=== PATIENT | female | born 1990 | race Caucasian/White ===

== ENCOUNTER 2021-11-09 05:43 | Emergency (ER) | payer OTHER, SELFPAY ==
[2021-11-09 05:43] VITALS: BP 152/92; PULSE 129; RESP 18; TEMP 37.2; O2SAT 96; BMI 34.1
--- NOTE | 2021-11-09 06:02 | EDS_ITS ---
HPI HPI - GI History of Present Illness Chief Complaint: Abd Pain Informant: patient Abdominal Pain/Flank Pain Onset: Days (3) Context: Sudden Onset Timing: Continuous Quality: Sharp, Stabbing and - (Pressure) Location: Epigastric and LUQ Worsened by: Nothing Relieved by: Nothing Nausea/Vomiting/Emesis GI Symptom: Positive for Nausea; Negative for Vomiting Diarrhea/Melena/Hematochezia GI Symptom: Negative for Diarrhea, Melena and Hematochezia Associated Symptoms Associated Symptoms: Positive for Hematuria; Negative for Dysuria and Frequency Narrative Narrative: Patient presents with upper abdominal pain that has been getting worse over the past 3 days. Patient describes her pain as pressure. Patient states it has been constant for the past 3 days. Patient states it is worse over the epigastric and left upper quadrant. Patient also admits to some mild pain in the right upper quadrant. Patient admits to nausea but denies any vomiting. Patient denies any diarrhea, melena, or hematochezia. Patient denies any dysuria or frequency. Patient admits to some hematuria but states she is also on her menstrual cycle. Patient admits to a fever of 102.4 at home. PFSH PFSH Medical History no medical history no medical history Home Medications cephalexin 500 mg PO Q6 #20 capsule 11/09/21 [Rx Last Taken Unknown] drospirenone-ethinyl estradiol [LOUISA (28)] 1 tab PO DAILY 11/09/21 [History Last Taken Unknown] Allergy/AdvReac Type Severity Reaction Status Date / Time No Known Allergies Allergy Verified 11/09/21 05:47 Surgical History (Updated 11/09/21 @ 06:[address] Misael Mcmullen DO) Hx of cholecystectomy Social History Smoking Status: Never smoker ROS ROS ED Constitutional Constitutional ED: Reports fever(s); Denies chills Eyes Eyes: Denies blurry vision or change in vision ENT ENT ED: Denies rhinorrhea or sore throat Cardiovascular Cardiovascular: Denies chest pain or palpitations Respiratory/Chest Respiratory/Chest: Denies cough or dyspnea Gastrointestinal Gastrointestinal: Reports abdominal pain and nausea; Denies diarrhea, melena or vomiting Genitourinary Genitourinary ED: Reports hematuria; Denies dysuria Musculoskeletal Musculoskeletal: Denies back pain or neck pain Integumentary Reports rash; Denies abscess Neurologic Neurologic: Reports headache(s); Denies weakness Allergic/Immunologic Allergic/Immunologic ED: Denies mouth swelling or urticaria EXAM Physical Exam Const Vital Signs: 11/09/21 05:43 Temperature 98.9 F Temperature Source Temporal Pulse Rate 129 H Respiratory Rate 18 Blood Pressure 152/92 H Blood Pressure Mean 112 Pulse Ox 96 Oxygen Delivery Method Room Air Positive well nourished and well developed General Appearance ED: well developed HEENT Reports moist mucous membranes Neck supple and no JVD Resp normal respiratory effort and clear to auscultation bilaterally Cardio regular rate, regular rhythm and no murmurs GI normal to inspection, nondistended, normoactive bowel sounds Auscultation: normoactive bowel sounds Palpation: soft and tender epigastric and LUQ; Negative for guarding or rebound tenderness present Extremity normal to inspection General Extremety ED: Negative for edema or tenderness General Extremity: Negative for edema Neuro oriented x3, CN's II-XII intact bilaterally and no sensory deficits noted Sensorium / Orientation: alert Motor Exam: strength 5/5 throughout Psych mental status grossly normal Skin no rashes or lesions noted MDM MDM MDM Narrative Medical decision making narrative: Patient was given IV fluids, morphine, and Zofran. CBC was within normal limits. Comprehensive metabolic profile was essentially within normal limits. Serum hCG was negative. Lipase was normal. Urinalysis shows a leukocyte esterase of 100 with positive nitrites. Occult blood was 250. There were 10-25 red blood cells, 10-25 white blood cells, and 10-25 epithelial cells. There is 3+ bacteria. Urine culture was ordered. Patient was given a dose of Rocephin here. Patient was given a prescription for Keflex. Patient was instructed to drink plenty of fluids. Patient was instructed to follow-up with her primary care physician in 5 to 7 days. Patient understood and was agreeable with the plan. All questions were answered. Lab Data Attestation: I reviewed the patient's lab results. Labs: Laboratory Results - last 24 hr 11/09/21 11/09/21 11/09/21 06:10 06:10 06:10 WBC 3.4 L RBC 5.05 Hgb 14.3 Hct 40.8 MCV 80.8 L MCH 28.3 MCHC 35.0 RDW Std Deviation 36.2 RDW Coeff of [place] 12.4 Plt Count 172 MPV 11.5 Immature Gran % (Auto) 0.300 Neut % (Auto) 44.9 L Lymph % (Auto) 49.1 H [place] % (Auto) 4.5 Eos % (Auto) 0.0 Baso % (Auto) 1.2 H Absolute Neuts (auto) 1.5 L Absolute Lymphs (auto) 1.65 Nucleated RBC % 0 Atypical Lymphocytes 1+ Sodium 135 L Potassium 3.3 L Chloride 103 Carbon Dioxide 23.0 Anion Gap 9 BUN 4 L Creatinine 0.74 Estim Creat Clear Calc 100.94 Est GFR (MDRD) Af Amer 120 Est GFR (MDRD) Non-Af 99 BUN/Creatinine Ratio 5.4 L Glucose 106 Calcium 8.4 L Total Bilirubin 0.60 AST 188 H ALT 124 H Alkaline Phosphatase 118 H Total Protein 8.1 Albumin 3.3 Globulin 4.8 H Albumin/Globulin Ratio 0.7 L Lipase 61 L Serum , Qual NEGATIVE Urine Color Urine Clarity Urine pH Ur Specific [place] Urine Protein Urine Glucose (UA) Urine Ketones Urine Occult Blood Urine Nitrite Urine Bilirubin Urine Urobilinogen Ur Leukocyte Esterase Urine RBC Urine WBC Ur Squamous Epith Cells Urine Bacteria Urine Mucus 11/09/21 06:10 WBC RBC Hgb Hct MCV MCH MCHC RDW Std Deviation RDW Coeff of [place] Plt Count MPV Immature Gran % (Auto) Neut % (Auto) Lymph % (Auto) [place] % (Auto) Eos % (Auto) Baso % (Auto) Absolute Neuts (auto) Absolute Lymphs (auto) Nucleated RBC % Atypical Lymphocytes Sodium Potassium Chloride Carbon Dioxide Anion Gap BUN Creatinine Estim Creat Clear Calc Est GFR (MDRD) Af Amer Est GFR (MDRD) Non-Af BUN/Creatinine Ratio Glucose Calcium Total Bilirubin AST ALT Alkaline Phosphatase Total Protein Albumin Globulin Albumin/Globulin Ratio Lipase Serum , Qual Urine Color [place] Urine Clarity Sl. Cloudy Urine pH 5.0 Ur Specific [place] 1.020 Urine Protein 100 H Urine Glucose (UA) Normal Urine Ketones 15 H Urine Occult Blood 250 H Urine Nitrite Positive H Urine Bilirubin 3 H Urine Urobilinogen 4 H Ur Leukocyte Esterase 100 H Urine RBC 10-25 SEEN Urine WBC 10-25 SEEN Ur Squamous Epith Cells 10-25 SEEN Urine Bacteria 3+ Urine Mucus 0 SEEN Discharge Plan Triage Chief Complaint: Abd Pain ED Provider: Misael Mcmullen Dx/Rx/DC Orders Clinical Impression: Urinary tract infection Instructions: ED CYSTITIS Female Adult Prescriptions: New cephalexin [cephalexin] 500 MG capsule 500 mg PO Q6 Qty: 20 RF: 0 No Action drospirenone-ethinyl estradiol [LOUISA (28)] 3-0.02 mg Tablet 1 tab PO DAILY RF: 0 Primary Care Provider: Care Physician,No Primary Referrals: Erica Silva MD [STAFF PHYSICIAN] - 5-7 Days Care Physician,No Primary [Primary Care Provider] - Disposition Disposition: Home, Self Care
[2021-11-09 06:19] LABS: Mucous, Urine 0 SEEN /hpf (<or=2+)
[2021-11-09] MEDS: Morphine 4 MG/ML Syringe IV (06:20)
[2021-11-09] MEDS: Ondansetron 4 MG/2 ML Vial IV (06:20)
[2021-11-09 06:21] LABS: Absolute Lymphocyte Count 1.65 X10^3/uL (0.83-4.51); Absolute Neutrophil Count 1.5 X10^3/uL (2.0-7.7); Basophil# 0.04 X10^3/uL; Basophil% 1.2 % (0-1); Hematocrit 40.8 % (37-47); Hemoglobin 14.3 g/dL (12.0-15.0); Lymphocyte # 1.65 X10^3/ul (0.83-4.51); Lymphocyte % 49.1 % (19-41); Mean Corpuscular Hgb 28.3 pg (27.0-32.0); Mean Corpuscular Volume 80.8 fL (81-99); Mean Platelet Vol. 11.5 fl (6.2-12.0); Monocyte# 0.15 X10^3/uL; Monocyte% 4.5 % (0-10); NRBC Flagged by Analyzer 0 % (0-5); Neutrophil # 1.51 X10^3/uL (2.7-7.7); Neutrophil % 44.9 % (47-70); POSITIVE MORPHOLOGY YES; Platelet Count 172 K/mm3 (150-450); RBC Distribution Width CV 12.4 % (11.6-14.6); RBC Distribution Width SD 36.2 fl (35.1-43.9); Red Blood Count 5.05 M/mm3 (4.2-5.4); White Blood Count 3.4 K/mm3 (4.4-11.0)
[2021-11-09] MEDS: 0.9% Normal Saline 1,000 ML 1000 ML IV (06:21)
[2021-11-09 06:24] LABS: Color, Urine Amber (Yellow); Differential Indicated SCAN CRITERIA MET; Glucose, Dipstick Normal (Normal); Ketone-Dipstick 15 mg/dl (Negative); Leukocyte Esterase-Dipstick 100 /ul (Negative); Nitrite-Dipstick Positive (Negative); Occult Blood-Urine 250 /ul (Negative); Protein-Dipstick 100 mg/dl (Negative); Urine Clarity Sl. Cloudy (Clear); Urine Urobilinogen 4 mg/dl (Normal)
[2021-11-09 06:32] LABS: Internal QC Validated? YES +Cl - CLEAR BKGD; Pregnancy, Serum, hCG Quali. NEGATIVE Negative
[2021-11-09 06:34] LABS: Atypical Lymphocyte 1+ %
[2021-11-09 06:39] LABS: ALB/GLOB Ratio 0.7 RATIO (0.9-2.4); AST(SGOT) 188 U/L (15-37); Alanine Aminotransfer ALT/SGPT 124 U/L (13-56); Albumin, Serum 3.3 g/dL (3.2-5.0); Alkaline Phosphatase 118 U/L (45-117); Anion Gap 9 (5-15); BUN 4 mg/dL (7-18); BUN/Creat Ratio 5.4 RATIO (10-20); Calcium,Total 8.4 mg/dL (8.5-10.1); Chloride 103 mmol/L (98-107); Creatinine, Serum 0.74 mg/dL (0.55-1.02); EST Glomerular Filtration Rate 99 mL/min (>60); Est Glom Filt Rate - Afr Amer 120 mL/min (>60); Estimated Creatinine Clearance 100.94 ml/min; Globulin 4.8 g/dL (2.2-4.2); Glucose 106 mg/dL (74-106); Lipase 61 U/L (73-393); Potassium 3.3 mmol/L (3.5-5.1); Protein, Total 8.1 g/dL (6.4-8.2); Sodium Level 135 mmol/L (136-145); Urine Bilirubin Dipstick 3 mg/dL (Negative)
[2021-11-09 06:40] LABS: Bacteria 3+ /hpf (None Seen); Squamous Epithelial Cells - UA 10-25 SEEN /hpf (5-10); White Blood Cells 10-25 SEEN /hpf (0-5)
[2021-11-09 06:41] LABS: Red Blood Cells-Urine 10-25 SEEN /hpf (0-5)
[2021-11-09] MEDS: Ceftriaxone 1 GM/50 ML BAG IV (07:21)
[2021-11-09] MEDS: Mag Hydrox/Al Hydrox/Simeth 30 ML UDC PO (07:22)
[2021-11-09 08:11] VITALS: BP 111/84; PULSE 100; RESP 16; O2SAT 95
== END 2021-11-09 08:14 | disposition home or self-care (01) ==
PROVIDERS: Emergency Provider Emergency Medicine; Visit Provider Emergency Medicine
DX: N39.0 Urinary tract infection, site not specified (principal)
CPT/HCPCS: 80053; 81001; 83690; 84703; 85025; 96365; 96375; 99284; A4216; J2405

== ENCOUNTER 2021-11-11 21:43 | Emergency (ER) | payer OTHER, SELFPAY ==
[2021-11-11 21:44] VITALS: BP 117/94; PULSE 108; RESP 18; TEMP 37; O2SAT 98; BMI 34.1
--- NOTE | 2021-11-11 22:15 | EDS_ITS ---
HPI HPI - GI History of Present Illness Chief Complaint: Abd Pain Informant: patient Abdominal Pain/Flank Pain Onset: Days (4) Context: Gradual Onset Timing: Continuous Quality: Sharp Location: Epigastric and LUQ Worsened by: Food and Movement Relieved by: Nothing Nausea/Vomiting/Emesis GI Symptom: Positive for Nausea; Negative for Vomiting Diarrhea/Melena/Hematochezia GI Symptom: Negative for Diarrhea, Melena and Hematochezia Associated Symptoms Associated Symptoms: Positive for Hematuria; Negative for Dysuria and Frequency Narrative Narrative: Patient presents with abdominal pain that has been constant for the last 4 days. Patient was seen here earlier this week and was diagnosed with a urinary tract infection. Patient was given a prescription for Keflex. Patient states that her pain has not improved. Patient states her pain is over her left upper quadrant and epigastric area. Patient states it is sharp. Patient states it is worse with eating or drinking. It is also worse with movement. Patient states nothing seems to help. Patient admits to nausea but denies any vomiting. Patient denies any diarrhea, melena, or hematochezia. Patient denies any dysu mikayla. PFSH PFSH Home Medications cephalexin 500 mg PO Q6 #20 capsule 11/09/21 [Rx Last Taken Unknown] drospirenone-ethinyl estradiol [LOUISA (28)] 1 tab PO DAILY 11/09/21 [History Last Taken Unknown] Allergy/AdvReac Type Severity Reaction Status Date / Time Sulfa (Sulfonamide Allergy Mild Rash Verified 11/11/21 22:07 Antibiotics) red (food color) Allergy Hives Verified 11/11/21 21:48 Surgical History Hx of cholecystectomy Social History Smoking Status: Never smoker ROS ROS ED Constitutional Constitutional ED: Reports fever(s); Denies chills Eyes Eyes: Denies blurry vision or change in vision ENT ENT ED: Denies rhinorrhea or sore throat Cardiovascular Cardiovascular: Denies chest pain or palpitations Respiratory/Chest Respiratory/Chest: Denies cough or dyspnea Gastrointestinal Gastrointestinal: Reports abdominal pain and nausea; Denies vomiting Genitourinary Genitourinary ED: Denies dysuria or hematuria Musculoskeletal Musculoskeletal: Reports back pain; Denies neck pain Integumentary Denies abscess or rash Neurologic Neurologic: Reports headache(s); Denies weakness Allergic/Immunologic Allergic/Immunologic ED: Denies mouth swelling or urticaria EXAM Physical Exam Const Vital Signs: 11/11/21 21:44 Temperature 98.6 F Temperature Source Temporal Pulse Rate 108 H Respiratory Rate 18 Blood Pressure 117/94 H Blood Pressure Mean 101 Pulse Ox 98 Oxygen Delivery Method Room Air Positive well nourished, well developed and obese General Appearance ED: well developed and NAD Nutritional Appearance: obese HEENT Reports moist mucous membranes Neck supple and no JVD Resp normal respiratory effort and clear to auscultation bilaterally Cardio regular rate and regular rhythm GI non-distended Auscultation: normoactive bowel sounds Palpation: soft and tender epigastric, LLQ and LUQ; Negative for guarding or rebound tenderness present Neuro CN's II-XII intact bilaterally, moves all extremities and no sensory deficits noted Sensorium / Orientation: alert, oriented to person, oriented to place and oriented to time Motor Exam: strength 5/5 throughout Psych mental status grossly normal MDM MDM MDM Narrative Medical decision making narrative: Patient was given IV fluids, morphine, and Zofran. CBC was within normal limits. Comprehensive metabolic profile shows an elevated bilirubin of 2.6, AST was 420, ALT was 322, and alk phos was 195. Urinalysis does not show any evidence of urinary tract infection. Lipase was ordered and is pending. CT scan of the abdomen pelvis was ordered and is pending. Care of the patient was turned over to the oncoming physician. Lab Data Attestation: I reviewed the patient's lab results. Labs: Laboratory Results - last 24 hr 11/11/21 11/11/21 11/11/21 21:50 22:10 22:10 WBC 6.4 RBC 5.07 Hgb 14.3 Hct 41.7 MCV 82.2 MCH 28.2 MCHC 34.3 RDW Std Deviation 38.7 RDW Coeff of Courtney 12.9 Plt Count 151 MPV 13.0 H Immature Gran % (Auto) 0.300 Neut % (Auto) 20.1 L Lymph % (Auto) 73.9 H [place] % (Auto) 3.8 Eos % (Auto) 0.2 Baso % (Auto) 1.7 H Absolute Neuts (auto) 1.3 L Absolute Lymphs (auto) 4.73 H Nucleated RBC % 0 Differential Comment SCANNED Sodium 136 Potassium 3.9 Chloride 103 Carbon Dioxide 28.0 Anion Gap 5 BUN 5 L Creatinine 0.69 Estim Creat Clear Calc 108.25 Est GFR (MDRD) Af Amer 129 Est GFR (MDRD) Non-Af 107 BUN/Creatinine Ratio 7.3 L Glucose 107 H Calcium 9.2 Total Bilirubin 2.60 H AST 420 H ALT 322 H Alkaline Phosphatase 195 H Total Protein 8.0 Albumin 3.3 Globulin 4.7 H Albumin/Globulin Ratio 0.7 L Serum , Qual Urine Color Yellow Urine Clarity Clear Urine pH 7.0 Ur Specific [place] 1.010 Urine Protein 15 H Urine Glucose (UA) Normal Urine Ketones 5 H Urine Occult Blood 250 H Urine Nitrite Negative Urine Bilirubin 3 H Urine Urobilinogen 4 H Ur Leukocyte Esterase 25 H Urine RBC 5-10 SEEN Urine WBC 0 SEEN Ur Squamous Epith Cells 0-5 SEEN Urine Bacteria 0 SEEN Urine Mucus 0 SEEN 11/11/21 22:10 WBC RBC Hgb Hct MCV MCH MCHC RDW Std Deviation RDW Coeff of [place] Plt Count MPV Immature Gran % (Auto) Neut % (Auto) Lymph % (Auto) [place] % (Auto) Eos % (Auto) Baso % (Auto) Absolute Neuts (auto) Absolute Lymphs (auto) Nucleated RBC % Differential Comment Sodium Potassium Chloride Carbon Dioxide Anion Gap BUN Creatinine Estim Creat Clear Calc Est GFR (MDRD) Af Amer Est GFR (MDRD) Non-Af BUN/Creatinine Ratio Glucose Calcium Total Bilirubin AST ALT Alkaline Phosphatase Total Protein Albumin Globulin Albumin/Globulin Ratio Serum , Qual NEGATIVE Urine Color Urine Clarity Urine pH Ur Specific [place] Urine Protein Urine Glucose (UA) Urine Ketones Urine Occult Blood Urine Nitrite Urine Bilirubin Urine Urobilinogen Ur Leukocyte Esterase Urine RBC Urine WBC Ur Squamous Epith Cells Urine Bacteria Urine Mucus Discharge Plan Triage Chief Complaint: Abd Pain ED Provider: Misael Mcmullen Dx/Rx/DC Orders Clinical Impression: Abdominal pain Instructions: ED Abdominal Pain Unkn Cause Fem Prescriptions: No Action drospirenone-ethinyl estradiol [LOUISA (28)] 3-0.02 mg Tablet 1 tab PO DAILY RF: 0 cephalexin [cephalexin] 500 MG capsule 500 mg PO Q6 Qty: 20 RF: 0 Primary Care Provider: Care Physician,No Primary Referrals: Care Physician,No Primary [Primary Care Provider] - Clare Kaba DO [STAFF PHYSICIAN] - 3-5 Days Disposition Disposition: Home, Self Care
--- NOTE | 2021-11-11 22:19 | CT_ITS ---
STUDY: CT ABDOMEN AND PELVIS WITH CONTRAST REASON FOR EXAM: Female, 31 years old. Abdominal pain -- IV PO Contrast RADIATION DOSAGE (If Supplied By Facility): CTDIvol = ( 16.73 ) mGy, DLP = ( 1331.08 ) mGycm TECHNIQUE: Transaxial images were obtained from the dome of the diaphragm to the symphysis pubis with oral contrast. 100mL Isovue-370 was administered. Sagittal and coronal images were reconstructed. Individualized dose optimization techniques were used for this CT. COMPARISON: None. FINDINGS: The visualized lung bases are unremarkable. The visualized portions of the heart are within normal limits. Normal liver. There are surgical clips in the gallbladder fossa consistent with a prior cholecystectomy. Normal spleen. Normal pancreas. Normal bilateral adrenal glands. Normal right kidney. Normal left kidney. No ureteral calculus or hydronephrosis. Normal visualized stomach. Normal small intestine. Normal colon. The appendix is visualized and appears normal. Oral contrast has reached the distal small bowel. No evidence for bowel obstruction. Normal abdominal aorta. Normal inferior vena cava. Normal retroperitoneum. Normal urinary bladder. Normal abdominal wall. Normal osseous structures. There is a small hemangioma within the posterior aspect of T12 vertebral body measuring 1.[address]/Abdomen/Pelvis WITH Contrast IMPRESSION: Negative enhanced CT of the abdomen and pelvis for acute intra-abdominal abnormality. Normal appendix. Electronically Signed: Ferdinand Ballard MD at 0:27 EST ,
[2021-11-11] MEDS: Morphine 4 MG/ML Syringe IV (22:32)
[2021-11-11] MEDS: Ondansetron 4 MG/2 ML Vial IV (22:32)
[2021-11-11] MEDS: 0.9% Normal Saline 1,000 ML 1000 ML IV (22:34)
[2021-11-11 22:52] LABS: Bacteria 0 SEEN /hpf (None Seen); Mucous, Urine 0 SEEN /hpf (<or=2+); White Blood Cells 0 SEEN /hpf (0-5)
[2021-11-11 22:53] LABS: Absolute Lymphocyte Count 4.73 X10^3/uL (0.83-4.51); Absolute Neutrophil Count 1.3 X10^3/uL (2.0-7.7); Basophil# 0.11 X10^3/uL; Basophil% 1.7 % (0-1); Eosinophil# 0.01 X10^3/uL; Eosinophils% 0.2 % (0-5); Hematocrit 41.7 % (37-47); Hemoglobin 14.3 g/dL (12.0-15.0); Lymphocyte # 4.73 X10^3/ul (0.83-4.51); Lymphocyte % 73.9 % (19-41); Mean Corp Hgb Conc 34.3 g/dL (32-36); Mean Corpuscular Hgb 28.2 pg (27.0-32.0); Mean Corpuscular Volume 82.2 fL (81-99); Monocyte# 0.24 X10^3/uL; Monocyte% 3.8 % (0-10); NRBC Flagged by Analyzer 0 % (0-5); Neutrophil # 1.29 X10^3/uL (2.7-7.7); Neutrophil % 20.1 % (47-70); POSITIVE MORPHOLOGY YES; Platelet Count 151 K/mm3 (150-450); RBC Distribution Width CV 12.9 % (11.6-14.6); RBC Distribution Width SD 38.7 fl (35.1-43.9); Red Blood Count 5.07 M/mm3 (4.2-5.4); White Blood Count 6.4 K/mm3 (4.4-11.0)
[2021-11-11 22:54] LABS: Differential Indicated SCAN CRITERIA MET
[2021-11-11 23:05] LABS: Internal QC Validated? YES +Cl - CLEAR BKGD; Pregnancy, Serum, hCG Quali. NEGATIVE Negative
[2021-11-11 23:15] LABS: ALB/GLOB Ratio 0.7 RATIO (0.9-2.4); AST(SGOT) 420 U/L (15-37); Alanine Aminotransfer ALT/SGPT 322 U/L (13-56); Albumin, Serum 3.3 g/dL (3.2-5.0); Alkaline Phosphatase 195 U/L (45-117); Anion Gap 5 (5-15); BUN 5 mg/dL (7-18); BUN/Creat Ratio 7.3 RATIO (10-20); Calcium,Total 9.2 mg/dL (8.5-10.1); Chloride 103 mmol/L (98-107); Creatinine, Serum 0.69 mg/dL (0.55-1.02); EST Glomerular Filtration Rate 107 mL/min (>60); Est Glom Filt Rate - Afr Amer 129 mL/min (>60); Estimated Creatinine Clearance 108.25 ml/min; Globulin 4.7 g/dL (2.2-4.2); Glucose 107 mg/dL (74-106); Potassium 3.9 mmol/L (3.5-5.1); Sodium Level 136 mmol/L (136-145)
[2021-11-11 23:19] LABS: Color, Urine Yellow (Yellow); Glucose, Dipstick Normal (Normal); Ketone-Dipstick 5 mg/dl (Negative); Leukocyte Esterase-Dipstick 25 /ul (Negative); Nitrite-Dipstick Negative (Negative); Occult Blood-Urine 250 /ul (Negative); Protein-Dipstick 15 mg/dl (Negative); Urine Clarity Clear (Clear); Urine Urobilinogen 4 mg/dl (Normal)
[2021-11-11 23:25] LABS: Red Blood Cells-Urine 5-10 SEEN /hpf (0-5); Squamous Epithelial Cells - UA 0-5 SEEN /hpf (5-10); Urine Bilirubin Dipstick 3 mg/dL (Negative)
[2021-11-11 23:26] LABS: Differential Comment SCANNED
[2021-11-12 00:21] LABS: Lipase 88 U/L (73-393)
--- NOTE | 2021-11-12 02:15 | ED.RN ---
PATIENT GIVEN 4 MG ZOFRAN IV AT 0200. FLUIDS HAVE BEEN INFUSED- 1L NS. PAIN REASSESSED. 01/26. ID [employer]S NOT WORKING FOR THIS RN DURING THE TIME OF MEDICATION GIVEN.
[2021-11-13 09:09] LABS: HEPATITIS B SURFACE AG Negative (Negative); Hepatitis A IgM Antibody Negative (Negative); Hepatitis B Core AB IgM Negative (Negative)
[2021-11-13 10:12] LABS: Hep C Antibodies <0.1 s/co ratio (0.0-0.9)
== END 2021-11-12 02:18 | disposition home or self-care (01) ==
PROVIDERS: Emergency Medicine; Emergency Provider Emergency Medicine; Visit Provider Emergency Medicine
DX: R10.9 Unspecified abdominal pain (principal); E66.9 Obesity, unspecified
CPT/HCPCS: 74177; 80053; 80074; 81001; 83690; 84703; 85025; 87426; 96374; 96375; 99283; J7030; Q9967; A4216; J2405

== ENCOUNTER 2021-12-10 11:59 | Outpatient (CLI) | payer OTHER, SELFPAY ==
[2021-12-10 15:06] LABS: Absolute Lymphocyte Count 2.44 X10^3/uL (0.83-4.51); Absolute Neutrophil Count 3.2 X10^3/uL (2.0-7.7); Basophil# 0.03 X10^3/uL; Basophil% 0.5 % (0-1); Eosinophil# 0.05 X10^3/uL; Eosinophils% 0.8 % (0-5); Hematocrit 41.9 % (37-47); Hemoglobin 14.1 g/dL (12.0-15.0); Lymphocyte # 2.44 X10^3/ul (0.83-4.51); Lymphocyte % 39.7 % (19-41); Mean Corp Hgb Conc 33.7 g/dL (32-36); Mean Corpuscular Hgb 28.6 pg (27.0-32.0); Monocyte# 0.38 X10^3/uL; Monocyte% 6.2 % (0-10); NRBC Flagged by Analyzer 0 % (0-5); Neutrophil # 3.24 X10^3/uL (2.7-7.7); Neutrophil % 52.6 % (47-70); Platelet Count 278 K/mm3 (150-450); RBC Distribution Width SD 39.8 fl (35.1-43.9); Red Blood Count 4.93 M/mm3 (4.2-5.4); White Blood Count 6.2 K/mm3 (4.4-11.0)
[2021-12-10 15:23] LABS: Vitamin D,25 Hydroxy 15.7 ng/mL
[2021-12-10 15:31] LABS: ALB/GLOB Ratio 0.9 RATIO (0.9-2.4); AST(SGOT) 18 U/L (15-37); Alanine Aminotransfer ALT/SGPT 30 U/L (13-56); Albumin, Serum 3.9 g/dL (3.2-5.0); Alkaline Phosphatase 74 U/L (45-117); Anion Gap 5 (5-15); BUN 6 mg/dL (7-18); BUN/Creat Ratio 10.2 RATIO (10-20); Calcium,Total 9.2 mg/dL (8.5-10.1); Chloride 104 mmol/L (98-107); Creatinine, Serum 0.59 mg/dL (0.55-1.02); EST Glomerular Filtration Rate 128 mL/min (>60); Est Glom Filt Rate - Afr Amer 155 mL/min (>60); Globulin 4.3 g/dL (2.2-4.2); Glucose 81 mg/dL (74-106); Potassium 3.9 mmol/L (3.5-5.1); Protein, Total 8.2 g/dL (6.4-8.2); Sodium Level 138 mmol/L (136-145); Thyroid Stim Hormone (TSH) 0.79 uIU/mL (0.358-3.74)
[2021-12-14 09:57] LABS: Hepatitis A IgM Antibody Negative (Negative)
== END 2021-12-10 23:59 | disposition home or self-care (01) ==
LOC: BIMLAB 12:01
PROVIDERS: PCP Internal Medicine; Referring Provider Internal Medicine; Visit Provider Internal Medicine
DX: R79.89 Other specified abnormal findings of blood chemistry (principal)
CPT/HCPCS: 36415; 80053; 82306; 84443; 85025; 86709

== ENCOUNTER 2021-12-16 08:43 | Outpatient (CLI) | payer OTHER, SELFPAY ==
--- NOTE | 2021-12-16 08:44 | US_ITS ---
STUDY: ABDOMINAL ULTRASOUND - RIGHT UPPER QUADRANT REASON FOR VISIT: Female, 31 years old ELEVATE LFT TECHNIQUE: Ultrasound evaluation of the right upper quadrant was performed with real-time and static leung-scale imaging. TECHNICAL QUALITY: Adequate. COMPARISON: None. FINDINGS: Liver: The liver measures 14.2 cm. There is normal echogenicity of the liver. The bile ducts are within normal limits. There is hepatic color flow. The direction of portal flow is hepatopetal. There is no demonstrated mass lesion. Gallbladder: The patient is status post cholecystectomy. Common Bile Duct (C.B.D.): The common bile duct measures 4 mm. Pancreas: Normal size of the head, body and tail of the pancreas. There is normal echogenicity of the pancreas. There is no demonstrated pancreatic mass or cyst. Right Kidney: Normal size of the right kidney. The right kidney measures 11.9 cm x 5.1 cm x 4.6 cm. Normal renal cortex. The right cortex measures 1.3 cm. There is no demonstrated renal mass or cyst. There is no right hydronephrosis. US/Liver IMPRESSION: Normal right upper quadrant ultrasound examination. The patient is status post cholecystectomy. Electronically Signed: Nish Diamond MD at 9:42 EDT ,
== END 2021-12-16 23:59 | disposition home or self-care (01) ==
LOC: US 08:43
PROVIDERS: PCP Internal Medicine; Referring Provider Internal Medicine; Visit Provider Internal Medicine
DX: R79.89 Other specified abnormal findings of blood chemistry (principal)
CPT/HCPCS: 76705

== ENCOUNTER 2022-02-13 09:11 | Emergency (ER) | payer OTHER, SELFPAY ==
[2022-02-13 09:11] VITALS: BP 105/80; PULSE 104; RESP 16; TEMP 36; O2SAT 98; BMI 34.9
[2022-02-13] MEDS: Ondansetron 4 MG/2 ML Vial IV (09:37)
[2022-02-13] MEDS: Ketorolac 15 MG/ML Vial IV (09:38)
[2022-02-13] MEDS: 0.9% Normal Saline 1,000 ML 1000 ML IV (09:38)
[2022-02-13 09:47] LABS: Absolute Lymphocyte Count 1.19 X10^3/uL (0.83-4.51); Absolute Neutrophil Count 4.2 X10^3/uL (2.0-7.7); Basophil# 0.01 X10^3/uL; Basophil% 0.2 % (0-1); Hematocrit 45.2 % (37-47); Hemoglobin 15.6 g/dL (12.0-15.0); Lymphocyte # 1.19 X10^3/ul (0.83-4.51); Lymphocyte % 20.3 % (19-41); Mean Corp Hgb Conc 34.5 g/dL (32-36); Mean Corpuscular Hgb 28.4 pg (27.0-32.0); Mean Corpuscular Volume 82.2 fL (81-99); Mean Platelet Vol. 11.9 fl (6.2-12.0); Monocyte# 0.45 X10^3/uL; Monocyte% 7.7 % (0-10); NRBC Flagged by Analyzer 0 % (0-5); Neutrophil # 4.18 X10^3/uL (2.7-7.7); Neutrophil % 71.5 % (47-70); Platelet Count 275 K/mm3 (150-450); RBC Distribution Width CV 12.7 % (11.6-14.6); RBC Distribution Width SD 38.1 fl (35.1-43.9); White Blood Count 5.9 K/mm3 (4.4-11.0)
[2022-02-13 10:10] LABS: ALB/GLOB Ratio 0.8 RATIO (0.9-2.4); AST(SGOT) 13 U/L (15-37); Alanine Aminotransfer ALT/SGPT 23 U/L (13-56); Albumin, Serum 3.9 g/dL (3.2-5.0); Alkaline Phosphatase 60 U/L (45-117); Anion Gap 10 (5-15); BUN 14 mg/dL (7-18); BUN/Creat Ratio 11.4 RATIO (10-20); Calcium,Total 9.2 mg/dL (8.5-10.1); Chloride 103 mmol/L (98-107); Creatinine, Serum 1.23 mg/dL (0.55-1.02); EST Glomerular Filtration Rate 55 mL/min (>60); Est Glom Filt Rate - Afr Amer 66 mL/min (>60); Estimated Creatinine Clearance 60.73 ml/min; Globulin 4.9 g/dL (2.2-4.2); Glucose 159 mg/dL (74-106); Lipase 64 U/L (73-393); Potassium 3.4 mmol/L (3.5-5.1); Protein, Total 8.8 g/dL (6.4-8.2); Sodium Level 132 mmol/L (136-145)
[2022-02-13 10:15] LABS: Mucous, Urine 0 SEEN /hpf (<or=2+); Red Blood Cells-Urine 0 SEEN /hpf (0-5)
--- NOTE | 2022-02-13 10:15 | EDS_ITS ---
HPI <VICKI Galvez - Last Filed: 02/13/22 12:04> History of Present Illness Chief Complaint: Nausea/Vomiting/Diarrhea Narrative Narrative: 31-year-old female with history of seasonal allergies presents to the emergency department with 2 days of diarrhea, dizziness, fatigue. Patient is in a on the floor, patient states today she was at work, had 8 episodes of diarrhea from 7 AM to 9:30 AM, on the last course of diarrhea, she states that she felt hot sweaty and kind of lightheaded. Patient denies any sick contacts, patient denies any recent antibiotic use. Denies any fevers or chills. Denies any blood in the stool. Denies any specific abdominal. Patient is going multiple times through the day for the last 48 hours and feels fatigued. Denies any blood in stool or vomit PFSH <VCIKI Galvez - Last Filed: 02/13/22 12:04> PFSH Medical History (Updated 02/13/22 @ 12:02 by VICKI Galvez) Asthma Bone fracture Gallstones Headache, migraine Rosacea Seasonal allergic conjunctivitis Trigger thumb Wears hearing aid Home Medications drospirenone-ethinyl estradiol [LOUISA (28)] 1 tab PO DAILY 11/09/21 [History Last Taken Unknown] cephalexin 500 mg PO BID #10 cap 02/13/22 [Rx Last Taken Unknown] ondansetron 4 mg PO Q8H PRN #10 tab 02/13/22 [Rx Last Taken Unknown] Allergy/AdvReac Type Severity Reaction Status Date / Time Sulfa (Sulfonamide Allergy Mild Rash Verified 02/13/22 09:11 Antibiotics) red (food color) Allergy Hives Verified 02/13/22 09:11 Family History Sister Asthma Father Bowel disease Liver disease Thyroid disorder Grandmother Cervical cancer Diabetes Grandfather Cancer Mother Hypertension Surgical History Hx of cholecystectomy Social History (Updated 12/10/21 @ 10:30 by Elena Hoskins) Smoking Status: Never smoker alcohol intake: never substance use type: does not use what type of physical activity do you participate in: none ROS <VICKI Galvez - Last Filed: 02/13/22 12:04> ROS ED ROS Narrative Constitutional: Negative for fever, weight loss, weakness. Positive for chills and sweats Eyes: Negative for vision loss, vision change, double vision ENT: Negative for any sore throat, ear pain, congestion Cardiovascular: Negative for any chest pain, tightness, palpitations Respiratory: Negative for any cough, sputum production, hemoptysis, dyspnea, dyspnea on exertion, orthopnea Gastrointestinal: Negative for any abdominal pain, nausea, vomiting, constipation, blood in stool, blood in vomit. Positive for diarrhea : Negative for any urinary frequency, dysuria, retention, blood in urine Muscle skeletal: Negative for any muscle joint pain, stiffness, myalgias, arthralgias, neck pain, back pain Neurological: Negative for any headache, syncope, numbness or tingling. Positive for dizziness Skin: Negative for any rashes, lumps, itching, abrasions, lacerations Psychiatric: Negative for any depression, anxiety, stress, suicidal ideation, homicidal ideation Hematologic: Negative for any easy bruising, excessive bruising, easy bleeding Allergies: Negative for any eczema, hives, rash EXAM <VICKI Galvez - Last Filed: 02/13/22 12:04> Physical Exam Narrative Exam Narrative: Vital signs reviewed. HEET: Head normocephalic atraumatic, TMs clear bilaterally. Posterior pharynx is clear, moist mucous membranes. Nares clear bilaterally. Neck: Supple with no lymphadenopathy or tenderness. No signs of meningismus, negative jolt sign. Cardiac: Regular rate and rhythm no murmurs gallops or rubs, equal peripheral pulses bilaterally. Respiratory: Lungs clear to auscultation bilaterally. No chest tenderness. Abdomen: Soft, nontender, nondistended. No abdominal bruit or pulsatile masses. No hepatosplenomegaly Extremities: No peripheral edema, no signs of gross trauma or deformity. Active full range of motion of all extremities. Neuro: Cranial nerves II through XII intact, no focal neurological deficits. Skin: Clean dry and intact with no rash, purpura, petechiae, vesicles or pustules. Backs/flank: No CVA tenderness, no midline spinal tenderness, no deformity. Psych: Normal mood and affect. No SI, HI or acute psychosis. Const Vital Signs: 02/13/22 09:11 02/13/22 11:34 Temperature 96.8 F L 97.2 F L Temperature Source Temporal Temporal Pulse Rate 104 H 78 Respiratory Rate 16 18 Blood Pressure 105/80 114/70 Blood Pressure Mean 88 84 Pulse Ox 98 97 Oxygen Delivery Method Room Air Room Air <Dr. Americo Duncan DO - Last Filed: 02/13/22 11:45> Physical Exam Const Vital Signs: 02/13/22 09:11 02/13/22 11:34 Temperature 96.8 F L 97.2 F L Temperature Source Temporal Temporal Pulse Rate 104 H 78 Respiratory Rate 16 18 Blood Pressure 105/80 114/70 Blood Pressure Mean 88 84 Pulse Ox 98 97 Oxygen Delivery Method Room Air Room Air MDM <VICKI Galvez - Last Filed: 02/13/22 12:04> [facility] MDM Narrative Medical decision making narrative: Patient arrives in no distress, patient's vital signs are stable. Patient presents to the emergency department with complaints of diarrhea for last 2 days, intermittent dizziness feeling of dehydration. Patient received IV fluids, 2 L of normal saline, IV Zofran. Patient's laboratory studies show a normal CBC, patient's chemistries are consistent with dehydration, patient had slight hyponatremia 132, a slight bump in her creatinine of 1.23, patient's urinalysis showed dark urine, patient did have 2+ bacteria with positive leukocytes as well as positive nitrites. Patient was ordered a stool sample here however she was unable to go. After the 2 L of fluid, IV Zofran, patient's vital signs normalized, the patient felt much better. I do believe the patient was suffering from dehydration secondary to the diarrhea. She will be placed on Keflex twice a day for 5 days for her urinary tract infection. She is instructed to return for any worsening symptoms. At this time there is no infectious process, patient is no longer having bowel movements, she will continue to take oral fluids. She will take antibiotics until completion. She is stable for discharge Lab Data Attestation: I reviewed the patient's lab results. Labs: Laboratory Results - last 24 hr 02/13/22 02/13/22 02/13/22 09:25 09:25 10:04 WBC 5.9 RBC 5.50 H Hgb 15.6 H Hct 45.2 MCV 82.2 MCH 28.4 MCHC 34.5 RDW Std Deviation 38.1 RDW Coeff of Courtney 12.7 Plt Count 275 MPV 11.9 Immature Gran % (Auto) 0.300 Neut % (Auto) 71.5 H Lymph % (Auto) 20.3 Izard % (Auto) 7.7 Eos % (Auto) 0.0 Baso % (Auto) 0.2 Absolute Neuts (auto) 4.2 Absolute Lymphs (auto) 1.19 Nucleated RBC % 0 Sodium 132 L Potassium 3.4 L Chloride 103 Carbon Dioxide 19.0 L Anion Gap 10 BUN 14 Creatinine 1.23 H Estim Creat Clear Calc 60.73 Est GFR (MDRD) Af Amer 66 Est GFR (MDRD) Non-Af 55 L BUN/Creatinine Ratio 11.4 Glucose 159 H Calcium 9.2 Total Bilirubin 0.80 AST 13 L ALT 23 Alkaline Phosphatase 60 Total Protein 8.8 H Albumin 3.9 Globulin 4.9 H Albumin/Globulin Ratio 0.8 L Lipase 64 L Urine Color DARK YELLOW Urine Clarity Cloudy Urine pH 5.0 Ur Specific [place] 1.030 Urine Protein 100 H Urine Glucose (UA) Normal Urine Ketones 15 H Urine Occult Blood 250 H Urine Nitrite Positive H Urine Bilirubin 6 H Urine Urobilinogen 4 H Ur Leukocyte Esterase 25 H Urine RBC 0 SEEN Urine WBC 5-10 SEEN Ur Squamous Epith Cells 0-5 SEEN Urine Bacteria 2+ Hyaline Casts 10-25 SEEN Fine Granular Casts 0-5 SEEN Urine Mucus 0 SEEN <Dr. Americo Duncan DO - Last Filed: 02/13/22 11:45> MDM MDM Narrative Medical decision making narrative: I performed a history and physical examination of the patient and discussed management plan with the physician commercial lines account assistant. I reviewed the physician commercial lines account assistant's note and agree with the documented findings and plan of care. creatinine slightly elevated 1.23. Urinalysis is positive for bacteria white cells and nitrates. It is concentrated. Her CO2 is low. She received 2 L of IV fluids. Heart rate is better. Americo Duncan DO, MS Lab Data Attestation: I reviewed the patient's lab results. Labs: Laboratory Results - last 24 hr 02/13/22 02/13/22 02/13/22 09:25 09:25 10:04 WBC 5.9 RBC 5.50 H Hgb 15.6 H Hct 45.2 MCV 82.2 MCH 28.4 MCHC 34.5 RDW Std Deviation 38.1 RDW Coeff of Courtney 12.7 Plt Count 275 MPV 11.9 Immature Gran % (Auto) 0.300 Neut % (Auto) 71.5 H Lymph % (Auto) 20.3 Izard % (Auto) 7.7 Eos % (Auto) 0.0 Baso % (Auto) 0.2 Absolute Neuts (auto) 4.2 Absolute Lymphs (auto) 1.19 Nucleated RBC % 0 Sodium 132 L Potassium 3.4 L Chloride 103 Carbon Dioxide 19.0 L Anion Gap 10 BUN 14 Creatinine 1.23 H Estim Creat Clear Calc 60.73 Est GFR (MDRD) Af Amer 66 Est GFR (MDRD) Non-Af 55 L BUN/Creatinine Ratio 11.4 Glucose 159 H Calcium 9.2 Total Bilirubin 0.80 AST 13 L ALT 23 Alkaline Phosphatase 60 Total Protein 8.8 H Albumin 3.9 Globulin 4.9 H Albumin/Globulin Ratio 0.8 L Lipase 64 L Urine Color DARK YELLOW Urine Clarity Cloudy Urine pH 5.0 Ur Specific [place] 1.030 Urine Protein 100 H Urine Glucose (UA) Normal Urine Ketones 15 H Urine Occult Blood 250 H Urine Nitrite Positive H Urine Bilirubin 6 H Urine Urobilinogen 4 H Ur Leukocyte Esterase 25 H Urine RBC 0 SEEN Urine WBC 5-10 SEEN Ur Squamous Epith Cells 0-5 SEEN Urine Bacteria 2+ Hyaline Casts 10-25 SEEN Fine Granular Casts 0-5 SEEN Urine Mucus 0 SEEN Discharge Plan Triage Chief Complaint: Nausea/Vomiting/Diarrhea ED Midlevel Provider: Malcom Estevez ED Provider: Americo Duncan Dx/Rx/DC Orders Clinical Impression: Acute dehydration, Diarrhea, Cystitis Instructions: ED Dehydration (Adult), ED Diarrhea, Unknown Cause, ED CYSTITIS Female Adult Prescriptions: New cephalexin 500 mg capsule 500 mg PO BID Qty: 10 RF: 0 ondansetron 4 mg tablet,disintegrating 4 mg PO Q8H PRN (Reason: nausea and vomiting) Qty: 10 RF: 0 No Action drospirenone-ethinyl estradiol [LOUISA (28)] 3-0.02 mg Tablet 1 tab PO DAILY RF: 0 Stand Alone Forms: ED Work / School Excuse Primary Care Provider: Erica Silva Referrals: Erica Silva MD [Primary Care Provider] - Activity Restrictions/Additional Instructions: Please stay hydrated. Please take antibiotics until completed. Return for any weather issues. Print Language: Omani Disposition Disposition: Home, Self Care
[2022-02-13 10:20] LABS: Glucose, Dipstick Normal (Normal); Ketone-Dipstick 15 mg/dl (Negative); Leukocyte Esterase-Dipstick 25 /ul (Negative); Nitrite-Dipstick Positive (Negative); Occult Blood-Urine 250 /ul (Negative); Protein-Dipstick 100 mg/dl (Negative); Urine Clarity Cloudy (Clear); Urine Urobilinogen 4 mg/dl (Normal)
[2022-02-13 10:23] LABS: Color, Urine DARK YELLOW (Yellow); Urine Bilirubin Dipstick 6 mg/dL (Negative)
[2022-02-13 10:37] LABS: Bacteria 2+ /hpf (None Seen); Hyaline Cast 10-25 SEEN /lpf (0-5); Squamous Epithelial Cells - UA 0-5 SEEN /hpf (5-10); White Blood Cells 5-10 SEEN /hpf (0-5)
[2022-02-13 10:38] LABS: Fine Granular Cast- Urine 0-5 SEEN /lpf (0-5)
[2022-02-13] MEDS: 0.9% Normal Saline 1,000 ML 999 ML IV (10:50)
[2022-02-13] MEDS: Cephalexin 250 MG Capsule 500 MG PO (11:19)
[2022-02-13 11:34] VITALS: BP 114/70; PULSE 78; RESP 18; TEMP 36.2; O2SAT 97
[2022-02-13 12:15] VITALS: BP 119/78; PULSE 78; RESP 16; O2SAT 99
== END 2022-02-13 12:15 | disposition home or self-care (01) ==
PROVIDERS: Nurse Practitioner; Emergency Provider Emergency Medicine; PCP Internal Medicine; Visit Provider Emergency Medicine
DX: E86.0 Dehydration (principal); R19.7 Diarrhea, unspecified; N30.90 Cystitis, unspecified without hematuria; R11.2 Nausea with vomiting, unspecified
CPT/HCPCS: 80053; 81001; 83690; 85025; 87506; 87811; 96361; 96374; 96375; 99284; J7030; A4216; J2405

== ENCOUNTER → 2022-09-16 | Outpatient (CLI) | payer OTHER, SELFPAY ==
--- NOTE | 2022-09-16 10:13 | MRI_ITS ---
STUDY: MRI RIGHT KNEE REASON FOR EXAM: Female, 32 years old. Pain. TECHNIQUE: Standardized fat and water weighted pulse sequences were obtained in all 3 orthogonal planes. COMPARISON: X-ray June 24, 2022 FINDINGS: Normal medial meniscus. Normal hyaline cartilage of the medial femorotibial compartment. Normal medial femoral condyle and tibial plateau. Normal medial collateral ligamentous complex (MCL). Normal distal semimembranosus, gracilis and semitendinosus tendons. Normal lateral meniscus. Normal hyaline cartilage of the lateral femorotibial compartment. Normal lateral femoral condyle and tibial plateau. Normal proximal tibiofibular articulation. Normal lateral collateral (fibular) ligament. Normal popliteus tendon. Normal biceps femoris tendon. There is edema with swelling and loss of definition of the of the ACL fascicles, producing a celery stick appearance, with preservation of the continuity of fibers, consistent with mucoid cystic degeneration. Normal posterior cruciate ligament (PCL). Normal congruent patellofemoral articulation. Normal hyaline cartilage of the patellofemoral compartment. Normal medial and lateral patellar retinaculum. Normal quadriceps tendon. Normal patellar tendon. Normal Hoffa''s fat pad. There is a small volume joint effusion. The soft tissues are unremarkable. The otherwise visualized osseous structures are unremarkable. 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 Small joint effusion. No meniscal tear seen. Electronically Signed: Ronaldo Baumann MD at 20:14 EST ,
== END | disposition home or self-care (01) ==
LOC: MRI 10:13
PROVIDERS: PCP Internal Medicine; Referring Provider Physician Assistant; Visit Provider Physician Assistant
DX: M25.561 Pain in right knee (principal); M22.2X1 Patellofemoral disorders, right knee; M22.40 Chondromalacia patellae, unspecified knee
CPT/HCPCS: 73721

== ENCOUNTER 2022-10-29 11:30 | Outpatient (RCR) | payer OTHER, SELFPAY ==
--- NOTE | 2022-07-08 08:35 | HP.PTEVAL_ITS ---
Patient's Visit Information LALA LANGSTON is a 32 year old F referred to Physical Therapy by AAYUSH Milan with a diagnosis of R chondromalacia patellae, R knee pain. Date of Evaluation: 07/07/22 Physical Therapist: Dominguez Mcnamara DPT - Visit Plan Frequency: 2x /Week Duration: 4 Weeks Plan: Start with R quad, glute med, glute max strengthening. with focus on patellarfemoral stabilization. Progress core stability as well. I gave her high repetitions of SLR, SL hip series (glute med strengthening), clamshells and bridging for HEP today. PTB given as well. - Subjective Pt. is here today for her initial evaluation with diagnosis of R chondromalacia patellae, R knee pain. Pt. reports having on and off knee pain for a number of years, but has been progressively worsening over the past 3-4 months. NO major PMH, but does have a bit of history with this knee. She hurt it in high school including a patellar subluxation/dislocation, but also it was presumed that she had an ACL tear in high school, but once the surgeon finally attempted to do the surgery the ACL was found to be completely intact. She reported that surgeon told her in a small amount of cases the ACL does not show up on an MRI and she fell with in these cases. Patient reports current symptoms are fine in AMs, ad progressively worsens as the day progresses. Increases pain: stairs, prolonged standing and she has increased clunk sound with bending her knee. She says pain is not always associated with clunk. Pt. saw physician who reports it looks like chondromalacia patellae, but not completely textbook. She has decreased pain with rest. No formal exercises or PT yet. Xrays negative for acute injury. 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 Pt. is hopeful to reduce symptoms and get back to all recreational and work activities without limitations. - Pain R knee Pain Intensity (Out of 10): 2 Pain Intensity Range: 0, 8 - Objective POSTURE: Pt. has fairly good posture in stance. No large wt. shift off her R leg. She does have slight increased genu valgum bilaterally and stands in slight hyper extension. Slight femoral IR noted as well. [place]: Pt. does not have any pain to palpation today throughout BLEs. Pt. might have slight tenderness at popliteal fossa on lateral aspect, but minimal. NEURO: normal throughout. ROM: Pt. has good PROM of B knees and hips. She has no audible with passive ROM. In sitting position she did have a clunk like sound at ~100deg of knee flexion and was pretty consistent. She denies pain. Hard to tell if patella is grinding or no. MMT: LLE 5/5 throughout. RLE: ankle 5/5 throughout; knee: ext 5-/5, flexion 5-/5 no pain noted with testing. Hip: flexion 5/5, ext 5-/5, abd 4+/5, ER 4+/5, IR 4+/5. Pt. had no pain with testing. Core strength- poor+. GAIT: Pt. has good gait pattern. No antalgic pattern. Pt reports no pain during gait today. STAIRS: Pt. has mild increase NW during R loading phases, descending worse than ascending. - Special Tests R Knee Roger - Meniscus: Negative R Knee Disco Test - Meniscus: Negative R Knee Anterior Drawer - ACL: Negative R Knee Posterior Drawer - PCL: Negative R Knee Valgus - MCL: Negative R Knee Varus - LCL: Negative R Knee Patellar Apprehension - PFS: Negative R Knee Patellar Grind - PFS: Negative - Balance/Special Test Scores Lower Extremity Functional Score: 74 - Goals Goal 1:: LTG: Pt. to be I with HEP. Goal Time Frame: 4-6 Weeks Goal 2:: STG: Pt. to be able to be able to have full AROM of R knee without audible clunking sound. Goal Time Frame: 2-4 Weeks Goal 3:: LTG: Pt. to have 5/5 strength throughout RLE and core strength. Goal Time Frame: 4-6 Weeks Goal 4:: LTG: Pt. to negotiate 1 flight of stairs with1 HR without increase in R knee pain. Goal Time Frame: 4-6 Weeks Goal 5:: LTG: pt. to complete all work related activities without increase in R knee pain. Goal Time Frame: 4-6 Weeks - Rehabilitation Potential Physical Therapy Diagnosis: Pt. has signs and symptoms consistent with R chondromalacia patellae, R knee pain. Pt. has good ROM, but does have marked audible at ~110deg of knee flexion actively. Not as much audible noted with PROM. Pt. does have some quad and glute weakness. I would like to work on improving those weakness in attempt to stabilize her patella in the groove. Rehabilitation Potential: Good - Anticipated Interventions Patient/Client Instruction: Educate patient on: Condition, Plan of Care, Risk Factors, Benefits of Fitness Program For the Purpose of:: To facilitate caregiver knowledge, To improve self management, To prevent re-injury, To improve ability to perform tasks related to life management, To improve tolerance to ADL's Therapeutic Exercise to Include: Strength training, Power training, Endurance training, Coordination, Postural training, Flexibilty training, Gait and locomotor training, Dynamic Lumbar Stabilization For the Purpose of:: To decrease pain, To improve muscle performance and motor function, To improve ability to perform ADL's, To increase tolerance to activity/condition/position, To improve health of tissue, To decrease soft tissue restriction Thank you for the opportunity to evaluate your patient. For Medicare and Medicare HMO plans, please review the plan of care and approve it. It will need to be FAXED BACK to us at [phone] for Medicare purposes. For Medicare only, by signing this I certify the plan of care. Please let me know if there are questions or concerns regarding this plan of care. Physician Signature: Date:
--- NOTE | 2022-08-04 11:42 | HP.PTDCSUM_ITS ---
It has been my pleasure to treat LALA LANGSTON referred by AAYUSH Milan, with the diagnosis of R chondromalacia patellae, R knee pain for a total of 8 visit(s). Discharge Date: 08/04/22 Please see the following information for a summary of their discharge status. Subjective: Pt. reports being about 50% better overall. She still has to wear her brace as work or any prolonged activities. She can go out and walk on levels surfaces like stores without issues. R knee Pain Intensity (Out of 10): 0 % Improvement: 50 Objective/Function: ROM: Pt. has full ROM of his R knee, but does have a grinding like feeling with increased flexion, seems to consistently happen at a pproximately 120deg of flexion and extension. MMT: 5/5 throughout BLEs. GAIT: normal gait pattern without issues. STAIRS: Normal without issues, she does report experiencing increased pain while at work or after a longer day, but not today. She has had some improvement with her strength, but still has this marked grinding like feeling/audible with flexion and extension. She also has increasing pain throughout the day that has not had much improvement. She experiences this with her work day and with walking/hiking on uneven ground. At this point in time I am going to have her continue with her strengthening but follow back up with physician to determine best course of action. Goal 1:: LTG: Pt. to be I with HEP. Goal Progress: Goal Met Goal 2:: STG: Pt. to be able to be able to have full AROM of R knee without audible clunking sound. Goal Progress: Progressing Goal 3:: LTG: Pt. to have 5/5 strength throughout RLE and core strength. Goal Progress: Goal Met Goal 4:: LTG: Pt. to negotiate 1 flight of stairs with1 HR without increase in R knee pain. Goal Progress: Progressing Goal 5:: LTG: pt. to complete all work related activities without increase in R knee pain. Goal Progress: Progressing Plan: Pt. to be DC to physician at this point in time. Discharge Comments: Pt. have overall improved with her strength, but still has increased pain progressively throughout her day. She is doing better on even ground and for short periods. Combine that with the constant grinding feeling, think following up with physician at this point in time. If there are questions or concerns regarding this patient's physical therapy, please feel free to call me at [phone]. Thank you for the referral of this patient. Sincerely, Dominguez Mcnamara, DANNIT Balance/Gait/Functional tests - Balance/Special Test Scores Lower Extremity Functional Score: 58
--- NOTE | 2022-09-29 13:39 | HP.PTREVAL ---
AAYUSH Milan, It has been my pleasure to treat LALA LANGSTON over the last 9 visits for R chondromalacia patellae, R knee pain. Please see the progress note below for an update on the physical therapy plan of care! Subjective: pt. is here today after following up with physician. She had an MRI. Physician is giving her a an oral steroid and wants her to starting PT with focus on strengthening and edema control. She reports continued pain with in a few hours working. 02/26 currently, after a few hours working 8-05/29. She does report being off it, it does calm down to a 3-4/10 pain. Pain is diffuse throughout the knee. Plan is if swell does not improve to follow up with surgeon. Objective/Function: Pt. had her MRI which did not show any tears, but did have some inconclusive reports on her ACL. Physician would like her to start a steroidal anti inflammatory and work on some more strengthening. ROM: Pt. has really good ROM of R knee 0-0-136deg. without much pain at either end range. MMT: RLE: ankle 5/5 throughout; knee: ext 41#, flexion 34.3#; hip: flexion 41#, abd 44#. LLE: ankle 5/5 throughout; knee: ext 52#, flexion 34.1#; hip: flexion 44#, abd 46#. GAIT: pt. has decent gait pattern today. pt. reports no major increase in symptoms with walking. No much of a antalgic pattern as well. STAIRS: Pt. has mild increase with descending, but not much issue with her ROM during. Plan Plan: Pt. am going to see Lala x2 per week for 4 weeks. I want to focus on R quad strengthening and improving her tolerance to functional mobility/strengthening. Walking program, progressive strengthening. Balance/Gait/Functional tests - Balance/Special Test Scores Lower Extremity Functional Score: 58 Goals Goal 1:: LTG: Pt. to be I with HEP. Goal Time Frame: 4-6 Weeks Goal Progress: Goal Met Goal 2:: STG: Pt. to be able to be able to have full AROM of R knee without audible clunking sound. Goal Time Frame: 2-4 Weeks Goal Progress: Goal Met Goal 3:: LTG: pt. to have symmetrical quad strength, (currently 11# difference) Goal Time Frame: 4-6 Weeks Goal Progress: Progressing Goal 4:: LTG: Pt. to negotiate 1 flight of stairs with1 HR without increase in R knee pain. Goal Time Frame: 4-6 Weeks Goal Progress: Progressing Goal 5:: LTG: pt. to complete all work related activities without increase in R knee pain. Goal Time Frame: 4-6 Weeks Goal Progress: Progressing Anticipated Interventions Patient/Client Instruction: Educate patient on: Condition, Plan of Care, Risk Factors, Benefits of Fitness Program For the Purpose of:: To facilitate caregiver knowledge, To improve self management, To prevent re-injury, To improve ability to perform tasks related to life management, To improve tolerance to ADL's Therapeutic Exercise to Include: Strength training, Power training, Endurance training, Coordination, Postural training, Flexibilty training, Gait and locomotor training, Dynamic Lumbar Stabilization For the Purpose of:: To decrease pain, To improve muscle performance and motor function, To improve ability to perform ADL's, To increase tolerance to activity/condition/position, To improve health of tissue, To decrease soft tissue restriction Please do not hesitate to contact me at [phone] by phone or if you have questions or concerns regarding this new plan of care! Sincerely, Dominguez Mcnamara DPT
== END 2022-10-29 19:00 | disposition home or self-care (01) ==
LOC: PT 11:30
PROVIDERS: PCP Internal Medicine; Referring Provider Physician Assistant; Visit Provider Physician Assistant
DX: M25.551 Pain in right hip (principal); M22.40 Chondromalacia patellae, unspecified knee
CPT/HCPCS: 97110; 97161; 97164

== ENCOUNTER 2023-02-01 05:42 | Day surgery (SDC) | payer OTHER, SELFPAY ==
[2023-02-01 06:27] VITALS: BP 113/88; PULSE 73; RESP 16; TEMP 36.3; O2SAT 97; BMI 38.8
[2023-02-01] MEDS: Lactated Ringers 1,000 ML 15 ML IV (06:36)
[2023-02-01 06:40] LABS: Internal QC Validated? YES +Cl - CLEAR BKGD; Pregnancy, Urine Negative Negative
--- NOTE | 2023-02-01 07:08 | PCM.HP.BLA ---
History and Physical Date of Admission: 02/01/23 [facility] [address] [place] [address] OFFICE VISIT Date of Service:? 12/01/22 MR#: [id number] Acct: [id number] Name:LALA PATEL Rep #: [id number] : 1990 ? ? Provider: Dr. Kofi Goff, DO Age/Sex:? 32/F ? ? Location: [facility] [place].[facility] Status: Signed Intake Intake Visit Reasons:?RIGHT KNEE Chief Complaint: right knee Is patient in pain?: Yes Allergies Sulfa (Sulfonamide Antibiotics) Allergy (Mild, Verified 12/01/22 08:57) Rashred (food color) Allergy (Verified 12/01/22 08:57) HivesSeasonal Allergies: Uncoded Allergy (Verified 12/01/22 08:57) Other Medications drospirenone 3 mg-ethinyl estradiol 0.02 mg tablet (LOUISA (28)) 1 tab PO DAILY 11/09/21 [History Confirmed 12/01/22] fexofenadine-pseudoephedrine ER 180 mg-240 mg tablet,ext.release 24 hr (Griselda-D 24 Hour) 1 tab PO QAM 06/24/22 [History Confirmed 12/01/22] PFSH Medical History? Asthma Bone fracture Gallstones Headache, migraine Rosacea Seasonal allergic conjunctivitis Trigger thumb Wears hearing aid Surgical History? Hx of cholecystectomy Family History? Sister AsthmaFather Bowel disease Liver disease Thyroid disorderGrandmother Cervical cancer DiabetesGrandfather CancerMother Hypertension Social History? Smoking Status:? Never smoker alcohol intake:? never substance use type:? does not use what type of physical activity do you participate in:? none HPI RIGHT KNEE Details: Parts of this documentation were recorded by a scribe, this documentation accurately reflects the service provided and the decisions made by me, Dr. Kofi Goff, DO 12/01/22 0750. LALA LANGSTON is a 32 year old F here today for follow-up right knee pain.? Last office visit 10/14/2022 at which point an intra-articular steroid injection was given.? To recall patient has had pain for years she had a previous knee arthroscopy when she was around 18 years old.? Recent MRI 09/16/2022 was relatively benign, with small joint effusion and mucoid cystic degeneration of the ACL. Patient states that she had an injection on 10/14/22 which took about 2 weeks before it was helpful, and then it was only helpful for about a week. Her pain has since returned. She complains of pain over her entire knee. Patient has popping and clicking and grinding which is uncomfortable. Patient has a knee brace when working which is helpful to her instability but not her pain. Patient takes ibuprofen for pain. Ortho Exam General General: Yes no acute distress Neurologic: Yes alert and Yes oriented x3 Psychologic: Yes reasonable and appropriate Right Knee Skin/Wound: Yes CDI, No erythema, No ecchymosis and No swelling Homans Sign: No Knee ROM: Yes ROM-Extension -20 to 0 and Yes ROM-Flexion 0-140 Examination: No Med jt line tenderness, No Lat jt line tenderness, No De La Cruz's, No TTP Pes Anserine and No Illiotibial band tenderness Stability: NML: Anterior Drawer, NML: Sukhdev, NML: Posterior Drawer, NML: Valgus 0, NML: Valgus 30 and NML: Varus 0 Patella Translation: 1 Patella Grind: No KNEE: mild crepitus, no patellar instability.click with medial jerome which is not painful Left Knee Patella Translation: 1 Head: Normocephalic Atraumatic Chest: symmetrical rise, non-labored breathing, no audible wheeze Abdomen: no guarding, non-rigid Supplemental Info 09/16/2022 MRI right knee: Mucoid cystic degeneration of ACL.? Small joint effusion.? No meniscus tear. 06/24/2022 x-ray right knee: Normal Coding Level of Care Code Off vis,est,level 3 Diagnoses Mechanical pain of right knee? M25.561 Assessment and Plan Assessment and Plan (1) Mechanical pain of right knee: ?Status:?Acute Plan Marisa continues to have mechanical knee pain that is now ongoing and chronic.? We have performed an intra-articular steroid injection which did give her temporary relief but only for a week.? In addition she did have MRI which was relatively benign.? She has done physical therapy and anti-inflammatories. Explained she might have scar tissue or a meniscus tear or a cartilage defect that isnt seen on the MRI. Spoke with the patient about her options- knee arthroscopy.? Surgery would be exploratory with surgery as indicated including possibility of meniscal repair or microfracture surgery both of which would add 6 weeks of toe-touch weightbearing if performed, in addition to extended recovery after words. she would like to proceed with surgery as she has failed conservative treatment. Reviewed the pre-operative plans with the patient. Risks and benefits of the procedure were fully explained and risk that we do not find anything structurally wrong and she continues to have her symptoms but also, including but not limited to infection, neurovascular injury, continued pain, arthritis, stiffness, need for further surgery, re-injury, DVT, PE, general risks of anesthesia, and loss of limb or life. The patient understands all the risks and does wish to proceed with written consent.? She is not able to have surgery until after January 30 due to help at home. Follow up for 2 week post op or sooner if pain, swelling, numbness or associated symptoms, or concerns develop.? All questions answered. Patient in agreement of plan. 12/01/22 0957 <Electronically signed by Kofi Goff DO> Date Kofi Goff DO Cosigner Signature: Date (if applicable) I have examined the patient and the H&P has been reviewed. There are no clinical changes since date of exam.
[2023-02-01] MEDS: Cefazolin 2 GM in 0.9% Normal Saline 100 ML IV (07:34)
[2023-02-01] MEDS: Epinephrine (1 mg/ml) 1 MG/ML VIAL (07:45)
[2023-02-01] MEDS: Lidocaine 1% /Epi 1:100 (20ml) 20 ML Vial (07:45)
[2023-02-01] MEDS: Bupivacaine Mpf 0.5% 30 ML VIAL (08:01)
--- NOTE | 2023-02-01 08:05 | OP.PCM_ITS ---
Operative Report Date of Procedure: 02/01/23 Preop diagnosis: Right knee mechanical knee pain Postoperative diagnosis: Plica band medial lateral Procedure: Excision of plica band medial lateral and scar tissue partial synovectomy anterior knee Anesthesia: General Estimated blood loss: 5 mL Tourniquet time: 20 minutes 300 mmHg Complications: none Indication for procedure: 32-year-old female patient who has had prior knee arthroscopy when she was 18 years old is an ongoing mechanical anterior knee pain was failed conservative treatment the patient did wish to proceed with an elective exploratory arthroscopic surgery to attempt to alleviate the symptoms. Risk benefits and alternatives of the procedure were reviewed including risk of bleeding infection nerve artery tissue damage need for further surgery continued pain and expected postoperative course. Procedure: The patient was met in the preoperative holding area. The operative extremity was identified by both patient and physician and family and marked. Patient was brought back to the operating room on a wheeled cart and transferred to the operating table in the supine position. Anesthesia was started. A well- padded tourniquet was placed on the operative extremity. A lower extremity leg linda was secured to the operative extremity. The contralateral extremity was well-padded and the end of the bed was flexed to 90 degrees. The patient was prepped and draped in the usual sterile fashion. A timeout was called to ensure the proper patient, procedure, and extremity were being contemplated. 0.5% Marcaine with epinephrine was injected into the planned incisional areas under the skin only. An Esmarch was used to exsanguinate the extremity and the t ourniquet was inflated. An 11 blade scalpel was used to make a stab incision in the anterior lateral portal. The arthroscope was inserted into the intercondylar notch and inflow and outflow tubes were attached. Arthroscopic visualization began. There was noted to be some thickened anterior tissue with medial and lateral plica bands, the medial compartment was entered. An 18-gauge spinal needle was used to establish the placement for anterior medial portal. An 11 blade scalpel was used to make a stab incision. Blunt probe was inserted followed by a meniscal probe. It was free of meniscal or cartilage pathology. The ACL was found to be intact and was tested with drawer testing and was functional under direct visualization. The lateral compartment was entered there was no meniscal or cartilage pathology , shaver was used to excise the anterior plica bands and excised the thickened synovial tissue in the anterior knee the arthroscope was switched to the medial portal to complete the procedure. The medial and lateral gutters were inspected and were free of loose bodies. The patellofemoral joint was inspected and was free of cartilage pathology. There was good patellar tracking. The knee was thoroughly irrigated and drained. An intra-articular injection with 5 cc 0.5% Marcaine plain and 40 mg of Depo-Medrol was injected intra-articularly. The arthroscope was removed t he portals were closed with 3-0 nylon arthroscopic stitches. Followed by Xeroform 4 x 4's ABDs web roll and an Ashutosh wrap. The tourniquet was let down and the drapes were removed. All counts were correct. The patient was brought back to the PACU in stable condition.
--- NOTE | 2023-02-01 08:08 | DCINST_ITS ---
Discharge Instructions Diet Discharge Diet: No restrictions Dressing / Incision Call your doctor if you observe: Shortness of breath and Chest pain Additional Dressing/Incision Instructions:: Ice and elevate next 72 hours .keep dressing on clean and dry for 48 hours then may remove begin showering daily but do not submerge in tub or pool. After shower may apply Band-Aids . Encourage knee range of motion weightbearing as tolerated, use crutches until confident in knee then may discontinue. No strenuous activity. When not ambulating keep iced and elevated next 72 hours. Do not mix pain medication with recreational drugs or alcohol only take as prescribed can be addictive and abusive, call with any questions or concerns. Follow Up Care Please Follow Up With: Kofi Goff DO When: 2 weeks Test Results: Test results from this visit will be discussed in further detail at your follow- up appointment, if applicable. Discharge Plan Admission Attending Provider: Kofi Goff Primary Care Provider: Erica Silva Discharge Orders/Prescriptions Prescriptions: No Action fexofenadine-pseudoephedrine [Griselda-D 24 Hour] 180-240 mg tablet extended release 24 hr 1 tab PO QAM drospirenone-ethinyl estradiol [LOUISA (28)] 3-0.02 mg Tablet 1 tab PO DAILY Referrals / Follow Up: Erica Silva MD [Primary Care Provider] - Disposition Disposition (needs filled in before D/C Order can be placed): Home, Self Care
[2023-02-01 08:15] VITALS: BP 112/67; BP 113/88; PULSE 78; RESP 18; TEMP 36.8; O2SAT 97
[2023-02-01 08:30] VITALS: BP 113/88; BP 125/80; PULSE 86; RESP 16; O2SAT 98
[2023-02-01 09:00] VITALS: BP 113/88; BP 117/86; PULSE 66; RESP 16; O2SAT 98
[2023-02-01 09:09] VITALS: BP 113/88; BP 123/81; PULSE 73; RESP 16; TEMP 36.7; O2SAT 96
[2023-02-01 09:19] VITALS: BP 113/88
== END 2023-02-01 09:57 | disposition home or self-care (01) ==
LOC: SDC 05:42 → AC 05:43
PROVIDERS: Anesthesiology; PCP Internal Medicine; Referring Provider Orthopaedic Surgery; Visit Provider Orthopaedic Surgery
PROC: (CPT 29870; principal; 2023-02-01 07:10)
DX: M67.51 Plica syndrome, right knee (principal); E66.9 Obesity, unspecified; J45.909 Unspecified asthma, uncomplicated; Z68.38 Body mass index [BMI] 38.0-38.9, adult
CPT/HCPCS: 29875; 01400; 81025; J7120; J2405

== ENCOUNTER 2023-06-17 13:00 | Outpatient (RCR) | payer OTHER, SELFPAY ==
--- NOTE | 2023-02-18 10:52 | HP.PTEVAL ---
Patient's Visit Information LALA LANGSTON is a 32 year old F referred to Physical Therapy by Dr. Kofi Goff DO with a diagnosis of STIFFNESS OF R KNEE. Date of Evaluation: 02/18/23 Physical Therapist: Thais Patel PT, Cert MDT - Visit Plan Frequency: 2-3x /Week Duration: 4-6 Weeks Plan: CHECK INCISIONS. AQUATIC THERAPY FOR EL LE ROM, STRETCHING AND STRENGTHENING TO HELP MEET SET GOALS. PATIENT IS AGREEABLE. - Subjective MURALI. Diagnosis: 02/01/2023 right knee arthroscopy: Postoperative diagnosis: Plica band medial lateral Procedure: Excision of plica band medial lateral and scar tissue partial synovectomy anterior knee. 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 FMLA UNTIL ABOUT 04/26/23 OR SO. Present symptoms: PAIN, STIFFNESS AND WEAKNESS KNEE. R CALF CONSTANT RUBI HORSE. Present since: CHRONIC. Pain Scale: WORST 7-8/10, LEAST 2-3/10. Currently: 4-5/10. Is it getting better, worse or staying the same: THE PAIN IS STAYING THE SAME BUT THE SWELLING IS GETTING BETTER. SLIGHT IMPROVEMENT IN RANGE AND STRENGTH. Commenced as a result of: NO APPARENT REASON. Worse: STEPS, BEING ON IT, DOG SITTING ON LAP. Better: NOTHING EXCEPT MAYBE ICE AND MOTRIN HELP SOME. Disturbed sleep: YES. Previous history/Previous treatment: PT X 2 ROUNDS BEFORE THIS SURGERY. ABOUT 15 YEARS HAD SCOPE R KNEE AND THEN ABLE TO PLAY SOFTBALL AND DO OK UNTIL A FEW YEARS AGO. Treatment this episode: PMH/recent major surgery: UNREMARKABLE. OTHER: PATIENT REPORTS FULL RANGE AND FUNCTION BEFORE SURGERY WITH CHRONIC PAIN. TRIED 2 ROUNDS OF PT TO TRY TO AVOID SURGERY HERE AT [facility]. GRINDING AND CLICKING IN KNEE CAP BEFORE SURGERY. MRI WAS INCONCLUSIVE. HAD STITCHES TAKEN OUT TUESDAY AND THEN STARTED WALKING WITHOUT CRUTCHES. STATES SHE HAS HAD A CONSTANT R CALF RUBI HORSE FOR ABOUT [address] GOFF DOES NOT SUSPECT BLOOD CLOT. 09/16/2022 MRI right knee: Mucoid cystic degeneration of ACL.? Small joint effusion.? No meniscus tear. - Objective THIS PATIENT AMBULATES INDEP'LY INTO PT WITHOUT ANY ASSISTIVE DEVICES LIMPING ON RIGHT LE. HER INCISIONS ARE ALL WELL HEALED EXCEPT ONE VERY TINY OPENING IN THE INFERIOR MEDIAL INCISION - PATIENT REPORTS SHE REMOVED A SMALL SCAB THERE. SHE DENIES ANY DRAINAGE OR OTHER SIGNS OF INFECTION. SHE IS AWARE THAT THIS NEEDS TO BE CLOSED AND CLEARED BY AQUATIC PT BEFORE GETTING IN THE POOL. CIRCUMFERENCE MEASUREMENTS R KNEE: MID-PATELLA 40 CM, 6 PROX 54 CM, 6 DISTAL 41.5 CM. SHE HAS MILD SWELLING EXTENDING DOWN TO ANKLE. STRENGTH: L LE WFL. R LE HIP 4/5, KNEE 2-/5, ANKLE 5/5. ROM: L LE WFL. R HIP AND ANKLE WFL BUT R KNEE -24 DEG EXTENSION TO 80 DEG FLEXION IN SUPINE WITH A HEEL SLIDE. PATIENT C/O PAIN WITH L KNEE AROM TESTING. EL LE LIGHT TOUCH SENSATION GROSSLY INTACT AND SYMMETRICAL. NEGATIVE KENISHA'S SIGN - PATIENT COMMUNICATES A GOOD UNDERSTANDING OF SIGNS OF BLOOD CLOT AND WHAT TO DO IF SX'S DEVELOP. PATIENT APPEARS TO BE A GOOD CANDIDATE FOR AQUATIC THERAPY AND SHE IS AGREEABLE. - Goals Goal 1:: DECREASE R KNEE PAIN AND SWELLING. Goal Time Frame: 6-8 Weeks Goal 2:: INCREASE FUNCTIONAL ROM OF R KNEE TO EASE ADL'S. Goal Time Frame: 6-8 Weeks Goal 3:: IMPROVE R KNEE FUNCTIONAL STRENGTH TO EASE ADL'S Goal Time Frame: 6-8 Weeks Goal 4:: PATIENT WILL BE INDEP WITH A HEP FOR CONTINUED IMPROVEMENT ONCE FORMAL PHYSICAL THERAPY CONCLUDES. Goal Time Frame: 6-8 Weeks - Anticipated Interventions Patient/Client Instruction: Educate patient on: Condition, Plan of Care, Risk Factors For the Purpose of:: To improve self management Therapeutic Exercise to Include: Strength training, Flexibilty training, Gait and locomotor training, Neuromotor development, In an aquatic setting, Passive ROM, Active ROM For the Purpose of:: To decrease pain, To decrease swelling/inflammation, To increase ROM, To improve muscle performance and motor function, To increase tolerance to activity/condition/position, To improve ability of physical actions for home/community/work/leisure, To improve gait and locomotor functions Thank you for the opportunity to evaluate your patient. For Medicare and Medicare HMO plans, please review the plan of care and approve it. It will need to be FAXED BACK to us at [phone] for Medicare purposes. For Medicare only, by signing this I certify the plan of care. Please let me know if there are questions or concerns regarding this plan of care. Physician Signature: Date:
--- NOTE | 2023-03-18 09:24 | HP.PTREVAL ---
Re-Evaluation Intro: Dr. Kofi Goff, DO, It has been my pleasure to treat LALA LANGSTON over the last 13 visits for STIFFNESS OF R KNEE. Please see the progress note below for an update on the physical therapy plan of care! Subjective Subjective: Pt. reports overall improvement 50-60% better. She still has increased tightness. Increased pain with prolonged standing/walking. Pt. is to return to work on 04 April. Objective Objective/Function: PROM: 0-0-129deg pain at end ranges. AROM: 0-30-119deg. Tightness at end ranges. MMT: LLE: knee: ext 38.7#, flexion: 32.7#, hip: flexion 43.4#, abd: 35.8# RLE: knee: ext 29.7#, flexion: 23.8#; hip: flexion: 38.1#, abd: 45.7# Pt. is about 70% strength from R to L. She is also missing a little bit of end range flexion and extension. She is also having some tightness in her H hip, HS, and quads. gait: fairly normal no increase in symptoms, good swing phase, solid stance phase. STAIRS: ascending no HR no issues. Descending, early heel off on R stance phase mild increase in pain, weakness noted. Pt. has been consistent with HEP for stretching and some strengthening activities. Mostly stretching. I would like her to continue with some end range stretching and quad, glute strengthening. Plan Plan Plan: Progress to land at this time. Cont. to work on end ranges of both passive and active motion. Progress quad and glute medius strength. Progress to functional strengthening allowing for increased ease with return to work. x3 per week for 3-4 weeks Balance/Gait/Functional tests Balance/Special Test Scores Lower Extremity Functional Score: 40 Goals Goals Goal 1:: DECREASE R KNEE PAIN AND SWELLING. Goal Time Frame: 6-8 Weeks Goal Progress: Goal Met Goal 2:: INCREASE FUNCTIONAL ROM OF R KNEE TO EASE ADL'S. Goal Time Frame: 6-8 Weeks Goal Progress: Goal Met Goal 3:: IMPROVE R KNEE FUNCTIONAL STRENGTH TO EASE ADL'S Goal Time Frame: 6-8 Weeks Goal Progress: Progressing Goal 4:: LTG: Pt. to negotiate steps with out HR without reports of increased R knee pain. Goal Time Frame: 6-8 Weeks Goal Progress: Goal Met Goal 5:: LTG: Pt. to have at least 90% RLE strength compared to L side. Goal Time Frame: 4-6 Weeks Goal Progress: Progressing Goal 6:: LTG: Pt. to have full R knee motion without increase in symptoms. Goal Time Frame: 4-6 Weeks Anticipated Interventions Anticipated Interventions Patient/Client Instruction: Educate patient on: Condition, Plan of Care and Risk Factors For the Purpose of:: To improve self management Therapeutic Exercise to Include: Strength training, Flexibilty training, Gait and locomotor training, Neuromotor development, In an aquatic setting, Passive ROM and Active ROM For the Purpose of:: To decrease pain, To decrease swelling/inflammation, To increase ROM, To improve muscle performance and motor function, To increase tolerance to activity/condition/position, To improve ability of physical actions for home/community/work/leisure and To improve gait and locomotor functions Re-Evaluation Ending Re-evaluation ending: Please do not hesitate to contact me at [phone] by phone or if you have questions or concerns regarding this new plan of care! Sincerely, Dominguez Mcnamara DPT
--- NOTE | 2023-06-10 10:27 | HP.PTREVAL ---
Re-Evaluation Intro: Dr. Kofi Goff, DO, It has been my pleasure to treat LALA LANGSTON over the last 35 visits for STIFFNESS OF R KNEE. Please see the progress note below for an update on the physical therapy plan of care! Subjective Subjective: Pt. reports she had been doing well until yesterday. For the last 1.5 hour of work her knee became very sore and felt a stabbing pain in her knee. Pt. reports no mech of injury, but just started. She is doing a little bit better today, but is still having some soreness. Objective Objective/Function: R knee ROOM: 0-0-132deg. MMT: R knee Flexion 4+/5 mild increase nW, ext 4+/5 mild increase NW, hip 5/5 throughout. Pt. had a small amount of edema in her R knee this date .5 inch difference from L to R. No visible bruising noted. No large pain to palpation. - juan antonio, - posterior drawer, - valgus and varus testing, - Elsie. I would like her to keep walking, but be nice to her knee over the next few days. Her knee did not seem to have any mechanical issues with testing today. I would her to let it calm and re assess next week. If still having issues with may follow up with physician. Prior to yesterday she was doing great, no issues no pain. Plan Plan Plan: Pt. was overall doing very well, but has an episode last night at work resulting in higher amounts of pain. I did not see any ligament or meniscal damage this date. I want her to ice and be cautious with knee over the next few days and we will re assess next visit. If not getting better I might have her follow back up with physician at that point in time. Balance/Gait/Functional tests Balance/Special Test Scores Lower Extremity Functional Score: 40 Goals Goals Goal 1:: DECREASE R KNEE PAIN AND SWELLING. Goal Time Frame: 6-8 Weeks Goal Progress: Goal Met Goal 2:: INCREASE FUNCTIONAL ROM OF R KNEE TO EASE ADL'S. Goal Time Frame: 6-8 Weeks Goal Progress: Goal Met Goal 3:: IMPROVE R KNEE FUNCTIONAL STRENGTH TO EASE ADL'S Goal Time Frame: 6-8 Weeks Goal Progress: Progressing Goal 4:: LTG: Pt. to negotiate steps with out HR without reports of increased R knee pain. Goal Time Frame: 6-8 Weeks Goal Progress: Goal Met Goal 5:: LTG: Pt. to have at least 90% RLE strength compared to L side. Goal Time Frame: 4-6 Weeks Goal Progress: Progressing Goal 6:: LTG: Pt. to have full R knee motion without increase in symptoms. Goal Time Frame: 4-6 Weeks Goal Progress: Goal Met Anticipated Interventions Anticipated Interventions Patient/Client Instruction: Educate patient on: Condition, Plan of Care and Risk Factors For the Purpose of:: To improve self management Therapeutic Exercise to Include: Strength training, Flexibilty training, Gait and locomotor training, Neuromotor development, In an aquatic setting, Passive ROM and Active ROM For the Purpose of:: To decrease pain, To decrease swelling/inflammation, To increase ROM, To improve muscle performance and motor function, To increase tolerance to activity/condition/position, To improve ability of physical actions for home/community/work/leisure and To improve gait and locomotor functions Re-Evaluation Ending Re-evaluation ending: Please do not hesitate to contact me at [phone] by phone or if you have questions or concerns regarding this new plan of care! Sincerely, Dominguez Mcnamara DPT
--- NOTE | 2023-06-22 15:44 | HP.PTDCSUM ---
Discharge Summary D/C summary: It has been my pleasure to treat LALA LANGSTON referred by Dr. Kofi Goff DO, with the diagnosis of STIFFNESS OF R KNEE for a total of 36 visit(s). Discharge Date: 06/22/23 Please see the following information for a summary of their discharge status. Subjective Subjective: Pt. reports overall doing better than she was the other day. Pt. reports no pain today, but has some slight stiffness. Much better than she was the other day. 90% better noted. Pain R knee: Pain Intensity (Out of 10): 0 Overall Improvement % Improvement: 90 Objective Objective/Function: Pt. continues to have good ROM 0-0-132deg without increase in symptoms. MMT: 5/5 throughout, but did have a 10# difference in quad strength from R to L. Other than that she was symmetrical. Pt. reports no pain with testing. GAIT: Normal gait pattern noted. STAIRS: Normal without increase in symptoms. SQUAT: normal. Goals Goal 1:: DECREASE R KNEE PAIN AND SWELLING. Goal Progress: Goal Met Goal 2:: INCREASE FUNCTIONAL ROM OF R KNEE TO EASE ADL'S. Goal Progress: Goal Met Goal 3:: IMPROVE R KNEE FUNCTIONAL STRENGTH TO EASE ADL'S Goal Progress: Goal Met Goal 4:: LTG: Pt. to negotiate steps with out HR without reports of increased R knee pain. Goal Progress: Goal Met Goal 5:: LTG: Pt. to have at least 90% RLE strength compared to L side. Goal Progress: Goal Met Goal 6:: LTG: Pt. to have full R knee motion without increase in symptoms. Goal Progress: Goal Met Plan Plan: Pt. is doing much better after her increased pain earlier this week. She had felt like her knee was all of a sudden more painful out [facility]. She is much better today. Pt. may have had some scar tissue issue that date, but has not had any issues since. Overall after testing and talking with patient. She is comfortable with doing her strengthening on her own at this point in time. D/C Information Discharge Comments: Pt. treated with ROM and strengthening of her R knee after surgery. Pt. did very well. At this point in time she is I with her HEP and is able to continue to progress with her strengthening on her own. Pt. will be DC from PT at this point in time. d/c sentence: If there are questions or concerns regarding this patient's physical therapy, please feel free to call me at [phone]. Thank you for the referral of this patient. Sincerely, Dominguez Mcnamara, DPT Balance/Gait/Functional tests Balance/Special Test Scores Lower Extremity Functional Score: 71 Improvement % Improvement: 90
== END 2023-06-17 19:00 | disposition home or self-care (01) ==
LOC: PT 13:00
PROVIDERS: PCP Internal Medicine; Referring Provider Orthopaedic Surgery; Visit Provider Orthopaedic Surgery
DX: M25.661 Stiffness of right knee, not elsewhere classified (principal); Z47.89 Encounter for other orthopedic aftercare
CPT/HCPCS: 97110; 97113; 97162; 97164; 97530

== ENCOUNTER → 2023-10-10 | Outpatient (CLI) | payer OTHER, SELFPAY ==
--- NOTE | 2023-10-10 15:38 | RAD_ITS ---
EXAM: XR LEFT FOOT COMPLETE, 3 OR MORE VIEWS CLINICAL INDICATION: FOOT PAIN TECHNIQUE: Frontal, lateral and oblique views of the left foot. COMPARISON: No relevant prior studies available. FINDINGS: BONES/JOINTS: Unremarkable. No acute fracture. No subluxation. Normal alignment. Preservation of the joint space. No sclerotic or destructive changes observed. SOFT TISSUES: Unremarkable. No soft tissue swelling or gas. No radiopaque foreign body. RAD/Foot min 3 Views IMPRESSION: Negative left foot x-rays. Electronically Signed: Yohannes Collins MD at 6:47 EST ,
--- OUTSIDE RECORDS SUMMARY | 2023-10-10 16:08 | XMS RPT_ITS | CCD ---
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 Name Role Phone Sorin Izaguirre Primary Care Provider WONG GAUTAM Admitting Unavail able [facility], [facility] Primary Care Unavailable ANTWON CRUZ Admitting Unavailabl FELIPE Edward Attending Unavailable ANTWON CRUZ Referring Unavailabl e [facility], [facility] Primary Care Unavailable ANTWON CRUZ Admitting Unavailabl FELIPE Edward Attending Unavailable ANTWON CRUZ Referring Unavailabl e [facility], [facility] Primary Care Unavailable ANTWON CRUZ Admitting Unavailabl e KAVITHA SOL Attending Unavailable ANTWON CRUZ Referring Unavailabl e [facility], [facility] Primary Care Unavailable ANTWON CRUZ Admitting Unavailabl e SALONI VALDEZ Attending Unavailable ANTWON CRUZ Referring Unavailabl e [facility], [facility] Primary Care Unavailable [facility], [facility] Primary Care Unavailable ANTWON CRUZ Admitting Unavailabl e OLIVIA BALBUENA Attending Unavailable ANTWON CRUZ Referring Unavailabl e [facility], [facility] Primary Care Unavailable ANTWON CRUZ Admitting Unavailabl e FELIPE WADSWORTH Attending Unavailable ANTWON CRUZ Referring Unavailabl e [facility], [facility] Primary Care Unavailable ANTWON CRUZ Admitting Unavailabl e KAVITHA SOL Attending Unavailable ANTWON CRUZ Referring Unavailabl e [facility], [facility] Primary Care Unavailable ANTWON CRUZitting Unavailabl e KAVITHA SOL Attending Unavailable ANTWON CRUZ Referring Unavailabl e [facility], [facility] Primary Care Unavailable ANTWON CRUZ Admitting Unavailabl e FELIPE WADSWORTH Attending Unavailable ANTWON CRUZ Referring Unavailabl e [facility], [facility]WN Primary Care Unavailable SORIN IZAGUIRRE Primary Care Unavailable KARY CAIN Attending Unavailjuliane e SORIN IZAGUIRRE Primary Care Unavailable MELANIE BAUMANN Referring Unavailable MELANIE BAUMANN Admitting Unavailable Sorin Izaguirre MD Primary Care Provider Wong Gautam MD Unavailable Wong Gautam MD Primary Care Provide r SCOOBY BANKS Attending Unavailable SORIN IZAGUIRRE Primary Care Unavailable SCOOBY BANKS Attending Unavailable WONG GAUTAM Primary Care Unavail able WONG GAUTAM Attending Unavail able SORIN IZAGUIRRE Primary Care Unavailable VALENTINA SUMMERS Attending Unavailable MKSORIN GLOVER Primary Care Unavailable NELSY RICHARD Attending Unavailable [facility] Primary Care Unavail able MOO COHEN Attending Unavailable [facility] Primary Care Unavail able Allergies Allergy Classification Reported Allergen(s) Allergy Type Date of Onset Reaction(s) Facility Contrast Media (4 sources) Contrast media; Translations: [RED DYE] Substance Allergy 6 [facility] Work Phone: Sulfonamides (antibiotic) (5 sources) Sulfonamides (Antibiotic); Translations: [SULFA (SULFONAMIDE ANTIBIOTICS)] Drug Allergy 6 [facility] (16 sources) Sulfonamides (Antibiotic); Translations: [SULFA (SULFONAMIDE ANTIBIOTICS)] Propensity to adverse reactions to drug 6 [facility] (4 sources) Contrast media; Translations: [RED DYE] Propensity to adverse reactions to drug 6 [facility] Work Phone: Medications Current Medications Medication Drug Class(es) Dates Sig (Normalized) Sig (Original) doxycycline anhydrous 40 mg delayed release oral capsule (1 source) Tetracycline-class Drug Start: 05-19-2021 End: 08-17-2021 take 1 capsule by mouth once daily in the morning doxycycline (Oracea) 40 mg capsule Take 1 (one) capsule (40 mg total) by mouth every morning . 30 capsule 2 05/19/2021 08/17/2021 Active drospirenone / Ethinyl Estradiol (4 sources) Progestin, Estrogen Start: 12-19-2017 take 1 tablet by mouth once daily, then take 3 tablets by mouth once drospirenone-eth inyl estradioL (LOUISA) 3-0.02 mg per tablet Take 1 tablet by mouth daily . 0 12/19/2017 Active 24 hr fexofenadine hydrochloride 180 mg / pseudoephedrine hydrochloride 240 mg extended release oral tablet (16 sources) alpha-Adrenergic Agonist, Histamine-1 Receptor Antagonist fexofenadine-pse udoePHEDrine (TRUONG-D 24) 180-240 mg per 24 hr tablet Take by mouth . 0 Active ivermectin 10 mg/ml topical cream (2 sources) Antiparasitic, Pediculicide Start: 03-13-2021 ivermectin (Soolantra) 1 % Crea Apply 1 application topically daily . 30 g 1 03/13/2021 Active phentermine hydrochloride 37.5 mg oral tablet (4 sources) Sympathomimetic Amine Anorectic Start: 01-21-2021 take 1 tablet by mouth once daily before breakfast phentermine (ADIPEX-P) 37.5 mg tablet Take 37.5 mg by mouth daily TAKE 1 TABLET BY MOUTH EVERY MORNING BEFORE BREAKFAST . 0 01/21/2021 Active Completed/Discontinued Medications Medication Drug Class(es) Dates Sig (Normalized) Sig (Original) Desogestrel / Ethinyl Estradiol (13 sources) Progestin, Estrogen Start: 12-06-2012 End: 02-11-2021 desog-e.estradioL/e .estradioL (Mauricio, 28,) 0.15-0.02 mgx21 /0.01 mg x 5 per tablet Take by mouth . 0 12/06/2012 02/11/2021 Discontinued (Therapy completed) Problems Active Problems Problem Classification Problem Date Documented Date Episodic/Chronic Fever of unknown origin (1 source) Fever; Translations: [Fever, unspecified fever cause] Episodic Headache; including migraine (1 source) Acute headache; Translations: [Acute nonintractable headache, unspecified headache type] Immunizations and screening for infectious disease (2 sources) Encounter for observation for suspected exposure to other biological agents ruled out; Translations: [Requires vaccination] Episodic Other circulatory disease (1 source) Respiratory tract congestion; Translations: [Congestion of respiratory tract] Episodic Other ear and sense organ disorders (18 sources) Sensorineural hearing loss, bilateral; Translations: [Sensorineural hearing loss, bilateral] Onset: 02-14-2020 02-14-2020 Chronic Other ear and sense organ disorders (14 sources) Tinnitus of right ear; Translations: [Tinnitus of right ear] Onset: 02-14-2020 02-14-2020 Other ear and sense organ disorders (2 sources) Does use hearing aid; Translations: [Does use hearing aid] Other inflammatory condition of skin (1 source) Rosacea; Translations: [Rosacea, unspecified] Chronic Other skin disorders (1 source) Actinic keratosis; Translations: [Actinic keratosis] Episodic Other upper respiratory infections (1 source) Sore throat symptom; Translations: [Sore throat] Episodic Sprains and strains (1 source) Thoracic back sprain; Translations: [Sprain of ligaments of thoracic spine, initial encounter] Episodic Past or Other Problems Problem Classification Problem Date Documented Da te Episodic/Chronic Other ear and sense organ disorders (4 sources) Tinnitus of right ear; Translations: [Tinnitus, right ear] Onset: 02-14-2020 02-14-2020 Episodic Other skin disorders (1 source) Acne; Translations: [Acne vulgaris] Onset: 03-02-2016 02-11-2021 Episodic Other skin disorders (3 sources) Acne vulgaris; Translations: [Acne vulgaris] Onset: 03-02-2016 02-11-2021 Episodic Spondylosis; intervertebral disc disorders; other back problems (20 sources) Acute thoracic back pain; Translations: [Thoracic back pain] Onset: 05-21-2020 Resolved: 02-11-2021 05-21-2020 Episodic Results Test Name Value Interpretation Reference Range Facil ity Vital Signs Date Time Vital Sign Value Performing Clinician Faci lity 02-23-2021 09:36-0400 Body height 167.6 cm Sunshine Niño MA [facility] 02-23-2021 09:36-0400 Body mass index (BMI) [Ratio] 34.38 kg/m2 Sunshine Niño MA [facility] 02-23-2021 09:36-0400 Body weight 96.62 kg Sunshine Niño MA [facility] 02-23-2021 09:36-0400 Diastolic blood pressure 96 mm[Hg] Sunshine Niño MA [facility] 02-23-2021 09:36-0400 Systolic blood pressure 138 mm[Hg] Sunshine Niño MA [facility] 02-11-2021 13:25-0400 Body height 165.1 cm Wong Gautam MD Work Phone: [facility] 02-11-2021 13:25-0400 Body mass index (BMI) [Ratio] 36.24 kg/m2 Wong Gautam MD Work Phone: [facility] 02-11-2021 13:25-0400 Body temperature 98.1 [degF] Wong Gautam MD Work Phone: [facility] 02-11-2021 13:25-0400 Body weight 98.79 kg Wong Gautam MD Work Phone: [facility] 02-11-2021 13:25-0400 Diastolic blood pressure 88 mm[Hg] Wong Gautam MD Work Phone: [facility] 02-11-2021 13:25-0400 Heart rate 71 /min Wong Gautam MD Work Phone: [facility] 02-11-2021 13:25-0400 Respiratory rate 18 /min Wong Gautam MD Work Phone: [facility] 02-11-2021 13:25-0400 SaO2% (BldA) [Mass fraction] 98 % Wong Gautam MD Work Phone: [facility] 02-11-2021 13:25-0400 Systolic blood pressure 134 mm[Hg] Wong Gautam MD Work Phone: [facility] 02-14-2020 12:50-0400 BMI (Body Mass Index) 35.35 kg/m2 Americo Freedom [facility] 02-14-2020 12:50-0400 Body Temperature 98.6 [degF] Americo Loja [facility] 02-14-2020 12:50-0400 Body weight 96.34 kg Americo Loja [facility] 02-14-2020 12:50-0400 BP Diastolic 73 mm[Hg] Americo Loja [facility] 02-14-2020 12:50-0400 BP Systolic 119 mm[Hg] Americo Loja [facility] 02-14-2020 12:50-0400 Height 165.1 cm Americo Loja [facility] 02-14-2020 12:50-0400 Pulse (Heart Rate) 79 /min Americo Loja [facility] 02-14-2020 12:50-0400 Pulse Oximetry 97 % Americo Loja [facility] Encounters Encounter Date Encounter Type Care Provider Facility Start: 01-19-2022 ambulatory MOO COHEN [facility] Ambulatory Start: 01-19-2022 Chart abstracting Sunshine Niño MA [facility] Obstetrics and Gynecology Start: 05-19-2021 End: 05-23-2021 ambulatory [facility] Start: 05-19-2021 End: 05-19-2021 Office outpatient visit 25 minutes [facility] Work Phone: [facility] Procedures Date Procedure Procedure Detail Performing Clinician Start: 03-05-2021 Microscopic observat ion [Identifier] in Cervix by Cyto stain Wong Gautam MD Work Phone: Start: 02-11-2021 Adult depression scr eening assessment Wong Gautam MD Work Phone: Start: 12-19-2017 Microscopic observat ion [Identifier] in Cervix by Cyto stain Mable Wadsworth Plan of Treatment Date Care Activity Detail Author Start: 02-11-2031 Tetanus vaccination Tetanus: Every 10yrs [facility] Start: 03-05-2024 Screening for malignant neoplasm of cervix Pap Smear [facility] Start: 02-02-2024 Tetanus vaccination Tetanus: Every 10yrs [facility] Start: 05-20-2022 Influenza vaccination Sequential Influenza Vaccine (Season Ended) [facility] Start: 03-05-2022 History and physical examination, annual for health maintenance Wellness Visit [facility] Start: 02-11-2022 Depression screening using PHQ-9 (Patient Health Questionnaire 9) score [facility] Start: 02-11-2022 History and physical examination, annual for health maintenance Wellness Visit [facility] Start: 09-21-2021 End: 09-21-2021 Patient encounter procedure 09/21/2021 Office Visit Dermatology Scooby Banks Jr., DO [address] [place] [address] [facility] Start: 05-20-2021 Influenza vaccination [facility] Start: 05-18-2021 End: 05-18-2021 Patient encounter procedure 05/18/2021 Office Visit Dermatology Scooby Banks Jr., DO [address] [place] [address] [phone] [facility] Start: 03-12-2021 End: 03-12-2021 Patient encounter procedure 03/12/2021 Office Visit Dermatology Scooby Banks Jr., DO [address] [place] [address] [phone] [facility] Start: 12-19-2020 Screening for malignant neoplasm of cervix Pap Smear [facility] Start: 06-18-2020 End: 06-18-2020 Treatment 06/18/2020 Treatment Rehabilitation Antwon Cruz PA-C [address] [place] [phone] [facility] Start: 06-11-2020 End: 06-11-2020 Treatment 06/11/2020 Treatment Rehabilitation Antwon Cruz PA-C [address] [place] [phone] [facility] Start: 06-09-2020 End: 06-09-2020 Treatment 06/09/2020 Treatment Antwon Hernandez PA-C [address] [place] [phone] [facility] Start: 06-06-2020 End: 06-06-2020 Treatment 06/06/2020 Treatment Rehabilitation Antwon Cruz PA-C [address] [place] [phone] Mable Wadsworth, [facility] Start: 06-03-2020 End: 06-03-2020 Treatment 06/03/2020 Treatment Rehabilitation Antwon Cruz PA-C [address] [place] [address], [place] [address] Olivia Balbuena, [facility] Start: 05-28-2020 End: 05-28-2020 Treatment 05/28/2020 Treatment Rehabilitation Antwon Cruz PA-C [address] [place] [address], [place] [address] Saloni Valdez, [facility] Start: 05-27-2020 End: 05-27-2020 Treatment 05/27/2020 Treatment Rehabilitation Antwon Cruz PA-C [address] [place] [address], [place] [address] [phone] Kavitha Sol, [facility] Start: 05-23-2020 End: 05-23-2020 Treatment 05/23/2020 Treatment Rehabilitation Antwon Cruz PA-C [address] [place] [address], [place] [address] [phone] Mable Wadsworth, [facility] Start: 05-20-2020 Influenza vaccination given [facility] Start: 02-28-2010 Hepatitis C antibody, confirmatory test Hepatitis C Screening [facility] Start: 02-28-2010 Hepatitis C screening Hepatitis C Screening [facility] Start: 2008 COVID-19 Vaccine (1 of 2) COVID-19 Vaccine (1 of 2) [facility] Start: 02-28-2007 HIV screening HIV Screening [facility] Start: 2004 Adolescent depression screening assessment Depression Screening (PHQ9) [facility] Start: 2004 COVID-19 Vaccine (1) COVID-19 Vaccine (1) [facility] Start: 02-28-1997 COVID-19 Vaccine (1) COVID-19 Vaccine (1) [facility] Start: 02-28-1995 History and physical examination, annual for health maintenance Wellness Visit [facility] Start: 1992 Screening for malignant neoplasm of cervix Pap Smear [facility] Start: 1992 Tetanus vaccination Tetanus: Every 10yrs [facility] End: 11-13-2021 Covid-19/Influenza Order Algorithm : Dual Swab COVID/Flu Lab Tests (OP in UTM/Dry) Covid-19/Influenza Order Algorithm : Dual Swab COVID/Flu Lab Tests (OP in UTM/Dry) Microbiology Routine Encntr for obs for susp expsr to oth biolg agents ruled out Fever, unspecified fever cause Sore throat Congestion of respiratory tract Acute nonintractable headache, unspecified headache type 1 Occurrences starting 11/13/2020 until 11/13/2021 [facility] Immunizations Immunization Date Immunization Notes Care Provider Fa [facility] 02-11-2021 diphtheria, tetanus toxoids and acellular pertussis vaccine, unspecified formulation Wong Gautam MD Work Phone: [facility] 02-11-2021 tetanus toxoid, redu winifred diphtheria toxoid, and acellular pertussis vaccine, adsorbed Wong Gautam MD Work Phone: [facility] 02-01-2014 meningococcal polysaccharide (groups A, C, Y and W-135) diphtheria toxoid conjugate vaccine (MCV4P) Wong Gautam MD Work Phone: [facility] 02-01-2014 tetanus toxoid, redu winifred diphtheria toxoid, and acellular pertussis vaccine, adsorbed Wong Gautam MD Work Phone: [facility] 07-20-2006 tetanus toxoid, redu winifred diphtheria toxoid, and acellular pertussis vaccine, adsorbed Wong Gautam MD Work Phone: [facility] 03-13-1999 measles, mumps and r ubella virus vaccine Wong Gautam MD Work Phone: [facility] 01-16-1998 hepatitis B vaccine, pediatric or pediatric/adolescent dosage Wong Gautam MD Work Phone: [facility] 08-05-1997 hepatitis B vaccine, pediatric or pediatric/adolescent dosage Wong Gautam MD Work Phone: [facility] 07-09-1997 hepatitis B vaccine, pediatric or pediatric/adolescent dosage Wong Gautam MD Work Phone: [facility] 02-22-1997 diphtheria, tetanus toxoids and acellular pertussis vaccine Wong Gautam MD Work Phone: [facility] 02-22-1997 diphtheria, tetanus toxoids and acellular pertussis vaccine, unspecified formulation Wong Gautam MD Work Phone: [facility] 02-22-1997 trivalent poliovirus vaccine, live, oral Wong Gautam MD Work Phone: [facility] 08-20-1993 diphtheria, tetanus toxoids and acellular pertussis vaccine Wong Gautam MD Work Phone: [facility] 08-20-1993 diphtheria, tetanus toxoids and acellular pertussis vaccine, unspecified formulation Wong Gautam MD Work Phone: [facility] 08-20-1993 diphtheria, tetanus toxoids and pertussis vaccine Wong Gautam MD Work Phone: [facility] 08-20-1993 trivalent poliovirus vaccine, live, oral Wong Gautam MD Work Phone: [facility] 06-01-1993 haemophilus influenz ae type b vaccine, PRP-T conjugate Wong Gautam MD Work Phone: [facility] 06-01-1993 measles, mumps and r ubella virus vaccine Wong Gautam MD Work Phone: [facility] 1992 haemophilus influenz ae type b vaccine, PRP-T conjugate Wong Gautam MD Work Phone: [facility] 1992 diphtheria, tetanus toxoids and pertussis vaccine Wong Gautam MD Work Phone: [facility] 1992 haemophilus influenz ae type b vaccine, PRP-T conjugate Wong Gautam MD Work Phone: [facility] 1992 trivalent poliovirus vaccine, live, oral Wong Gautam MD Work Phone: [facility] 1992 diphtheria, tetanus toxoids and pertussis vaccine Wong Gautam MD Work Phone: [facility] 1992 haemophilus influenz ae type b vaccine, PRP-T conjugate Wong Gautam MD Work Phone: [facility] 1992 trivalent poliovirus vaccine, live, oral Wong Gautam MD Work Phone: [facility] Payers Date Payer Category Payer Worker's Compensation 200 [id number] 2019 Unknown [employer] [employer] - PREFERRED xxxxxxxxx 2019-Present xxxxxxxxx [id number] 2019 Unknown [id number] 2019 Unknown [id number] 1992 Unknown [id number] 2.16.840.1.828525.3.579.2 .3 1992 Unknown [id number] 2.16.840.1.086221.3.579.2 .1992 Unknown [id number] 2.16.840.1.156228.3.579.2 .3 1992 Unknown [id number] 2.16.840.1.101454.3.579.2 .1992 Unknown [id number] 2.16.840.1.806128.3.579.2 .3 1992 Unknown [id number] 2.16.840.1.869617.3.579.2 .1992 Unknown [id number] 2.16.840.1.159575.3.579.2 .903 1992 Unknown [id number] 2.16.840.1.171068.3.579.2 .903 1992 Unknown [id number] 2.16.840.1.233838.3.579.2 .903 1992 Unknown [id number] 2.16.840.1.440769.3.579.2 .903 1992 Unknown [id number] 2.16.840.1.513581.3.579.2 .903 1992 Unknown [id number] 2.16.840.1.705166.3.579.2 .900 1992 Unknown [id number] 2.16.840.1.320696.3.579.2 .900 1992 Unknown [id number] 2.16.840.1.466850.3.579.2 .903 1992 Unknown [id number] 2.16.840.1.328017.3.579.2 .903 1992 Unknown [id number] 2.16.840.1.092386.3.579.2 .903 1992 Unknown [id number] 2.16.840.1.289691.3.579.2 .903 1992 Unknown [id number] 2.16.840.1.455866.3.579.2 .903 1992 Unknown [id number] 2.16.840.1.717800.3.579.2 .903 Worker's Compensation [id number] Social History Date Type Detail Facility Start: 02-14-2020 End: 02-11-2021 Tobacco smoking status NHIS Never smoker [facility] Start: 02-14-2020 Tobacco Comment 02/14/2020 [facility] Start: 02-14-2020 Alcohol Comment rarely [facility] Start: 1992 Sex Assigned At Not [facility] file [facility] Exposure to SARS-CoV-2 (event) Not sure [facility] Start: 02-14-2020 End: 02-11-2021 Tobacco use and exposure Never used [facility] Start: 02-11-2021 End: 05-19-2021 Alcohol intake Ex-drinker (finding) [facility] History of Present illness Narrative 05-19-2021 Scooby Banks Jr., DO - 05/19/2021 9:59 AM EDT Note Date & Type Note Facility 05-19-2021 History of Presen t illness Narrative Rena Langston is a 31 y.o. female who presents for Chief Complaint Rosacea The patient is here today for the evaluation of her rosacea. Her rosacea has improved but is not completely controlled and she has continued to have some flares. She is currently on Soolantra cream at nighttime and Dr. Adrian's Sulfur Wash. She is still getting breakouts of her central face. She also has a red scaling bump of her right cheek that is dry and flaky. PHYSICAL EXAM She has inflammatory papules central face and cheeks with an erythematous scaling macule of her right upper cheek. ASSESSMENT AND PLAN 1.Actinic keratosis of the right cheek. We treated this 1 actinic keratosis with cryosurgery x2 freeze-thaw cycles. We discussed home care instructions and side effects including blistering. This was done after verbal consent was obtained. 2.Rosacea, chronic problem, improving but not controlled. I have recommended adding Oracea 40 mg 1 pill a day. I have recommended continuing with Soolantra cream at nighttime and Dr. Adrian's Sulfur wash twice a day. We will see the patient back in 4 months' time. She will be on the Oracea for 3 months and then she will stop the Oracea for a month and we will see the patient back in 4. History reviewed. No pertinent past medical history. Past Medical History Pertinent Negatives: Diagnosis Date Noted Basal cell carcinoma 03/13/2021 Melanoma (HCC) 03/13/2021 Squamous cell skin cancer 03/13/2021 Family History Cancer-related family history includes Cancer in her paternal grandmother. Review of Systems Constitutional: Malaise: No Skin: Other new or changing growths on skin: No Physical Examination Physical Exam The following areas were within normal limits except as noted otherwise in this note: Exposed: Oriented x 3/ alert; development/nourishment; mood/affect; scalp/hair; face; eyes/eyelids; lips; neck; digits/nails. Pertinent positive PE findings can be found below Assessment and Plan Scooby Banks DO 05/19/2021 documented in this encounter [facility] History of Present illness Narrative 02-11-2021 Wong Gautam MD - 02/11/2021 1:37 PM EDT Note Date & Type Note Facility 02-11-2021 History of Presen t illness Narrative Subjective Patient ID: Rena Langston is a 30 y.o. female. No real previous PCP Has follow up wi [employer] dr tam in 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 Review of Systems Constitutional: Negative for chills and fever. HENT: Positive for hearing loss. Negative for congestion, ear pain, sinus pain and sore throat. Eyes: Negative for pain and redness. Respiratory: Negative for chest tightness and shortness of breath. Cardiovascular: Negative for leg swelling. Gastrointestinal: Negative for abdominal pain, constipation, diarrhea, nausea and vomiting. Endocrine: Negative for polydipsia and polyuria. Genitourinary: Negative for dysuria and hematuria. Musculoskeletal: Negative for joint swelling. Skin: Negative for rash. Neurological: Negative for dizziness, syncope, numbness and headaches. Psychiatric/Behavioral: Negative for confusion and hallucinations. Objective Physical Exam Vitals reviewed. Constitutional: General: She is not in acute distress. Appearance: Normal appearance. HENT: Head: Normocephalic and atraumatic. Right Ear: Tympanic membrane and ear canal normal. Left Ear: Tympanic membrane and ear canal normal. Nose: No congestion or rhinorrhea. Eyes: Extraocular Movements: Extraocular movements intact. Conjunctiva/sclera: Conjunctivae normal. Pupils: Pupils are equal, round, and reactive to light. Cardiovascular: Rate and Rhythm: Normal rate and regular rhythm. Heart sounds: Normal heart sounds. No murmur heard. No friction rub. No gallop. Pulmonary: Effort: No respiratory distress. Breath sounds: Normal breath sounds. No wheezing, rhonchi or rales. Musculoskeletal: Cervical back: Neck supple. No rigidity. Skin: Findings: No rash. Neurological: Mental Status: She is alert. Motor: No weakness. Gait: Gait normal. Psychiatric: Mood and Affect: Mood normal. Assessment/Plan: Diagnoses and all orders for this visit: At this point she is doing quite well we will do routine labs update tetanus booster today she is going to continue to follow with her weight loss clinic and call us with problems we did discuss that if she gets the form from [facility] to fill out for her wellness bonus she will just drop that off and we can fill out for her Routine medical exam - Basic Metabolic Panel; Future - CBC and Differential; Future - Hemoglobin A1c; Future - Hepatic Function Panel; Future - Lipid Panel; Future - TSH; Future Need for vaccination - Tdap vaccine greater than or equal to 7yo IM Depression Screening 02/11/2021 Little interest or pleasure in doing things 0 Feeling down, depressed, or hopeless 0 PHQ-2 Total Score 0 Trouble falling or staying asleep, or sleeping too much 0 Feeling tired or having little energy 0 Poor appetite or overeating 0 Feeling bad about yourself - or that you are a failure or have let yourself or your family down 0 Trouble concentrating on things, such as reading the newspaper or watching television 0 Moving or speaking so slowly that other people could have noticed. Or the opposite - being so fidgety or restless that you have been moving around a lot more than usual 0 Thoughts that you would be better off , or of hurting yourself in some way 0 PHQ-9 Total Score 0 If you checked off any problems, how difficult have these problems made it for you to do your work, take care of things at home, or get along with other people? Not difficult at all documented in this encounter [facility] Evaluation note Note Date & Type Note Facility documented in this encounter [facility] Evaluation note Note Date & Type Note Facility documented in this encounter [facility] Reason for Referral Status Reason Specialty Diagnoses / Procedures Referred By Contact Referred To Contact Closed Specialty Services Required/Patient' s Best Interest Audiology Diagnoses Tinnitus of right ear Sensorineural hearing loss (SNHL) of both ears Americo Loja DO [address] [place] [address] Marzena Murrell AuD Instructions * Patient Instructions* Americo Loja DO - 02/14/2020 1:15 PM EDT Assessment/Plan: Diagnoses and all orders for this visit: Tinnitus of right ear I have discussed the etiology of the patient's tinnitus as it relates to loss of outer hair cells within the cochlea. This loss of cells is testable through the audiogram which was also reviewed withthe patient. Unfortunately, there is no cure for tinnitus though 1 in 10 patients have stated they have improvement with lipoflavenoid vitamin supplements. Currently, the best treatment for tinnitus i s called masking techniques. This involves background noise to mask or decrease attention on the noise in the ears. This involves having a tv, or radio, or fan on in the background to produce ambient noise. However, any time you start focusing on the sound it will seem louder, if you are startledand your fight or flight system kicks in it will be louder as all your senses are heightened, the more I discuss the sound the more you will focus on it and it will seem louder. Sensorineural hearing loss (SNHL) of both ears I have reviewed the patient's hearing testing with her today. She has an underlying downsloping snhl that is symmetric. I have reviewed this with her. I have encouraged her to have her 3 year old hearing aids checked as she may need hearing aid adjustment. Follow up as needed. She is encouraged to call with any issues. Does use hearing aid documented in this encounter History of Present Illness * Americo Loja DO - 02/14/2020 12:45 PM EDT Subjective Patient ID: Rena Langston is a 29 y.o. female. [employer] HEL[employer], self-referred for right ear infectionsx 3 over 3 months. 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 Placed on steroid x 4 days, no relief. Two courses of antibiotics. She still has pressure and thesensation of fluid. Pt has hx of ear infections as child. Wears hearing aids, they ear 3 years old.Last hearing test 2 years ago in [facility]. Denies drainage. The following portions of the patient's history were reviewed and updated as appropriate: allergies, current medications, past family history, past medical history, past social history, past surgicalhistory and problem list. Review of Systems Constitutional: Negative for chills and diaphoresis. HENT: Positive for tinnitus. Negative for ear discharge, ear pain, sinus pressure and sinus pain. Right ear fullness Right increased tinnitus Eyes: Negative for discharge and redness. Respiratory: Negative for apnea and cough. Cardiovascular: Negative for chest pain and palpitations. Musculoskeletal: Negative for neck pain and neck stiffness. Skin: Negative for color change and pallor. Allergic/Immunologic: Negative for immunocompromised state. Neurological: Negative for facial asymmetry and numbness. Hematological: Does not bruise/bleed easily. Psychiatric/Behavioral: Negative for agitation and confusion. Objective Physical Exam Vitals signs and nursing note reviewed. Constitutional: Appearance: Normal appearance. She is well-developed. Comments: The patient is well-developed and well-nourished without obvious deformity. HENT: Head: Normocephalic and atraumatic. Right Ear: Tympanic membrane, ear canal and external ear normal. Left Ear: Tympanic membrane, ear canal and external ear normal. Nose: Nose normal. Mouth/Throat: Mouth: Mucous membranes are moist. Eyes: General: Lids are normal. Conjunctiva/sclera: Conjunctivae normal. Left eye: No chemosis. Pupils: Pupils are equal, round, and reactive to light. Neck: Musculoskeletal: Normal range of motion and neck supple. Thyroid: No thyromegaly. Trachea: No tracheal deviation. Cardiovascular: Rate and Rhythm: Normal rate and regular rhythm. Heart sounds: Normal heart sounds. Pulmonary: Effort: Pulmonary effort is normal. Breath sounds: Normal breath sounds. No stridor. Lymphadenopathy: Head: Right side of head: No submental, submandibular, preauricular, posterior auricular or occipital adenopathy. Left side of head: No submental, submandibular, preauricular, posterior auricular or occipital adenopathy. Cervical: No cervical adenopathy. Right cervical: No superficial cervical adenopathy. Left cervical: No superficial or deep cervical adenopathy. Skin: General: Skin is warm and dry. Neurological: Mental Status: She is alert and oriented to person, place, and time. Coordination: Coordination normal. Gait: Gait normal. Comments: Cranial nerves 2-12 are grossly intact Fine motor touch and tracking appear normal. Psychiatric: Mood and Affect: Mood is not anxious. Affect is not angry. Speech: Speech is not delayed or slurred. Behavior: Behavior normal. Behavior is not agitated or aggressive. Behavior is cooperative. Assessment/Plan: Diagnoses and all orders for this visit: Tinnitus of right ear I have discussed the etiology of the patient's tinnitus as it relates to loss of outer hair cells within the cochlea. This loss of cells is testable through the audiogram which was also reviewed withthe patient. Unfortunately, there is no cure for tinnitus though 1 in 10 patients have stated they have improvement with lipoflavenoid vitamin supplements. Currently, the best treatment for tinnitus i s called masking techniques. This involves background noise to mask or decrease attention on the noise in the ears. This involves having a tv, or radio, or fan on in the background to produce ambient noise. However, any time you start focusing on the sound it will seem louder, if you are startledand your fight or flight system kicks in it will be louder as all your senses are heightened, the more I discuss the sound the more you will focus on it and it will seem louder. Sensorineural hearing loss (SNHL) of both ears I have reviewed the patient's hearing testing with her today. She has an underlying downsloping snhl that is symmetric. I have reviewed this with her. I have encouraged her to have her 3 year old hearing aids checked as she may need hearing aid adjustment. Follow up as needed. She is encouraged to call with any issues. Does use hearing aid documented in this encounter* Mable Wadsworth, PT - 05/21/2020 7:45 AM EDT [facility] Evaluation Visit Consent Statement: I discussed risks, benefits and alternatives to formal out patient physical therapy and gave the patient the option of video and/or telehealth visit in place of out patient visits. Patient is agreeable to coming in to out patient therapy at this time during the Covid- 19 pandemic. The patient is aware of risks of in person therapy. Patient was advised that we have a 2 No show policy. If patient no shows for 2 appointments, they will be taken off the schedule. Patient voiced understanding of policy. Today's Date 05/21/2020 Patient Name: Rena Langston Date of : 1990 Case Name: thoracic pain Functional Diagnosis: 1. Sprain of ligaments of thoracic spine, initial encounter 2. 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 No testing has been done so far. She waited 3 days and then went to [employer] to see worker's comp doctor. She was put on light duty and told to take ibuprophen and rest. Pain has not changed with rest. The following week shewent to see Curtis Cruz for follow up. Still on light duty. Has increase pain with sitting long periods, moving heavier objects. She moved a big box the other day and that was not comfortable. Was told she needs to do 12 therapy sessions before she can return to work. Prior treatment effectiveness: no relief Status: unchanged Hand dominance: right Pain Scale: Average Pain: 4/10 Pain at highest: 9/10 Aggravating factors: sitting, lifting. Easing factors: laying down Red Flags: None Barriers to Care: None Fall risk screening Fallen 2 or more times in the last 12 months: No Injured as a result of a fall in the last 12 months: No Personal Goals: Get back strength back and loosen muscles. Social History Scientology, social, or cultural considerations to be made aware of before starting treatment: No Lumbar Spine General Observations: Sits with rounded back, alert, oriented x3. Gait: Comments: Normal gait pattern. Posture: rounded shoulders posture and thoracic kyphosis Asymmetrics: Leg length: equal Trunk AROM: WFL Dermatomes Sensation: grossly intact Muscle Strength:WFL Joint Mobility Thoracic Spine: limited rotation to right due to left muscle tightness Treatments: Physical Therapy Exercise Log - 05/21/20 0741 OTHER Notes thoracic pain Vitals 7:45-8:30 Therapeutic Exercise ([id number]) Intervention Scap retraction, shoulder ext with RTB 10 times each Parameters posterior shoulder stretch at doorway 10 sec hold 5 times each side Intervention K tape thoracic spine Manual Therapy ([id number]) Intervention IASTM thoracic spine Parameters 10 mins down regulating throacic spine PT Treatment Times Total Treatment Time 45 Treatment Plan: Frequency of Visits: twice per week Duration: 4 weeks Interventions: Therapeutic Exercise and Manual Therapy Rehab Potential: good Goals: Physical Therapy Ortho Goals: The patient will be able to demonstrate good body mechanics without mid back pain. The patient will reduce pain with standing by 80% in 6 weeks. The patient will return to normal ADL without pain in 6 weeks. Patient Education provided: Patient given written home program. Clinical Impression: Pt is a 30 y.o.female who presents to PT services with c/o thoracic pain. Uponassessment, pt has been found with the following impairments: decreased ROM, decreased strength, and limited lifting. The documented impairments result in the following functional limitations: ADLs/IADLs, functional mobility, walking and quality of life. The pt would benefit from skilled PT services focused on the above listed impairments and limitations in order to safely progress pt to their desired level of function. Pt to be discharged from OP PT services if/when goals are met, if they fail to make progress with conservative management in PT, if their level of progress plateaus, or if they do not maintain compliance with attendance or HEP. At this time, it is my clinical judgment that services are medically necessary. Mable Wadsworth, PT State License, [id number] documented in this encounter* Mable Wadsworth, PT - 05/23/2020 10:00 AM EDT [facility] DAILY TREATMENT NOTE Today's Date 05/23/2020 Patient Name: Rena Langston Date of : 1990 Current Visit #: 2 Authorized Visits: 12 Case Name: thoracic pain History: Pre-Treatment Pain Scale: 5 Symptoms: stabilized Functional Diagnosis: 1. Acute midline thoracic back pain Clinical Information: Subjective: Patient states she felt a little better after evaluation. Then she dropped her phone onthe floor board in her car and had increase pain when reaching down to get it. Thinks taping helped. Objective Patient has less tightness in thoracic spine with scraping. Progressed with counter stretch and cross body stretch. Given written program for home. Slight increase in pain with exercises. Treatments: Physical Therapy Exercise Log - 05/23/20 0955 OTHER Notes thoracic pain Vitals 9:55-10:10:30 Therapeutic Exercise ([id number]) Intervention Scap retraction, shoulder ext with RTB 10 times each Parameters posterior shoulder stretch at doorway 10 sec hold 5 times each side Intervention K tape thoracic spine Parameters Counter stretch, wall cross body stretch 10 times each Intervention Chest press and OH flexion with 4# bar 10 times each Manual Therapy ([id number]) Intervention IASTM thoracic spine Parameters 10 mins down regulating throacic spine PT Treatment Times Therex Total Time 15 Manual Therapy Total Time 10 Direct Treatment Time 25 Total Treatment Time 30 Goals: Physical Therapy Ortho Goals: The patient will be able to demonstrate good body mechanics without mid back pain. The patient will reduce pain with standing by 80% in 6 weeks. The patient will return to normal ADL without pain in 6 weeks. Patient Education: Quality of movement and Written HEP with patient demonstrated understanding. Post-Treatment Pain Scale: 6 Assessment: Patient had an expected response to treatment. Skilled Intervention demonstrated by modifications of treatment per exercise log including increased load and safety interventions per exercise log. Progress towards goals as expected. Plan for Next Visit: Treatment Visit with focus on postural exericses including body mechanics for work activities. Mable Wadsworth PT State License, [id number] documented in this encounter* Kavitha Sol, ASSIGNMENT CLERK - 05/27/2020 11:30 AM EDT [facility] DAILY TREATMENT NOTE Today's Date 05/27/2020 Patient Name: Rena Langston Date of : 1990 Current Visit #: 3 Authorized Visits: 12 Case Name: thoracic pain History: Pre-Treatment Pain Scale: 0 Symptoms: gradually improved Functional Diagnosis: 1. Acute midline thoracic back pain Clinical Information: Subjective: Patient reporting more stiffness than pain today. Objective Exercises as charted. Added cat/camel and child's pose for thoracic stretching. Continued with IASTM and K-tape to end session. Treatments: Physical Therapy Exercise Log - 05/27/20 1120 OTHER Notes thoracic pain Vitals 11:20-11:52 Therapeutic Exercise ([id number]) Intervention Scap retraction, shoulder ext with RTB 10 times each Parameters posterior shoulder stretch at doorway 10 sec hold 5 times each side Intervention K tape thoracic spine Parameters Counter stretch, wall cross body stretch 10 times each Intervention Chest press and OH flexion with 4# bar 10 times each Parameters cat/camel, child's pose x 10 each Manual Therapy ([id number]) Intervention IASTM thoracic spine Parameters 10 mins down regulating throacic spine PT Treatment Times Therex Total Time 22 Manual Therapy Total Time 10 Direct Treatment Time 32 Total Treatment Time 35 Goals: Physical Therapy Ortho Goals: The patient will be able to demonstrate good body mechanics without mid back pain. The patient will reduce pain with standing by 80% in 6 weeks. The patient will return to normal ADL without pain in 6 weeks. Patient Education: Written HEP with patient demonstrated understanding. Post-Treatment Pain Scale: 3 Assessment: Patient had an expected response to treatment. Skilled Intervention demonstrated by modifications of treatment per exercise log including assessment of patient's response and safety interventions per exercise log. Progress towards goals as expected. Plan for Next Visit: Treatment Visit with focus on strengthening and symptom relief. Kavitha Sol PTA STATE LICENSE, [id number] documented in this encounter* Saloni Valdez, PT - 05/28/2020 9:15 AM EDT [facility] DAILY TREATMENT NOTE Today's Date 05/28/2020 Patient Name: Rena Langston Date of : 1990 Current Visit #: 4 Authorized Visits: 12 Case Name: No linked episodes History: Pre-Treatment Pain Scale: 2 Symptoms: gradually improved Functional Diagnosis: No diagnosis found. Clinical Information: Subjective: Patient reports is feeling better than when she started PT. Patient reports pain with mowing, but otherwise is able to do home duties without symptoms. Objective PALPATION: Moderate tightness tenderness bilateral thorocolumbar parasinals left greater than right Treatments: Physical Therapy Exercise Log - 05/28/20 0852 OTHER Notes thoracic pain Vitals 8:55- Therapeutic Exercise ([id number]) Intervention Scap retraction, shoulder ext with RTB 2x10 times each Parameters posterior shoulder stretch at doorway 10 sec hold 5 times each side Intervention K tape thoracic spine Parameters Counter stretch, wall cross body stretch 10 times each Intervention Chest press and OH flexion with 4# bar 10 times each Parameters cat/camel, child's pose x 10 each Intervention scifit UBE 30' fwd/bck x 2 min Manual Therapy ([id number]) Intervention IASTM thoracic spine Parameters 10 mins down regulating throacic spine Goals: Physical Therapy Ortho Goals: The patient will be able to demonstrate good body mechanics without mid back pain. The patient will reduce pain with standing by 80% in 6 weeks. The patient will return to normal ADL without pain in 6 weeks. Patient Education: Quality of movement with patient verbalized understanding. Post-Treatment Pain Scale: 5 Assessment: Patient had an expected response to treatment. Patient does have increase in pain aftermanual therapy, but reports it does decrease overall as day progresses Skilled Intervention demonstrated by modifications of treatment per exercise log including increased volume and safety interventions per exercise log. Progress towards goals as expected. Plan for Next Visit: Treatment Visit with focus on stretching/mobility, postural strengthening. Saloni Valdez PT State License, [id number] documented in this encounter* Mable Wadsworth, PT - 06/06/2020 1:00 PM EDT [facility] DAILY TREATMENT NOTE Today's Date 06/06/2020 Patient Name: Rena Langston Date of : 1990 Current Visit #: 6 Authorized Visits: 12 Case Name: thoracic pain History: Pre-Treatment Pain Scale: 2 Symptoms: gradually improved Functional Diagnosis: 1. Acute midline thoracic back pain Clinical Information: Subjective: Patient reports she feels like her back is starting to loosen up. Objective Progressed with further stretching standing to reduce tightness. Added reverse codmans with bar. Treatments: Physical Therapy Exercise Log - 06/06/20 1259 OTHER Precautions/Contraindications Claim #[id number] Notes thoracic pain Vitals 1:00-1:45 Therapeutic Exercise ([id number]) Intervention Scap retraction, shoulder ext with GTB 2x10 times each Parameters posterior shoulder stretch at doorway 10 sec hold 5 times each side Intervention K tape thoracic spine Parameters Counter stretch, wall cross body stretch 10 times each Intervention Chest press and OH flexion with 4# bar 10 times each Parameters cat/camel, child's pose x 10 each Intervention scifit UBE L2 fwd/bck x 4 min Parameters anti-rotation press x10 GTB Manual Therapy ([id number]) Intervention IASTM thoracic spine Parameters 15 mins down regulating throacic spine PT Treatment Times Therex Total Time 20 Manual Therapy Total Time 10 Direct Treatment Time 30 Total Treatment Time 35 Goals: Physical Therapy Ortho Goals: The patient will be able to demonstrate good body mechanics without mid back pain. The patient will reduce pain with standing by 80% in 6 weeks. The patient will return to normal ADL without pain in 6 weeks. Patient Education: Quality of movement and Written HEP with patient demonstrated understanding. Post-Treatment Pain Scale: 2 Assessment: Patient had an expected response to treatment. Skilled Intervention demonstrated by modifications of treatment per exercise log including increased load and safety interventions per exercise log. Progress towards goals as expected. Plan for Next Visit: Treatment Visit with focus on work on pushing and pulling for work. Mable Wadsworth PT State License, [id number] documented in this encounter* Kavitha Sol, ASSIGNMENT CLERK - 06/09/2020 1:00 PM EDT [facility] DAILY TREATMENT NOTE Today's Date 06/09/2020 Patient Name: Rena Langston Date of : 1990 Current Visit #: 7 Authorized Visits: 12 Case Name: thoracic pain History: Pre-Treatment Pain Scale: 4 Symptoms: gradually improved Functional Diagnosis: 1. Acute midline thoracic back pain Clinical Information: Subjective: Overall noting improvement. Slightly more pain today due to activity over weekend. Objective Exercises as charted. Added pulling activity with T band for work simulation. Treatments: Physical Therapy Exercise Log - 06/09/20 1257 OTHER Precautions/Contraindications Claim #[id number] Notes thoracic pain Vitals 1:00-1:44 Therapeutic Exercise ([id number]) Intervention Scap retraction, shoulder ext with GTB 2x10 times each Parameters posterior shoulder stretch at doorway 10 sec hold 5 times each side Intervention K tape thoracic spine Parameters Counter stretch, wall cross body stretch 10 times each Intervention Chest press, OH flexion, reverse codman's with 4# bar 10 times each Parameters cat/camel, child's pose x 10 each Intervention scifit UBE L2 fwd/bck x 4 min Parameters anti-rotation press x10 GTB Manual Therapy ([id number]) Intervention IASTM thoracic spine Parameters 14 mins down regulating throacic spine PT Treatment Times Therex Total Time 30 Manual Therapy Total Time 14 Direct Treatment Time 44 Total Treatment Time 44 Goals: Physical Therapy Ortho Goals: The patient will be able to demonstrate good body mechanics without mid back pain. The patient will reduce pain with standing by 80% in 6 weeks. The patient will return to normal ADL without pain in 6 weeks. Patient Education: Verbal HEP with patient demonstrated understanding. Post-Treatment Pain Scale: 2 Assessment: Patient had an expected response to treatment. Skilled Intervention demonstrated by modifications of treatment per exercise log including assessment of patient's response and safety interventions per exercise log. Progress towards goals as expected. Plan for Next Visit: Treatment Visit with focus on strength and symptom relief per patient tolerance. Kavitha Sol PTA STATE LICENSE, [id number] documented in this encounter* Kavitha Sol PTA - 06/11/2020 1:00 PM EDT [facility] DAILY TREATMENT NOTE Today's Date 06/11/2020 Patient Name: Rena aLngston Date of : 1990 Current Visit #: 8 Authorized Visits: 12 Case Name: thoracic pain History: Pre-Treatment Pain Scale: 2 Symptoms: gradually improved Functional Diagnosis: 1. Acute midline thoracic back pain Clinical Information: Subjective: Patient reports she has been feeling good. Noting decreased tightness and soreness. Objective Exercises as charted. Continue to progress with work simulation activities involving pushing and pulling. Reaching up with weighted balls. Symptoms reported only on right side with activity today. Ended with IASTM and K-tape. Tightness in right thoracic region today. Treatments: Physical Therapy Exercise Log - 06/11/20 1257 OTHER Precautions/Contraindications Claim #[id number] Notes thoracic pain Vitals 1:00-1:45 Therapeutic Exercise (93020) Intervention Scap retraction, shoulder ext with BTB 2x10 times each Parameters posterior shoulder stretch at doorway 10 sec hold 5 times each side Intervention K tape thoracic spine Parameters Counter stretch, wall cross body stretch 10 times each Intervention Chest press, OH flexion, reverse codman's with 6# bar 10 times each Parameters cat/camel, child's pose x 10 each Intervention scifit UBE L2 fwd/bck x 4 min Parameters anti-rotation press x10 GTB Intervention Cybex tower row, horizontal add 5# x 10 each Parameters resistance band push/pull x 10 Manual Therapy (66924) Intervention IASTM thoracic spine Parameters 10 mins down regulating throacic spine PT Treatment Times Therex Total Time 30 Manual Therapy Total Time 10 Direct Treatment Time 40 Total Treatment Time 45 Goals: Physical Therapy Ortho Goals: The patient will be able to demonstrate good body mechanics without mid back pain. The patient will reduce pain with standing by 80% in 6 weeks. The patient will return to normal ADL without pain in 6 weeks. Patient Education: Verbal HEP with patient demonstrated understanding. Post-Treatment Pain Scale: 2 Assessment: Patient had an expected response to treatment. Skilled Intervention demonstrated by modifications of treatment per exercise log including increased load and assessment of patient's response and safety interventions per exercise log. Progress towards goals as expected. Plan for Next Visit: Treatment Visit with focus on strength and stability per patient tolerance. Kavitha Sol PTA STATE LICENSE, [id number] documented in this encounter* Mable Wadsworth, PT - 06/18/2020 1:00 PM EDT [facility] DAILY TREATMENT NOTE Today's Date 06/18/2020 Patient Name: Rena Langston Date of : 1990 Current Visit #: 9 Authorized Visits: 12 Case Name: thoracic pain History: Pre-Treatment Pain Scale: 1 Symptoms: gradually improved Functional Diagnosis: 1. Acute midline thoracic back pain Clinical Information: Subjective: Patient states she has been released to full duty and no restriction. Some stiffness with cold weather, but feels comfortable with home program. Objective Patient able to push and pull leading with right arm 20#, but limited at 15# with leading with the left. Patient is independent with home program and is returning to full duty. Treatments: Physical Therapy Exercise Log - 06/18/20 1300 OTHER Precautions/Contraindications Claim #[id number] Notes thoracic pain Vitals 1:00-1:45 Therapeutic Exercise ([id number]) Intervention Scap retraction, shoulder ext with BTB 2x10 times each Parameters posterior shoulder stretch at doorway 10 sec hold 5 times each side Intervention K tape thoracic spine Parameters Counter stretch, wall cross body stretch 10 times each Intervention Chest press, OH flexion, reverse codman's with 6# bar 10 times each Parameters cat/camel, child's pose x 10 each Intervention scifit UBE L2 fwd/bck x 4 min Parameters anti-rotation press x10 BTB Intervention Cybex tower row, horizontal add 5# x 10 each Parameters resistance band push/pull x 10 Manual Therapy (32346) Intervention IASTM thoracic spine Parameters 10 mins down regulating throacic spine PT Treatment Times Therex Total Time 30 Manual Therapy Total Time 10 Direct Treatment Time 40 Total Treatment Time 45 Goals: Physical Therapy Ortho Goals: The patient will be able to demonstrate good body mechanics without mid back pain. The patient will reduce pain with standing by 80% in 6 weeks. The patient will return to normal ADL without pain in 6 weeks. Patient Education: Quality of movement with patient demonstrated understanding. Post-Treatment Pain Scale: 0 Assessment: Patient had an expected response to treatment. Skilled Intervention demonstrated by modifications of treatment per exercise log including increased load and safety interventions per exercise log. Progress towards goals as expected. Plan for Next Visit: Discharge Mable Wadsworth PT State License, [id number] documented in this encounter* Olivia Balbuena PTA - 06/03/2020 10:45 AM EDT [facility] DAILY TREATMENT NOTE Today's Date 06/03/2020 Patient Name: Rena Langston Date of : 1990 Current Visit #: 5 Authorized Visits: 12 Case Name: thoracic pain History: Pre-Treatment Pain Scale: 2 Symptoms: gradually improved Functional Diagnosis: 1. Acute midline thoracic back pain Clinical Information: Subjective: Pt feels session are helping decrease stiffness to LB/thoracic region. Pt states after 2 12 hour shifts at work her back has had it, states standing for long periods of time is very difficult. Objective Pt continued with strengthening and flexibility activities, Added ani- press for core/backstrengthening w/RTB. Scraping and tapping continued. Treatments: Physical Therapy Exercise Log - 06/03/20 1051 OTHER Notes thoracic pain Vitals 8:55-9:40 Therapeutic Exercise (98937) Intervention Scap retraction, shoulder ext with GTB 2x10 times each Parameters posterior shoulder stretch at doorway 10 sec hold 5 times each side Intervention K tape thoracic spine Parameters Counter stretch, wall cross body stretch 10 times each Intervention Chest press and OH flexion with 4# bar 10 times each Parameters cat/camel, child's pose x 10 each Intervention scifit UBE 30' fwd/bck x 2 min Parameters anti-rotation press x10 RTB Manual Therapy ([id number]) Intervention IASTM thoracic spine Parameters 15 mins down regulating throacic spine PT Treatment Times Therex Total Time 26 Manual Therapy Total Time 15 Direct Treatment Time 41 Total Treatment Time 43 Goals: Physical Therapy Ortho Goals: The patient will be able to demonstrate good body mechanics without mid back pain. The patient will reduce pain with standing by 80% in 6 weeks. The patient will return to normal ADL without pain in 6 weeks. Patient Education: Verbal HEP with patient verbalized understanding. Post-Treatment Pain Scale: 1 Assessment: Patient had an expected response to treatment. Pt continues to progress with decreased pain overall but still has difficulty with periods of long standing . Skilled Intervention demonstrated by modifications of treatment per exercise log including increased load and safety interventions per exercise log. Progress towards goals as expected. Plan for Next Visit: Treatment Visit with focus on Core/back strengthening, manual techniques and flexibility Olivia Balbuena PTA STATE LICENSE, [id number] documented in this encounter* Marzena Murrell AuD - 02/14/2020 1:15 PM EDT [facility] [address] [place] [address] Name: Rena E Jose : 1990 Date: 02/14/20 History & Purpose of Evaluation: Rena Langston was seen today for audiologic evaluation at the kind request of Dr. Loja. Ms. Langston has a known history of hearing loss and constant high pitched tinnitus. Ms. Langston reports she has worn hearing aids since the age of 12. Her last hearing test was two years ago in [place], [place] (unable to obtain). She currently wears a pair of Phonak RAIN hearing aids that are three years old. She presents today with a c/o a plugged sensation and increased tinnitus at the right ear. She was treated with two rounds of antibiotics and one round of steroids with some relief. Please see below for other pertinent case history. Otologic Symptoms R L Noise Exposure Y N Medical Y N Hearing Loss [x] [x] Occupational [] [x] Hypertension [] [x] Tinnitus [x] [x] Recreational [x] [] Diabetes [] [x] Otalgia [] [] [] [x] Hypercholesterolemia [] [x] Otorrhea [] [] Heart Disease [] [x] Aural Fullness [x] [] Family History [x] [] Stroke [] [x] Meniere s Disease [] [] Father; Cancer [] [x] Y N Sp./Lang. Skills Ear Surgery R L Vertigo [] [x] Appropriate [x] [] PE Tubes [] [] Dizziness [] [x] In Therapy [] [x] Mastoidectomy [] [] Imbalance [] [x] Social Acoustic Neuroma [] [] Vestibular Rehab [] [x] Depression [] [x] Tympanoplasty [] [] Other: Results: [employer] Conduction Audiometry: Normal hearing sloping to a moderately-severe sensorineural hearing loss, bilaterally. Speech Audiometry: Word recognition is excellent (92%) at both ears when assessed at above a normal conversational loudness level (80 dB HL right & 75 dBHL left). Immittance Audiometry: Normal middle ear pressure and tympanic membrane mobility, bilaterally. Jerger Type A. Distortion Product Otoacoustic Emissions (DPOAE; 1500-6k Hz): Could not assess. No equipment availability. Impression: Today's results reveal a significant symmetrical sensorineural hearing loss, bilaterally, that is expected to interfere with communication in all listening situations. Middle ear testing is consistent with normal middle ear function bilaterally. Ms. Langston's hearing test results were discussed withher and she reported that her hearing looked the same as her last hearing test. Recommendations: Follow up with Dr. Loja. 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 Follow-up with managing retail sales teammate for hearing aid concerns. The above was explained to the patient and or their guardian and they expressed understanding. Electronically signed by: Bruno Olsen, [facility] 02/14/20 12:54 PM documented in this encounter* eMlanie Baumann CNP - 11/13/2020 7:36 AM EST Patient called [facility] with concern for COVID-19 and need for testing. [place]/ Department: [facility] Fever: yes S/S : headache, sore throat, congestion Known positive covid exposure?: no Per IDSA guidelines, testing is indicated. Suspect COVID, order placed. Patient aware this phone consult is for testing only. They will follow up with PCP/UC/ED for symptom management, if needed. documented in this encounter Assessments Diagnosis Tinnitus of right ear Sensorineural hearing loss (SNHL) of both ears Does use hearing aid Diagnosis Sprain of ligaments of thoracic spine, initial encounter Acute midline thoracic back pain Diagnosis Acute midline thoracic back pain Diagnosis Thoracic back pain, unspecified back pain laterality, unspecified chronicity- Primary Diagnosis Tinnitus of right ear Sensorineural hearing loss, bilateral Does use hearing aid Diagnosis Encntr for obs for susp expsr to oth biolg agents ruled out- Primary Fever, unspecified fever cause Sore throat Acute pharyngitis Congestion of respiratory tract Acute nonintractable headache, unspecified headache type Advance Directives No Advanced Directives Records FoundDocuments on File Type Date Recorded 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 Advance Directives and Living Will Documents on File Type Date Recorded 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 Advance Directives and Living Will Summary Purpose Family History No Family History Records FoundNo Family History Records FoundNo Family History Records FoundNo Family History Records Found Additional Source Comments Reason for Visit (unrecogniz ed section and content) Reason Comments Physical Therapy Status Reason Specialty Diagnoses / Procedures Referred By Contact Referred To Contact Authorized Rehabilitation Diagnoses Sprain of ligaments of thoracic spine, initial encounter Antwon Cruz PA-C [address] [place] [id number] [facility] [address] [place] [address] Status Reason Specialty Diagnoses / Procedures Referred By Contact Referred To Contact Closed Specialty Services Required/Patient' s Best Interest Audiology Diagnoses Tinnitus of right ear Sensorineural hearing loss (SNHL) of both ears Americo Loja DO [address] [place] [address] Marzena Murrell AuD Reason Comments Establish Care New patient Reason Comments Rosacea Addendum Note - Americo Loja DO - 02/14/2020 1:21 PM EDT Miscellaneous Notes (unrecog nized section and content) Addended by: AMERICO LOJA on: 02/14/2020 01:21 PM Modules accepted: Orders documented in this encounter INFORMATION SOURCE (unrecogn ized section and content) DATE CREATED AUTHOR AUTHOR'S ORGANIZ ATION 03/17/2021 [facility] DATE CREATED AUTHOR AUTHOR'S ORGANIZ ATION 05/24/2021 [facility] DATE CREATED AUTHOR AUTHOR'S ORGANIZ ATION 01/21/2022 [facility] Care Teams (unrecognized sec tion and content) [employer] Bullet Maker Relationship Specialty Start Date End Date Wong Gautam MD [address] [place] [address] PCP - General Family Medicine 05/01/21 FOR RECORDS PERTAINING TO PATIENTS WHO ARE OR HAVE BEEN ENROLLED IN A CHEMICAL DEPENDENCY/SUBSTANCEABUSE PROGRAM, SOME INFORMATION MAY BE OMITTED. This clinical summary was aggregated from multiple sources. Caution should be exercised in using it in the provision of clinical care. This summary normalizes information from multiple sources, and as a consequence, information in this document may materially change the coding, format and clinical context of patient data. In addition, data may be omitted in some cases. CLINICAL DECISIONS SHOULD BE BASED ON THE PRIMARY CLINICAL RECORDS. [employer] [facility]. provides no warranty or guarantee of the accuracy or completeness of information in this document.
== END | disposition home or self-care (01) ==
PROVIDERS: PCP Internal Medicine; Referring Provider Student in an Organized Health Care Education/Training Program; Visit Provider Student in an Organized Health Care Education/Training Program
DX: M79.672 Pain in left foot (principal)
CPT/HCPCS: 73630

== ENCOUNTER → 2024-06-12 | Outpatient (CLI) | payer OTHER, SELFPAY ==
--- NOTE | 2024-06-12 09:18 | RAD_ITS ---
STUDY: X-RAY - THORACIC SPINE REASON FOR EXAM: Female, 34 years old. Back pain/spasms TECHNIQUE: 2 view(s) of the thoracic spine were obtained. COMPARISON: None. FINDINGS: Normal kyphosis of the thoracic spine. Minimal dextroscoliosis. Normal thoracic vertebrae and endplates. There is mild multilevel disc space narrowing of the thoracic spine. The soft tissue structures are unremarkable. RAD/Thoracic Spine 2 Views IMPRESSION: Mild degree of disc space narrowing. Electronically Signed: Nish Diamond MD at 12:38 EDT ,
== END | disposition home or self-care (01) ==
LOC: MTRAD 09:14
PROVIDERS: PCP Internal Medicine; Referring Provider Chiropractor; Visit Provider Chiropractor
DX: M99.02 Segmental and somatic dysfunction of thoracic region (principal)
CPT/HCPCS: 72070

== ENCOUNTER → 2024-07-25 | Outpatient (CLI) | payer OTHER, SELFPAY ==
[2024-07-25 09:48] LABS: Absolute Lymphocyte Count 2.35 X10^3/uL (0.83-4.51); Absolute Neutrophil Count 5.8 X10^3/uL (2.0-7.7); Basophil# 0.03 X10^3/uL; Basophil% 0.3 % (0-1); Eosinophil# 0.06 X10^3/uL; Eosinophils% 0.7 % (0-5); Hematocrit 40.2 % (37-47); Hemoglobin 13.3 g/dL (12.0-15.0); Lymphocyte # 2.35 X10^3/ul (0.83-4.51); Lymphocyte % 27.2 % (19-41); Mean Corp Hgb Conc 33.1 g/dL (32-36); Mean Corpuscular Hgb 27.5 pg (27.0-32.0); Mean Corpuscular Volume 83.2 fL (81-99); Mean Platelet Vol. 11.8 fl (6.2-12.0); Monocyte# 0.34 X10^3/uL; Monocyte% 3.9 % (0-10); NRBC Flagged by Analyzer 0 % (0-5); Neutrophil # 5.83 X10^3/uL (2.7-7.7); Neutrophil % 67.7 % (47-70); Platelet Count 275 K/mm3 (150-450); RBC Distribution Width CV 12.5 % (11.6-14.6); RBC Distribution Width SD 37.7 fl (35.1-43.9); Red Blood Count 4.83 M/mm3 (4.2-5.4); White Blood Count 8.6 K/mm3 (4.4-11.0)
[2024-07-25 10:23] LABS: Vitamin B12 362 pg/mL (211-911); Vitamin D,25 Hydroxy 14.8 ng/mL
[2024-07-25 10:38] LABS: ALB/GLOB Ratio 0.9 RATIO (0.9-2.4); AST(SGOT) 14 U/L (15-37); Alanine Aminotransfer ALT/SGPT 26 U/L (13-56); Albumin, Serum 3.8 g/dL (3.2-5.0); Alkaline Phosphatase 78 U/L (45-117); Anion Gap 7 (5-15); BUN 9 mg/dL (7-18); BUN/Creat Ratio 14.2 RATIO (10-20); Calcium,Total 9.2 mg/dL (8.5-10.1); Chloride 106 mmol/L (98-107); Cholesterol 173 mg/dL (200); Creatinine, Serum 0.63 mg/dL (0.55-1.02); EST Glomerular Filtration Rate 115 mL/min (>60); Est Glom Filt Rate - Afr Amer 140 mL/min (>60); Globulin 4.2 g/dL (2.2-4.2); Glucose 92 mg/dL (74-106); High Density Lipoprotein 61 mg/dL; Sodium Level 135 mmol/L (136-145); T4 Free Direct 1.02 ng/dL (0.76-1.46); Thyroid Stim Hormone (TSH) 0.738 uIU/mL (0.358-3.740); Triglycerides 95 mg/dL; Very Low Density Lipoprotein 19 mg/dL (5-40)
== END | disposition home or self-care (01) ==
LOC: LAB 09:07
PROVIDERS: PCP Nurse Practitioner Family; Referring Provider Nurse Practitioner Family; Visit Provider Nurse Practitioner Family
DX: Z00.01 Encounter for general adult medical examination with abnormal findings (principal); R63.5 Abnormal weight gain; E55.9 Vitamin D deficiency, unspecified; R53.83 Other fatigue
CPT/HCPCS: 36415; 80053; 80061; 82306; 82607; 84439; 84443; 85025

== ENCOUNTER 2024-09-25 08:00 | Outpatient (RCR) | payer OTHER, SELFPAY ==
--- NOTE | 2024-07-30 08:42 | HP.PTEVAL ---
Patient's Visit Information Visit Information Visit Information: LALA LANGSTON is a 34 year old F referred to Physical Therapy by Dr. Mala Moncada DC with a diagnosis of Cervical, thoracic, lumbar, and pelvic somatic dysfunction. Date of Evaluation: 07/26/24 Physical Therapist: Dominguez Mcnamara DPT Visit Plan Frequency: 2x /Week Duration: 6 Weeks Plan: Pt. to complete x1 day in aquatic therapy and x1 day per week on land. ON LAND: work on lumbar and thoracic ROM as tolerated. Add in extension, cat/cow, thoracic rotation. Start light and progress as tolerated. IN POOL: Start with hip/core strengthening. Progress as tolerated. Subjective Subjective: Pt. is here today for her initial evaluation with diagnosis of somatic dysfunction of pelvic, lumbar, cervical and thoracic region. Pt. reports having good tolerance and positive response with chiro, but not consistent relief. Pt. reports having increased pain in lumbar spine, thoracic spine and cervical spine. Pt. reports stiffness in morning, no radicular symptoms, but has chronic pain throughout the day. She reports no LE weakness, no change in B/B. Pt. has a newer job and is sitting more than previously, but does have a sit to stand desk. Pt. has not found positions that her better. Pt. is hopeful to reduce symptoms in order to get back to all work and recreational activities without limitations. Pain Lumbar spine: Pain Intensity (Out of 10): 4 Pain Intensity Range: 2 and 7 Thoracic spine: Pain Intensity (Out of 10): 4 Pain Intensity Range: 2 and 7 Cervical spine: Pain Intensity (Out of 10): 3 Pain Intensity Range: 2 and 7 Objective Objective: POSTURE: Pt. has overall decent posture, but marked increased thoracic kyphosis. Normal iliac crest heights. PALPATION: pt. has tenderness along thoracic and lumbar spine, but no radicular symptoms noted. Pt. has tenderness throughout erector spinea a well. NEURO: normal sensation in BLEs. Pt. has normal DTR of BLEs. Pt. is able to rise on heels and toes without issues. ROM: LUMBAR SPINE: flexion min loss increase NW (HS tightness), ext mod loss increase NW, SB nil loss NE, rotation min/nil loss NE. THORACIC SPINE: flexion nil loss NE, ext mod loss increase NW. Pt. has no leg discrepency. MMT: PT. has 4+/5 B hip strength throughout. Core strength: poor. Lumbar ext poor. GAIT: pt. has normal gait pattern without increase in symptoms. STAIRS: normal with 1 HR with reciprocal pattern. Special Tests L/S Slump test left side: Negative L/S Slump test right side: Negative L/S Left Straight Leg Raise: Negative L/S Right Straight Leg Raise: Negative Lumbar Standing: Flexion - Mechanical Response: No effect Lumbar Standing: Flexion - Symptoms During Testing: Increases Lumbar Standing: Flexion - Symptoms After Testing: No worse Lumbar Standing: Extension - Mechanical Response: No effect Lumbar Standing: Extension - Symptoms During Testing: Increases Lumbar Standing: Extension - Symptoms After Testing: No worse Lumbar Standing: Right Side Glides - Mechanical Response: No effect Lumbar Standing: Right Side [place] - Symptoms During Testing: No effect Lumbar Standing: Right Side [place] - Symptoms After Testing: No effect Lumbar Standing: Left Side [place] - Mechanical Response: No effect Lumbar Standing: Left Side [place] - Symptoms During Testing: Produces Lumbar Standing: Left Side [place] - Symptoms After Testing: No effect Balance/Special Test Scores Oswestry Low Back Score: 15 Goals Goal 1:: LTG: pt. to be I with both gym and aquatic HEP for LE/core strength and lumbar/thoracic ROM. Goal Time Frame: 4-6 Weeks Goal 2:: LTG: pt. to have full ROM of thoracic and lumbar spine without increase in symptoms. Goal Time Frame: 4-6 Weeks Goal 3:: LTG: Pt. to have 5/5 strength throughout core and B hips. Goal Time Frame: 4-6 Weeks Goal 4:: LTG: PT. to complete all work activities without increase in symptoms. Goal Time Frame: 4-6 Weeks Rehabilitation Potential Physical Therapy Diagnosis: Pt. has signs and symptoms consistent with Cervical, thoracic, lumbar, and pelvic somatic dysfunction. Pt. has some marked tightness in her spinal musculature and weakness in B hips and core strength. Pt. would benefit from PT to address the above limitations progressing back to work and recreational activities without limitations. Rehabilitation Potential: Good Anticipated Interventions Patient/Client Instruction: Educate patient on: Condition, Plan of Care, Risk Factors and Benefits of Fitness Program For the Purpose of:: To improve decision making, To facilitate caregiver knowledge, To improve self management, To prevent re-injury, To improve ability to perform tasks related to life management and To improve tolerance to ADL's Therapeutic Exercise to Include: Strength training, Postural training, Flexibilty training, In an aquatic setting, Passive ROM, Active ROM and Pedrito Exercises For the Purpose of:: To decrease pain, To increase ROM, To improve nutrient delivery to tissue, To increase oxygenation perfusion, To improve muscle performance and motor function, To improve ability to perform ADL's, To increase tolerance to activity/condition/position, To improve performance and independence with ADL's, To improve health of tissue, To decrease soft tissue restriction and To increase flexibility/ROM Manual Therapy Techniques to Include: Mobilization and Soft tissue mobilization For the Purpose of:: To decrease pain, To decrease swelling/inflammation, To increase ROM, To improve nutrient delivery to tissue and To increase oxygenation perfusion Text: Thank you for the opportunity to evaluate your patient. For Medicare and Medicare HMO plans, please review the plan of care and approve it. It will need to be FAXED BACK to us at [phone] for Medicare purposes. For Medicare only, by signing this I certify the plan of care. Please let me know if there are questions or concerns regarding this plan of care. Physician Signature: Date:
--- NOTE | 2024-09-04 09:37 | HP.PTREVAL ---
Re-Evaluation Intro: Dr. Mala Moncada, JERRY, It has been my pleasure to treat LALA LANGSTON over the last 11 visits for Cervical, thoracic, lumbar, and pelvic somatic dysfunction. Please see the progress note below for an update on the physical therapy plan of care! Subjective Subjective: Pt. reports overall doing a little bit better. Pt. reports overall doing 50% better overall. Pt. is overall pleased with progress. Pt. reports wanting to trial therapy on her own for 2 weeks as she is very busy with the holidays. Objective Objective/Function: ROM: LUMBAR SPINE: flexion: min loss mild increase NW, ext min loss mild increase NW, SB nil loss Bilat NE, rotation nil loss NE. Pt. has slight tightness in B HS. Pt. reports no increase in symptoms with HS testing. MMT: PT. has 5/5 strength throughout BLEs. Pt. has poor+ core strength GAIT: fairly normal gait pattern. STAIRS: normal without HR. Plan Plan Plan: Pt. to trial exercises on her own for 2 weeks then follow back up. I did talk to her about being consistent with her exercises. She to come back in 2 weeks to determine if she is able to self manage. Balance/Gait/Functional tests Balance/Special Test Scores Oswestry Low Back Score: 8 Goals Goals Goal 1:: LTG: pt. to be I with both gym and aquatic HEP for LE/core strength and lumbar/thoracic ROM. Goal Time Frame: 4-6 Weeks Goal Progress: Progressing Goal 2:: LTG: pt. to have full ROM of thoracic and lumbar spine without increase in symptoms. Goal Time Frame: 4-6 Weeks Goal Progress: Goal Met Goal 3:: LTG: Pt. to have 5/5 strength throughout core and B hips. Goal Time Frame: 4-6 Weeks Goal Progress: Progressing Goal 4:: LTG: PT. to complete all work activities without increase in symptoms. Goal Time Frame: 4-6 Weeks Goal Progress: Progressing Anticipated Interventions Anticipated Interventions Patient/Client Instruction: Educate patient on: Condition, Plan of Care, Risk Factors and Benefits of Fitness Program For the Purpose of:: To improve decision making, To facilitate caregiver knowledge, To improve self management, To prevent re-injury, To improve ability to perform tasks related to life management and To improve tolerance to ADL's Therapeutic Exercise to Include: Strength training, Postural training, Flexibilty training, In an aquatic setting, Passive ROM, Active ROM and Pedrito Exercises For the Purpose of:: To decrease pain, To increase ROM, To improve nutrient delivery to tissue, To increase oxygenation perfusion, To improve muscle performance and motor function, To improve ability to perform ADL's, To increase tolerance to activity/condition/position, To improve performance and independence with ADL's, To improve health of tissue, To decrease soft tissue restriction and To increase flexibility/ROM Manual Therapy Techniques to Include: Mobilization and Soft tissue mobilization Comment: IASTIM For the Purpose of:: To decrease pain, To decrease swelling/inflammation, To increase ROM, To improve nutrient delivery to tissue and To increase oxygenation perfusion Ultrasound (thermal/non thermal): Yes For the Purpose of:: To decrease pain, To increase ROM, To improve nutrient delivery to tissue and To increase oxygenation perfusion Re-Evaluation Ending Re-evaluation ending: Please do not hesitate to contact me at [phone] by phone or if you have questions or concerns regarding this new plan of care! Sincerely, Dominguez Mcnamara DPT
== END 2024-09-25 19:00 | disposition home or self-care (01) ==
LOC: PT 08:00
PROVIDERS: PCP Nurse Practitioner Family; Referring Provider Chiropractor; Visit Provider Chiropractor
DX: M99.05 Segmental and somatic dysfunction of pelvic region (principal); M99.03 Segmental and somatic dysfunction of lumbar region; M54.14 Radiculopathy, thoracic region; M99.01 Segmental and somatic dysfunction of cervical region; M99.02 Segmental and somatic dysfunction of thoracic region
CPT/HCPCS: 97110; 97113; 97161; 97530

== ENCOUNTER 2024-10-08 19:29 | Emergency (ER) | payer OTHER, SELFPAY ==
[2024-10-08 19:30] VITALS: BP 159/107; PULSE 93; RESP 18; TEMP 35.8; O2SAT 100; BMI 40.5
--- NOTE | 2024-10-08 20:13 | EDS_ITS ---
HPI History of Present Illness Chief Complaint: Upper Extremity Injury [facility] Medical History Shingles History of steroid therapy Non-smoker History of pain when walking Acute sinusitis, unspecified URI (upper respiratory infection) Wears hearing aid Rosacea Trigger thumb Headache, migraine Bone fracture Asthma Seasonal allergic conjunctivitis Home Medications ?Medication ?Instructions ?Recorded ?Last Taken ?Type drospirenone 3 mg-ethinyl 1 tab PO DAILY 11/09/21 Unknown History estradiol 0.02 mg tablet (LOUISA (28)) fexofenadine-pseudoephedrine ER 1 tab PO QAM 06/24/22 02/01/23 History 180 mg-240 mg tablet,ext.release 24 hr (Griselda-D 24 Hour) Allergy/AdvReac Type Severity Reaction Status Date / Time Sulfa (Sulfonamide Allergy Mild Rash Verified 10/08/24 19:30 Antibiotics) red (food color) Allergy Hives Verified 10/08/24 19:30 Seasonal Allergies: Uncoded Allergy Other Verified 10/08/24 19:30 Family History Sister Asthma Father Bowel disease Liver disease Thyroid disorder Grandmother Cervical cancer Diabetes Grandfather Cancer Mother Hypertension Surgical History Hx of cholecystectomy Social History Smoking Status: Never smoker alcohol intake: never substance use type: does not use what type of physical activity do you participate in: none EXAM Physical Exam Const Vital Signs: 10/08/24 19:30 Temperature 96.5 F L Temperature Source Temporal Pulse Rate 93 Respiratory Rate 18 Blood Pressure 159/107 H Blood Pressure Mean 124 Pulse Ox 100 MDM MDM MDM Narrative Medical decision making narrative: HISTORY OF PRESENT ILLNESS: 34 female presents concern for right shoulder pain. Notes began after she took off her coat. She notes she was pulling her coat off with her right arm and felt a pop. She is concerned her shoulder may be dislocated. REVIEW OF SYSTEMS: Pertinent positives: Right shoulder pain Pertinent negatives: Numbness and tingling PHYSICAL EXAM: Nursing triage notes reviewed, Vital signs reviewed Constitutional: please see mdm HENT: MMM Eyes: Pupils equal round and reactive to light, Extraocular muscles intact Neck: No stridor, no JVD, full neck ROM Lungs: Clear to auscultation, No wheezing or rales. No increased work of breathing, no conversational dyspnea, no accessory muscle use, no nasal flaring. No respiratory distress noted Heart: Regular rate and rhythm, No murmurs, No rubs and No gallops, 2+ distal pulses (radial, femoral, posterior tibial) in all extremities Abdomen: Soft, there is no tenderness, rigidity, rebound or guarding, no obvious peritoneal signs, no palpable pulsatile abdominal masses, no auscultated abdominal bruit : No CVAT Extremities: No edema, right upper extremity without obvious deformity, Neuro: intact 5/5 strength with ok sign (median), intact finger abduction (ulnar) intact wrist extension (radial n). Intact sensation in the radial, ulnar, and median nerve distributions. Skin: No rash or lesions noted MEDICAL DECISION MAKING: Chief Complaint: Right shoulder pain External records reviewed: Reviewed prior imaging studies Factors affecting care: none multiple musculoskeletal chronic dysfunction including somatic dysfunction Social determinants of health: none History obtained from others: none Consults: none MDM Narrative: Patient was initially hemodynamically stable, afebrile and nontoxic-appearing. Exam without step-off deformity. Right upper extremity neurovascular intact. While she did have some painful end range of motion patient essentially had full range of motion in shoulder flexion/extension, internal/external rotation, abduction/adduction. She did have a positive decant test I considered the following differential diagnosis: Right shoulder strain, fracture, dislocation Suspect patient had a fracture given mechanism of injury. Patient had intact range of motion which precludes dislocation. I did offer x-ray discussed risk and benefits of obtaining x-ray. Patient agreed should not need an x-ray at this time given mechanism. Patient was instructed take Tylenol and ibuprofen. Instructed to follow with her primary care physician for further evaluation and treatment. Instructed on range of motion exercises. The patient and/or family, caregivers express understanding. The patient and/or family, caregivers agrees with the plan. Shared decision making: I will have a discussion with the patient and or visitors regarding risk/benefits of further testing or admission. They will be made aware of of the risk/benefits inherent in this decision they will be given the opportunity to voice understanding. Total critical care time today provided was at least 0 minutes. This excludes separately billable procedures. Critical care time (if documented) is secondary to the patient having high probability of clinically significant/life threatening deterioration in the patient's condition which required my urgent intervention. Impression: 1. Right shoulder strain 2. Acute right shoulder pain Dispo: Discharge This note was generated with ePub Direct dictation software. It may contain incorrect words, spelling, and punctuation that were not noted in review of the chart prior to signing. Discharge Plan Triage Chief Complaint: Upper Extremity Injury ED Provider: Waqas Stone Dx/Rx/DC Orders Prescriptions: No Action fexofenadine-pseudoephedrine [Griselda-D 24 Hour] 180-240 mg tablet extended release 24 hr 1 tab PO QAM drospirenone-ethinyl estradiol [LOUISA (28)] 3-0.02 mg Tablet 1 tab PO DAILY Primary Care Provider: Heaven Armstrong Referrals: Heaven Armstrong, [facility] [Primary Care Provider] - Print Language: Yi
[2024-10-08 21:35] VITALS: BP 159/107; PULSE 93; RESP 18; TEMP 35.8; O2SAT 100
== END 2024-10-08 21:36 | disposition home or self-care (01) ==
PROVIDERS: Emergency Provider Emergency Medicine; PCP Nurse Practitioner Family; Visit Provider Emergency Medicine
DX: S46.911A Strain of unspecified muscle, fascia and tendon at shoulder and upper arm level, right arm, initial encounter (principal); X58.XXXA Exposure to other specified factors, initial encounter
CPT/HCPCS: 99282

== ENCOUNTER → 2024-11-08 | Outpatient (CLI) | payer OTHER, SELFPAY | END | disposition home or self-care (01) | LOC: BWCLAB 09:20 | PROVIDERS: PCP Nurse Practitioner Family; Referring Provider Obstetrics & Gynecology; Visit Provider Obstetrics & Gynecology | DX: O20.9 Hemorrhage in early pregnancy, unspecified (principal); Z3A.00 Weeks of gestation of pregnancy not specified | CPT/HCPCS: 36415; 86850; 86900; 86901 ==

== ENCOUNTER → 2024-11-21 | Outpatient (CLI) | payer OTHER, SELFPAY ==
[2024-11-24 12:08] LABS: Chlamydia By Nucleic Acid AMP Negative (Negative); Gonococcus By Nucleic Acid AMP Negative (Negative)
[2024-11-26 16:08] LABS: HPV APTIMA, High Risk Negative (Negative)
== END | disposition home or self-care (01) ==
LOC: LABSPEC 16:28
PROVIDERS: PCP Nurse Practitioner Family; Referring Provider Obstetrics & Gynecology; Visit Provider Obstetrics & Gynecology
DX: O09.90 Supervision of high risk pregnancy, unspecified, unspecified trimester (principal); Z12.4 Encounter for screening for malignant neoplasm of cervix; Z3A.00 Weeks of gestation of pregnancy not specified
CPT/HCPCS: 87491; 87591; 87624; 88175; G0145

== ENCOUNTER → 2025-05-13 | Outpatient (CLI) | payer OTHER, SELFPAY ==
--- NOTE | 2025-05-13 16:45 | RAD_ITS ---
PROCEDURE: FOOT MIN 3 VIEWS 05/13/2025 REASON FOR EXAM: PAIN IN LEFT FOOT TECHNIQUE: FOOT MIN 3 VIEWS Laterality: Left COMPARISON: 10/10/2023 FINDINGS: BONES: No acute fracture or focal osseous lesion. Minimal achilles tendon insertional enthesophyte, unchanged. JOINTS: No dislocation. The joint spaces are normal. SOFT TISSUES: The soft tissues are unremarkable. RAD/Foot min 3 Views IMPRESSION: No acute osseous abnormality. Reading Location: [id number]
== END | disposition home or self-care (01) ==
LOC: RAD 16:38
PROVIDERS: PCP Nurse Practitioner Family; Referring Provider Student in an Organized Health Care Education/Training Program; Visit Provider Student in an Organized Health Care Education/Training Program
DX: M79.672 Pain in left foot (principal)
CPT/HCPCS: 73630

== ENCOUNTER → 2025-05-28 | Outpatient (CLI) | payer OTHER, SELFPAY ==
--- OUTSIDE RECORDS SUMMARY | 2025-05-27 21:42 | XMS RPT_ITS | CCD ---
Author Organization [facility] Care Team Providers Care Gamewell Operator Name Role Phone Sorin Izaguirre Primary Care Provider WONG LEWIS Admitting Unavail able SURSO, KESHAWN Primary Care Unavailable RAOUL CRUZ Admitting Unavailabl e FELIPE WADSWORTH Attending Unavailable RAOUL CRUZ Referring Unavailabl e SUR[facility], [facility] Primary Care Unavailable RAOUL CRUZ Admitting Unavailabl e FELIPE WADSWORTH Attending Unavailable RAOUL CRUZ Referring Unavailabl e SURSO, [facility] Primary Care Unavailable RAOUL CRUZ Admitting Unavailabl e JOY SOL Attending Unavailable RAOUL CRUZ Referring Unavailabl e SURSO, [facility] Primary Care Unavailable RAOUL CRUZ Admitting Unavailabl e JESSICA VALDEZ Attending Unavailable RAOUL CRUZ Referring Unavailabl e SURSO, [facility] Primary Care Unavailable SUR, [facility] Primary Care Unavailable RAOUL CRUZ Admitting Unavailabl e MANUELA BALBUENA Attending Unavailable RAOUL CRUZ Referring Unavailabl e SURSO, [facility] Primary Care Unavailable RAOUL CRUZ Admitting Unavailabl e FELIPE WADSWORTH Attending Unavailable RAOUL CRUZ Referring Unavailabl e SURSO, [facility] Primary Care Unavailable RAOUL CRUZitting Unavailabl e JOY SOL Attending Unavailable RAOUL CRUZ Referring Unavailabl e SURSO, [facility] Primary Care Unavailable RAOUL CRUZ Admitting Unavailabl e JOY SOL Attending Unavailable RAOUL CRUZ Referring Unavailabl e SURSO, [facility] Primary Care Unavailable RAOUL CRUZ Admitting Unavailabl e FELIPE WADSWORTH Attending Unavailable RAOUL CRUZ Referring Unavailabl e SURSO, [facility] Primary Care Unavailable SUR, [facility] Primary Care Unavailable KARY CAIN Attending Unavailabl e SORIN IZAGUIRRE Primary Care Unavailable MELANIE DHILLON Referring Unavailable MELANIE DHILLON Admitting Unavailable Sorin Izaguirre MD Primary Care Provider [phone] Wong Lewis MD Unavailable Dain SALGADO, Wong Hayes Primary Care Provide r ANDREA MCKEON Attending Unavailable SORIN IZAGUIRRE Primary Care Unavailable ANDREA MCKEON Attending Unavailable WONG LEWIS Primary Care Unavail able Care Physician, No Primary Primary Care Provider Unavailable Care Physician, No Primary Referring Provider Un available Dr. Erica Silva Attending Provider [phone] WONG LEWIS Attending Unavail able SORIN IZAGUIRRE Primary Care Unavailable VALENTINA SUMMERS Attending Unavailable SORIN IZAGUIRRE Primary Care Unavailable NELSY RICHARD Attending Unavailable WONG LEWIS Primary Care Unavail able MOO COHEN Attending Unavailable WONG LEWIS Primary Care Unavail able Dr. Ercia Silva Primary Care Provider Dr. Erica Silva Attending Provider [phone] Dr. Erica Silva Referring Provider [phone] AAYUSH Henriquez Attending Provider Dr. Tab Dior Attending Provider AAYUSH Goff Attending Provider Dr. Erica Silva Primary Care Provider Dr. Erica Silva Referring Provider [phone] Dr. Kofi Goff Attending Provider [phone] AAYUSH Sousa Attending Provider Dr. Erica Silva Attending Provider [phone] Dr. Kofi Goff Referring Provider Dr. Kofi Goff Other Provider Nathaniel SPECTROGRAPHIC ANALYST-C, Heaven Primary Care Provider Nathaniel SPECTROGRAPHIC ANALYST-C, [place] Referring Provider [phone] Dosrachel EDWARDS, Dr. Medeiros Attending Provider [phone] Dosrachel EDWARDS, Dr. Medeiros Referring Provider [phone] Bertha JEWELL, Dr. Alan Attending Provider Bertha JEWELL, Dr. Alan Emergency Provider Janet SALGADO, Dr. Mortensen Attending Provider Janet SALGADO, Dr. Mortensen Referring Provider Santana THOMPSON, Teresa Attending Provider Unavailabl e Matilde Munoz DO, Dr. Ivan Attending Provider Matilde Munoz DO, Dr. Ivan Referring Provider Nathaniel SPECTROGRAPHIC ANALYST-C, [place] Primary Care Provider [phone] Nathaniel SPECTROGRAPHIC ANALYST-C, [place] Referring Provider [phone] Dossi DC, Dr. Medeiros Attending Provider [phone] Nathaniel SPECTROGRAPHIC ANALYST-C, [place] Primary Care Provider [phone] Raymond MORGAN, Dr. Huizar Attending Provider [phone] Dr. Yohannes Andrade DPM Referring Provider [phone] Nathaniel, [place] Primary Care Unavailable Nathaniel, Heaven Referring Unavailable Marzena Casas Attending Unavailabl e Nathaniel, [place] Primary Care Unavailable Nathaniel, Heaven Referring Unavailable DosMala ramos Attending Unavailable Nathaniel, Heaven Referring Unavailable Nathaniel, Heaven Primary Care Unavailable DossiMala Attending Unavailable Nathaniel, Heaven Primary Care Unavailable Nathaniel, Heaven Referring Unavailable Vande VelMarzena friedman Attending Unavailabl e Nathaniel, [place] Primary Care Unavailable Nathaniel, Heaven Referring Unavailable Nathaniel, Heaven Attending Unavailable Shira, Erica Primary Care Unavailable DossiMala Referring Unavailable DossiMala Attending Unavailable Nathaniel, [place] Primary Care Unavailable Destineee Marzena Munoz Referring Unavailabl e Vande VelMarzena friedman Attending Unavailabl e Nathaniel, [place] Primary Care Unavailable Yohannes Andrade Referring Unavailable Yohannes Andrade Attending Unavailable Nathaniel, [place] Primary Care Unavailable Marcanthony, Balbina Referring Unavailable Marcanthony, Balbina Attending Unavailable Shira, Erica Primary Care Unavailable Shira, Erica Referring Unavailable Dossi, Mala Attending Unavailable Nathaniel, Heaven Primary Care Unavailable Dossi, Mala Attending Unavailable Dossi, Mala Referring Unavailable Shira, Erica Primary Care Unavailable Shira, Erica Referring Unavailable Dossi, Mala Attending Unavailable Shira, Erica Primary Care Unavailable Shira, Erica Referring Unavailable Dossi, Mala Attending Unavailable Nathaniel, Heaven Primary Care Unavailable Nathaniel, Heaven Referring Unavailable Dossi, Mala Attending Unavailable Nathaniel, Heaven Referring Unavailable Marcanthony, Balbina Attending Unavailable Nathainel, Heaven Primary Care Unavailable Nathaniel, Heaven Primary Care Unavailable Teresa Dillon Attending Unavailable Shira, Erica Primary Care Unavailable Dossi, Mala Attending Unavailable Nathaniel, Heaven Primary Care Unavailable Nathaniel, Heaven Referring Unavailable Dossi, Mala Attending Unavailable Nathaniel, Heaven Referring Unavailable Dossi, Mala Attending Unavailable Nathaniel, Heaven Primary Care Unavailable Shira, Erica Referring Unavailable Shira, Erica Primary Care Unavailable Dossi, Mala Attending Unavailable Dossi, Mala Attending Unavailable Shira, Erica Primary Care Unavailable Shira, Erica Referring Unavailable Dossi, Mala Attending Unavailable Shira, Erica Primary Care Unavailable Shira, Erica Referring Unavailable Nathaniel, Heaven Primary Care Unavailable Nathaniel, Heaven Referring Unavailable Dossi, Mala Attending Unavailable Waqas Stone Attending Unavailable Nathaniel, Heaven Primary Care Unavailable Allergies Allergy Classification Reported Allergen(s) Allergy Type Date of Onset Reaction(s) Facility [facility] (4 sources) Contrast media; Translations: [RED DYE] Substance Allergy 6 [facility] Work Phone: Sulfonamides (antibiotic) (5 sources) Sulfonamides (Antibiotic); Translations: [SULFA (SULFONAMIDE ANTIBIOTICS)] Drug Allergy 6 [facility] (20 sources) Sulfonamides (Antibiotic); Translations: [SULFA (SULFONAMIDE ANTIBIOTICS)] Propensity to adverse reactions to drug 6 [facility] (4 sources) Contrast media; Translations: [RED DYE] Propensity to adverse reactions to drug 6 [facility] Work Phone: (11 sources) red (food color); Translations: [red (food color)] Allergy to substance 2 [facility] (8 sources) Seasonal Allergies: Uncoded; Translations: [Seasonal Allergies: Uncoded] Allergy to substance 2 Other [facility] Medications Current Medications Medication Drug Class(es) Dates Sig (Normalized) Sig (Original) doxycycline anhydrous 40 mg delayed release oral capsule (1 source) Tetracycline-clas s Drug Start: 05-19-2021 End: 08-17-2021 take 1 capsule by mouth once daily in the morning doxycycline (Oracea) 40 mg capsule Take 1 (one) capsule (40 mg total) by mouth every morning . 30 capsule 2 05/19/2021 08/17/2021 Active Drospirenone-Ethiny l Estradiol (17 sources) Progestin, Estrogen Start: 11-30-2024 take 3 tablets by mouth once daily Drospirenone-Ethin yl Estradiol (Louisa (28)) 3-0.02 mg tablet Active 1 {tbl} PO daily 84 November 30, 2024 12:00am Start: 11-30-2024 take 3 tablets by mo uth once daily Drospirenone-Ethinyl Estradiol (Louisa (28)) 3-0.02 mg tablet Active 1 {tbl} PO daily November 30, 2024 12:00am Start: 11-09-2021 Drospirenone-E thinyl Estradiol (Louisa (28)) 3-0.02 mg Tablet Active 1 TABLET PO DAILY November 09, 2021 6:47am Start: 11-09-2021 End: 11-16-2024 take 3 tablets by mouth once daily Drospirenone-Ethinyl Estradiol (Louisa (28)) 3-0.02 mg Tablet Discontinued 1 {tbl} PO DAILY November 09, 2021 1:00am November 16, 2024 11:29am On Hold: 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 0 12/19/2017 Active fexofenadine hydrochloride 180 mg oral tablet (3 sources) Histamine-1 Receptor Antagonist Start: 11-16-2024 take 1 tablet by mouth once daily Fexofenadine (Griselda Allergy) 180 mg tablet Active 180 mg PO daily November 16, 2024 1:00am ivermectin 10 mg/ml topical cream (2 sources) [...] Drug Class(es) Dates Sig (Normalized) Sig (Original) amoxicillin 875 mg / clavulanate 125 mg oral tablet (7 sources) Penicillin-class Antibacterial Start: 07-15-2022 End: 07-25-2022 Amoxicillin-Pot Clavulanate 875-125 mg tablet Discontinued 1 {tbl} PO Q12H 20 July 15, 2022 12:00am July 24, 2022 12:00am July 25, 2022 12:04am Acute sinusitis, unspecified Start: 07-15-2022 End: 07-25-2022 take 1 tablet by mouth every twelve hours Amoxicillin-Pot Clavulanate Discontinued 1 TABLET PO Q12H 08 07July 14, 2022 11:00pm July 24, 2022 11:04pm cephalexin 500 mg oral capsule (18 sources) Cephalosporin Antibacterial Start: 02-13-2022 End: 06-14-2022 take 1 capsule by mouth twice daily Cephalexin 500 mg capsule Discontinued 500 mg PO TWICE A DAY 10 February 13, 2022 12:00am June 14, 2022 9:24am Start: 11-09-2021 End: 12-10-2021 take 1 capsule by mouth every six hours Cephalexin 500 MG capsule Discontinued 500 mg PO EVERY 6 HOURS 20 November 09, 2021 1:00am December 10, 2021 10:29am Desogestrel / Ethinyl Estradiol (13 sources) Progestin, Estrogen Start: 12-06-2012 End: 02-11-2021 desog-e.estradioL/e.estradio L (Mauricio, ,) 0.15-0.02 mgx21 /0.01 mg x 5 per tablet Take by mouth . 0 12/06/2012 02/11/2021 Discontinued (Therapy completed) Start: 12-06-2012 desog-e.estrad ioL/e.estradioL (Himanshu, ,) 0.15-0.02 mgx21 /0.01 mg x 5 per tablet Take by mouth . 0 12/06/2012 Active fexofenadine / Pseudoephedrine (20 sources) alpha-Adrenergic Agonist, Histamine-1 Receptor Antagonist Start: 06-24-2022 End: 11-08-2024 take 1 tablet by mouth every twenty-four hours in the morning Fexofenadine-Pseudoephedrine (Griselda-D 24 Hour) 180-240 mg tablet extended release 24 hr Discontinued 1 {tbl} PO EVERY MORNING June 24, 2022 12:00am November 08, 2024 9:54am Start: 06-24-2022 take 1 tablet by danitza th once daily in the morning, then take 1 tablet by mouth every twenty-four hours Fexofenadine-Pseudoephedrine (Griselda-D 24 Hour) 180-240 mg tablet extended release 24 hr Active 1 TABLET PO EVERY MORNING June 24, 2022 12:00am Start: 06-24-2022 take 1 tablet by danitza th once daily in the morning, then take 1 tablet by mouth every twenty-four hours Fexofenadine-Pseudoephedrine (Griselda-D 24 Hour) 180-240 mg tablet extended release 24 hr Active 1 TABLET PO EVERY MORNING June 23, 2022 11:00pm fexofenadine-pse udoePHEDrine (GRISELDA-D 24) 180-240 mg per 24 hr tablet Take by mouth . 0 Active meloxicam 15 mg oral tablet (7 sources) Nonsteroidal Anti-inflammatory Drug Start: 06-24-2022 End: 12-01-2022 take 1 tablet by mouth once daily Meloxicam 15 mg tablet Discontinued 15 mg PO DAILY June 24, 2022 12:00am December 01, 2022 8:58am Chondromalacia of patella Chondromalacia patellae, unspecified knee methylPREDNISolone 4 mg oral tablet (10 sources) Corticosteroid Start: 12-20-2022 End: 01-05-2023 take 1 tablet by mouth once Methylprednisolone (Medrol (Isaak)) 4 mg tablets,dose pack Discontinued 0 PO per package directions December 20, 2022 12:00am January 05, 2023 8:57am PO PER PKG DIR Start: 09-29-2022 End: 12-01-2022 take 1 tablet by mouth once daily Methylprednisolone (Medrol (Isaak)) 4 mg tablets,dose pack Discontinued 4 mg PO DAILY September 29, 2022 1:00am December 01, 2022 8:58am ondansetron 4 mg disintegrating oral tablet (18 sources) Serotonin-3 Receptor Antagonist Start: 02-13-2022 End: 06-14-2022 take 1 tablet by mouth every eight hours as needed for nausea and vomiting Ondansetron 4 mg tablet,disintegrating Discontinued 4 mg PO Q8H as needed for nausea and vomiting February 13, 2022 12:00am June 14, 2022 9:24am Start: 11-12-2021 End: 12-10-2021 take 1 tablet by mouth every six hours as needed for nausea and vomiting Ondansetron 4 mg tablet,disintegrating Discontinued 4 mg PO EVERY 6 HOURS as needed for nausea and vomiting November 12, 2021 1:00am December 10, 2021 10:29am oxaprozin 600 mg oral tablet (5 sources) Nonsteroidal Anti-inflammatory Drug Start: 10-15-2022 End: 12-01-2022 take 1 tablet by mouth twice daily Oxaprozin 600 mg tablet Discontinued 600 mg PO TWICE A DAY October 15, 2022 1:00am December 01, 2022 8:58am Do not use in conjunction with other NSAIDs including meloxicam or ibuprofen. Tylenol is okay oxyCODONE hydrochloride 5 mg oral tablet (5 sources) Opioid Agonist Start: 02-01-2023 End: 03-14-2023 take 5-10 mg by mouth every four hours as needed for pain Oxycodone 5 mg tablet Discontinued 5 - 10 mg PO Q4H as needed for pain 15 3 0 February 01, 2023 March 14, 2023 8:06am Other acute postprocedural pain Other acute postprocedural pain Only take if needed supplement with OTC Tylenol and Motrin. Narcotic pain medication can be addictive. predniSONE 20 mg oral tablet (4 sources) Start: 03-11-2023 End: 06-12-2024 take 1 tablet by mouth twice daily Prednisone 20 mg tablet Discontinued 20 mg PO TWICE A DAY 10 0 March 11, 2023 12:00am June 12, 2024 9:16am valACYclovir 1000 mg oral tablet (4 sources) Herpesvirus Nucleoside Analog DNA Polymerase Inhibitor, Herpes Simplex Virus Nucleoside Analog DNA Polymerase Inhibitor, Herpes Zoster Virus Nucleoside Analog DNA Polymerase Inhibitor Start: 03-11-2023 End: 06-12-2024 Valacyclovir 1 gram tablet Discontinued 1000 mg PO THREE TIMES A DAY 21 0 March 11, 2023 12:00am June 12, 2024 9:16am Start: 03-11-2023 take 1000 mg by mout h three times daily Valacyclovir Active 1000 MG PO THREE TIMES A DAY March 10, 2023 11:00pm Problems Active Problems Problem Classification Problem Date Documented Da te Episodic/Chronic Abdominal pain (10 sources) Abdominal pain; Translations: [Unspecified abdominal pain] 11-20-2021 Episodic Asthma (9 sources) Asthma; Translations: [Unspecified asthma, uncomplicated] Chronic Contraceptive and procreative management (5 sources) Patient encounter status; Translations: [Encounter for contraceptive management, unspecified] 11-30-2024 Episodic Fever of unknown origin (1 source) Fever; Translations: [Fever, unspecified fever cause] Episodic Fluid and electrolyte disorders (8 sources) Dehydration; Translations: [Dehydration] 02-21-2022 Episodic Headache; including migraine (12 sources) Migraine; Translations: [Migraine, unspecified, not intractable, without status migrainosus] 12-10-2021 Chronic Headache; including migraine (1 source) Acute headache; Translations: [Acute nonintractable headache, unspecified headache type] Immunizations and screening for infectious disease (11 sources) Encounter for observation for suspected exposure to other biological agents ruled out; Translations: [Requires vaccination] Episodic Induced (5 sources) Encounter for elective termination of ; Translations: [ due to termination of ] 11-30-2024 Episodic Inflammation; infection of eye (except that caused by tuberculosis or sexually transmitteddisease) (10 sources) Seasonal allergic conjunctivitis; Translations: [Acute atopic conjunctivitis, unspecified eye] 12-10-2021 Episodic Joint disorders and dislocations; trauma-related (20 sources) Chondromalacia of patella; Translations: [Chondromalacia patellae, unspecified knee] Chronic Other aftercare (8 sources) Follow-up status; Translations: [Encounter for other orthopedic aftercare] 02-16-2023 Episodic Other bone disease and musculoskeletal deformities (20 sources) Segmental and somatic dysfunction; Translations: [Segmental and somatic dysfunction of cervical region] 06-12-2024 Episodic Other circulatory disease (1 source) Respiratory tract congestion; Translations: [Congestion of respiratory tract] Episodic Other complications of (5 sources) Maternal obesity complicating , childbirth and the puerperium, antepartum; Translations: [Obesity complicating , unspecified trimester] 11-16-2024 Chronic Comment on above: BMI 40.4; HgBA1C ord ered w/NOB Other complications of (5 sources) High risk ; Translations: [Supervision of high risk , unspecified, unspecified trimester] 11-16-2024 Episodic Comment on above: G1, IDA 06/29/25, FO B not involved Other connective tissue disease (1 source) Pain in left foot; Translations: [Pain in left foot] Onset: 05-17-2025 Episodic Other ear and sense organ disorders (18 sources) Sensorineural hearing loss, bilateral; Translations: [Sensorineural hearing loss, bilateral] Onset: 02-14-2020 02-14-2020 Chronic Other ear and sense organ disorders (7 sources) Hearing loss; Translations: [Unspecified hearing loss, unspecified ear] 01-05-2023 Chronic Comment on above: Bilateral - wears he aring aides Other ear and sense organ disorders (1 source) Unspecified hearing loss, unspecified ear; Translations: [Unspecified hearing loss] 01-05-2023 Chronic Other ear and sense organ disorders (10 sources) Does use hearing aid; Translations: [Presence of external hearing-aid] 12-10-2021 Episodic Other ear and sense organ disorders (5 sources) Presence of external hearing-aid; Translations: [Other postprocedural status] Episodic Other ear and sense organ disorders (14 sources) Tinnitus of right ear; Translations: [Tinnitus of right ear] Onset: 02-14-2020 02-14-2020 Other ear and sense organ disorders (2 sources) Does use hearing aid; Translations: [Does use hearing aid] Other gastrointestinal disorders (8 sources) Diarrhea; Translations: [Diarrhea, unspecified] 02-21-2022 Episodic Other inflammatory condition of skin (13 sources) Rosacea; Translations: [Rosacea, unspecified] Chronic Other inflammatory condition of skin (3 sources) Rosacea, unspecified; Translations: [Rosacea] Chronic Other liver diseases (10 sources) Elevated liver enzymes level; Translations: [Abnormal levels of other serum enzymes] 11-20-2021 Episodic Other nervous system disorders (5 sources) Acute postoperative pain; Translations: [Other acute postprocedural pain] 02-01-2023 Episodic Other non-traumatic joint disorders (19 sources) Pain in right knee; Translations: [Right knee pain] Episodic Other non-traumatic joint disorders (4 sources) Knee stiff; Translations: [Stiffness of right knee, not elsewhere classified] 02-16-2023 Episodic Other nutritional; endocrine; and metabolic disorders (10 sources) Obesity; Translations: [Obesity, unspecified] 12-10-2021 Chronic Other nutritional; endocrine; and metabolic disorders (7 sources) Obesity, unspecified; Translations: [Obesity, unspecified] Chronic Other and delivery including normal (7 sources) ; Translations: [Encounter for supervision of normal , unspecified, unspecified trimester] 11-16-2024 Episodic Comment on above: Discussed genetic/ca rrier testing - undecided Other screening for suspected conditions (not mental disorders or infectious disease) (13 sources) Other specified abnormal findings of blood chemistry; Translations: [Elevated liver function tests] Episodic Other skin disorders (1 source) Actinic keratosis; Translations: [Actinic keratosis] Episodic Other upper respiratory infections (20 sources) Sore throat symptom; Translations: [Acute sinusitis] Episodic Residual codes; unclassified (3 sources) History of laparoscopy; Translations: [Other specified postprocedural states] 11-16-2024 Episodic Comment on above: R knee scope Sprains and strains (4 sources) Thoracic back sprain; Translations: [Shoulder strain] 10-16-2024 Episodic Urinary tract infections (18 sources) Urinary tract infectious disease; Translations: [Urinary tract infection, site not specified] 11-17-2021 Episodic Viral infection (4 sources) Herpes zoster; Translations: [Zoster without complications] 03-11-2023 Episodic Past or Other Problems Problem Classification Problem Date Documented Da te Episodic/Chronic Hemorrhage during ; abruptio placenta; placenta previa (8 sources) Threatened miscarriage; Translations: [Threatened ] Onset: 11-22-2024 11-08-2024 Episodic Other bone disease and musculoskeletal deformities (1 source) Segmental and somatic dysfunction of pelvic region; Translations: [Segmental and somatic dysfunction of pelvic region] Onset: 01-30-2025 Episodic Other bone disease and musculoskeletal deformities (1 source) Segmental and somatic dysfunction of lumbar region; Translations: [Segmental and somatic dysfunction of lumbar region] Onset: 01-30-2025 Episodic Other bone disease and musculoskeletal deformities (1 source) Segmental and somatic dysfunction of cervical region; Translations: [Segmental and somatic dysfunction of cervical region] Onset: 01-30-2025 Episodic Other bone disease and musculoskeletal deformities (1 source) Segmental and somatic dysfunction of thoracic region; Translations: [Segmental and somatic dysfunction of thoracic region] Onset: 01-30-2025 Episodic Other complications of (1 source) Supervision of high risk , unspecified, unspecified trimester; Translations: [Supervision of high risk , unspecified, unspecified trimester] Onset: 12-05-2024 Episodic Other ear and sense organ disorders (4 sources) Tinnitus of right ear; Translations: [Tinnitus, right ear] Onset: 02-14-2020 02-14-2020 Episodic Other non-traumatic joint disorders (1 source) Pain in right shoulder; Translations: [Pain in right shoulder] Onset: 10-25-2024 Episodic Other skin disorders (1 source) Acne; Translations: [Acne vulgaris] Onset: 03-02-2016 02-11-2021 Episodic Other skin disorders (3 sources) Acne vulgaris; Translations: [Acne vulgaris] Onset: 03-02-2016 02-11-2021 Episodic Spondylosis; intervertebral disc disorders; other back problems (20 sources) Acute thoracic back pain; Translations: [Thoracic back pain] Onset: 05-21-2020 Resolved: 02-11-2021 05-21-2020 Episodic Results Test Name Value Interpretation Reference Range Facility Foot min 3 Viewson Foot min 3 Views [facility] [address] [place] [address] Foot min 3 Views MR#: [id number] Acct: [id number] Name: RENA LANGSTON Rep #: [id number] : 1990 F 35 From: Idania Rivas MD PCP: VICKI Rebolledo Status: REG CLI Study: Foot min 3 Views Date of Exam: 05/13/25 Exam# [id number] Ordering Dr: Yohannes Andrade DPM PROCEDURE: FOOT MIN 3 VIEWS 05/13/2025 REASON FOR EXAM: PAIN IN LEFT FOOT TECHNIQUE: FOOT MIN 3 VIEWS Laterality: Left COMPARISON: 10/10/2023 FINDINGS: BONES: No acute fracture or focal osseous lesion. Minimal achilles tendon insertional enthesophyte, unchanged. JOINTS: No dislocation. The joint spaces are normal. SOFT TISSUES: The soft tissues are unremarkable. RAD/Foot min 3 Views IMPRESSION: No acute osseous abnormality. Reading Location: [id number]-ME CC: CATHY Andrade; SPECTROGRAPHIC ANALYST-C [employer] Registrar: Signed Normal [facility] Assistant Professor Of Life Sciences Office Visit Reporton 11-30-2024 Assistant Professor Of Life Sciences Office Visit Report [address], [address] [place] [address] OFFICE VISIT Date of Service: 11/30/24 MR#: [id number] Acct: [id number] Name: RENA LANGSTON Rep #: [id number] : 1990 Provider: Dr. Marzena Wynn DO Age/Sex: 34/F [place] [facility] [place]: S[place] Intake Vital Signs 11/21/24 13:10 11/29/24 08:41 11/30/24 10:53 11/30/24 10:53 Height 5 ft 5 in 5 ft 5 in 5 ft 5 in 5 ft 5 in Weight: 241 lb BMI 40.1 BP 146/100 H Intake Visit Reasons: TERM. OF PREG F/U PER JV 1WK Forming Machine Tender Required: No Is patient in pain?: No Allergies Sulfa (Sulfonamide Antibiotics) Allergy (Mild, Verified 11/30/24 10:53) Rash red (food color) Allergy (Verified 11/30/24 10:53) Hives Seasonal Allergies: Uncoded Allergy (Verified 11/30/24 10:53) Other Medications ???Medication ???Instructions ???Recorded ???Confirmed ???Type fexofenadine 180 mg tablet 180 mg PO QDAY 11/16/24 11/30/24 H istory (Griselda Allergy) drospirenone 3 mg-ethinyl 1 tab PO QDAY #84 tabs 11/30/24 Rx estradiol 0.02 mg tablet (LOUISA (28)) Post menopausal: No Patient : No : No [facility] Medical History Right patellofemoral syndrome Chondromalacia, patella Acute sinusitis Mechanical pain of right knee Right knee pain Obesity Elevated LFTs Stiffness of right knee Shingles History of steroid therapy History of pain when walking Wears hearing aid Rosacea Headache, migraine Bone fracture Surgical History Trigger thumb H/O laparoscopy Hx of cholecystectomy Family History Sister Asthma Father Bowel disease Liver disease Thyroid disorder Grandmother Cervical cancer Diabetes Grandfather Cancer Mother Hypertension Social History adopted: No household members: other details: Parents sister number of children: 0 current occupational status: employed 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 occupational exposures/hazards: No pets and animals: Yes pets and animals: dog(s) history of recent travel: Yes ([place]) out of state: Yes out of country: No sexually active: Yes Smoking Status: Never smoker alcohol intake: current alcohol intake frequency: holidays/special occasions only details: Not while substance use type: does not use well-balanced diet: daily or most days caffeine: Yes Type: tea eating out: rarely or never during the past year weight has: remained stable what type of physical activity do you participate in: walking frequency: 3-4 times per week duration: 15-30 minutes/day hipolito/rastafarian: None seatbelt use: always do you feel safe at home: Yes additional social history: from FOB HPI TERM. OF PREG F/U PER JV 1WK Details: RENA LANGSTON is a 34 year old who presents for follow up after an elective . She would like to get back on control pills. States that when she has her period and has a bowel movement she feels like she is ripping History 1 Elective abortions 1 Hx Para 0 Spontaneous abortions Hx # Term Pregnancies Ectopic pregnancies Hx # Pregnancies Multiple births # of living children 0 ROS Const ROS Unobtainable: All systems reviewed are unremarkable except as noted in H Resp Resp: Reports system reviewed and no additional complaints, except as documented; Denies cough GI GI: Reports as per HPI Psych Psych: Reports system reviewed and no additional complaints, except as documented Exam Const General: cooperative, healthy appearing, comfortable and no acute distress Resp Effort Inspection: normal respiratory effort General: bimanual renal exam normal bilaterally External Female Exam: normal appearance of the urethra Urethra: normal appearance of the urethra Speculum Exam - Vagina: normal appearance of the vagina and vaginal bleeding Speculum Exam - Cervix: normal appearance of the cervix Bimanual Exam- Adnexa, other: normal adnexae and normal Pelvic Support: normal OB/External Speculum: vaginal bleeding Speculum Exam: vaginal bleeding Other: bedside scan shows a thin endometrium. some sludge in the cervix only Skin General: no rashes or lesions noted Psych Appearance: grossly normal Speech and Movement: speech and movement normal Coding Level of Care Code Off vis,est,level 4 Diagnoses Termination of (fetus) Z33.2 Contraceptive management Z30.9 Assessment and Plan Assessment and Plan (1) Termination of (fetus): Status: Acute (2) Contraceptive management: Status: Acute Plan: plan to start (more content not included)... Normal [facility] PAP IG HPV APTIMA 16/18,45on 11-26-2024 ADEQ Comment Normal . [facility] Comment on above: Order Comment: Speci men Comment: [id number] Comment: Source.............CervixSpecimen Comment: Other..............Specimen Comment: No. of containers..01 ThinPrep Vial Result Comment: Sati sfactory for evaluation. No endocervical component is identified. Performed By: #### L 7000.1800, L7400.0280 ####[facility] [address] [place], [place], [id number] COMM . Normal . [facility] Comment on above: Order Comment: Speci men Comment: [id number] Comment: Source.............CervixSpecimen Comment: Other..............Specimen Comment: No. of containers..01 ThinPrep Vial Performed By: #### L 7000.1800, L7400.0280 ####[facility] [address] [place], [place], [id number] COMMENT Comment Normal . [facility] Comment on above: Order Comment: Speci men Comment: [id number] Comment: Source.............CervixSpecimen Comment: Other..............Specimen Comment: No. of containers..01 ThinPrep Vial Result Comment: This liquid based ThinPrep(R) pap test was screened with the use of an image guided system. Performed By: #### L 7000.1800, L7400.0280 ####[facility] [address] [place], [place], [id number] DIAG Comment Normal . [facility] Comment on above: Order Comment: Speci men Comment: [id number] Comment: Source.............CervixSpecimen Comment: Other..............Specimen Comment: No. of containers..01 ThinPrep Vial Result Comment: NEGA TIVE FOR INTRAEPITHELIAL LESION OR MALIGNANCY. Performed By: #### L 7000.1800, L7400.0280 ####[facility] [address] [place], [place], [id number] HPV APTIMA, HR Negative Normal Negative [facility] Comment on above: Order Comment: Speci men Comment: [id number] Comment: Source.............CervixSpecimen Comment: Other..............Specimen Comment: No. of containers..01 ThinPrep Vial Result Comment: This nucleic acid amplification test detects fourteen high- risk HPV types (16,18,31,33,35,39,45,51,52,56,58,59,66,68) without differentiation. Performed By: #### L 7000.1800, L7400.0280 ####[facility] [address] [place], [place], [address] HPV Alyssa Rfx Comment Normal . [facility] Comment on above: Order Comment: Speci men Comment: [id number] Comment: Source.............CervixSpecimen Comment: Other..............Specimen Comment: No. of containers..01 ThinPrep Vial Result Comment: Crit erraghu not met, HPV Genotype not performed. Performed at: [address] [id number] Coremaker Supervisor: Michelle Wilson MD, Phone: [phone] Performed at: =[address], [place] [id number] Corem[employer] Supervisor: Michelle Wilson MD, Phone: [phone] Performed By: #### L 7000.1800, L7400.0280 ####[facility] [address] [place], [place], [address] PAPSMR Comment Normal . [facility] Comment on above: Order Comment: Speci men Comment: [id number] Comment: Source.............CervixSpecimen Comment: Other..............Specimen Comment: No. of containers..01 ThinPrep Vial Result Comment: The Pap smear is a screening test designed to aid in the detection of premalignant and malignant conditions of the uterine cervix. It is not a diagnostic procedure and should not be used as the sole means of detecting cervical cancer. Both false-positive and false-negative reports do occur. Performed By: #### L 7000.1800, L7400.0280 ####[facility] [address] [place], [place], [address] PERFORM Comment Normal . [facility] Comment on above: Order Comment: Zoey akhtar Comment: [id number] Comment: Source.............CervixSpecimen Comment: Other..............Specimen Comment: No. of containers..01 ThinPrep Vial Result Comment: Audra Veras Jig Bore Tool Maker Performed By: #### L 7000.1800, L7400.0280 ####[facility] [address] [place], [address] Chlamydia/GC ANA aptimaon CHLAMY,NUC ACID Negative Normal Negative [facility] Comment on above: Performed By: #### L 7000.1800, L7400.0280 ####[facility] [address] [place], [place], [id number] GC BY NUC ACID Negative Normal Negative [facility] Comment on above: Result Comment: Perf ormed at: =[facility] [address] [place], [place] [id number] Coremaker Supervisor: Michelle Wilson MD, Phone: [phone] Performed By: #### L 7000.1800, L7400.0280 ####[facility] [address] [place], [place], [id number] C. trachomatis rRNA ANA+prob e Ql (Unsp spec)Ordered By: Marzena Munoz on 11-21-2024 Chlamydia DNA (ANA) Negative Negative [facility] Cervical or vaginal specimen microscopic examination by liquid based cytology (reportOrdered By: Marzena Munoz on 11-21-2024 Cytology report Cyto stain.thin prep Doc (Cvx/Vag) Comment . [facility] Comment on above: Criteria not met, HP V Genotype not performed.Performed at: [address] [id number] Director: Michelle Wilson MD, Phone: [phone] at: =[address] [id number] Director: Michelle Wilson MD, Phone: [phone] Cervical or vagninal specime n microscopic examination by cytology stain (reported asOrdered By: Marzena Munoz on 11-21-2024 Cytology report Cyto stain Doc (Cvx/Vag) Comment . [facility] Comment on above: The Pap smear is a s creening test designed to aid in thedetection of premalignant and malignant conditions of theuterine cervix. It is not a diagnostic procedure andshould not be used as the sole means of detecting cervicalcancer. Both false-positive and false-negative reports dooccur. Chlamydia trachomatis rRNA d etection by probe and target amplification methodOrdered By: Marzena Munoz on 11-21-2024 C. trachomatis rRNA ANA+probe Ql (Unsp spec) Negative Negative [facility] Cloth Colorer Cyto stain Nom (C vx/Vag) [ID]Ordered By: Marzena Munoz on 11-21-2024 Pap Smear Performed By Comment . [facility] Comment on above: Jagdeep Whittaker totechnologist Cytology report Cyto stain D oc (Cvx/Vag)Ordered By: Marzena Munoz on 11-21-2024 Thin Prep Pap Smear Comment . [facility] Comment on above: The Pap smear is a s creening test designed to aid in thedetection of premalignant and malignant conditions of theuterine cervix. It is not a diagnostic procedure andshould not be used as the sole means of detecting cervicalcancer. Both false-positive and false-negative reports dooccur. Cytology report Cyto stain.t hin prep Doc (Cvx/Vag)Ordered By: Marzena Munoz on 11-21-2024 HPV Genotype Special Info Comment . [facility] Comment on above: Criteria not met, HP V Genotype not performed.Performed at: - [facility] [id number] Director: Michelle Wilson MD, Phone: [phone] at: = - [facility] [id number] Director: Michelle Wilson MD, Phone: [phone] Detection in cervical specim en of any of human papilloma virus (HPV) 16, 18, 31, 33,Ordered By: Marzena Munoz on 11-21-2024 HPV 16+18+31+33+35+39+45+51 +52+56+58+59+66+68 DNA Probe+sig amp Ql (Cvx) Negative Negative [facility] Comment on above: This nucleic acid am plification test detects fourteen high-risk HPV types (16,18,31,33,35,39,45,51,52,56,58,59,66,68)without differentiation. HPV 16+18+31+33+35+39+45+51+ 52+56+58+59+66+68 DNA Probe+sig amp Ql (Cvx)Ordered By: Marzena Munoz on 11-21-2024 Human Papillomavirus High Risk Negative Negative [facility] Comment on above: This nucleic acid am plification test detects fourteen high-risk HPV types (16,18,31,33,35,39,45,51,52,56,58,59,66,68)without differentiation. Image-guided ThinPrep PapOrd ered By: Marzena Munoz on 11-21-2024 Pap Smear Note Comment . [facility] Comment on above: This liquid based Th inPrep(R) pap test was screened withthe use of an image guided system. Image-guided liquid-based Pa pOrdered By: Marzena Munoz on 11-21-2024 Pap Smear Diagnosis Comment . [facility] Comment on above: NEGATIVE FOR INTRAEP ITHELIAL LESION OR MALIGNANCY. Laboratory - CytologyOrdered By: Marzena Munoz on 11-21-2024 Cloth Colorer Cyto stain Nom (Cvx/Vag) [ID] Comment . [facility] Comment on above: Jagdeep Whittaker totechnologist Laboratory - Miscellaneous t estsOrdered By: Marzena Munoz on 11-21-2024 Service comment (Unsp spec) [Interp] . . [facility] Neisseria gonorrhoeae nuclei c acid detection by amplified probe techniqueOrdered By: Marzena Munoz on 11-21-2024 N. gonorrhoeae DNA ANA+probe Ql (Unsp spec) Negative Negative [facility] Comment on above: Performed at: =[address] [id number] Director: Michelle Wilson MD, Phone: [phone] No Panel InformationOrdered By: Marzena Munoz on 11-21-2024 Pap Smear Specimen Adequacy Comment . [facility] Comment on above: Satisfactory for anna luation. No endocervical component is identified. Assistant Professor Of Life Sciences Office Visit Reporton 11-21-2024 Assistant Professor Of Life Sciences Office Visit Report [facility] [address] [place] [address], [address] [place] [address] OFFICE VISIT Date of Service: 11/21/24 MR#: [id number] Acct: [id number] Name: JEFFJANNETHRENAGREGORIA COXE Rep #: [id number] : 1990 Provider: Dr. Marzena Wynn, Age/Sex: 34/F [place] [facility] [place]: Signed Intake Vital Signs 11/08/24 08:58 11/21/24 13:09 11/21/24 13:10 Height 5 ft 5 in 5 ft 5 in 5 ft 5 in Weight: 242 lb 6 oz BMI 40.3 BP 139/94 H Intake Visit Reasons: NOB LMP Forming Machine Tender Required: No Is patient in pain?: No Allergies Sulfa (Sulfonamide Antibiotics) Allergy (Mild, Verified 11/21/24 13:08) Rash red (food color) Allergy (Verified 11/21/24 13:08) Hives Seasonal Allergies: Uncoded Allergy (Verified 11/21/24 13:08) Other Medications ???Medication ???Instructions ???Recorded ???Confirmed ???Type fexofenadine 180 mg tablet 180 mg PO QDAY 11/16/24 11/21/24 H istory (Griselda Allergy) Last Menstrual Period: 09/22/24 Zika: Zika virus screening: Negative : No PFSH PFSH Medical History Right patellofemoral syndrome Chondromalacia, patella Acute sinusitis Mechanical pain of right knee Right knee pain Obesity Elevated LFTs Stiffness of right knee Shingles History of steroid therapy History of pain when walking Wears hearing aid Rosacea Headache, migraine Bone fracture Surgical History Trigger thumb H/O laparoscopy Hx of cholecystectomy Family History Sister Asthma Father Bowel disease Liver disease Thyroid disorder Grandmother Cervical cancer Diabetes Grandfather Cancer Mother Hypertension Social History adopted: No household members: other details: Parents sister number of children: 0 current occupational status: employed 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 occupational 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/hazards: No pets and animals: Yes pets and animals: dog(s) history of recent travel: Yes ([place]) out of state: Yes out of country: No sexually active: Yes Smoking Status: Never smoker alcohol intake: current alcohol intake frequency: holidays/special occasions only details: Not while substance use type: does not use well-balanced diet: daily or most days caffeine: Yes Type: tea eating out: rarely or never during the past year weight has: remained stable what type of physical activity do you participate in: walking frequency: 3-4 times per week duration: 15-30 minutes/day hipolito/rastafarian: None seatbelt use: always do you feel safe at home: Yes additional social history: from FOB History 1 Elective abortions Hx Para 0 Spontaneous abortions Hx # Term Pregnancies Ectopic pregnancies Hx # Pregnancies Multiple births # of living children 0 HPI NOB LMP Details: RENA LANGSTON is a 34 year old who presents for New OB visit but is strongly considering termination. She states that she missed taking her pill by 1 week and got by accident. She is not emotionally involved with the FOB. OB Visit IDA Calculator Estimated Delivery Date Method Current WG Current Estimate 06/29/25 LMP (Certain) 8w 4d Other Estimates 07/02/25 Ultrasound #1 8w 1d Estimated Due Date: 06/29/25 Initial Weight: Not Recorded Date -???-???-???-???-??? -???-???-???-???-??? -???-???- EGA Weight BP Urine Prot -???-???-???-???-??? -???-???-???-???-??? -???-???- Glucose FHR FuHt Pres Dilation -???-???-???-???-??? -???-???-???-???-??? -???-???- Effaced St Visit Note 11/21/24 -???-???-???-???-??? -???-???-???-???-??? -???-???- 8w 4d 242 lb 6 oz 139/94 -???-???-???-???-??? -???-???-???-???-??? -???-???- 170 -???-???-???-???-??? -???-???-???-???-??? -???-???- JV- CRL cons istent with LMP and measuring 8 weeks 3 days. She wants to discuss termination, see HPI. Menstrual History Last Menstrual Period: 09/22/24 Reported LMP: definite Normal amount/duration: Yes Frequency in days: irregular On hormonal BC at conception: No hCG+: 10/29/24 Antepartum Record Genetic Screening: Congenital Heart Defect: Other, Neural Tube Defect: Other, Hemoglobinopathy Or Carrier: Other, Cystic Fibrosis: Other, Chromosome Abnormality: Other, Austin-Sachs: Other, Hemophilia: Other, Intellectual Disability/Autism: Partner (FOB with ADHD ), Recurrent Loss/Stillbirth: Other, Other Structural Defect: Other, Other Genetic Disease: Other and Maternal Metabolic Disorder: Other Infection History: Live with someone with TB or Exposed to TB: No, Patient or Partner has history of Genital Herpes: No, Rash or Viral ill (more content not included)... Normal [facility] Service comment (Unsp spec) [Interp]Ordered By: Marzena Munoz on 11-21-2024 Pap Smear Comment (3) . . [facility] Chiropractic Reporton 2024 Chiropractic Report [facility] [place] [address] OFFICE VISIT Date of Service: 11/14/24 MR#: [id number] Acct: [id number] Name: RENA LANGSTON Rep #: [id number] : 1990 Provider: JERRY Yanez Age/Sex: 34/F Location: [facility] [place] Status: Signed Intake Vital Signs 10/08/24 19:30 11/08/24 08:58 Height 5 ft 5 in 5 ft 5 in Intake Visit Reasons: Back pain Chief Complaint: upper/mid/low back pain Allergies Sulfa (Sulfonamide Antibiotics) Allergy (Mild, Verified 11/14/24 08:42) Rash red (food color) Allergy (Verified 11/14/24 08:42) Hives Seasonal Allergies: Uncoded Allergy (Verified 11/14/24 08:42) Other Medications ???Medication ???Instructions ???Recorded ???Confirmed ???Type drospirenone 3 mg-ethinyl 1 tab PO DAILY 11/09/21 11/14/24 H istory estradiol 0.02 mg tablet (LOUISA (28)) Held on 10/08/24. 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 [facility] Medical History Shingles History of steroid therapy Non-smoker History of pain when walking Acute sinusitis, unspecified URI (upper respiratory infection) Wears hearing aid Rosacea Trigger thumb Headache, migraine Bone fracture Asthma Seasonal allergic conjunctivitis Surgical History Hx of cholecystectomy Family History Sister Asthma Father Bowel disease Liver disease Thyroid disorder Grandmother Cervical cancer Diabetes Grandfather Cancer Mother Hypertension Social History number of children: 0 current occupational status: employed 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 Pt. advises she has had a great deal of improvement since her last adjustment. She states she is just experiencing some tightness from her upper to low back. She denies new injury, numbness, tingling or radiculopathy. She treats her discomfort at home with Ibuprofen, heat and a TENS unit. She continues to do some home exercises/stretches that her PT gave her. Mala reports chiropractic adjustments are effective in relieving her pain and discomfort. Mala recently found out she is and is working with her OB. Location: upper/mid back/low back Duration: intermittent Aggravating or associated factors: sitting, standing, working Relieving factors: heat, advil, stretching,chiro Pain Quality: aching and dull Exam Musc General: Yes normal posture, normal gait, joint tenderness and decreased range of motion; No muscle weakness Cervical Spine: Yes normal cervical lordosis, Yes cervical muscular tenderness (mild-improving) bilateral diffuse , Yes cervical spasm bilateral lower trapezius and Yes misalignment misalignment: C5, C6 and C7 Thoracic/Lumber: Yes thoracic and lumbar spine normal to inspection, Yes paraspinal tenderness (improving) bilaterally in the upper thoracic, in the mid thoracic, in the lower thoracic and in the lower lumbar, Yes thoraco-lumbar spasm on the right greater than left (paraspinal T3-T8, trap) and on the left greater than right (lumbar paraspinal) and Yes misalignment T1, T2, T5, T6, T7, L4, L5 and LIL Sacroiliac joints: on the left (motion restriction) tender to palpation Office Procedures Procedures - Chiropractic Procedures Manipulation: Cervical C6, Lumbar L4, Thoracic T3 and T6 and Pelvis LIL Manipulation: 3-4 regions Electronic Stimulation: Yes Electrical Stimulation: Thoracic 15 mins (16) mA Therapy Performed by:: Gala Saravia Traction, Mechanical: Yes Patient Response: positive Assessment and Plan Assessment and Plan (1) Segmental and somatic dysfunction of thoracic region: Status: Acute (2) Segmental and somatic dysfunction of cervical region: Status: Acute (3) Segmental and somatic dysfunction of lumbar region: Status: Acute (4) Segmental and somatic dysfunction of pelvic region: Status: Acute Orders: Orders Chiropractic Treatments Today M54.14 - Radiculopathy, thoracic region, M99.01 - Segmental and somatic dysfunction of cervical region, M99.02 - Segmental and somatic dysfunction of thoracic region, M99.03 - Segmental and somatic dysfunction of lumbar region, M99.05 - Segmental and somatic dysfunction of pelvic region Plan Patient was treated without incident. She is showing overall improvement. Continue care as needed. Plan Details Goals B (more content not included)... Normal [facility] Assistant Professor Of Life Sciences Office Visit Reporton 11-08-2024 Assistant Professor Of Life Sciences Office Visit Report [facility] [address], [address] [place] [address] OFFICE VISIT Date of Service: 11/08/24 MR#: [id number] Acct: [id number] Name: RENA LANGSTON Rep #: [id number] : 1990 Provider: Dr. Balbina persaud MD Age/Sex: 34/F [place] [facility] [place]: Signed Intake Vital Signs 10/08/24 19:30 11/08/24 08:52 11/08/24 08:58 Height 5 ft 5 in 5 ft 5 in 5 ft 5 in Weight: 243 lb 6.4 oz 243 lb 2 oz BMI 40.5 40.4 BP 159/107 H 148/89 H Respiration 18 Pulse 93 Temp 96.5 F L Pulse Oximetry (%) 100 Intake Visit Reasons: bleeding in early Forming Machine Tender Required: No Is patient in pain?: Yes (sharp cramp every once in a while) Allergies Sulfa (Sulfonamide Antibiotics) Allergy (Mild, Verified 11/08/24 08:54) Rash red (food color) Allergy (Verified 11/08/24 08:54) Hives Seasonal Allergies: Uncoded Allergy (Verified 11/08/24 08:54) Other Medications ???Medication ???Instructions ???Recorded ???Confirmed ???Type drospirenone 3 mg-ethinyl 1 tab PO DAILY 11/09/21 10/30/24 H istory estradiol 0.02 mg tablet (LOUISA (28)) Held on 10/08/24. 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 Is last menstrual period known: Yes Last Menstrual Period: 09/22/24 Post menopausal: No Patient : Yes : No [facility] Medical History Shingles History of steroid therapy Non-smoker History of pain when walking Acute sinusitis, unspecified URI (upper respiratory infection) Wears hearing aid Rosacea Trigger thumb Headache, migraine Bone fracture Asthma Seasonal allergic conjunctivitis Surgical History Hx of cholecystectomy Family History Sister Asthma Father Bowel disease Liver disease Thyroid disorder Grandmother Cervical cancer Diabetes Grandfather Cancer Mother Hypertension Social History (Updated 11/08/24 @ 08:55 by Reva Geronimo) number of children: 0 current occupational status: employed 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 she bled the week before her positive test, and then she has had bleeding ever since. tuesday gs WITH 5W6D was seen. brown spotting since occasional cramping. unsure of blood type. lmp pos preg test 10/29 Female Reproductive History Last Menstrual Period: 09/22/24 History 1 Elective abortions Hx Para 0 Spontaneous abortions Hx # Term Pregnancies Ectopic pregnancies Hx # Pregnancies Multiple births # of living children ROS Const Constitutional: Reports as per HPI; Denies fever(s) ENT ENT: Reports system reviewed and no additional complaints, except as documented Cardio Card: Reports system reviewed and no additional complaints, except as documented Resp Resp: Reports system reviewed and no additional complaints, except as documented GI GI: Reports as per HPI : Reports as per HPI Musc Musc: Reports system reviewed and no additional complaints, except as documented Skin Skin/Breast: Reports system reviewed and no additional complaints, except as documented Neuro Neuro: Reports system reviewed and no additional complaints, except as documented Endo Endo: Reports system reviewed and no additional complaints, except as documented Exam Const General: healthy appearing, comfortable and no acute distress HENMT Head: normal to inspection and normocephalic Neck Neck: no lymphadenopathy noted Thyroid: thyroid normal Chest Chest palpation inspection: normal inspection of the chest Resp Effort Inspection: normal respiratory effort Cardio Rate: regular rate Rhythm: regular rhythm GI Inspection: normal to inspection Palpation: soft and nontender External Female Exam: normal external appearance Speculum Exam - Vagina: normal appearance of the vagina and vaginal bleeding Bimanual Exam- Vagina Uterus: uterine shape normal and non-tender OB/External Speculum: vaginal bleeding Speculum Exam: vaginal bleeding Skin General: no rashes or lesions noted Neuro General: no focal motor deficits Extrem General: normal to inspection and no pedal edema Psych Appearance: grossly normal Coding Level of Care Code Off vis,new,level 3 Diagnoses Threatened O20.0 Z34.90 Assessment and Plan Assessment and Plan (1) Threatened : Status: Acute (2) Pregnanc (more content not included)... Normal [facility] Type AND Screenon 11-08-2024 Ab SCREEN GEL Negative Normal [facility] Comment on above: Order Comment: PN Performed By: #### B TS ####[facility] [id number] [place], [address] Chiropractic Reporton 2024 Chiropractic Report [facility] Chiropractic [facility] [place] [address] OFFICE VISIT Date of Service: 10/30/24 MR#: [id number] Acct: [id number] Name: RENA LANGSTON Rep #: [id number] : 1990 Provider: JERRY Yanez Age/Sex: 34/F Location: [facility] Status: Signed Intake Vital Signs 10/08/24 19:30 Height 5 ft 5 in Weight: 243 lb 6.4 oz BMI 40.5 BP 159/107 H Respiration 18 Pulse 93 Temp 96.5 F L Temp Source Temporal Pulse Oximetry (%) 100 Intake Visit Reasons: Back pain Chief Complaint: upper/mid back pain Is patient in pain?: Yes (upper, mid and low back ) Pain scale (1-10): 5 Allergies Sulfa (Sulfonamide Antibiotics) Allergy (Mild, Verified 10/30/24 08:35) Rash red (food color) Allergy (Verified 10/30/24 08:35) Hives Seasonal Allergies: Uncoded Allergy (Verified 10/30/24 08:35) Other Medications ???Medication ???Instructions ???Recorded ???Confirmed ???Type drospirenone 3 mg-ethinyl 1 tab PO DAILY 11/09/21 10/30/24 H istory estradiol 0.02 mg tablet (LOUISA (28)) Held on 10/08/24. 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 fexofenadine-pseudoe phedrine ER 1 tab PO QAM 06/24/22 10/30/24 His tory 180 mg-240 mg tablet,ext.release 24 hr (Griselda-D 24 Hour) [facility] Medical History Shingles History of steroid therapy Non-smoker History of pain when walking Acute sinusitis, unspecified URI (upper respiratory infection) Wears hearing aid Rosacea Trigger thumb Headache, migraine Bone fracture Asthma Seasonal allergic conjunctivitis Surgical History Hx of cholecystectomy Family History Sister Asthma Father Bowel disease Liver disease Thyroid disorder Grandmother Cervical cancer Diabetes Grandfather Cancer Mother Hypertension Social History Smoking Status: Never smoker alcohol intake: never substance use type: does not use what type of physical activity do you participate in: none HPI Back pain Chief Complaint: mid/low back pain Visit Number: 3 Details: Mala is a 34 year old female here today for follow up for upper/mid and low back pain. Pt. advises she woke up tuesday AM with her back locked up from her upper to low back. She states she is unsure of the cause and states she did nothing on Tuesday that would have aggravated her but had slept in an ultra cold room that night. She states she took Ibuprofen, applied heat and used a TENS unit which has been somewhat helpful. She complains of upper back pain and stiffness. She states her low back is achy and painful bilaterally. She rates her pain 5/10 today and denies any numbness, tingling or radiculopathy. She continues to do some home exercises/stretches that her PT gave her. She denies new injury. Mala also treats pain at home with heat, ibuprofen and continues to stretch on a regular basis. She reports chiropractic adjustments are helpful in relieving some of her pain and discomfort. Location: upper/mid back/low back Duration: intermittent Aggravating or associated factors: sitting, standing, working Relieving factors: heat, advil, stretching,chiro Pain Quality: aching and dull Exam Musc General: Yes normal posture, normal gait, joint tenderness and decreased range of motion; No muscle weakness Cervical Spine: Yes normal cervical lordosis, Yes cervical muscular tenderness bilateral diffuse , Yes cervical spasm bilateral lower trapezius and Yes misalignment misalignment: C5, C6 and C7 Thoracic/Lumber: Yes thoracic and lumbar spine normal to inspection, Yes paraspinal tenderness bilaterally in the upper thoracic, in the mid thoracic, in the lower thoracic and in the lower lumbar, Yes thoraco-lumbar spasm on the right greater than left (paraspinal T3-T8, trap) and on the left greater than right (lumbar paraspinal) and Yes misalignment T1, T2, T5, T6, T7, L4, L5 and LIL Sacroiliac joints: on the left (motion restriction) tender to palpation Office Procedures Procedures - Chiropractic Procedures Manipulation: Cervical C6, Lumbar L4, Thoracic T3 and T6 and Pelvis LIL Manipulation: 3-4 regions Electronic Stimulation: Yes Electrical Stimulation: Lumbar 15 mins (15) mA Therapy Performed by:: Gala Saravia Traction, Mechanical: Yes Patient Response: positive Assessment and Plan Assessment and Plan (1) Segmental and somatic dysfunction of thoracic region: Status: Acute (2) Segmental and somatic dysfunction of cervical region: Status: Acute (3) Segmental and somatic dysfunction of lumbar region: Status: Acute (4) Segmental and somatic dysfunction of pelvic region: Status: Acute Orders: Orders Chi (more content not included)... Normal [facility] Chiropractic Reporton 2024 Chiropractic Report [facility] [address] [place] [id number] OFFICE VISIT Date of Service: 10/10/24 MR#: [id number] Acct: [id number] Name: RENA LANGSTON Rep #: [id number] : 1990 Provider: JERRY Yanez Age/Sex: 34/F Location: [facility] Status: Signed Intake Vital Signs 03/11/23 11:28 10/08/24 19:30 Height 5 ft 6 in 5 ft 5 in Intake Visit Reasons: Back pain Chief Complaint: upper/mid back pain Allergies Sulfa (Sulfonamide Antibiotics) Allergy (Mild, Verified 10/10/24 08:09) Rash red (food color) Allergy (Verified 10/10/24 08:09) Hives Seasonal Allergies: Uncoded Allergy (Verified 10/10/24 08:09) Other Medications ???Medication ???Instructions ???Recorded ???Confirmed ???Type drospirenone 3 mg-ethinyl 1 tab PO DAILY 11/09/21 10/10/24 History estradiol 0.02 mg tablet (LOUISA (28)) fexofenadine-pseudoe phedrine ER 1 tab PO QAM 06/24/22 10/10/24 History 180 mg-240 mg tablet,ext.release 24 hr (Griselda-D 24 Hour) [facility] Medical History Shingles History of steroid therapy Non-smoker History of pain when walking Acute sinusitis, unspecified URI (upper respiratory infection) Wears hearing aid Rosacea Trigger thumb Headache, migraine Bone fracture Asthma Seasonal allergic conjunctivitis Surgical History Hx of cholecystectomy Family History Sister Asthma Father Bowel disease Liver disease Thyroid disorder Grandmother Cervical cancer Diabetes Grandfather Cancer Mother Hypertension Social History Smoking Status: Never smoker alcohol intake: never substance use type: does not use what type of physical activity do you participate in: none HPI Back pain Chief Complaint: mid/low back pain Visit Number: 2 Details: Mala is a 34 year old female here today for follow up for upper/mid and low back pain. Pt. states her back pain improved after her last adjustment but it started to return last week.She complains of upper back pain and stiffness that extends into her mid back. She also complains of low back tightness. She does sit more at her new job which exacerbates her pain. She denies any radiculopathy into her buttocks/hips or legs at this time. She continues to do some home exercises/stretches that her PT gave her. She denies new injury, numbness or tingling. Mala treats pain at home with heat, ibuprofen and continues to stretch on a regular basis. She reports chiropractic adjustments are helpful in alleviating her discomfort. Location: upper/mid back/low back Duration: intermittent Aggravating or associated factors: sitting, standing, working Relieving factors: heat, advil, stretching,chiro Pain Quality: aching and dull Exam Musc General: Yes normal posture, normal gait, joint tenderness and decreased range of motion; No muscle weakness Cervical Spine: Yes normal cervical lordosis, Yes cervical muscular tenderness bilateral lower , Yes cervical spasm bilateral lower trapezius and Yes misalignment misalignment: C5, C6 and C7 Thoracic/Lumber: Yes thoracic and lumbar spine normal to inspection, Yes paraspinal tenderness bilaterally in the upper thoracic, in the mid thoracic, in the lower thoracic and in the lower lumbar, Yes thoraco-lumbar spasm on the right greater than left (paraspinal T3-T8, trap) and on the left greater than right (lumbar paraspinal) and Yes misalignment T1, T2, T5, T6, T7, L4, L5 and LIL Sacroiliac joints: on the left (motion restriction) tender to palpation Office Procedures Procedures - Chiropractic Procedures Manipulation: Cervical C6, Lumbar L4, Thoracic T3 and T6 and Pelvis LIL Manipulation: 3-4 regions Electronic Stimulation: Yes Electrical Stimulation: Thoracic 15 mins (15) mA Therapy Performed by:: Christine Betancourt, Mechanical: Yes Hot and/or cold packs: Yes Patient Response: positive Assessment and Plan Assessment and Plan (1) Back pain: Qualifiers: Back pain location: low back pain Chronicity: acute Back pain laterality: left Sciatica presence: without sciatica Qualified Code(s): M54.50 - Low back pain, unspecified (2) Segmental and somatic dysfunction of thoracic region: Status: Acute (3) Segmental and somatic dysfunction of lumbar region: Status: Acute (4) Segmental and somatic dysfunction of pelvic region: Status: Acute Orders: Orders Chiropractic Treatments Today M54.14 - Radiculopathy, thoracic region, M99.02 - Segmental and somatic dysfunction of thoracic region, M99.03 - Segmental and somatic dysfunction of lumbar region, M99.05 - Segmental and somatic dysfunction of pelvic region Plan Patient was t (more content not included)... Normal [facility] Emergency Department Summary on 10-08-2024 Emergency Department Summary [facility] Medical Records Department [address] [place] [address] Emergency Department Summary 10/08/24 MR#: [id number] Acct: [id number] Name: RENA LANGSTON Rep #: [id number] : 1990 34 From: Waqas Stone DO PCP: VICKI Rebolledo Status:DEP ER Location: ED HPI History of Present Illness Chief Complaint: Upper Extremity Injury [facility] Medical History Shingles History of steroid therapy Non-smoker History of pain when walking Acute sinusitis, unspecified URI (upper respiratory infection) Wears hearing aid Rosacea Trigger thumb Headache, migraine Bone fracture Asthma Seasonal allergic conjunctivitis Home Medications ???Medication ???Instructions ???Recorded ???Last Taken ???Type drospirenone 3 mg-ethinyl 1 tab PO DAILY 11/09/21 Unknown History estradiol 0.02 mg tablet (LOUISA (28)) fexofenadine-pseudoe phedrine ER 1 tab PO QAM 06/24/22 02/01/23 History 180 mg-240 mg tablet,ext.release 24 hr (Griselda-D 24 Hour) Allergy/AdvReac Type Severity Reaction Status Date / Time Sulfa (Sulfonamide Allergy Mild Rash Verified 10/08/24 19:30 Antibiotics) red (food color) Allergy Hives Verified 10/08/24 19:30 Seasonal Allergies: Uncoded Allergy Other Verified 10/08/24 19:30 Family History Sister Asthma Father Bowel disease Liver disease Thyroid disorder Grandmother Cervical cancer Diabetes Grandfather Cancer Mother Hypertension Surgical History Hx of cholecystectomy Social History Smoking Status: Never smoker alcohol intake: never substance use type: does not use what type of physical activity do you participate in: none EXAM Physical Exam Const Vital Signs: 10/08/24 19:30 Temperature 96.5 F L Temperature Source Temporal Pulse Rate 93 Respiratory Rate 18 Blood Pressure 159/107 H Blood Pressure Mean 124 Pulse Ox 100 MDM [facility] MDM Narrative Medical decision making narrative: HISTORY OF PRESENT ILLNESS: 34 female presents concern for right shoulder pain. Notes began after she took off her coat. She notes she was pulling her coat off with her right arm and felt a pop. She is concerned her shoulder may be dislocated. REVIEW OF SYSTEMS: Pertinent positives: Right shoulder pain Pertinent negatives: Numbness and tingling PHYSICAL EXAM: Nursing triage notes reviewed, Vital signs reviewed Constitutional: please see mdm HENT: MMM Eyes: Pupils equal round and reactive to light, Extraocular muscles intact Neck: No stridor, no JVD, full neck ROM Lungs: Clear to auscultation, No wheezing or rales. No increased work of breathing, no conversational dyspnea, no accessory muscle use, no nasal flaring. No respiratory distress noted Heart: Regular rate and rhythm, No murmurs, No rubs and No gallops, 2+ distal pulses (radial, femoral, posterior tibial) in all extremities Abdomen: Soft, there is no tenderness, rigidity, rebound or guarding, no obvious peritoneal signs, no palpable pulsatile abdominal masses, no auscultated abdominal bruit : No CVAT Extremities: No edema, right upper extremity without obvious deformity, Neuro: intact 5/5 strength with ok sign (median), intact finger abduction (ulnar) intact wrist extension (radial n). Intact sensation in the radial, ulnar, and median nerve distributions. Skin: No rash or lesions noted MEDICAL DECISION MAKING: Chief Complaint: Right shoulder pain External records reviewed: Reviewed prior imaging studies Factors affecting care: none multiple musculoskeletal chronic dysfunction including somatic dysfunction Social determinants of health: none History obtained from others: none Consults: none [facility] Narrative: Patient was initially hemodynamically stable, afebrile and nontoxic-appearing. Exam without step- off deformity. Right upper extremity neurovascular intact. While she did have some painful end range of motion patient essentially had full range of motion in shoulder flexion/extension, internal/external rotation, abduction/adduction. She did have a positive decant test I considered the following differential diagnosis: Right shoulder strain, fracture, dislocation Suspect patient had a fracture given mechanism of injury. Patient had intact range of motion which precludes dislocation. I did offer x-ray discussed risk and benefits of obtaining x-ray. Patient agreed should not need an x-ray at this time given mechanism. Patient was instructed take Tylenol and ibuprofen. Instructed to follow with her primary care physician for further evaluation and treatment. Instructed on range of motion exercises. The pat (more content not included)... Normal [facility] Chiropractic Reporton 2024 Chiropractic Report [facility] [address] [place] [address] OFFICE VISIT Date of Service: 09/26/24 MR#: [id number] Acct: [id number] Name: KIANRENAVISHAL GASPAR Rep #: [id number] : 1990 Provider: JERRY Yanez Age/Sex: 34/F Location: [facility] Status: Signed Intake Vital Signs 03/11/23 11:28 Height 5 ft 6 in Intake Visit Reasons: Back pain Chief Complaint: upper/mid back pain Allergies Sulfa (Sulfonamide Antibiotics) Allergy (Mild, Verified 09/26/24 08:36) Rash red (food color) Allergy (Verified 09/26/24 08:36) Hives Seasonal Allergies: Uncoded Allergy (Verified 09/26/24 08:36) Other Medications ???Medication ???Instructions ???Recorded ???Confirmed ???Type drospirenone 3 mg-ethinyl 1 tab PO DAILY 11/09/21 08/20/24 History estradiol 0.02 mg tablet (LOUISA (28)) fexofenadine-pseudoe phedrine ER 1 tab PO QAM 06/24/22 08/20/24 History 180 mg-240 mg tablet,ext.release 24 hr (Griselda-D 24 Hour) [facility] Medical History Shingles History of steroid therapy Non-smoker History of pain when walking Acute sinusitis, unspecified URI (upper respiratory infection) Wears hearing aid Rosacea Trigger thumb Headache, migraine Bone fracture Asthma Seasonal allergic conjunctivitis Surgical History Hx of cholecystectomy Family History Sister Asthma Father Bowel disease Liver disease Thyroid disorder Grandmother Cervical cancer Diabetes Grandfather Cancer Mother Hypertension Social History Smoking Status: Never smoker alcohol intake: never substance use type: does not use what type of physical activity do you participate in: none HPI Back pain Chief Complaint: mid/low back pain Visit Number: 1 Details: Mala is a 34 year old female here today for follow up for upper/mid and low back pain. Pt. states her back pain had improved overall besides some general tiredness for the last 2 weeks but she had an episode of pain Tuesday. She states she was putting a [place] tote away and had a sharp spasm and her low back locked up. She c/o low back stiffness today as well as upper back tightness. She denies any radiculopathy into her buttocks/hips or legs at this time. She continues to do some home exercises/stretches that her PT gave her. She denies new injury, numbness or tingling. Mala treats pain at home with heat, ibuprofen and continues to stretch on a regular basis. She reports chiropractic adjustments are helpful in alleviating her discomfort. Location: upper/mid back/low back Duration: intermittent Aggravating or associated factors: sitting, standing, working Relieving factors: heat, advil, stretching,chiro Pain Quality: aching and dull Exam Musc General: Yes normal posture, normal gait, joint tenderness and decreased range of motion; No muscle weakness Cervical Spine: Yes normal cervical lordosis Thoracic/Lumber: Yes thoracic and lumbar spine normal to inspection, Yes paraspinal tenderness bilaterally in the upper thoracic, in the mid thoracic, in the lower thoracic and in the lower lumbar, Yes thoraco-lumbar spasm on the right greater than left (paraspinal T3-T8, trap) and on the left greater than right (lumbar paraspinal) and Yes misalignment T1, T2, T5, T6, T7, L4, L5 and LIL Sacroiliac joints: on the left (motion restriction) tender to palpation Office Procedures Procedures - Chiropractic Procedures Manipulation: Lumbar L4, Thoracic T3 and T6 and Pelvis LIL Manipulation: 3-4 regions Electronic Stimulation: Yes Electrical Stimulation: Thoracic 15 mins (17) mA Therapy Performed by:: Christine Erickson Traction, Mechanical: Yes Patient Response: positive Assessment and Plan Assessment and Plan (1) Segmental and somatic dysfunction of thoracic region: Status: Acute (2) Thoracic neuritis: Status: Acute (3) Segmental and somatic dysfunction of lumbar region: Status: Acute (4) Segmental and somatic dysfunction of pelvic region: Status: Acute Orders: Orders Chiropractic Treatments Today M54.14 - Radiculopathy, thoracic region, M99.01 - Segmental and somatic dysfunction of cervical region, M99.02 - Segmental and somatic dysfunction of thoracic region, M99.03 - Segmental and somatic dysfunction of lumbar region, M99.05 - Segmental and somatic dysfunction of pelvic region Plan Patient was treated without incident. Co-managing PT with chiro seems to keep her inflammation down, continue at 2x/mo while doing PT. Plan Details Goals Barriers: Goals Decrease spasm Improve ROM Decrease pain Decrease inflammation Follow Up: 2 Weeks Coding Level of Care Code (more content not included)... Normal [facility] Chiropractic Reporton 2023 Chiropractic Report [facility] [address] [place] [address] OFFICE VISIT Date of Service: 09/10/24 MR#: [id number] Acct: [id number] Name: RENA LANGSTON Rep #: [id number] : 1990 Provider: JERRY Yanez Age/Sex: 34/F Location: [facility] Status: Signed Intake Vital Signs 03/11/23 11:28 Height 5 ft 6 in Intake Visit Reasons: Back pain Chief Complaint: upper/mid back pain Allergies Sulfa (Sulfonamide Antibiotics) Allergy (Mild, Verified 08/20/24 10:38) Rash red (food color) Allergy (Verified 08/20/24 10:38) Hives Seasonal Allergies: Uncoded Allergy (Verified 08/20/24 10:38) Other [facility] Medical History Shingles History of steroid therapy Non-smoker History of pain when walking Acute sinusitis, unspecified URI (upper respiratory infection) Wears hearing aid Rosacea Trigger thumb Headache, migraine Bone fracture Asthma Seasonal allergic conjunctivitis Surgical History Hx of cholecystectomy Family History Sister Asthma Father Bowel disease Liver disease Thyroid disorder Grandmother Cervical cancer Diabetes Grandfather Cancer Mother Hypertension Social History Smoking Status: Never smoker alcohol intake: never substance use type: does not use what type of physical activity do you participate in: none HPI Back pain Chief Complaint: mid/low back pain Visit Number: 8 Details: Mala is a 34 year old female here today for follow up for upper/mid and low back pain. Pt states her upper back pain has improved. She advises her mid/low back is achy and sore right at the center of her spine today. She denies any radiculopathy into her buttocks/hips or legs at this time. She rates her mid back pain 2/10 and her low back 6/10 and describes it as 'pinchy' at times. She is doing some home exercises/stretches that her PT gave her since the weighted PT was flaring her. She denies new injury, numbness or tingling. Mala treats pain at home with heat, ibuprofen and continues to stretch on a regular basis. She reports chiropractic treatment is helpful in alleviating her discomfort but the pain returns quickly. Location: upper/mid back/low back Duration: intermittent Aggravating or associated factors: sitting, standing, working Relieving factors: heat, advil, stretching,chiro Pain Quality: aching and dull Exam Musc General: Yes normal posture, normal gait, joint tenderness and decreased range of motion; No muscle weakness Cervical Spine: Yes normal cervical lordosis, Yes cervical muscular tenderness right greater than left lower trapezius, Yes cervical spasm right greater than left lower trapezius and paracervical muscles and Yes misalignment misalignment: C2, C5, C6 and C7 Thoracic/Lumber: Yes thoracic and lumbar spine normal to inspection, Yes paraspinal tenderness bilaterally in the upper thoracic, in the mid thoracic, in the lower thoracic and in the lower lumbar, Yes thoraco-lumbar spasm on the right greater than left (paraspinal T3-T8, trap) and on the left greater than right (lumbar paraspinal) and Yes misalignment T1, T2, T5, T6, T7, L4, L5 and LIL Sacroiliac joints: on the left (motion restriction) tender to palpation Office Procedures Procedures - Chiropractic Procedures Manipulation: Cervical C2 and C7, Lumbar L4, Thoracic T3 and T6 and Pelvis LIL Manipulation: 3-4 regions Electronic Stimulation: Yes Electrical Stimulation: Lumbar 15 mins (15) mA Therapy Performed by:: Christine Erickson Traction, Mechanical: Yes Patient Response: positive Assessment and Plan Assessment and Plan (1) Segmental and somatic dysfunction of thoracic region: Status: Acute (2) Segmental and somatic dysfunction of cervical region: Status: Acute (3) Segmental and somatic dysfunction of lumbar region: Status: Acute (4) Segmental and somatic dysfunction of pelvic region: Status: Acute Orders: Orders Chiropractic Treatments Today M54.14 - Radiculopathy, thoracic region, M99.01 - Segmental and somatic dysfunction of cervical region, M99.02 - Segmental and somatic dysfunction of thoracic region, M99.03 - Segmental and somatic dysfunction of lumbar region, M99.05 - Segmental and somatic dysfunction of pelvic region Plan Patient was treated without incident. She is getting improvement in neck and upper back, however her low back is not responding well to PT. Follow up in 2 weeks. Plan Details Goals Barriers: Goals Decrease spasm Improve ROM Decrease pain Follow Up: 2 Weeks Coding Level of Care Code No Charge Diagnoses Segmental and somatic dysfunction of thoracic region M99.02 Segment (more content not included)... Normal [facility] Re-Evaluation - PT (1)on Re-Evaluation - PT (1) [facility] Physical Therapy [facility] [address] [place] [address] / REEVALUATION / MEDICARE RECERTIFICATION PHYSICAL THERAPY MR#: [id number] Acct: [id number] Name: RENA LANGSTON Rep #: [id number] : 1990 34 From: Dominguez Mcnamara DPT Referring Dr.: JERRY Moncada Status:REG RCR Insurance: [employer] SELF PAY INSURANCE Re-Evaluation Intro: Dr. Mala Moncada, JERRY, It has been my pleasure to treat RENA LANGSTON over the last 11 visits for Cervical, thoracic, lumbar, and pelvic somatic dysfunction. Please see the progress note below for an update on the physical therapy plan of care! Subjective Subjective: Pt. reports overall doing a little bit better. Pt. reports overall doing 50% better overall. Pt. is overall pleased with progress. Pt. reports wanting to trial therapy on her own for 2 weeks as she is very busy with the holidays. Objective Objective/Function: ROM: LUMBAR SPINE: flexion: min loss mild increase NW, ext min loss mild increase NW, SB nil loss Bilat NE, rotation nil loss NE. Pt. has slight tightness in B HS. Pt. reports no increase in symptoms with HS testing. MMT: PT. has 5/5 strength throughout BLEs. Pt. has poor+ core strength GAIT: fairly normal gait pattern. STAIRS: normal without HR. Plan Plan Plan: Pt. to trial exercises on her own for 2 weeks then follow back up. I did talk to her about being consistent with her exercises. She to come back in 2 weeks to determine if she is able to self manage. Balance/Gait/Functio nal tests Balance/Special Test Scores Oswestry Low Back Score: 8 Goals Goals Goal 1:: LTG: pt. to be I with both gym and aquatic HEP for LE/core strength and lumbar/thoracic ROM. Goal Time Frame: 4-6 Weeks Goal Progress: Progressing Goal 2:: LTG: pt. to have full ROM of thoracic and lumbar spine without increase in symptoms. Goal Time Frame: 4-6 Weeks Goal Progress: Goal Met Goal 3:: LTG: Pt. to have 5/5 strength throughout core and B hips. Goal Time Frame: 4-6 Weeks Goal Progress: Progressing Goal 4:: LTG: PT. to complete all work activities without increase in symptoms. Goal Time Frame: 4-6 Weeks Goal Progress: Progressing Anticipated Interventions Anticipated Interventions Patient/Client Instruction: Educate patient on: Condition, Plan of Care, Risk Factors and Benefits of Fitness Program For the Purpose of:: To improve decision making, To facilitate caregiver knowledge, To improve self management, To prevent re-injury, To improve ability to perform tasks related to life management and To improve tolerance to ADL's Therapeutic Exercise to Include: Strength training, Postural training, Flexibilty training, In an aquatic setting, Passive ROM, Active ROM and Pedrito Exercises For the Purpose of:: To decrease pain, To increase ROM, To improve nutrient delivery to tissue, To increase oxygenation perfusion, To improve muscle performance and motor function, To improve ability to perform ADL's, To increase tolerance to activity/condition/p osition, To improve performance and independence with ADL's, To improve health of tissue, To decrease soft tissue restriction and To increase flexibility/ROM Manual Therapy Techniques to Include: Mobilization and Soft tissue mobilization Comment: IASTIM For the Purpose of:: To decrease pain, To decrease swelling/inflammatio n, To increase ROM, To improve nutrient delivery to tissue and To increase oxygenation perfusion Ultrasound (thermal/non thermal): Yes For the Purpose of:: To decrease pain, To increase ROM, To improve nutrient delivery to tissue and To increase oxygenation perfusion Re-Evaluation Ending Re-evaluation ending: Please do not hesitate to contact me at [phone] by phone or if you have questions or concerns regarding this new plan of care! Sincerely, Dominguez Mcnamara DPT 09/04/24 0937 CC: DC Dr. Mala Moncada; SPECTROGRAPHIC ANALYSTDulce MariaC Heaven Armstrong CLS Signed For Medicare only, by signing this I certify the plan of care. Physicians Signature Date Normal [facility] Chiropractic Reporton 2023 Chiropractic Report [facility] [address] [place] [id number] OFFICE VISIT Date of Service: 08/20/24 MR#: [id number] Acct: [id number] Name: RENA LANGSTON Rep #: [id number] : 1990 Provider: JERRY Yanez Age/Sex: 34/F Location: [facility] Status: Signed Intake Vital Signs 03/11/23 11:28 Height 5 ft 6 in Intake Visit Reasons: Back pain Chief Complaint: upper/mid back pain Is patient in pain?: Yes (low back ) Pain scale (1-10): 6 Allergies Sulfa (Sulfonamide Antibiotics) Allergy (Mild, Verified 08/20/24 10:38) Rash red (food color) Allergy (Verified 08/20/24 10:38) Hives Seasonal Allergies: Uncoded Allergy (Verified 08/20/24 10:38) Other Medications ???Medication ???Instructions ???Recorded ???Confirmed ???Type drospirenone 3 mg-ethinyl 1 tab PO DAILY 11/09/21 08/20/24 History estradiol 0.02 mg tablet (LOUISA (28)) fexofenadine-pseudoe phedrine ER 1 tab PO QAM 06/24/22 08/20/24 History 180 mg-240 mg tablet,ext.release 24 hr (Griselda-D 24 Hour) [facility] Medical History Shingles History of steroid therapy Non-smoker History of pain when walking Acute sinusitis, unspecified URI (upper respiratory infection) Wears hearing aid Rosacea Trigger thumb Headache, migraine Bone fracture Asthma Seasonal allergic conjunctivitis Surgical History Hx of cholecystectomy Family History Sister Asthma Father Bowel disease Liver disease Thyroid disorder Grandmother Cervical cancer Diabetes Grandfather Cancer Mother Hypertension Social History Smoking Status: Never smoker alcohol intake: never substance use type: does not use what type of physical activity do you participate in: none HPI Back pain Chief Complaint: upper/mid back pain Visit Number: 7 Details: Mala is a 34 year old female here today for follow up of upper/mid and low back pain. Pt reports improvement for about 1-2 days after adjustments and then her pain returns. She advises her upper and mid back is achy and sore bilaterally today- but is improving overall with PT. She also c/o pain in her low back bilaterally as well, denies any radiculopathy into her buttocks/hips or legs at this time. She rates her low back pain /10 and describes it as 'pinchy' at times. She is going to PT 2 x a week at this time. Her LBP has increased slightly w PT and they are modifying her workouts. She denies new injury, numbness or tingling. Mala uses heat, ibuprofen and continues to stretch on a regular basis at home to help alleviate her symptoms. She reports chiropractic treatment is helpful in alleviating her discomfort but the pain does return. Location: upper/mid back/low back Duration: intermittent Aggravating or associated factors: sitting, standing, working Relieving factors: heat, advil, stretching,chiro Pain Quality: aching and dull Exam Musc General: Yes normal posture, normal gait, joint tenderness and decreased range of motion; No muscle weakness Cervical Spine: Yes normal cervical lordosis, Yes cervical muscular tenderness (slightly improved) right greater than left lower trapezius, Yes cervical spasm right greater than left lower trapezius and paracervical muscles and Yes misalignment misalignment: C2, C5, C6 and C7 Thoracic/Lumber: Yes thoracic and lumbar spine normal to inspection, Yes paraspinal tenderness bilaterally in the upper thoracic, in the mid thoracic, in the lower thoracic and in the lower lumbar, Yes thoraco-lumbar spasm on the right greater than left (paraspinal T3-T8, trap) and on the left greater than right (lumbar paraspinal) and Yes misalignment T1, T2, T5, T6, T7, L4, L5 and LIL Sacroiliac joints: on the left (motion restriction) tender to palpation Office Procedures Procedures - Chiropractic Procedures Manipulation: Cervical C2 and C7, Lumbar L4, Thoracic T3 and T6 and Pelvis LIL Manipulation: 3-4 regions Electronic Stimulation: Yes Electrical Stimulation: Thoracic 15 mins (9) mA Therapy Performed by:: Christine Erickson Patient Response: positive Assessment and Plan Assessment and Plan (1) Segmental and somatic dysfunction of thoracic region: Status: Acute (2) Segmental and somatic dysfunction of cervical region: Status: Acute (3) Thoracic neuritis: Status: Acute (4) Segmental and somatic dysfunction of lumbar region: Status: Acute (5) Segmental and somatic dysfunction of pelvic region: Status: Acute Orders: Orders Chiropractic Treatments Today M54.14 - Radiculopathy, thoracic region, M99.01 - Segmental and somatic dysfunction of cervical region, M99.02 - Segmental and somatic dysfunction of (more content not included)... Normal [facility] Inital Evaluation (1) - PTon 07-30-2024 Inital Evaluation (1) - PT [facility] Physical Therapy [facility] [place] [address] / REHABILITATION SERVICES INITIAL EVALUATION MR#: [id number] Acct: [id number] Name: RENA LANGSTON Rep #: [id number] : 1990 34 From: Dominguez Mcnamara DPT Referring Dr.: Dr. Mala Moncada DC Status: REG RCR Insurance: [employer] SELF PAY INSURANCE Patient's Visit Information Visit Information Visit Information: RENA LANGSTON is a 34 year old F referred to Physical Therapy by Dr. Mala Moncada DC with a diagnosis of Cervical, thoracic, lumbar, and pelvic somatic dysfunction. Date of Evaluation: 07/26/24 Physical Therapist: Dominguez Mcnamara DPT Visit Plan Frequency: 2x /Week Duration: 6 Weeks Plan: Pt. to complete x1 day in aquatic therapy and x1 day per week on land. ON LAND: work on lumbar and thoracic ROM as tolerated. Add in extension, cat/cow, thoracic rotation. Start light and progress as tolerated. IN POOL: Start with hip/core strengthening. Progress as tolerated. Subjective Subjective: Pt. is here today for her initial evaluation with diagnosis of somatic dysfunction of pelvic, lumbar, cervical and thoracic region. Pt. reports having good tolerance and positive respo nse with chiro, but not consistent relief. Pt. reports having increased pain in lumbar spine, thoracic spine and cervical spine. Pt. reports stiffness in morning, no radicular symptoms, but has chronic pain throughout the day. She reports no LE weakness, no change in B/B. Pt. has a newer job and is sitting more than previously, but does have a sit to stand desk. Pt. has not found positions that her better. Pt. is hopeful to reduce symptoms in order to get back to all work and recreational activities without limitations. Pain Lumbar spine: Pain Intensity (Out of 10): 4 Pain Intensity Range: 2 and 7 Thoracic spine: Pain Intensity (Out of 10): 4 Pain Intensity Range: 2 and 7 Cervical spine: Pain Intensity (Out of 10): 3 Pain Intensity Range: 2 and 7 Objective Objective: POSTURE: Pt. has overall decent posture, but marked increased thoracic kyphosis. Normal iliac crest heights. PALPATION: pt. has tenderness along thoracic and lumbar spine, but no radicular symptoms noted. Pt. has tenderness throughout erector spinea a well. NEURO: normal sensation in BLEs. Pt. has normal DTR of BLEs. Pt. is able to rise on heels and toes without issues. ROM: LUMBAR SPINE: flexion min loss increase NW (HS tightness), ext mod loss increase NW, SB nil loss NE, rotation min/nil loss NE. THORACIC SPINE: flexion nil loss NE, ext mod loss increase NW. Pt. has no leg discrepency. MMT: PT. has 4+/5 B hip strength throughout. Core strength: poor. Lumbar ext poor. GAIT: pt. has normal gait pattern without increase in symptoms. STAIRS: normal with 1 HR with reciprocal pattern. Special Tests L/S Slump test left side: Negative L/S Slump test right side: Negative L/S Left Straight Leg Raise: Negative L/S Right Straight Leg Raise: Negative Lumbar Standing: Flexion - Mechanical Response: No effect Lumbar Standing: Flexion - Symptoms During Testing: Increases Lumbar Standing: Flexion - Symptoms After Testing: No worse Lumbar Standing: Extension - Mechanical Response: No effect Lumbar Standing: Extension - Symptoms During Testing: Increases Lumbar Standing: Extension - Symptoms After Testing: No worse Lumbar Standing: Right Side Glides - Mechanical Response: No effect Lumbar Standing: Right Side [place] - Symptoms During Testing: No effect Lumbar Standing: Right Side [place] - Symptoms After Testing: No effect Lumbar Standing: Left Side [place] - Mechanical Response: No effect Lumbar Standing: Left Side [place] - Symptoms During Testing: Produces Lumbar Standing: Left Side [place] - Symptoms After Testing: No effect Balance/Special Test Scores Oswestry Low Back Score: 15 Goals Goal 1:: LTG: pt. to be I with both gym and aquatic HEP for LE/core strength and lumbar/thoracic ROM. Goal Time Frame: 4-6 Weeks Goal 2:: LTG: pt. to have full ROM of thoracic and lumbar spine without increase in symptoms. Goal Time Frame: 4-6 Weeks Goal 3:: LTG: Pt. to have 5/5 strength throughout core and B hips. Goal Time Frame: 4-6 Weeks Goal 4:: LTG: PT. to complete all work activities without increase in symptoms. Goal Time Frame: 4-6 Weeks Rehabilitation Potential Physical Therapy Diagnosis: Pt. has signs and symptoms consistent with Cervical, thoracic, lumbar, and pelvic somatic dysfunction. Pt. has some marked tightness in her spinal musculature and weakness in B hips and core strength. Pt. would benefit from PT to address the above limitations progressing back to work and recreational activities without limitations. Rehabilitation Potential: Good Anticipated Interventions Patient/Client Instruction: Educate patient on: Condition, Brayden (more content not included)... Normal [facility] CBC W/Diff, Automatedon 11-0 Absolute Lymph 2.35 X10 3/uL Normal 0.83-4.51 [facility] Comment on above: Performed By: #### L 506.1000, L500.4050, L503.0105, L501.9520, L506.0400, L100.0100, L500.4100 #### [facility] [address] [place], [address] Absolute Neut 5.8 X10 3/uL Normal 2.0-7.7 [facility] Comment on above: Performed By: #### L 506.1000, L500.4050, L503.0105, L501.9520, L506.0400, L100.0100, L500.4100 #### [facility] [address] [place], [address] Basophils/100 WBC (Bld) 0.3 % Normal 0-1 [facility] Comment on above: Performed By: #### L 506.1000, L500.4050, L503.0105, L501.9520, L506.0400, L100.0100, L500.4100 #### [facility] [address] [place], [address] Eosinophils/100 WBC (Bld) 0.7 % Normal 0-5 [facility] Comment on above: Performed By: #### L 506.1000, L500.4050, L503.0105, L501.9520, L506.0400, L100.0100, L500.4100 #### [facility] [address] [place], [address] Erythrocyte distribution width (RBC) [Ratio] 12.5 % Normal 11.6-14.6 [facility] Comment on above: Performed By: #### L 506.1000, L500.4050, L503.0105, L501.9520, L506.0400, L100.0100, L500.4100 #### [facility] [address] [place], [address] Hematocrit (Bld) [Volume fraction] 40.2 % Normal 37-47 [facility] Comment on above: Performed By: #### L 506.1000, L500.4050, L503.0105, L501.9520, L506.0400, L100.0100, L500.4100 #### [facility] [address] [place], [address] Hemoglobin (Bld) [Mass/Vol] 13.3 g/dL Normal 12.0-15.0 [facility] Comment on above: Performed By: #### L 506.1000, L500.4050, L503.0105, L501.9520, L506.0400, L100.0100, L500.4100 #### [facility] [address] [place], [address] IG% 0.200 Normal 0.0-0.9 [facility] Comment on above: Result Comment: IG% - Immature Granulocytes (promyelocytes, myelocytes and metamyelocytes) > 1% indicates that a LEFT SHIFT is Present. Performed By: #### L 506.1000, L500.4050, L503.0105, L501.9520, L506.0400, L100.0100, L500.4100 #### [facility] [address] [place], [address] Lymphocytes/100 WBC (Bld) 27.2 % Normal 19-41 [facility] Comment on above: Performed By: #### L 506.1000, L500.4050, L503.0105, L501.9520, L506.0400, L100.0100, L500.4100 #### [facility] [address] [place], [address] MCH (RBC) [Entitic mass] 27.5 pg Normal 27.0-32.0 [facility] Comment on above: Performed By: #### L 506.1000, L500.4050, L503.0105, L501.9520, L506.0400, L100.0100, L500.4100 #### [facility] [address] [place], [address] MCHC (RBC) [Mass/Vol] 33.1 g/dL Normal 32-36 [facility] Comment on above: Performed By: #### L 506.1000, L500.4050, L503.0105, L501.9520, L506.0400, L100.0100, L500.4100 #### [facility] [address] [place], [address] MCV (RBC) [Entitic vol] 83.2 fL Normal 81-99 [facility] Comment on above: Performed By: #### L 506.1000, L500.4050, L503.0105, L501.9520, L506.0400, L100.0100, L500.4100 #### [facility] [address] [place], [address] Monocytes/100 WBC (Bld) 3.9 % Normal 0-10 [facility] Comment on above: Performed By: #### L 506.1000, L500.4050, L503.0105, L501.9520, L506.0400, L100.0100, L500.4100 #### [facility] [address], [address] Neutrophils/100 WBC (Bld) 67.7 % Normal 47-70 [facility] Comment on above: Performed By: #### L 506.1000, L500.4050, L503.0105, L501.9520, L506.0400, L100.0100, L500.4100 #### [facility] [address] [place], [address] Nucleated RBC (Bld) [#/Vol] 0 10*3/uL Normal 0-5 [facility] Comment on above: Performed By: #### L 506.1000, L500.4050, L503.0105, L501.9520, L506.0400, L100.0100, L500.4100 #### [facility] [address] [place], [address] Platelet mean volume (Bld) [Entitic vol] 11.8 fL Normal 6.2-12.0 [facility] Comment on above: Performed By: #### L 506.1000, L500.4050, L503.0105, L501.9520, L506.0400, L100.0100, L500.4100 #### [facility] [address] [place], [address] Platelets (Bld) [#/Vol] 275 10*3/uL Normal 150-450 [facility] Comment on above: Performed By: #### L 506.1000, L500.4050, L503.0105, L501.9520, L506.0400, L100.0100, L500.4100 #### [facility] [address] [place], [address] RBC (Bld) [#/Vol] 4.83 10*6/uL Normal 4.2-5.4 [facility] Comment on above: Performed By: #### L 506.1000, L500.4050, L503.0105, L501.9520, L506.0400, L100.0100, L500.4100 #### [facility] [address] [place], [address] RDW SD 37.7 fl Normal 35.1-43.9 [facility] Comment on above: Performed By: #### L 506.1000, L500.4050, L503.0105, L501.9520, L506.0400, L100.0100, L500.4100 #### [facility] [address] [place], [address] WBC (Bld) [#/Vol] 8.6 10*3/uL Normal 4.4-11.0 [facility] Comment on above: Performed By: #### L 506.1000, L500.4050, L503.0105, L501.9520, L506.0400, L100.0100, L500.4100 #### [facility] [address] [place], [address] Comprehensive Metabolic Prof ilon 07-25-2024 Albumin [Mass/Vol] 3.8 g/dL Normal 3.2-5.0 [facility] Comment on above: Performed By: #### L 506.1000, L500.4050, L503.0105, L501.9520, L506.0400, L100.0100, L500.4100 ####[facility] [address] [place], [address] Albumin/Globulin [Mass ratio] 0.9 {ratio} Normal 0.9-2.4 [facility] Comment on above: Performed By: #### L 506.1000, L500.4050, L503.0105, L501.9520, L506.0400, L100.0100, L500.4100 ####[facility] [address] [place], [address] ALK P 78 U/L Normal 45-117 [facility] Comment on above: Performed By: #### L 506.1000, L500.4050, L503.0105, L501.9520, L506.0400, L100.0100, L500.4100 ####[facility] [address] [place], [address] ALT [Catalytic activity/Vol] 26 U/L Normal 13-56 [facility] Comment on above: Performed By: #### L 506.1000, L500.4050, L503.0105, L501.9520, L506.0400, L100.0100, L500.4100 ####[facility] [address] [place], [address] AST [Catalytic activity/Vol] 14 U/L Low 15-37 [facility] Comment on above: Performed By: #### L 506.1000, L500.4050, L503.0105, L501.9520, L506.0400, L100.0100, L500.4100 ####[facility] [address] [place], [address] Bilirubin [Mass/Vol] 0.50 mg/dL Normal 0.20-1.[address] [facility] Comment on above: Result Comment: For patients on eltrombopag therapy, use of Dimension [place] TBIL is not recommended. Performed By: #### L 506.1000, L500.4050, L503.0105, L501.9520, L506.0400, L100.0100, L500.4100 ####[facility] [address] [place], [address] BUN/CRE 14.2 RATIO Normal 10-20 [facility] Comment on above: Performed By: #### L 506.1000, L500.4050, L503.0105, L501.9520, L506.0400, L100.0100, L500.4100 ####[facility] [address] [place], [address] CA,Total 9.2 mg/dL Normal 8.5-10.1 [facility] Comment on above: Performed By: #### L 506.1000, L500.4050, L503.0105, L501.9520, L506.0400, L100.0100, L500.4100 ####[facility] [address] [place], [address] Chloride [Moles/Vol] 106 mmol/L Normal 98-[address] [facility] Comment on above: Performed By: #### L 506.1000, L500.4050, L503.0105, L501.9520, L506.0400, L100.0100, L500.4100 ####[facility] [address] [place], [address] CO2 [Moles/Vol] 23.0 mmol/L Normal 21.0-32.0 [facility] Comment on above: Performed By: #### L 506.1000, L500.4050, L503.0105, L501.9520, L506.0400, L100.0100, L500.4100 ####[facility] [address] [place], [address] Creatinine [Mass/Vol] 0.63 mg/dL Normal 0.55-1.02 [facility] Comment on above: Result Comment: The validity of the calculated GFR GFRAA in patients over 70 years has not been determined. Clinical correlation is essential. Performed By: #### L 506.1000, L500.4050, L503.0105, L501.9520, L506.0400, L100.0100, L500.4100 ####[facility] [address] [place], [address] EST GFR - AA 140 mL/min Normal >60 [facility] Comment on above: Result Comment: Afri can Malian GFR Calc Performed By: #### L 506.1000, L500.4050, L503.0105, L501.9520, L506.0400, L100.0100, L500.4100 ####[facility] [address] [place], [address] GAP 7 Normal 5-15 [facility] Comment on above: Performed By: #### L 506.1000, L500.4050, L503.0105, L501.9520, L506.0400, L100.0100, L500.4100 ####[facility] [address] [place], [address] GFR/1.73 sq M.predicted among non-blacks MDRD (S/P/Bld) [Vol rate/Area] 115 mL/min/{1.73_m2} Normal >60 [facility] Comment on above: Result Comment: Non- GFR Calc Performed By: #### L 506.1000, L500.4050, L503.0105, L501.9520, L506.0400, L100.0100, L500.4100 ####[facility] [address] [place], [address] Globulin (S) [Mass/Vol] 4.2 g/dL Normal 2.2-4.2 [facility] Comment on above: Performed By: #### L 506.1000, L500.4050, L503.0105, L501.9520, L506.0400, L100.0100, L500.4100 ####[facility] [address] [place], [address] Glucose [Mass/Vol] 92 mg/dL Normal 74-106 [facility] Comment on above: Performed By: #### L 506.1000, L500.4050, L503.0105, L501.9520, L506.0400, L100.0100, L500.4100 ####[facility] [address] [place], [address] Potassium [Moles/Vol] 4.0 mmol/L Normal 3.5-5.1 [facility] Comment on above: Performed By: #### L 506.1000, L500.4050, L503.0105, L501.9520, L506.0400, L100.0100, L500.4100 ####[facility] [address] [place], [address] Sodium [Moles/Vol] 135 mmol/L Low 136-145 [facility] Comment on above: Performed By: #### L 506.1000, L500.4050, L503.0105, L501.9520, L506.0400, L100.0100, L500.4100 ####[facility] [address] [place], [address] T PROT 8.0 g/dL Normal 6.4-8.2 [facility] Comment on above: Performed By: #### L 506.1000, L500.4050, L503.0105, L501.9520, L506.0400, L100.0100, L500.4100 ####[facility] [address] [place], [address] Urea nitrogen [Mass/Vol] 9 mg/dL Normal 7-18 [facility] Comment on above: Performed By: #### L 506.1000, L500.4050, L503.0105, L501.9520, L506.0400, L100.0100, L500.4100 ####[facility] [address] [place], [address] Lipid Profileon 07-25-2024 Cholesterol [Mass/Vol] 173 mg/dL Normal 200 [facility] Comment on above: Result Comment: <200 mg/dL Desirable 200-240 mg/dL Borderline >240 mg/dL High Risk Performed By: #### L 506.1000, L500.4050, L503.0105, L501.9520, L506.0400, L100.0100, L500.4100 ####[facility] [address] [place], [address] Cholesterol in HDL [Mass/Vol] 61 mg/dL Normal [facility] Comment on above: Result Comment: The drugs N-Acetylcysteine and Metamizole may falsely depress this assay. Reference Range HDL <40 mg/dL Low HDL Cholesterol HDL >or= 60 mg/dL High HDL Cholesterol Performed By: #### L 506.1000, L500.4050, L503.0105, L501.9520, L506.0400, L100.0100, L500.4100 ####[facility] [address] [place], [address] Cholesterol in LDL [Mass/Vol] 93 mg/dL Normal 0-130 [facility] Comment on above: Performed By: #### L 506.1000, L500.4050, L503.0105, L501.9520, L506.0400, L100.0100, L500.4100 ####[facility] [address] [place], [address] Cholesterol in VLDL [Mass/Vol] 19 mg/dL Normal 5-40 [facility] Comment on above: Performed By: #### L 506.1000, L500.4050, L503.0105, L501.9520, L506.0400, L100.0100, L500.4100 ####[facility] [address] [place], [address] Triglyceride [Mass/Vol] 95 mg/dL Normal [facility] Comment on above: Result Comment: The drugs N-Acetylcysteine and Metamizole may falsely depress this assay. Serum Triglycerides Reference Interval Normal <150 mg/dL Borderline high 150 - 199 mg/dL High 200 - 499 mg/dL Very High > or = 500 mg/dL Performed By: #### L 506.1000, L500.4050, L503.0105, L501.9520, L506.0400, L100.0100, L500.4100 ####[facility] [address] [place], [address] T4 Free Directon 07-25-2024 T4 FREE DIRECT 1.02 ng/dL Normal 0.76-1.46 [facility] Comment on above: Performed By: #### L 506.1000, L500.4050, L503.0105, L501.9520, L506.0400, L100.0100, L500.4100 ####[facility] [address] [place], [address] Thyroid Stim Hormone (TSH)on 07-25-2024 TSH 0.738 uIU/mL Normal 0.358-3.740 [facility] Comment on above: Performed By: #### L 506.1000, L500.4050, L503.0105, L501.9520, L506.0400, L100.0100, L500.4100 ####[facility] [address] [place], [address] Vitamin B12on 07-25-2024 Cobalamin (Vitamin B12) [Mass/Vol] 362 pg/mL Normal 211-911 [facility] Comment on above: Performed By: #### L 506.1000, L500.4050, L503.0105, L501.9520, L506.0400, L100.0100, L500.4100 ####[facility] [address] [place], [address] Vitamin D,25 Hydroxyon 07-25 Vitamin D 25-OH 14.8 ng/mL Normal [facility] Comment on above: Result Comment: Micki min D 25(OH) Status Range Deficiency <20 ng/mL (50nmol/L) Insufficiency 20 - 30 ng/mL (50 - 75 nmol/L) Sufficiency 30 - 100 ng/mL (75 - 250 nmol/L) Toxicity >100 ng/mL (>250 nmol/L) Performed By: #### L 506.1000, L500.4050, L503.0105, L501.9520, L506.0400, L100.0100, L500.4100 ####[facility] [address] [place], [address] Chiropractic Reporton 2023 Chiropractic Report [facility] [address] [place] [id number] OFFICE VISIT Date of Service: 07/18/24 MR#: [id number] Acct: [id number] Name: RENA LANGSTON Rep #: [id number] : 1990 Provider: JERRY Yanez Age/Sex: 34/F Location: [facility] Status: Signed Intake Vital Signs 03/11/23 11:28 Height 5 ft 6 in Intake Visit Reasons: Back pain Chief Complaint: upper/mid back pain Is patient in pain?: Yes Pain scale (1-10): 5 Allergies Sulfa (Sulfonamide Antibiotics) Allergy (Mild, Verified 07/18/24 08:33) Rash red (food color) Allergy (Verified 07/18/24 08:33) Hives Seasonal Allergies: Uncoded Allergy (Verified 07/18/24 08:33) Other [facility] Medical History Shingles History of steroid therapy Non-smoker History of pain when walking Acute sinusitis, unspecified URI (upper respiratory infection) Wears hearing aid Rosacea Trigger thumb Headache, migraine Bone fracture Asthma Seasonal allergic conjunctivitis Surgical History Hx of cholecystectomy Family History Sister Asthma Father Bowel disease Liver disease Thyroid disorder Grandmother Cervical cancer Diabetes Grandfather Cancer Mother Hypertension Social History Smoking Status: Never smoker alcohol intake: never substance use type: does not use what type of physical activity do you participate in: none HPI Back pain Chief Complaint: upper/mid back pain Visit Number: 6 Details: Mala is a 34 year old female here today for follow up of upper/mid and low back pain. Pt reports improvement for about 1-2 days after adjustments and then her pain returns just as before. She advises her upper and mid back is very tight and sore bilaterally today. She also c/o tightness/achiness in her low back bilaterally as well, denies any radiculopathy into her buttocks/hips or legs at this time. She rates her overall pain 5/10 today. She denies new injury, numbness or tingling. Mala uses heat, ibuprofen and continues to stretch on a regular basis at home to help alleviate her symptoms. She reports chiropractic treatment is helpful in alleviating her discomfort but the pain does return. Location: upper/mid back/low back Duration: intermittent Aggravating or associated factors: sitting, standing, working Relieving factors: heat, advil, stretching,chiro Pain Quality: aching and dull Exam Musc General: Yes normal posture, normal gait, joint tenderness and decreased range of motion; No muscle weakness Cervical Spine: Yes normal cervical lordosis, Yes cervical muscular tenderness right greater than left lower trapezius, Yes cervical spasm right greater than left lower trapezius and paracervical muscles and Yes misalignment misalignment: C2, C5, C6 and C7 Thoracic/Lumber: Yes thoracic and lumbar spine normal to inspection, Yes paraspinal tenderness bilaterally in the upper thoracic, in the mid thoracic, in the lower thoracic and in the lower lumbar, Yes thoraco-lumbar spasm on the right greater than left (paraspinal T3-T8, trap) and on the left greater than right (lumbar paraspinal) and Yes misalignment T1, T2, T5, T6, T7, L4, L5 and LIL Sacroiliac joints: on the left (motion restriction) tender to palpation Office Procedures Procedures - Chiropractic Procedures Manipulation: Cervical C2 and C7, Lumbar L4, Thoracic T3 and T6 and Pelvis LIL Manipulation: 3-4 regions Electronic Stimulation: Yes Electrical Stimulation: Thoracic 15 mins (11) mA Therapy Performed by:: Dr. Mala Moncada DC Traction, Mechanical: Yes Patient Response: positive Assessment and Plan Assessment and Plan (1) Segmental and somatic dysfunction of thoracic region: Status: Acute (2) Segmental and somatic dysfunction of cervical region: Status: Acute (3) Thoracic neuritis: Status: Acute (4) Segmental and somatic dysfunction of lumbar region: Status: Acute (5) Segmental and somatic dysfunction of pelvic region: Status: Acute Orders: Orders Chiropractic Treatments Today M54.14 - Radiculopathy, thoracic region, M99.01 - Segmental and somatic dysfunction of cervical region, M99.02 - Segmental and somatic dysfunction of thoracic region, M99.03 - Segmental and somatic dysfunction of lumbar region, M99.05 - Segmental and somatic dysfunction of pelvic region Referrals Physical Therapy Referral M54.14 - Radiculopathy, thoracic region, M99.01 - Segmental and somatic dysfunction of cervical region, M99.02 - Segmental and somatic dysfunction of thoracic region, M99.03 - Segmental and somatic dysfunction of lumbar region, M99.05 - Segmental and somatic dysfunction of pelvic r (more content not included)... Normal [facility] Chiropractic Reporton 2023 Chiropractic Report [facility] [address] [place] [address] OFFICE VISIT Date of Service: 07/12/24 MR#: [id number] Acct: [id number] Name: RENA LANGSTON Rep #: [id number] : 1990 Provider: JERRY Yanez Age/Sex: 34/F Location: [facility] Status: Signed Intake Vital Signs 03/11/23 11:28 Height 5 ft 6 in Intake Visit Reasons: Back pain Chief Complaint: upper/mid back pain Is patient in pain?: Yes (thoracic) Pain scale (1-10): 7 Allergies Sulfa (Sulfonamide Antibiotics) Allergy (Mild, Verified 07/12/24 09:12) Rash red (food color) Allergy (Verified 07/12/24 09:12) Hives Seasonal Allergies: Uncoded Allergy (Verified 07/12/24 09:12) Other Medications ???Medication ???Instructions ???Recorded ???Confirmed ???Type drospirenone 3 mg-ethinyl 1 tab PO DAILY 11/09/21 07/12/24 History estradiol 0.02 mg tablet (LOUISA (28)) fexofenadine-pseudoe phedrine ER 1 tab PO QAM 06/24/22 07/12/24 History 180 mg-240 mg tablet,ext.release 24 hr (Griselda-D 24 Hour) PFSH Medical History Shingles History of steroid therapy Non-smoker History of pain when walking Acute sinusitis, unspecified URI (upper respiratory infection) Wears hearing aid Rosacea Trigger thumb Headache, migraine Bone fracture Asthma Seasonal allergic conjunctivitis Surgical History Hx of cholecystectomy Family History Sister Asthma Father Bowel disease Liver disease Thyroid disorder Grandmother Cervical cancer Diabetes Grandfather Cancer Mother Hypertension Social History Smoking Status: Never smoker alcohol intake: never substance use type: does not use what type of physical activity do you participate in: none HPI Back pain Chief Complaint: upper/mid back pain Visit Number: 5 Details: Mala is a 34 year old female here today for follow up of upper/mid and low back pain. Pt reports improvement for about 3-4 hours after adjustments and then her pain gradually returns. She advises her upper and mid back is very tight today. The pain is equal bilaterally but does not travel past the shoulders. She also c/o tightness/achiness in her mid to low back bilaterally as well. She states standing for long periods as well as laying in one position for too long can flare up her discomfort. She rates her overall pain 5/10 today. She denies new injury, numbness, tingling or radiculopathy. Mala uses heat, ibuprofen and continues to stretch on a regular basis at home to help alleviate her symptoms. She reports chiropractic treatment is helpful in alleviating her discomfort but the pain does return. Location: upper/mid back Duration: intermittent Aggravating or associated factors: sitting, standing, working Relieving factors: heat, advil, stretching,chiro Pain Quality: aching, dull and other (pinching) Exam Musc General: Yes normal posture, normal gait, joint tenderness and decreased range of motion; No muscle weakness Cervical Spine: Yes normal cervical lordosis, Yes cervical muscular tenderness right greater than left lower trapezius, Yes cervical spasm right greater than left lower trapezius and paracervical muscles and Yes misalignment misalignment: C2, C5, C6 and C7 Thoracic/Lumber: Yes thoracic and lumbar spine normal to inspection, Yes paraspinal tenderness bilaterally in the upper thoracic, in the mid thoracic, in the lower thoracic and in the lower lumbar, Yes thoraco-lumbar spasm on the right greater than left (paraspinal T3-T8, trap) and on the left greater than right (lumbar paraspinal) and Yes misalignment T1, T2, T5, T6, T7, L4, L5 and LIL Sacroiliac joints: on the left (motion restriction) tender to palpation Office Procedures Procedures - Chiropractic Procedures Manipulation: Cervical C2 and C7, Lumbar L4, Thoracic T3 and T6 and Pelvis LIL Manipulation: 3-4 regions Electronic Stimulation: Yes Electrical Stimulation: Thoracic 15 mins (17) mA Therapy Performed by:: Gala Saravia Traction, Mechanical: Yes Patient Response: positive Assessment and Plan Assessment and Plan (1) Segmental and somatic dysfunction of thoracic region: Status: Acute (2) Segmental and somatic dysfunction of cervical region: Status: Acute (3) Thoracic neuritis: Status: Acute (4) Segmental and somatic dysfunction of lumbar region: Status: Acute (5) Segmental and somatic dysfunction of pelvic region: Status: Acute Orders: Orders Chiropractic Treatments Today M54.14 - Radiculopathy, thoracic region, M99.01 - Segmental and somatic dysfunction of cervical region, M99.02 - Segmental and somatic dysfunction of thoracic region, M99. (more content not included)... Normal [facility] Chiropractic Reporton 2023 Chiropractic Report [facility] [address] [place] [address] OFFICE VISIT Date of Service: 07/10/24 MR#: [id number] Acct: [id number] Name: RENA LANGSTON Rep #: [id number] : 1990 Provider: JERRY Yanez Age/Sex: 34/F Location: [facility] Status: Signed Intake Vital Signs 03/11/23 11:28 Height 5 ft 6 in Intake Visit Reasons: Back pain Chief Complaint: upper/mid back pain Is patient in pain?: Yes (upper, mid, low back ) Pain scale (1-10): 5 Allergies Sulfa (Sulfonamide Antibiotics) Allergy (Mild, Verified 07/10/24 08:31) Rash red (food color) Allergy (Verified 07/10/24 08:31) Hives Seasonal Allergies: Uncoded Allergy (Verified 07/10/24 08:31) Other Medications ???Medication ???Instructions ???Recorded ???Confirmed ???Type drospirenone 3 mg-ethinyl 1 tab PO DAILY 11/09/21 07/10/24 History estradiol 0.02 mg tablet (LOUISA (28)) fexofenadine-pseudoe phedrine ER 1 tab PO QAM 06/24/22 07/10/24 History 180 mg-240 mg tablet,ext.release 24 hr (Griselda-D 24 Hour) [facility] Medical History Shingles History of steroid therapy Non-smoker History of pain when walking Acute sinusitis, unspecified URI (upper respiratory infection) Wears hearing aid Rosacea Trigger thumb Headache, migraine Bone fracture Asthma Seasonal allergic conjunctivitis Surgical History Hx of cholecystectomy Family History Sister Asthma Father Bowel disease Liver disease Thyroid disorder Grandmother Cervical cancer Diabetes Grandfather Cancer Mother Hypertension Social History Smoking Status: Never smoker alcohol intake: never substance use type: does not use what type of physical activity do you participate in: none HPI Back pain Chief Complaint: upper/mid back pain Visit Number: 4 Details: Mala is a 34 year old female here today for follow up of upper/mid and low back pain. Pt reports improvement for about 3-4 hours after adjustments and then her pain gradually returns. She advises her upper and mid back is very tight today. The pain is equal bilaterally but does not travel past the shoulders. She also c/o tightness/achiness in her mid to low back bilaterally as well. She states standing for long periods as well as laying in one position for too long can flare up her discomfort. She rates her overall pain 5/10 today. She denies new injury, numbness, tingling or radiculopathy. Mala uses heat, ibuprofen and continues to stretch on a regular basis at home to help alleviate her symptoms. She reports chiropractic treatment is helpful in alleviating her discomfort but the pain does return. Location: upper/mid back Duration: intermittent Aggravating or associated factors: sitting, standing, working Relieving factors: heat, advil, stretching,chiro Pain Quality: aching, dull and other (pinching) Exam Musc General: Yes normal posture, normal gait, joint tenderness and decreased range of motion; No muscle weakness Cervical Spine: Yes normal cervical lordosis, Yes cervical muscular tenderness right greater than left lower trapezius, Yes cervical spasm right greater than left lower trapezius and paracervical muscles and Yes misalignment misalignment: C5, C6 and C7 Thoracic/Lumber: Yes thoracic and lumbar spine normal to inspection, Yes paraspinal tenderness bilaterally in the upper thoracic, in the mid thoracic, in the lower thoracic and in the lower lumbar, Yes thoraco-lumbar spasm on the right greater than left (paraspinal T3-T8, trap) and on the left greater than right (lumbar paraspinal) and Yes misalignment T1, T2, T5, T6, T7, L4 and L5 Office Procedures Procedures - Chiropractic Procedures Manipulation: Cervical C7, Lumbar L5 and Thoracic T3 and T6 Manipulation: 3-4 regions Electronic Stimulation: Yes Electrical Stimulation: Cervical 15 mins (15) mA and Thoracic 15 mins (15) mA Therapy Performed by:: Gala Saravia Traction, Mechanical: Yes Patient Response: positive Assessment and Plan Assessment and Plan (1) Segmental and somatic dysfunction of thoracic region: Status: Acute (2) Segmental and somatic dysfunction of cervical region: Status: Acute (3) Segmental and somatic dysfunction of lumbar region: Status: Acute Orders: Orders Chiropractic Treatments Today M54.14 - Radiculopathy, thoracic region, M99.01 - Segmental and somatic dysfunction of cervical region, M99.02 - Segmental and somatic dysfunction of thoracic region, M99.03 - Segmental and somatic dysfunction of lumbar region Plan Patient was treated without incident. She has not had symptom stabilization however is responding well (more content not included)... Normal [facility] Chiropractic Reporton 2023 Chiropractic Report [facility] [address] [place] [address] OFFICE VISIT Date of Service: 07/03/24 MR#: [id number] Acct: [id number] Name: RENA LANGSTON Rep #: [id number] : 1990 Provider: JERRY Yanez Age/Sex: 34/F Location: [facility] Status: Signed Intake Vital Signs 03/11/23 11:28 Height 5 ft 6 in Intake Visit Reasons: Back pain Chief Complaint: upper/mid back pain Is patient in pain?: Yes Pain scale (1-10): 6 Allergies Sulfa (Sulfonamide Antibiotics) Allergy (Mild, Verified 07/03/24 08:28) Rash red (food color) Allergy (Verified 07/03/24 08:28) Hives Seasonal Allergies: Uncoded Allergy (Verified 07/03/24 08:28) Other [facility] Medical History Shingles History of steroid therapy Non-smoker History of pain when walking Acute sinusitis, unspecified URI (upper respiratory infection) Wears hearing aid Rosacea Trigger thumb Headache, migraine Bone fracture Asthma Seasonal allergic conjunctivitis Surgical History Hx of cholecystectomy Family History Sister Asthma Father Bowel disease Liver disease Thyroid disorder Grandmother Cervical cancer Diabetes Grandfather Cancer Mother Hypertension Social History Smoking Status: Never smoker alcohol intake: never substance use type: does not use what type of physical activity do you participate in: none HPI Back pain Chief Complaint: upper/mid back pain Visit Number: 3 Details: Mala is a 34 year old female here today for follow up of upper/mid back pain. Pt advises that she felt improved for a day or two after her last visit but the pain quickly returned. Her upper and mid back is very tight/achy today. The pain is equal bilaterally but does not travel past the shoulders. She denies any radiculopathy into her arms. She also has c/o tightness/achiness in her low back bilaterally as well. She denies any radiculopathy into her buttocks or hips. Standing for long periods as well as laying in one position for too long can flare up her discomfort. She rates her overall pain at a 6/10 today. Mala uses heat, ibuprofen and continues to stretch on a regular basis at home to help alleviate her symptoms. She states that chiropractic treatment is helpful in alleviating her discomfort but the pain does return. Location: upper/mid back Duration: intermittent Aggravating or associated factors: sitting, standing, working Relieving factors: heat, advil, stretching,chiro Pain Quality: aching, dull and other (pinching) Exam Musc General: Yes normal posture, normal gait, joint tenderness and decreased range of motion; No muscle weakness Cervical Spine: Yes normal cervical lordosis, Yes cervical muscular tenderness right greater than left lower trapezius, Yes cervical spasm right greater than left lower trapezius and paracervical muscles and Yes misalignment misalignment: C5, C6 and C7 Thoracic/Lumber: Yes thoracic and lumbar spine normal to inspection, Yes Lasegue's sign negative, Yes straight leg raise negative bilaterally, Yes paraspinal tenderness bilaterally in the upper thoracic, in the mid thoracic, in the lower thoracic and in the lower lumbar, Yes thoraco-lumbar spasm on the right greater than left (paraspinal T3-T8, trap) and on the left greater than right (lumbar paraspinal) and Yes misalignment T1, T2, T5, T6, T7, L4 and L5 Office Procedures Procedures - Chiropractic Procedures Manipulation: Cervical C7, Lumbar L5 and Thoracic T3 and T6 Manipulation: 3-4 regions Electronic Stimulation: Yes Electrical Stimulation: Cervical 15 mins mA and Thoracic 15 mins mA Therapy Performed by:: Dr. Mala Moncada DC Traction, Mechanical: Yes Patient Response: positive Assessment and Plan Assessment and Plan (1) Segmental and somatic dysfunction of thoracic region: Status: Acute (2) Segmental and somatic dysfunction of cervical region: Status: Acute (3) Thoracic neuritis: Status: Acute (4) Segmental and somatic dysfunction of lumbar region: Status: Acute Orders: Orders Chiropractic Treatments Today M54.14 - Radiculopathy, thoracic region, M99.01 - Segmental and somatic dysfunction of cervical region, M99.02 - Segmental and somatic dysfunction of thoracic region Plan Patient was treated without incident. Continue care as recommended. Slow progress thus far. Plan Details Goals Barriers: Goals Decrease spasm Improve ROM Decrease pain Target Due Date 07/24/24 Follow Up: 2xwk for 3wks (11/22) Coding Level of Care Code No Charge Diagnoses Segmental and somatic dysfunction of thoracic region M99.02 Segmental an (more content not included)... Normal [facility] Chiropractic Reporton 2023 Chiropractic Report [facility] [place] [address] OFFICE VISIT Date of Service: 06/26/24 MR#: [id number] Acct: [id number] Name: RENA LANGSTON Rep #: [id number] : 1990 Provider: JERRY Yanez Age/Sex: 34/F Location: [facility] Status: Signed Intake Vital Signs 03/11/23 11:28 Height 5 ft 6 in Intake Visit Reasons: Back pain Chief Complaint: upper/mid back pain Is patient in pain?: Yes Pain scale (1-10): 7 Allergies Sulfa (Sulfonamide Antibiotics) Allergy (Mild, Verified 06/26/24 09:28) Rash red (food color) Allergy (Verified 06/26/24 09:28) Hives Seasonal Allergies: Uncoded Allergy (Verified 06/26/24 09:28) Other [facility] Medical History Shingles History of steroid therapy Non-smoker History of pain when walking Acute sinusitis, unspecified URI (upper respiratory infection) Wears hearing aid Rosacea Trigger thumb Headache, migraine Bone fracture Asthma Seasonal allergic conjunctivitis Surgical History Hx of cholecystectomy Family History Sister Asthma Father Bowel disease Liver disease Thyroid disorder Grandmother Cervical cancer Diabetes Grandfather Cancer Mother Hypertension Social History Smoking Status: Never smoker alcohol intake: never substance use type: does not use what type of physical activity do you participate in: none HPI Back pain Chief Complaint: upper/mid back pain Visit Number: 2 Details: Mala is a 34 year old female here today for follow up of upper/mid back pain. Pt states that she felt good for a couple days after her last visit but then the pain came back. Her upper and mid back is very tight today with a deep ache noted. The pain is equal bilaterally but does not travel up past the shoulders. The pain extends into both shoulders at the base of her neck and goes down into her mid back. She denies any radiculopathy into her arms. She also complains of a pinching sensation in the center of her low back. This sensation does not travel into her buttocks or hips. Standing for long periods as well as laying in one position for too long can flare up her discomfort. She rates her overall pain at a 7/10 today. Mala uses heat, ibuprofen and continues to stretch on a regular basis at home to help alleviate her symptoms. She has never had chiropractic treatment in the past. Location: upper/mid back Duration: intermittent Aggravating or associated factors: sitting, standing, working Relieving factors: heat, advil, stretching,chiro Pain Quality: aching, dull and other (pinching) Exam Musc General: Yes normal posture, normal gait, joint tenderness and decreased range of motion; No muscle weakness Cervical Spine: Yes normal cervical lordosis, Yes cervical muscular tenderness right greater than left lower trapezius, Yes cervical spasm right greater than left lower trapezius and paracervical muscles and Yes misalignment misalignment: C5, C6 and C7 Thoracic/Lumber: Yes thoracic and lumbar spine normal to inspection, Yes paraspinal tenderness bilaterally in the upper thoracic, in the mid thoracic and in the lower thoracic, Yes thoraco-lumbar spasm on the right greater than left (paraspinal T3-T8, trap) and Yes misalignment T1, T2, T5, T6 and T7 Office Procedures Procedures - Chiropractic Procedures Manipulation: Cervical C7 and Thoracic T3 and T6 Manipulation: 1-2 regions Electronic Stimulation: Yes Electrical Stimulation: Cervical 15 mins (10) mA and Thoracic 15 mins (10) mA Therapy Performed by:: Dr. Mala Moncada DC Traction, Mechanical: Yes Patient Response: positive Assessment and Plan Assessment and Plan (1) Segmental and somatic dysfunction of thoracic region: Status: Acute (2) Segmental and somatic dysfunction of cervical region: Status: Acute (3) Thoracic neuritis: Status: Acute Orders: Orders Chiropractic Treatments Today M99.01 - Segmental and somatic dysfunction of cervical region, M99.02 - Segmental and somatic dysfunction of thoracic region Plan Reviewed xrays and discussed acute treatment plan with her. She was treated without incident. Continue care. Plan Details Goals Barriers: Goals Decrease spasm Improve ROM Decrease pain Target Due Date 07/24/24 Follow Up: 2x/wk/3wks (2 of 6) Coding Level of Care Code No Charge Diagnoses Segmental and somatic dysfunction of thoracic region M99.02 Segmental and somatic dysfunction of cervical region M99.01 Thoracic neuritis M54.14 CPT Codes Procedures - Manipulation: 1-2 regions (22558) Procedures - Electronic Stimulation: Yes (50909) Proc (more content not included)... Normal [facility] Chiropractic Reporton 2023 Chiropractic Report [facility] [address] [place] [id number] OFFICE VISIT Date of Service: 06/12/24 MR#: [id number] Acct: [id number] Name: RENA LANGSTON Rep #: [id number] : 1990 Provider: JERRY Medeiros Do ssi Age/Sex: 34/F Location: [facility] Status: Signed Intake Vital Signs 03/11/23 11:28 Height 5 ft 6 in Intake Visit Reasons: est care Chief Complaint: upper/mid back pain Is patient in pain?: Yes Pain scale (1-10): 8 Allergies Sulfa (Sulfonamide Antibiotics) Allergy (Mild, Verified 06/12/24 09:04) Rash red (food color) Allergy (Verified 06/12/24 09:04) Hives Seasonal Allergies: Uncoded Allergy (Verified 06/12/24 09:04) Other Medications ???Medication ???Instructions ???Recorded ???Confirmed ???Type drospirenone 3 mg-ethinyl 1 tab PO DAILY 11/09/21 03/14/23 History estradiol 0.02 mg tablet (LOUISA (28)) fexofenadine-pseudoe phedrine ER 1 tab PO QAM 06/24/22 06/12/24 History 180 mg-240 mg tablet,ext.release 24 hr (Griselda-D 24 Hour) Have you fallen in the past year?: No PFSH Medical History Shingles History of steroid therapy Non-smoker History of pain when walking Acute sinusitis, unspecified URI (upper respiratory infection) Wears hearing aid Rosacea Trigger thumb Headache, migraine Bone fracture Asthma Seasonal allergic conjunctivitis Surgical History Hx of cholecystectomy Family History Sister Asthma Father Bowel disease Liver disease Thyroid disorder Grandmother Cervical cancer Diabetes Grandfather Cancer Mother Hypertension Social History Smoking Status: Never smoker alcohol intake: never substance use type: does not use what type of physical activity do you participate in: none HPI est care Chief Complaint: upper/mid back pain Visit Number: 1 Details: Mala is a 34 year old female here today for evaluation of upper/mid back pain. Pt advises this has ongoing for the past 5-6 years and is recently becoming much worse. She states that she had been an [employer] for almost 15 years and that has caused most of her current back issues. Pt states that 3-5 times per week her mid/upper back will freeze up on her, making it hard to move or take a breath. She will then have to lay on a flat surface and try to get her back to release or stretch out. The pain is very sharp and achy and makes it hard to move at all. The pain extends into both shoulders at the base of her neck and goes down into her mid back. She denies any radiculopathy into her arms. 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 Standing for long periods as well as laying in one position for too long can also flare up her discomfort. She rates her pain at a 8/10 today. Mala uses heat and ibuprofen at home to help alleviate her symptoms. She has never had chiropractic treatment in the past. Location: upper/mid back Duration: intermittent Aggravating or associated factors: sitting, standing, working Relieving factors: heat, advil Pain Quality: aching, cramping, sharp and other (freezing up) Exam Musc General: Yes normal posture, normal gait, joint tenderness and decreased range of motion; No muscle weakness Cervical Spine: Yes normal cervical lordosis, Yes cervical muscular tenderness right greater than left lower trapezius, Yes cervical spasm right greater than left lower trapezius and paracervical muscles and Yes misalignment misalignment: C5, C6 and C7 Thoracic/Lumber: Yes thoracic and lumbar spine normal to inspection, Yes pain with thoraco-lumbar ROM with forward flexion, with lateral flexion to the right, with lateral flexion to the left, with rotation to the right and with rotation to the left, Yes paraspinal tenderness bilaterally in the upper thoracic, in the mid thoracic and in the lower thoracic, Yes thoraco-lumbar ROM limited with forward flexion, Yes thoraco-lumbar spasm on the right greater than left (paraspinal T3-T8, trap) and Yes misalignment T1, T2, T5, T6 and T7 Neuro General: patient alert, patient awake, patient oriented x3, gait normal, normal light touch, pain and propioception and no focal motor deficits Cranial Nerves: CN's II-XI intact bilaterally Cognition: normal cognition Speech: speech normal Gait: normal gait Motor: muscle tone normal throughout Sensory Exam: no sensory deficits noted Ortho Test CERVICAL Distraction pain: relief Shoulder depression pain: Right THORACIC Kemps: Positive, Right and Left Schepelmanns pain: Negative Ruiz: Negative LUMBAR Office Procedures Procedures - Chiropra (more content not included)... Normal [facility] Thoracic Spine 2 Viewson Thoracic Spine 2 Views [facility] Services [address] [place] [address] Thoracic Spine 2 Views MR#: [id number] Acct: [id number] Name: RENA LANGSTON Rep #: [id number] : 1990 F 34 From: Nish her MD PCP: Dr. Erica Silva MD Status: [facility] CLI Study: Thoracic Spine 2 Views Date of Exam: 06/12/24 Exam# [id number] Ordering Dr: Mala Moncada D.C. [id number] STUDY: X-RAY - THORACIC SPINE REASON FOR EXAM: Female, 34 years old. Back pain/spasms TECHNIQUE: 2 view(s) of the thoracic spine were obtained. COMPARISON: None. FINDINGS: Normal kyphosis of the thoracic spine. Minimal dextroscoliosis. Normal thoracic vertebrae and endplates. There is mild multilevel disc space narrowing of the thoracic spine. The soft tissue structures are unremarkable. RAD/Thoracic Spine 2 Views IMPRESSION: Mild degree of disc space narrowing. Electronically Signed: Nish Diamond MD at 12:38 EDT , CC: JERRY Moncada; Dr. Erica Silva MD [employer]: Signed Normal [facility] Laboratory - Chemistry and C hemistry - challengeOrdered By: Dr. Easton on 02-01-2023 HCG ( test) Ql (U) Negative [facility] Comment on above: Very dilute urine sp ecimens, as indicated by a low specificgravity, may not contain high school admissions representative levels of hCG. If is still suspected, a first morning urinespecimen should be collected 48 hours later and tested. Laboratory - Microbiology an d Antimicrobial susceptibilityon 09-21-2022 SARS-CoV-2 (COVID-19) RNA ANA+probe Ql (Unsp spec) Detected [facility] Work Phone: Laboratory - Microbiology an d Antimicrobial susceptibilityon 07-15-2022 SARS-CoV-2 (COVID-19) RNA ANA+probe Ql (Unsp spec) Not detected [facility] Work Phone: No Panel Informationon 07-15 Influenza Types A,B Rapid (Clinic) Not detected [facility] Work Phone: Absolute lymphocyte counton 02-13-2022 Lymphocytes Auto (Unsp spec) [#/Vol] 1.19 10*3/uL 0.83-4.51 [facility] Work Phone: Basophil percentageon 2021 Basophil percentage 5-10 SEEN /hpf [facility] Work Phone: Basophils/100 WBC (Bld) 0.2 % 0-1 [facility] Work Phone: Bilirubin [Mass/Vol] 0.80 mg/dL 0.20-1.[address] [facility] Work Phone: Comment on above: For patients on eltr ombopag therapy, use of Dimension [place] TBIL is not recommended. Chloride [Moles/Vol] 103 mmol/L 98-[address] [facility] Work Phone: Eosinophils/100 WBC (Bld) 0.0 % 0-5 [facility] Work Phone: Glucose [Mass/Vol] 159 mg/dL 74-106 [facility] Work Phone: Comment on above: Fasting Glucose resu lt greater than or equal to 126 mg/dL suggests DIABETES MELLITUS per A.D.A. criteria. Neutrophils (Bld) [#/Vol] 4.2 10*3/uL 2.0-7.7 [facility] Work Phone: Neutrophils/100 WBC (Bld) 71.5 % 47-70 [facility] Work Phone: Potassium [Moles/Vol] 3.4 mmol/L 3.5-5.1 [facility] Work Phone: Protein [Mass/Vol] 8.8 g/dL 6.4-8.2 [facility] Work Phone: Sodium [Moles/Vol] 132 mmol/L 136-145 [facility] Work Phone: WBC (Bld) [#/Vol] 5.9 10*3/uL 4.4-11.0 [facility] Work Phone: Bilirubin Test strip Ql (U)o n 02-13-2022 Bilirubin Ql (U) 6 mg/dL Negative [facility] Work Phone: Comment on above: COLOR OF URINE MAY A FFECT DIPSTICK RESULTS. Blood erythrocytes count (nu mber/volume)on 02-13-2022 RBC (Bld) [#/Vol] 5.50 10*6/uL 4.2-5.4 [facility] Work Phone: Blood hemoglobin measurement (mass/volume)on 02-13-2022 Hemoglobin (Bld) [Mass/Vol] 15.6 g/dL 12.0-15.0 [facility] Work Phone: Blood lymphocytes/100 leukoc yteson 02-13-2022 Lymphocytes/100 WBC (Bld) 20.3 % 19-41 [facility] Work Phone: Blood monocytes/100 leukocyt eson 02-13-2022 Monocytes/100 WBC (Bld) 7.7 % 0-10 [facility] Work Phone: Blood platelet mean volumeon 02-13-2022 Platelet mean volume (Bld) [Entitic vol] 11.9 fL 6.2-12.0 [facility] Work Phone: Determination of erythrocyte mean corpuscular volume (MCV)on 02-13-2022 MCV (RBC) [Entitic vol] 82.2 fL 81-99 [facility] Work Phone: Hematocrit Auto (Bld) [Volum e fraction]on 02-13-2022 Hematocrit (Bld) [Volume fraction] 45.2 % 37-47 [facility] Work Phone: Hyaline casts LM.LPF (Urine sed) [#/Area]on 02-13-2022 Hyaline casts (Urine sed) [#/Area] 10 /[LPF] [facility] Work Phone: Ketones Test strip Ql (U)on 02-13-2022 Ketones Ql (U) 15 mg/dl Negative [facility] Work Phone: Laboratory - Chemistry and C hemistry - challengeon 02-13-2022 ALP [Catalytic activity/Vol] 60 U/L 45-117 [facility] Work Phone: ALT [Catalytic activity/Vol] 23 U/L 13-56 [facility] Work Phone: CO2 [Moles/Vol] 19.0 mmol/L 21.0-32.0 [facility] Work Phone: Globulin (S) [Mass/Vol] 4.9 g/dL 2.2-4.2 [facility] Work Phone: Lipase [Catalytic activity/Vol] 64 U/L 73-393 [facility] Work Phone: Urea nitrogen/Creatinine [Mass ratio] 11.4 mg/mg 10-20 [facility] Work Phone: Laboratory - Hematology and Cell countson 02-13-2022 Erythrocyte distribution width (RBC) [Entitic vol] 38.1 fL 35.1-43.9 [facility] Work Phone: Erythrocyte distribution width (RBC) [Ratio] 12.7 % 11.6-14.6 [facility] Work Phone: Immature granulocytes/100 WBC (Bld) 0.300 % 0.0-0.9 [facility] Work Phone: Comment on above: IG% - Immature Granu locytes (promyelocytes, myelocytes and metamyelocytes) > 1% indicates that a LEFT SHIFT is Present. MCH (RBC) [Entitic mass] 28.4 pg 27.0-32.0 [facility] Work Phone: Nucleated RBC/100 WBC (Bld) [Ratio] 0 % 0-5 [facility] Work Phone: MCHC Auto (RBC) [Mass/Vol]on 02-13-2022 MCHC (RBC) [Mass/Vol] 34.5 g/dL 32-36 [facility] Work Phone: Mucus LM Ql (Urine sed)on Mucus Ql (Urine sed) 0 SEEN /hpf [facility] Work Phone: Nitrite Test strip Ql (U)on 02-13-2022 Nitrite Ql (U) Positive Negative [facility] Work Phone: No Panel Informationon 02-13 Estimated Creatinine Clearance Calc 60.73 ml/min [facility] Work Phone: Estimated GFR (MDRD) Amer 66 mL/min >60 [facility] Work Phone: Comment on above: GFR Calc Estimated GFR (MDRD) Non-Af Amer 55 mL/min >60 [facility] Work Phone: Comment on above: Non- GFR Calc Platelets bldon 02-13-2022 Platelets (Bld) [#/Vol] 275 10*3/uL 150-450 [facility] Work Phone: Protein Test strip Ql (U)on 02-13-2022 Protein Ql (U) 100 mg/dl Negative [facility] Work Phone: Serum or plasma albumin dora urement (mass/volume)on 02-13-2022 Albumin [Mass/Vol] 3.9 g/dL 3.2-5.0 [facility] Work Phone: Serum or plasma albumin/glob ulin mass ratioon 02-13-2022 Albumin/Globulin [Mass ratio] 0.8 {ratio} 0.9-2.4 [facility] Work Phone: Serum or plasma calcium dora urement (mass/volume)on 02-13-2022 Calcium [Mass/Vol] 9.2 mg/dL 8.5-10.1 [facility] Work Phone: Serum or plasma creatinine m easurement (mass/volume)on 02-13-2022 Creatinine [Mass/Vol] 1.23 mg/dL 0.55-1.02 [facility] Work Phone: Comment on above: The validity of the calculated GFR & GFRAA in patients over 70 years has not been determined. Clinical correlation is essential. Serum or plasma urea nitroge n measurement (mass/volume)on 02-13-2022 Urea nitrogen [Mass/Vol] 14 mg/dL 7-18 [facility] Work Phone: Squamous epithelial cells de tection in urine sediment by light microscopyon 02-13-2022 Epithelial cells.squamous LM Ql (Urine sed) 0-5 SEEN /hpf [facility] Work Phone: Thin prep Papanicolaou smear with manual screeningon 02-13-2022 Thin prep Papanicolaou smear with manual screening 13 U/L 15-37 [facility] Work Phone: Thin prep Papanicolaou smear with manual screening 10 5-15 [facility] Work Phone: Urine blood detectionon 01-18 RBC Ql (U) 250 /ul Negative [facility] Work Phone: RBC Ql (U) 0 SEEN /hpf [facility] Work Phone: Urine clarityon 02-13-2022 Clarity (U) Cloudy Clear [facility] Work Phone: Urine color determinationon 02-13-2022 Color (U) DARK YELLOW Yellow [facility] Work Phone: Urine glucose detectionon Glucose Ql (U) Normal mg/dl Normal [facility] Work Phone: Urine leukocyte esterase det ection by dipstickon 02-13-2022 Leukocyte esterase Test strip Ql (U) 25 /ul Negative [facility] Work Phone: Urine pHon 02-13-2022 pH (U) 5.0 [pH] [facility] Work Phone: Urine sediment bacteria coun t by microscopy (number/high power field)on 02-13-2022 Bacteria LM.HPF (Urine sed) [#/Area] 2 /[HPF] None Seen [facility] Work Phone: Urine sediment fine granular cast count by microscopy (number/low power field)on 02-13-2022 Fine Granular Casts LM.LPF (Urine sed) [#/Area] 0-5 SEEN /lpf [facility] Work Phone: Urine specific gravity measu rementon 02-13-2022 Specific gravity (U) [Rel density] 1.030 [facility] Work Phone: Urobilinogen Auto test strip Ql (U)on 02-13-2022 Urobilinogen Ql (U) 4 mg/dl Normal [facility] Work Phone: Absolute lymphocyte counton 12-10-2021 Lymphocytes Auto (Unsp spec) [#/Vol] 2.44 10*3/uL 0.83-4.51 [facility] Work Phone: Basophil percentageon 2021 Basophils/100 WBC (Bld) 0.5 % 0-1 [facility] Work Phone: Bilirubin [Mass/Vol] 0.50 mg/dL 0.20-1.[address] [facility] Work Phone: Comment on above: For patients on eltr ombopag therapy, use of Dimension [place] TBIL is not recommended. Chloride [Moles/Vol] 104 mmol/L 98-107 [facility] Work [facility]: Eosinophils/100 WBC (Bld) 0.8 % 0-5 [facility] Work Phone: Glucose [Mass/Vol] 81 mg/dL 74-106 [facility] Work Phone: Neutrophils (Bld) [#/Vol] 3.2 10*3/uL 2.0-7.7 [facility] Work Phone: Neutrophils/100 WBC (Bld) 52.6 % 47-70 [facility] Work Phone: Potassium [Moles/Vol] 3.9 mmol/L 3.5-5.1 [facility] Work Phone: Protein [Mass/Vol] 8.2 g/dL 6.4-8.2 [facility] Work Phone: Sodium [Moles/Vol] 138 mmol/L 136-145 [facility] Work Phone: WBC (Bld) [#/Vol] 6.2 10*3/uL 4.4-11.0 [facility] Work Phone: Blood erythrocytes count (nu mber/volume)on 12-10-2021 RBC (Bld) [#/Vol] 4.93 10*6/uL 4.2-5.4 [facility] Work Phone: Blood hemoglobin measurement (mass/volume)on 12-10-2021 Hemoglobin (Bld) [Mass/Vol] 14.1 g/dL 12.0-15.0 [facility] Work Phone: Blood lymphocytes/100 leukoc yteson 12-10-2021 Lymphocytes/100 WBC (Bld) 39.7 % 19-41 [facility] Work Phone: Blood monocytes/100 leukocyt eson 12-10-2021 Monocytes/100 WBC (Bld) 6.2 % 0-10 [facility] Work Phone: Blood platelet mean volumeon 12-10-2021 Platelet mean volume (Bld) [Entitic vol] 12.0 fL 6.2-12.0 [facility] Work Phone: Determination of erythrocyte mean corpuscular volume (MCV)on 12-10-2021 MCV (RBC) [Entitic vol] 85.0 fL 81-99 [facility] Work Phone: Hematocrit Auto (Bld) [Volum e fraction]on 12-10-2021 Hematocrit (Bld) [Volume fraction] 41.9 % 37-47 [facility] Work Phone: Laboratory - Chemistry and C hemistry - challengeon 12-10-2021 ALP [Catalytic activity/Vol] 74 U/L 45-117 [facility] Work Phone: ALT [Catalytic activity/Vol] 30 U/L 13-56 [facility] Work Phone: CO2 [Moles/Vol] 29.0 mmol/L 21.0-32.0 [facility] Work Phone: Globulin (S) [Mass/Vol] 4.3 g/dL 2.2-4.2 [facility] Work Phone: Urea nitrogen/Creatinine [Mass ratio] 10.2 mg/mg 10-20 [facility] Work Phone: Laboratory - Hematology and Cell countson 12-10-2021 Erythrocyte distribution width (RBC) [Entitic vol] 39.8 fL 35.1-43.9 [facility] Work Phone: Erythrocyte distribution width (RBC) [Ratio] 13.0 % 11.6-14.6 [facility] Work Phone: Immature granulocytes/100 WBC (Bld) 0.200 % 0.0-0.9 [facility] Work Phone: Comment on above: IG% - Immature Granu locytes (promyelocytes, myelocytes and metamyelocytes) > 1% indicates that a LEFT SHIFT is Present. MCH (RBC) [Entitic mass] 28.6 pg 27.0-32.0 [facility] Work Phone: Nucleated RBC/100 WBC (Bld) [Ratio] 0 % 0-5 [facility] Work Phone: MCHC Auto (RBC) [Mass/Vol]on 12-10-2021 MCHC (RBC) [Mass/Vol] 33.7 g/dL 32-36 [facility] Work Phone: No Panel Informationon 12-10 Estimated GFR (MDRD) Amer 155 mL/min >60 [facility] Work Phone: Comment on above: GFR Calc Estimated GFR (MDRD) Non-Af Amer 128 mL/min >60 [facility] Work Phone: Comment on above: Non- GFR Calc Hepatitis A IgM Antibody Negative Negative [facility] Work Phone: Comment on above: Performed at: [place] [id number] Director: Edwin De Los Santos PhD, Phone: [phone] Thyroid Stimulating Hormone (TSH) 0.79 uIU/mL 0.358-3.74 [facility] Work Phone: Vitamin D 25-Hydroxy 15.7 ng/mL [facility] Work Phone: Comment on above: Vitamin D 25(OH) Sta tus Range Deficiency <20 ng/mL (50nmol/L) Insufficiency 20 - 30 ng/mL (50 - 75 nmol/L) Sufficiency 30 - 100 ng/mL (75 - 250 nmol/L) Toxicity >100 ng/mL (>250 nmol/L) Platelets bldon 12-10-2021 Platelets (Bld) [#/Vol] 278 10*3/uL 150-450 [facility] Work Phone: Serum or plasma albumin dora urement (mass/volume)on 12-10-2021 Albumin [Mass/Vol] 3.9 g/dL 3.2-5.0 [facility] Work Phone: Serum or plasma albumin/glob ulin mass ratioon 12-10-2021 Albumin/Globulin [Mass ratio] 0.9 {ratio} 0.9-2.4 [facility] Work Phone: Serum or plasma calcium dora urement (mass/volume)on 12-10-2021 Calcium [Mass/Vol] 9.2 mg/dL 8.5-10.1 [facility] Work Phone: Serum or plasma creatinine m easurement (mass/volume)on 12-10-2021 Creatinine [Mass/Vol] 0.59 mg/dL 0.55-1.02 [facility] Work Phone: Comment on above: The validity of the calculated GFR & GFRAA in patients over 70 years has not been determined. Clinical correlation is essential. Serum or plasma urea nitroge n measurement (mass/volume)on 12-10-2021 Urea nitrogen [Mass/Vol] 6 mg/dL 7-18 [facility] Work Phone: Thin prep Papanicolaou smear with manual screeningon 12-10-2021 Thin prep Papanicolaou smear with manual screening 18 U/L 15-37 [facility] Work Phone: Thin prep Papanicolaou smear with manual screening 5 5-15 [facility] Work Phone: No Panel Informationon 11-12 Hepatitis A IgM Antibody Negative Negative [facility] Work Phone: Hepatitis B Core IgM Antibody Negative Negative [facility] Work Phone: Hepatitis C Antibody (EIA) <0.1 s/co ratio [facility] Work Phone: Comment on above: Negative: < 0.8 Inde terminate: 0.8 - 0.9 Positive: > 0.9 The CDC recommends that a positive HCV antibody result be followed up with a HCV Nucleic Acid Amplification test (127138).Effective November 30, 2021 Hepatitis Panel (4) will be made non-orderable. [employer] offers order code [id number] Acute Hepatitis.Performed at: [address] [id number] Director: Edwin De Los Santos PhD, Phone: [phone] SARS-CoV-2 Antigen (Rapid) [facility] Work Phone: Serum or plasma hepatitis B virus surface antigen detection by immunoassayon 11-12-2021 HBV surface Ag IA Ql Negative Negative [facility] Work Phone: Absolute lymphocyte counton 11-11-2021 Lymphocytes Auto (Unsp spec) [#/Vol] 4.73 10*3/uL 0.83-4.51 [facility] Work Phone: Basophil percentageon 2021 Basophils/100 WBC (Bld) 1.7 % 0-1 [facility] Work Phone: Bilirubin [Mass/Vol] 2.60 mg/dL 0.20-1.[address] [facility] Work Phone: Comment on above: For patients on eltr ombopag therapy, use of Dimension [place] TBIL is not recommended. Chloride [Moles/Vol] 103 mmol/L 98-[address] [facility] Work Phone: Eosinophils/100 WBC (Bld) 0.2 % 0-5 [facility] Work Phone: Glucose [Mass/Vol] 107 mg/dL 74-106 [facility] Work Phone: Comment on above: Fasting Glucose resu lt from 100 to 125 mg/dL suggests IMPAIRED HOMEOSTASIS per A.D.A. criteria. Neutrophils (Bld) [#/Vol] 1.3 10*3/uL 2.0-7.7 [facility] Work Phone: Neutrophils/100 WBC (Bld) 20.1 % 47-70 [facility] Work Phone: Potassium [Moles/Vol] 3.9 mmol/L 3.5-5.1 [facility] Work Phone: Comment on above: Moderate Hemolysis, Result may be falsely increased. Protein [Mass/Vol] 8.0 g/dL 6.4-8.2 [facility] Work Phone: Sodium [Moles/Vol] 136 mmol/L 136-145 [facility] Work Phone: WBC (Bld) [#/Vol] 6.4 10*3/uL 4.4-11.0 [facility] Work Phone: Basophil percentage 0 SEEN /hpf [facility] Work Phone: Beta hCG serum qualon 2021 Beta HCG ( test) Ql Negative [facility] Work Phone: Bilirubin Test strip Ql (U)o n 11-11-2021 Bilirubin Ql (U) 3 mg/dL Negative [facility] Work Phone: Comment on above: COLOR OF URINE MAY A FFECT DIPSTICK RESULTS. Blood erythrocytes count (nu mber/volume)on 11-11-2021 RBC (Bld) [#/Vol] 5.07 10*6/uL 4.2-5.4 [facility] Work Phone: Blood hemoglobin measurement (mass/volume)on 11-11-2021 Hemoglobin (Bld) [Mass/Vol] 14.3 g/dL 12.0-15.0 [facility] Work Phone: Blood lymphocytes/100 leukoc yteson 11-11-2021 Lymphocytes/100 WBC (Bld) 73.9 % 19-41 [facility] Work Phone: Blood manual differential co mment interpretation (narrative result)on 11-11-2021 Manual differential comment Andrew (Bld) [Interp] SCANNED [facility] Work Phone: Comment on above: AUTO DIFF OK Blood monocytes/100 leukocyt eson 11-11-2021 Monocytes/100 WBC (Bld) 3.8 % 0-10 [facility] Work Phone: Blood platelet mean volumeon 11-11-2021 Platelet mean volume (Bld) [Entitic vol] 13.0 fL 6.2-12.0 [facility] Work Phone: Determination of erythrocyte mean corpuscular volume (MCV)on 11-11-2021 MCV (RBC) [Entitic vol] 82.2 fL 81-99 [facility] Work Phone: Hematocrit Auto (Bld) [Volum e fraction]on 11-11-2021 Hematocrit (Bld) [Volume fraction] 41.7 % 37-47 [facility] Work Phone: Ketones Test strip Ql (U)on 11-11-2021 Ketones Ql (U) 5 mg/dl Negative [facility] Work Phone: Laboratory - Chemistry and C hemistry - challengeon 11-11-2021 ALP [Catalytic activity/Vol] 195 U/L 45-117 [facility] Work Phone: ALT [Catalytic activity/Vol] 322 U/L 13-56 [facility] Work Phone: CO2 [Moles/Vol] 28.0 mmol/L 21.0-32.0 [facility] Work Phone: Globulin (S) [Mass/Vol] 4.7 g/dL 2.2-4.2 [facility] Work Phone: Lipase [Catalytic activity/Vol] 88 U/L 73-393 [facility] Work Phone: Urea nitrogen/Creatinine [Mass ratio] 7.3 mg/mg 10-20 [facility] Work Phone: Laboratory - Hematology and Cell countson 11-11-2021 Erythrocyte distribution width (RBC) [Entitic vol] 38.7 fL 35.1-43.9 [facility] Work Phone: Erythrocyte distribution width (RBC) [Ratio] 12.9 % 11.6-14.6 [facility] Work Phone: Immature granulocytes/100 WBC (Bld) 0.300 % 0.0-0.9 [facility] Work Phone: Comment on above: IG% - Immature Granu locytes (promyelocytes, myelocytes and metamyelocytes) > 1% indicates that a LEFT SHIFT is Present. MCH (RBC) [Entitic mass] 28.2 pg 27.0-32.0 [facility] Work Phone: Nucleated RBC/100 WBC (Bld) [Ratio] 0 % 0-5 [facility] Work Phone: MCHC Auto (RBC) [Mass/Vol]on 11-11-2021 MCHC (RBC) [Mass/Vol] 34.3 g/dL 32-36 [facility] Work Phone: Mucus LM Ql (Urine sed)on Mucus Ql (Urine sed) 0 SEEN /hpf [facility] Work Phone: Nitrite Test strip Ql (U)on 11-11-2021 Nitrite Ql (U) Negative Negative [facility] Work Phone: No Panel Informationon 11-11 Estimated Creatinine Clearance Calc 108.25 ml/min [facility] Work Phone: Estimated GFR (MDRD) Amer 129 mL/min >60 [facility] Work Phone: Comment on above: GFR Calc Estimated GFR (MDRD) Non-Af Amer 107 mL/min >60 [facility] Work Phone: Comment on above: Non- GFR Calc Platelets bldon 11-11-2021 Platelets (Bld) [#/Vol] 151 10*3/uL 150-450 [facility] Work Phone: Protein Test strip Ql (U)on 11-11-2021 Protein Ql (U) 15 mg/dl Negative [facility] Work Phone: Serum or plasma albumin dora urement (mass/volume)on 11-11-2021 Albumin [Mass/Vol] 3.3 g/dL 3.2-5.0 [facility] Work Phone: Serum or plasma albumin/glob ulin mass ratioon 11-11-2021 Albumin/Globulin [Mass ratio] 0.7 {ratio} 0.9-2.4 [facility] Work Phone: Serum or plasma calcium dora urement (mass/volume)on 11-11-2021 Calcium [Mass/Vol] 9.2 mg/dL 8.5-10.1 [facility] Work Phone: Serum or plasma creatinine m easurement (mass/volume)on 11-11-2021 Creatinine [Mass/Vol] 0.69 mg/dL 0.55-1.02 [facility] Work Phone: Comment on above: The validity of the calculated GFR & GFRAA in patients over 70 years has not been determined. Clinical correlation is essential. Serum or plasma urea nitroge n measurement (mass/volume)on 11-11-2021 Urea nitrogen [Mass/Vol] 5 mg/dL 7-18 [facility] Work Phone: Squamous epithelial cells de tection in urine sediment by light microscopyon 11-11-2021 Epithelial cells.squamous LM Ql (Urine sed) 0-5 SEEN /hpf [facility] Work Phone: Thin prep Papanicolaou smear with manual screeningon 11-11-2021 Thin prep Papanicolaou smear with manual screening 420 U/L 15-37 [facility] Work Phone: Comment on above: Moderate Hemolysis, Result may be falsely increased. Thin prep Papanicolaou smear with manual screening 5 5-15 [facility] Work Phone: Urine blood detectionon 10-21 RBC Ql (U) 250 /ul Negative [facility] Work Phone: RBC Ql (U) 5-10 SEEN /hpf [facility] Work Phone: Urine clarityon 11-11-2021 Clarity (U) Clear Clear [facility] Work Phone: Urine color determinationon 11-11-2021 Color (U) Yellow Yellow [facility] Work Phone: Urine glucose detectionon Glucose Ql (U) Normal mg/dl Normal [facility] Work Phone: Urine leukocyte esterase det ection by dipstickon 11-11-2021 Leukocyte esterase Test strip Ql (U) 25 /ul Negative [facility] Work Phone: Urine pHon 11-11-2021 pH (U) 7.0 [pH] [facility] Work Phone: Urine sediment bacteria coun t by microscopy (number/high power field)on 11-11-2021 Bacteria LM.HPF (Urine sed) [#/Area] 0 /[HPF] None Seen [facility] Work Phone: Urine specific gravity measu rementon 11-11-2021 Specific gravity (U) [Rel density] 1.010 [facility] Work Phone: Urobilinogen Auto test strip Ql (U)on 11-11-2021 Urobilinogen Ql (U) 4 mg/dl Normal [facility] Work Phone: Absolute lymphocyte counton 11-09-2021 Lymphocytes Auto (Unsp spec) [#/Vol] 1.65 10*3/uL 0.83-4.51 [facility] Work Phone: Basophil percentageon 2021 Basophil percentage 10-25 SEEN /hpf [facility] Work Phone: Basophils/100 WBC (Bld) 1.2 % 0-1 [facility] Work Phone: Bilirubin [Mass/Vol] 0.60 mg/dL 0.20-1.[address] [facility] Work Phone: Comment on above: For patients on eltr ombopag therapy, use of [place] TBIL is not recommended. Chloride [Moles/Vol] 103 mmol/L 98-[address] [facility] Work Phone: Eosinophils/100 WBC (Bld) 0.0 % 0-5 [facility] Work Phone: Glucose [Mass/Vol] 106 mg/dL 74-106 [facility] Work Phone: Comment on above: Fasting Glucose resu lt from 100 to 125 mg/dL suggests IMPAIRED HOMEOSTASIS per A.D.A. criteria. Neutrophils (Bld) [#/Vol] 1.5 10*3/uL 2.0-7.7 [facility] Work Phone: Neutrophils/100 WBC (Bld) 44.9 % 47-70 [facility] Work Phone: Potassium [Moles/Vol] 3.3 mmol/L 3.5-5.1 [facility] Work Phone: Protein [Mass/Vol] 8.1 g/dL 6.4-8.2 [facility] Work Phone: Sodium [Moles/Vol] 135 mmol/L 136-145 [facility] Work Phone: WBC (Bld) [#/Vol] 3.4 10*3/uL 4.4-11.0 [facility] Work Phone: Beta hCG serum qualon 2021 Beta HCG ( test) Ql Negative [facility] Work Phone: Bilirubin Test strip Ql (U)o n 11-09-2021 Bilirubin Ql (U) 3 mg/dL Negative [facility] Work Phone: Comment on above: COLOR OF URINE MAY A FFECT DIPSTICK RESULTS. Blood erythrocytes count (nu mber/volume)on 11-09-2021 RBC (Bld) [#/Vol] 5.05 10*6/uL 4.2-5.4 [facility] Work Phone: Blood hemoglobin measurement (mass/volume)on 11-09-2021 Hemoglobin (Bld) [Mass/Vol] 14.3 g/dL 12.0-15.0 [facility] Work Phone: Blood lymphocytes/100 leukoc yteson 11-09-2021 Lymphocytes/100 WBC (Bld) 49.1 % 19-41 [facility] Work Phone: Blood monocytes/100 leukocyt eson 11-09-2021 Monocytes/100 WBC (Bld) 4.5 % 0-10 [facility] Work Phone: Blood platelet mean volumeon 11-09-2021 Platelet mean volume (Bld) [Entitic vol] 11.5 fL 6.2-12.0 [facility] Work Phone: Determination of erythrocyte mean corpuscular volume (MCV)on 11-09-2021 MCV (RBC) [Entitic vol] 80.8 fL 81-99 [facility] Work Phone: Hematocrit Auto (Bld) [Volum e fraction]on 11-09-2021 Hematocrit (Bld) [Volume fraction] 40.8 % 37-47 [facility] Work Phone: Ketones Test strip Ql (U)on 11-09-2021 Ketones Ql (U) 15 mg/dl Negative [facility] Work Phone: Laboratory - Chemistry and C hemistry - challengeon 11-09-2021 ALP [Catalytic activity/Vol] 118 U/L 45-117 [facility] Work Phone: ALT [Catalytic activity/Vol] 124 U/L 13-56 [facility] Work Phone: CO2 [Moles/Vol] 23.0 mmol/L 21.0-32.0 [facility] Work Phone: Globulin (S) [Mass/Vol] 4.8 g/dL 2.2-4.2 [facility] Work Phone: Lipase [Catalytic activity/Vol] 61 U/L 73-393 [facility] Work Phone: Urea nitrogen/Creatinine [Mass ratio] 5.4 mg/mg 10-20 [facility] Work Phone: Laboratory - Hematology and Cell countson 11-09-2021 Erythrocyte distribution width (RBC) [Entitic vol] 36.2 fL 35.1-43.9 [facility] Work Phone: Erythrocyte distribution width (RBC) [Ratio] 12.4 % 11.6-14.6 [facility] Work Phone: Immature granulocytes/100 WBC (Bld) 0.300 % 0.0-0.9 [facility] Work Phone: Comment on above: IG% - Immature Granu locytes (promyelocytes, myelocytes and metamyelocytes) > 1% indicates that a LEFT SHIFT is Present. MCH (RBC) [Entitic mass] 28.3 pg 27.0-32.0 [facility] Work Phone: Nucleated RBC/100 WBC (Bld) [Ratio] 0 % 0-5 [facility] Work Phone: MCHC Auto (RBC) [Mass/Vol]on 11-09-2021 MCHC (RBC) [Mass/Vol] 35.0 g/dL 32-36 [facility] Work Phone: Mucus LM Ql (Urine sed)on Mucus Ql (Urine sed) 0 SEEN /hpf [facility] Work Phone: Nitrite Test strip Ql (U)on 11-09-2021 Nitrite Ql (U) Positive Negative [facility] Work Phone: No Panel Informationon 11-09 Atypical Lymphocytes 1+ % [facility] Work Phone: Estimated Creatinine Clearance Calc 100.94 ml/min [facility] Work Phone: Estimated GFR (MDRD) Amer 120 mL/min >60 [facility] Work Phone: Comment on above: GFR Calc Estimated GFR (MDRD) Non-Af Amer 99 mL/min >60 [facility] Work Phone: Comment on above: Non- GFR Calc Platelets bldon 11-09-2021 Platelets (Bld) [#/Vol] 172 10*3/uL 150-450 [facility] Work Phone: Protein Test strip Ql (U)on 11-09-2021 Protein Ql (U) 100 mg/dl Negative [facility] Work Phone: Serum or plasma albumin dora urement (mass/volume)on 11-09-2021 Albumin [Mass/Vol] 3.3 g/dL 3.2-5.0 [facility] Work Phone: Serum or plasma albumin/glob ulin mass ratioon 11-09-2021 Albumin/Globulin [Mass ratio] 0.7 {ratio} 0.9-2.4 [facility] Work Phone: Serum or plasma calcium dora urement (mass/volume)on 11-09-2021 Calcium [Mass/Vol] 8.4 mg/dL 8.5-10.1 [facility] Work Phone: Serum or plasma creatinine m easurement (mass/volume)on 11-09-2021 Creatinine [Mass/Vol] 0.74 mg/dL 0.55-1.02 [facility] Work Phone: Comment on above: The validity of the calculated GFR & GFRAA in patients over 70 years has not been determined. Clinical correlation is essential. Serum or plasma urea nitroge n measurement (mass/volume)on 11-09-2021 Urea nitrogen [Mass/Vol] 4 mg/dL 7-18 [facility] Work Phone: Squamous epithelial cells de tection in urine sediment by light microscopyon 11-09-2021 Epithelial cells.squamous LM Ql (Urine sed) 10-25 SEEN /hpf [facility] Work Phone: Thin prep Papanicolaou smear with manual screeningon 11-09-2021 Thin prep Papanicolaou smear with manual screening 188 U/L 15-37 [facility] Work Phone: Thin prep Papanicolaou smear with manual screening 9 5-15 [facility] Work Phone: Urine blood detectionon - RBC Ql (U) 250 /ul Negative [facility] Work Phone: RBC Ql (U) 10-25 SEEN /hpf [facility] Work Phone: Urine clarityon 11-09-2021 Clarity (U) Sl. Cloudy Clear [facility] Work Phone: Urine color determinationon 11-09-2021 Color (U) Halie Yellow [facility] Work Phone: Urine glucose detectionon Glucose Ql (U) Normal mg/dl Normal [facility] Work Phone: Urine leukocyte esterase det ection by dipstickon 11-09-2021 Leukocyte esterase Test strip Ql (U) 100 /ul Negative [facility] Work Phone: Urine pHon 11-09-2021 pH (U) 5.0 [pH] [facility] Work Phone: Urine sediment bacteria coun t by microscopy (number/high power field)on 11-09-2021 Bacteria LM.HPF (Urine sed) [#/Area] 3 /[HPF] None Seen [facility] Work Phone: Urine specific gravity measu rementon 11-09-2021 Specific gravity (U) [Rel density] 1.020 [facility] Work Phone: Urobilinogen Auto test strip Ql (U)on 11-09-2021 Urobilinogen Ql (U) 4 mg/dl Normal [facility] Work Phone: Basic metabolic 2000 panelOr dered By: Wong Lewis on 02-11-2021 Anion gap [Moles/Vol] 10 mmol/L 10 - 2 0 mmol/L [facility] Calcium [Mass/Vol] 9.0 mg/dL 8.4 - 10. 2 mg/dL [facility] Chloride [Moles/Vol] 106 mmol/L 98 - 10 8 mmol/L [facility] Creatinine [Mass/Vol] 0.77 mg/dL 0.40 - 1.10 [facility] GFR/1.73 sq M.predicted CKD-EPI (S/P/Bld) [Vol rate/Area] 105 >=60 mL/min/1.73 m2 [facility] Glucose [Mass/Vol] 93 mg/dL 65 - 99 mg/dL [facility] HCO3 [Moles/Vol] 26 mmol/L 21 - 32 mmol/L [facility] Potassium [Moles/Vol] 3.7 mmol/L 3.5 - 5.1 mmol/L [facility] Sodium [Moles/Vol] 138 mmol/L 135 - 145 mmol/L [facility] Urea nitrogen [Mass/Vol] 6 mg/dL Low 8 - 25 mg/dL [facility] Urea nitrogen/Creatinine [Mass ratio] 7.8 mg/mg Low [facility] The eGFR should be used for monitoring renal function only and not for medication dosing. [facility] Hepatic function 1999 panelO rdered By: Wong Lewis on 02-11-2021 Albumin [Mass/Vol] 3.4 g/dL 3.2 - 5.2 g/dL [facility] ALP [Catalytic activity/Vol] 62 U/L 40 - 140 U/L [facility] ALT [Catalytic activity/Vol] 23 U/L 14 - 65 U/L [facility] AST [Catalytic activity/Vol] 12 U/L 0 - 45 U/L [facility] Bilirubin [Mass/Vol] 0.2 mg/dL 0.0 - 1 .3 mg/dL [facility] Bilirubin.conjugated [Mass/Vol] mg/dL 0.0 - 0.4 mg/dL [facility] Protein [Mass/Vol] 7.6 g/dL 6.0 - 8.0 g/dL [facility] Lipid 1995 panelOrdered By: Wong Lewis on 02-11-2021 Cholesterol [Mass/Vol] 152 mg/dL 100 - 199 mg/dL [facility] Comment on above: National Cholesterol Education Program Guidelines: Cholesterol Desirable: <200 mg/dL Borderline High: 200-239 mg/dL High: greater than or equal to 240 mg/dL Cholesterol in HDL [Mass/Vol] 63 mg/dL 40 - 59 [facility] Comment on above: National Cholesterol Education Program Guidelines: HDL Cholesterol Low: <40 mg/dL Near Optimal: 40-59 mg/dL High: greater than or equal to 60 mg/dL Cholesterol in LDL [Mass/Vol] 57 mg/dL 10 - 130 mg/dL [facility] Comment on above: National Cholesterol Education Program Guidelines: LDL Cholesterol Optimal: <100 mg/dL Near Optimal/above Optimal: 100-129 mg/dL Borderline High: 130-159 mg/dL High: 160-189 mg/dL Very High: greater than or equal to 190 mg/dL Cholesterol non HDL [Mass/Vol] 89 mg/dL [facility] Comment on above: National Cholesterol Education Program Guidelines: NON HDL Cholesterol Desirable: <130 mg/dL Borderline High: 130-159 mg/dL High: 160-189 mg/dL Very High: > or = 190 mg/dL Cholesterol.total/Pearl sterol in HDL [Mass ratio] 2.4 {ratio} ratio [facility] Comment on above: Female Cholesterol/H DL Ratio: Average risk: 4.4 1/2 average risk: 3.3 2 x average risk: 7.1 Triglyceride [Mass/Vol] 158 mg/dL High 30 - 150 mg/dL [facility] Comment on above: National Cholesterol Education Program Guidelines: Triglyceride Normal: <150 mg/dL Borderline High: 150-199 mg/dL High: 200-499 mg/dL Very High: greater than or equal to 500 mg/dL No Panel InformationOrdered By: Wong Lewis on 02-11-2021 Interpretation and review of laboratory results Abnormal [facility] Interpretation and review of laboratory results [facility] TSH DL <= 0.005 mIU/L QnOrde red By: Wong Lewis on 02-11-2021 TSH Qn 0.94 m[IU]/L [facility] COVID-19, MOLECULARon 2020 SARS-CoV-2 (COVID-19) RNA ANA+probe Ql (Unsp spec) Not detected Normal Not Detected [facility] Comment on above: Order Comment: : Edilma ngo Swab COVID/Flu Lab Tests (OP in UTM/Dry) Result Comment: This test was performed under the FDA's Emergency Use Authorization (EUA). Testing was performed using the Simplexa SARS-CoV-2 RT-PCR assay ([employer]) on the [employer] MDX platform. This test has not been approved for use in asymptomatic patients and its performance in this patient population has not been evaluated. Negative results do not rule out the presence of SARS-CoV-2/COVID-19. Fact sheets for this EUA can be found at the following links: For Healthcare Providers: https://www.fda.gov/media/394955/download For Patients: https://www.fda.gov/media/314637/download Performed By: #### L [id number] #### [facility] [address] [place] [address] Dnoald Olsen M.D. [id number] [facility] Signs Date Time Vital Sign Value Performing Clinician Facility 11-30-2024 10:53-0400 Body height 165.1 cm Heaven Nathaniel SPECTROGRAPHIC ANALYST-C Work Phone: [facility] 11-30-2024 10:53-0400 Body mass index (BMI) [Ratio] 40.1 kg/m2 Heaven Nathaniel SPECTROGRAPHIC ANALYST-C Work Phone: [facility] 11-30-2024 10:53-0400 Body weight 109.31 kg Heaven Nathaniel SPECTROGRAPHIC ANALYST-C Work Phone: [facility] 11-30-2024 10:53-0400 Diastolic blood pressure 100 mm[Hg] Heaven Nathaniel SPECTROGRAPHIC ANALYST-C Work Phone: [facility] 11-30-2024 10:53-0400 Systolic blood pressure 146 mm[Hg] Heaven Nathaniel SPECTROGRAPHIC ANALYST-C Work Phone: [facility] 11-21-2024 13:09-0500 Body mass index (BMI) [Ratio] 40.3 kg/m2 Heaven Nathaniel SPECTROGRAPHIC ANALYST-C Work Phone: [facility] 11-21-2024 13:09-0500 Body weight 109.93 kg Heaven Nathaniel SPECTROGRAPHIC ANALYST-C Work Phone: [facility] 11-21-2024 13:09-0500 Diastolic blood pressure 94 mm[Hg] Heaven Nathaniel SPECTROGRAPHIC ANALYST-C Work Phone: [facility] 11-21-2024 13:09-0500 Systolic blood pressure 139 mm[Hg] Heaven Nathaniel SPECTROGRAPHIC ANALYST-C Work Phone: [facility] 11-08-2024 08:52-0500 Body mass index (BMI) [Ratio] 40.4 kg/m2 Heaven Nathaniel SPECTROGRAPHIC ANALYST-C Work Phone: [facility] 11-08-2024 08:52-0500 Body weight 110.27 kg Heaven Nathaniel SPECTROGRAPHIC ANALYST-C Work Phone: [facility] 11-08-2024 08:52-0500 Diastolic blood pressure 89 mm[Hg] Heaven Nathaniel SPECTROGRAPHIC ANALYST-C Work Phone: [facility] 11-08-2024 08:52-0500 Systolic blood pressure 148 mm[Hg] Heaven Nathaniel SPECTROGRAPHIC ANALYST-C Work Phone: [facility] 10-08-2024 21:35-0500 Body temperature 96.5 [degF] Heaven Nathaniel SPECTROGRAPHIC ANALYST-C Work Phone: [facility] 10-08-2024 21:35-0500 Diastolic blood pressure 107 mm[Hg] Heaven Nathaniel SPECTROGRAPHIC ANALYST-C Work Phone: [facility] 10-08-2024 21:35-0500 Heart rate 93 /min Heaven Nathaniel SPECTROGRAPHIC ANALYST-C Work Phone: [facility] 10-08-2024 21:35-0500 Respiratory rate 18 /min Heaven Nathaniel SPECTROGRAPHIC ANALYST-C Work Phone: [facility] 10-08-2024 21:35-0500 SaO2% (BldA) [Mass fraction] 100 % Heaven Nathaniel SPECTROGRAPHIC ANALYST-C Work Phone: [facility] 10-08-2024 21:35-0500 Systolic blood pressure 159 mm[Hg] Heaven Nathaniel SPECTROGRAPHIC ANALYST-C Work Phone: [facility] 10-08-2024 19:30-0500 Body mass index (BMI) [Ratio] 40.5 kg/m2 Heaven Nathaniel SPECTROGRAPHIC ANALYST-C Work Phone: [facility] 10-08-2024 19:30-0500 Body weight 110.4 kg Heaven Nathaniel SPECTROGRAPHIC ANALYST-C Work Phone: [facility] 02-01-2023 09:09-0400 Body temperature 98 [degF] Dr. Erica Silva Work Phone: [facility] 02-01-2023 09:09-0400 Diastolic blood pressure 81 mm[Hg] Dr. Erica Silva Work Phone: [facility] 02-01-2023 09:09-0400 Heart rate 73 /min Dr. Erica Silva Work Phone: [facility] 02-01-2023 09:09-0400 Respiratory rate 16 /min Dr. Erica Silva Work Phone: [facility] 02-01-2023 09:09-0400 SaO2% (BldA) [Mass fraction] 96 % Dr. Erica Silva Work Phone: [facility] 02-01-2023 09:09-0400 Systolic blood pressure 123 mm[Hg] Dr. Erica Silva Work Phone: [facility] 02-01-2023 06:27-0400 Body height 165.[address] Erica Silva Work Phone: [facility] 02-01-2023 06:27-0400 Body mass index (BMI) [Ratio] 38.8 kg/m2 Dr. Erica Silva Work Phone: [facility] 02-01-2023 06:27-0400 Body weight 105.[address] Erica Silva Work Phone: [facility] 01-05-2023 08:56-0400 Body temperature 99 [degF] Dr. Erica Silva Work Phone: [facility] 01-05-2023 08:56-0400 Body weight 101.[address] Erica Silva Work Phone: [facility] 01-05-2023 08:56-0400 Diastolic blood pressure 84 mm[Hg] Dr. Erica Silva Work Phone: [facility] 01-05-2023 08:56-0400 Heart rate 88 /min Dr. Erica Silva Work Phone: [facility] 01-05-2023 08:56-0400 Respiratory rate 18 /min Dr. Erica Silva Work Phone: [facility] 01-05-2023 08:56-0400 SaO2% (BldA) [Mass fraction] 95 % Dr. Erica Silva Work Phone: [facility] 01-05-2023 08:56-0400 Systolic blood pressure 117 mm[Hg] Dr. Erica Silva Work Phone: [facility] 12-20-2022 12:46-0400 Body mass index (BMI) [Ratio] 36.2 kg/m2 Dr. Erica Silva Work Phone: [facility] 12-20-2022 12:46-0400 Body temperature 98.2 [degF] Dr. Erica Silva Work Phone: [facility] 12-20-2022 12:46-0400 Body weight 98.[address] Erica Silva Work Phone: [facility] 12-20-2022 12:46-0400 Diastolic blood pressure 76 mm[Hg] Dr. Erica Silva Work Phone: [facility] 12-20-2022 12:46-0400 Heart rate 112 /min Dr. Erica Silva Work Phone: [facility] 12-20-2022 12:46-0400 Respiratory rate 12 /min Dr. Erica Silva Work Phone: [facility] 12-20-2022 12:46-0400 SaO2% (BldA) [Mass fraction] 96 % Dr. Erica Silva Work Phone: [facility] 12-20-2022 12:46-0400 Systolic blood pressure 120 mm[Hg] Dr. Erica Silva Work Phone: [facility] 07-15-2022 07:07-0400 Body height 165.[address] Erica Silva Work Phone: [facility] Work Phone: 07-15-2022 07:07-0400 Body mass index (BMI) [Ratio] 36.2 kg/m2 Dr. Erica Silva Work Phone: [facility] Work Phone: 07-15-2022 07:07-0400 Body temperature 98.4 [degF] Dr. Erica Silva Work Phone: [facility] Work Phone: 07-15-2022 07:07-0400 Body weight 98.[address] Erica Silva Work Phone: [facility] Work Phone: 07-15-2022 07:07-0400 Diastolic blood pressure 78 mm[Hg] Dr. Erica Silva Work Phone: [facility] Work Phone: 07-15-2022 07:07-0400 Heart rate 84 /min Dr. Erica Silva Work Phone: [facility] Work Phone: 07-15-2022 07:07-0400 Respiratory rate 14 /min Dr. Erica Silva Work Phone: [facility] Work Phone: 07-15-2022 07:07-0400 SaO2% (BldA) [Mass fraction] 97 % Dr. Erica Silva Work Phone: [facility] Work Phone: 07-15-2022 07:07-0400 Systolic blood pressure 124 mm[Hg] Dr. Erica Silva Work Phone: [facility] Work Phone: 06-24-2022 12:47-0400 Body mass index (BMI) [Ratio] 36.1 kg/m2 Dr. Erica Silva Work Phone: [facility] Work Phone: 06-24-2022 12:47-0400 Body weight 98.[address] Erica Silva Work Phone: [facility] Work Phone: 06-14-2022 09:22-0400 Body temperature 98.2 [degF] Dr. Erica Silva Work Phone: [facility] Work Phone: 06-14-2022 09:22-0400 Body weight 98.[address] Erica Silva Work Phone: [facility] Work Phone: 06-14-2022 09:22-0400 Diastolic blood pressure 72 mm[Hg] Dr. Erica Silva Work Phone: [facility] Work Phone: 06-14-2022 09:22-0400 Heart rate 86 /min Dr. Erica Silva Work Phone: [facility] Work Phone: 06-14-2022 09:22-0400 Respiratory rate 16 /min Dr. Erica Silva Work Phone: [facility] Work Phone: 06-14-2022 09:22-0400 SaO2% (BldA) [Mass fraction] 97 % Dr. Erica Silva Work Phone: [facility] Work Phone: 06-14-2022 09:22-0400 Systolic blood pressure 128 mm[Hg] Dr. Erica Silva Work Phone: [facility] Work Phone: 02-13-2022 12:15-0400 Diastolic blood pressure 78 mm[Hg] No Primary Care Physician [facility] Work Phone: 02-13-2022 12:15-0400 Heart rate 78 /min No Primary Care Physician [facility] Work Phone: 02-13-2022 12:15-0400 Respiratory rate 16 /min No Primary Care Physician [facility] Work Phone: 02-13-2022 12:15-0400 SaO2% (BldA) [Mass fraction] 99 % No Primary Care Physician [facility] Work Phone: 02-13-2022 12:15-0400 Systolic blood pressure 119 mm[Hg] No Primary Care Physician [facility] Work Phone: 02-13-2022 11:34-0400 Body temperature 97.2 [degF] No Primary Care Physician [facility] Work Phone: 02-13-2022 09:11-0400 Body height 165.1 cm No Primary Care Physician [facility] Work Phone: 02-13-2022 09:11-0400 Body mass index (BMI) [Ratio] 34.9 kg/m2 No Primary Care Physician [facility] Work Phone: 02-13-2022 09:11-0400 Body weight 95.25 kg No Primary Care Physician [facility] Work Phone: 12-10-2021 10:49-0400 Body height 165.1 cm No Primary Care Physician [facility] Work Phone: 12-10-2021 10:49-0400 Body mass index (BMI) [Ratio] 35.2 kg/m2 No Primary Care Physician [facility] Work Phone: 12-10-2021 10:49-0400 Body temperature 98.3 [degF] No Primary Care Physician [facility] Work Phone: 12-10-2021 10:49-0400 Body weight 96.16 kg No Primary Care Physician [facility] Work Phone: 12-10-2021 10:49-0400 Diastolic blood pressure 76 mm[Hg] No Primary Care Physician [facility] Work Phone: 12-10-2021 10:49-0400 Heart rate 70 /min No Primary Care Physician [facility] Work Phone: 12-10-2021 10:49-0400 Respiratory rate 14 /min No Primary Care Physician [facility] Work Phone: 12-10-2021 10:49-0400 SaO2% (BldA) [Mass fraction] 98 % No Primary Care Physician [facility] Work Phone: 12-10-2021 10:49-0400 Systolic blood pressure 118 mm[Hg] No Primary Care Physician [facility] Work Phone: 11-11-2021 20:44-0500 Body mass index (BMI) [Ratio] 34.1 kg/m2 No Primary Care Physician [facility] Work Phone: 11-11-2021 20:44-0500 Body temperature 98.6 [degF] No Primary Care Physician [facility] Work Phone: 11-11-2021 20:44-0500 Body weight 92.98 kg No Primary Care Physician [facility] Work Phone: 11-11-2021 20:44-0500 Diastolic blood pressure 94 mm[Hg] No Primary Care Physician [facility] Work Phone: 11-11-2021 20:44-0500 Heart rate 108 /min No Primary Care Physician [facility] Work Phone: 11-11-2021 20:44-0500 Respiratory rate 18 /min No Primary Care Physician [facility] Work Phone: 11-11-2021 20:44-0500 SaO2% (BldA) [Mass fraction] 98 % No Primary Care Physician [facility] Work Phone: 11-11-2021 20:44-0500 Systolic blood pressure 117 mm[Hg] No Primary Care Physician [facility] Work Phone: 11-09-2021 07:11-0500 Diastolic blood pressure 84 mm[Hg] No Primary Care Physician [facility] Work Phone: 11-09-2021 07:11-0500 Heart rate 100 /min No Primary Care Physician [facility] Work Phone: 11-09-2021 07:11-0500 Respiratory rate 16 /min No Primary Care Physician [facility] Work Phone: 11-09-2021 07:11-0500 SaO2% (BldA) [Mass fraction] 95 % No Primary Care Physician [facility] Work Phone: 11-09-2021 07:11-0500 Systolic blood pressure 111 mm[Hg] No Primary Care Physician [facility] Work Phone: 11-09-2021 04:43-0500 Body mass index (BMI) [Ratio] 34.1 kg/m2 No Primary Care Physician [facility] Work Phone: 11-09-2021 04:43-0500 Body temperature 98.9 [degF] No Primary Care Physician [facility] Work Phone: 11-09-2021 04:43-0500 Body weight 92.98 kg No Primary Care Physician [facility] Work Phone: 02-23-2021 09:36-0400 Body height 167.6 cm Sunshine Niño MA [facility] 02-23-2021 09:36-0400 Body mass index (BMI) [Ratio] 34.38 kg/m2 Sunshine Niño MA [facility] 02-23-2021 09:36-0400 Body weight 96.62 kg Sunshine Niño MA [facility] 02-23-2021 09:36-0400 Diastolic blood pressure 96 mm[Hg] Sunshine Niño MA [facility] 02-23-2021 09:36-0400 Systolic blood pressure 138 mm[Hg] Sunshine Niño MA [facility] 02-11-2021 13:25-0400 Body height 165.1 cm Wong Lewis MD Work Phone: [facility] 02-11-2021 13:25-0400 Body mass index (BMI) [Ratio] 36.24 kg/m2 Wong Lewis MD Work Phone: [facility] 02-11-2021 13:25-0400 Body temperature 98.1 [degF] Wong Lewis MD Work Phone: [facility] 02-11-2021 13:25-0400 Body weight 98.79 kg Wong Lewis MD Work Phone: [facility] 02-11-2021 13:25-0400 Diastolic blood pressure 88 mm[Hg] Wong Leiws MD Work Phone: [facility] 02-11-2021 13:25-0400 Heart rate 71 /min Wong Lewis MD Work Phone: [facility] 02-11-2021 13:25-0400 Respiratory rate 18 /min Wong Lewis MD Work Phone: [facility] 02-11-2021 13:25-0400 SaO2% (BldA) [Mass fraction] 98 % Wong Lewis MD Work Phone: [facility] 02-11-2021 13:25-0400 Systolic blood pressure 134 mm[Hg] Wong Lewis MD Work Phone: [facility] 02-14-2020 12:50-0400 BMI (Body Mass Index) 35.35 kg/m2 Americo Freedom [facility] 02-14-2020 12:50-0400 Body Temperature 98.6 [degF] [facility] 02-14-2020 12:50-0400 Body weight 96.34 kg Americo [facility] 02-14-2020 12:50-0400 BP Diastolic 73 mm[Hg] Americo [facility] 02-14-2020 12:50-0400 BP Systolic 119 mm[Hg] Americo [facility] 02-14-2020 12:50-0400 Height 165.1 cm Americo [facility] 02-14-2020 12:50-0400 Pulse (Heart Rate) 79 /min Americo [facility] 02-14-2020 12:50-0400 Pulse Oximetry 97 % Americo [facility] Encounters Encounter Date Encounter Type Care Provider Facility Start: 05-13-2025 End: 05-13-2025 ambulatory Heaven ALVAREZC Work Phone: -Radiology [facility] Start: 05-13-2025 End: 05-13-2025 Patient encounter procedure Yohannes Andrade DPM -Radiology [facility] Work Phone: Start: 05-13-2025 End: 05-13-2025 ambulatory [facility] Facility:[facility] Start: 11-30-2024 End: 11-30-[address] Marzena Casas DO -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 Marzena Casas DO -Laboratory, Specimen Work Phone: Start: 11-21-2024 End: 11-21-[address] Marzena Casas DO -[facility] Work Phone: Start: 11-21-2024 End: 11-21-2024 ambulatory [facility] Facility:[facility] Start: 11-21-2024 End: 11-21-2024 [facility] Facility:[facility] Start: 11-16-2024 Non-patient / Non-visit Teresa moreno RN -[facility] Work Phone: Start: 11-16-2024 ambulatory [facility] Facility:[facility] Start: 11-14-2024 End: 11-14-[address] Mala Moncada DC -[facility] Work Phone: Start: 11-14-2024 End: 11-14-2024 ambulatory [facility] Facility:[facility] Start: 11-08-2024 End: 11-08-[address] Balbina Gonzales MD -[facility] Work Phone: Start: 11-08-2024 End: 11-08-2024 ambulatory [facility] Facility:[facility] Start: 11-08-2024 End: 11-08-2024 ambulatory [facility] Facility:[facility] Start: 10-30-2024 End: 10-30-[address] Mala Moncada DC -[facility] Work Phone: Start: 10-30-2024 End: 10-30-2024 ambulatory [facility] Facility:[facility] Start: 10-10-2024 End: 10-10-[address] Mala Moncada DC -[facility] Work Phone: Start: 10-10-2024 End: 10-10-2024 ambulatory [facility] Facility:[facility] Start: 10-08-2024 End: 10-08-2024 Emergency department patient visit Dr. Waqas Stone DO -Emergency Department Work Phone: Start: 09-26-2024 End: 09-26-[address] Mala Moncada DC -[facility] Work Phone: Start: 09-26-2024 End: 09-26-2024 ambulatory [facility] Facility:[facility] Start: 09-25-2024 End: 09-25-2024 [facility] Facility:[facility] Start: 09-25-[address] Mala Moncada DC -Physical Therapy Work Phone: Start: 09-10-2024 End: 09-10-[address] Mala Moncada DC -[facility] Work Phone: Start: 09-10-2024 End: 09-10-2024 ambulatory [facility] Facility:[facility] Start: 08-20-2024 End: 08-20-[address] Mala Moncada DC -[facility] Work Phone: Start: 08-20-2024 End: 08-20-2024 ambulatory [facility] Facility:[facility] Start: 08-20-2024 Encounter for genera l adult medical examination with abnormal findings [facility] Start: 07-25-2024 End: 07-25-2024 ambulatory Heaven Armstrong Facility:[facility] Start: 07-18-2024 End: 07-18-2024 ambulatory Erica Silva Facility:[facility] Start: 07-12-2024 End: 07-12-2024 ambulatory Erica Silva Facility:[facility] Start: 07-10-2024 End: 07-10-2024 ambulatory Erica Silva Facility:[facility] Start: 07-05-2024 ambulatory Erica Silva Facility :[facility] Start: 07-03-2024 End: 07-03-2024 ambulatory Mala Moncada Facility:[facility] Start: 06-26-2024 End: 06-26-2024 ambulatory Mala Dosrachel Facility:[facility] Start: 06-12-2024 End: 06-12-2024 ambulatory Erica Silva Facility:[facility] Start: 06-12-2024 End: 06-12-[address] [facility] Facility:[facility] Start: 10-10-2023 End: 10-10-2023 ambulatory [facility] Work Phone: Start: 10-10-2023 End: 10-10-2023 Patient encounter procedure [facility]-Radiology, [facility] Work Phone: Start: 06-17-2023 End: 06-17-2023 Discharged Recurring [facility]-Physical Therapy Work Phone: Start: 02-01-2023 Non-patient / Non-visit Dr. Lauren Silva Work Phone: [facility] Start: 02-01-2023 End: 02-01-2023 Admission to same day surgery center Dr. Erica Silva Work Phone: [facility]-Surgical Day Care Start: 02-01-2023 End: 02-01-[address] Erica Silva Work Phone: [facility] Work Phone: Start: 01-05-[address] Kiki Silva Work Phone: [facility] Start: 01-05-2023 End: 01-05-2023 Encounter for general adult medical examination without abnormal findings Dr. Erica Silva Work Phone: [facility] Start: 01-05-2023 End: 01-05-[address] Erica Silva Work Phone: [facility] Start: 12-20-2022 End: 12-20-[address] Erica Silva Work Phone: [facility] Start: 12-01-2022 End: 12-01-[address] Erica Silva Work Phone: [facility] Orthopaedic [facility] Start: 10-29-2022 End: 10-29-[address] Erica Silva Work Phone: [facility]-Physical Therapy Start: 10-15-2022 End: 10-15-[address] Erica Silva Work Phone: [facility] Start: 09-21-2022 End: 09-21-[address] Erica Silva Work Phone: [facility] Start: 09-16-2022 End: 09-16-[address] Erica Silva Work Phone: [facility] Work Phone: Start: 09-16-2022 End: 09-16-[address] Erica Silva Work Phone: [facility] Start: 08-09-2022 End: 08-09-[address] Erica Silva Work Phone: [facility] Start: 08-04-2022 End: 08-04-[address] Erica Silva Work Phone: [facility] Work Phone: Start: 08-04-2022 End: 08-04-[address] Erica Silva Work Phone: [facility]-Physical Therapy Start: 07-15-2022 End: 07-15-[address] Erica Silva Work Phone: [facility] Start: 06-24-2022 End: 06-24-[address] Erica Silva Work Phone: [facility] Start: 06-14-2022 End: 06-14-[address] Erica Silva Work Phone: [facility] Start: 02-13-2022 End: 02-13-2022 Emergency department patient visit No Primary Care Physician [facility]-Emergency Department Start: 01-19-2022 ambulatory [facility] Ambulatory Start: 01-19-2022 Chart abstracting Sunshine Niño MA [facility] Obstetrics and Gynecology Start: 12-16-2021 End: 12-16-2021 Patient encounter procedure No Primary Care Physician [facility]-Ultrasound, [facility] Start: 12-10-2021 End: 12-10-2021 Patient encounter procedure No Primary Care Physician [facility]-Laboratory, [facility] Start: 12-10-2021 End: 12-10-2021 Patient encounter procedure No Primary Care Physician [facility] Internal Medicine Start: 11-11-2021 End: 11-12-2021 Emergency department patient visit No Primary Care Physician [facility]-Emergency Department Start: 11-09-2021 End: 11-09-2021 Emergency department patient visit No Primary Care Physician [facility]-Emergency Department Start: 05-19-2021 End: 05-23-[address] [facility] Start: 05-19-2021 End: 05-19-2021 Office outpatient visit 25 minutes [facility] DO Work Phone: [facility] Dermatology Comment on above: Actinic keratosis (P rimary Dx); Rosacea Start: 05-07-2021 ambulatory NELSY RICHARD [facility] Ambulatory Start: 03-13-2021 End: 03-17-2021 ambulatory ANDREA MCKEON [facility] Start: 03-06-2021 End: 03-08-2021 ambulatory [facility] Start: 02-11-2021 End: 02-15-2021 ambulatory WONG LEWIS [facility] Start: 02-11-2021 End: 02-11-2021 Chart abstracting Wong Lewis MD Work Phone: [facility] Start: 02-11-2021 End: 02-11-2021 Initial preventive medicine new pt age 18-39yrs Wong Lewis MD Work Phone: [facility] Primary Care Physicians Comment on above: Routine medical exam (Primary Dx); Need for vaccination Start: 02-11-2021 End: 02-11-2021 Patient encounter status Wong Lewis MD Work Phone: [facility] Primary Care Physicians Start: 11-13-2020 End: 11-13-2020 Orders Only Melanie Dhillon Work Phone: [facility] [employer] - [facility] Comment on above: Encntr for obs for s skilled nursing expsr to oth biolg agents ruled out (Primary Dx); Fever, unspecified fever cause; Sore throat; Congestion of respiratory tract; Acute nonintractable headache, unspecified headache type Start: 06-18-2020 End: 06-22-[address] [facility] Start: 06-18-2020 End: 06-18-2020 Patient encounter procedure Raoul Cruz Work Phone: [facility] Comment on above: Acute midline thorac ic back pain Start: 06-11-2020 End: 06-15-2020 ambulatory [facility] Start: 06-11-2020 End: 06-11-2020 Patient encounter procedure Raoul Cruz Work Phone: [facility] Comment on above: Acute midline thorac ic back pain Start: 06-09-2020 End: 06-13-2020 ambulatory RAOUL HUIZAR [facility] Start: 06-09-2020 End: 06-09-2020 Patient encounter procedure Raoul Cruz Work Phone: [facility] Comment on above: Acute midline thorac ic back pain Start: 06-06-2020 End: 06-10-2020 ambulatory RAOULBIANCA UHIZAR [facility] Start: 06-06-2020 End: 06-06-2020 Patient encounter procedure Raoul Yohannes Cruz Work Phone: [facility] Comment on above: Acute midline thorac ic back pain Start: 06-03-2020 End: 06-07-[address] [facility] Start: 06-03-2020 End: 06-03-2020 Patient encounter procedure Raoul Cruz Work Phone: [facility] Comment on above: Acute midline thorac ic back pain Start: 05-31-2020 End: 05-31-2020 Emergency department patient visit [facility] Start: 05-28-2020 End: 06-01-2020 ambulatory [facility] Start: 05-28-2020 End: 05-28-2020 Patient encounter procedure Raoul Cruz Work Phone: [facility] Comment on above: Thoracic back pain, unspecified back pain laterality, unspecified chronicity (Primary Dx) Start: 05-27-2020 End: 05-31-[address] [facility] Start: 05-27-2020 End: 05-27-2020 Patient encounter procedure Raoul Cruz Work Phone: [facility] Comment on above: Acute midline thorac ic back pain Start: 05-23-2020 End: 05-27-[address] [facility] Start: 05-23-2020 End: 05-23-2020 Patient encounter procedure Raoul Cruz Work Phone: [facility] Comment on above: Acute midline thorac ic back pain Start: 05-21-2020 End: 05-25-2020 ambulatory RAOUL CRUZ [facility] Start: 05-21-2020 End: 05-21-2020 Patient encounter procedure Raoul Cruz Work Phone: [facility] Comment on above: Sprain of ligaments of thoracic spine, initial encounter; Acute midline thoracic back pain Start: 02-14-2020 End: 02-14-2020 Clinical Support Marzena Murrell [facility] Comment on above: Tinnitus of right ea r (Primary Dx); Sensorineural hearing loss, bilateral; Does use hearing aid Start: 02-14-2020 End: 02-14-2020 Office outpatient new 45 minutes Americo Garnerallisonmarga [place] Work Phone: [facility] Comment on above: Tinnitus of right ea r (Primary Dx); Sensorineural hearing loss (SNHL) of both ears; Does use hearing aid Procedures Date Procedure Procedure Detail Performing Clinician Start: 05-13-2025 X-ray of foot, three or more views Heaven Armstrong SPECTROGRAPHIC ANALYST-C Work Phone: Start: 11-21-2024 Liquid based cervica l cytology screening Heaven Armstrong SPECTROGRAPHIC ANALYST-C Work Phone: Comment on above: NEGATIVE FOR INTRAEP ITHELIAL LESION OR MALIGNANCY. This liquid based Th inPrep(R) pap test was screened withthe use of an image guided system. Start: 10-10-2023 X-ray of both feet Start: 02-01-[address] Erica Silva Work Phone: Start: 09-16-2022 MRI of joint of lowe r extremity Dr. Erica Silva Work Phone: Start: 06-24-2022 Radiologic examinati on of knee Dr. Erica Silva Work Phone: Start: 02-13-2022 End: 02-13-2022 Viral antigen assay No Primary Care Physician Start: 12-16-2021 Ultrasonography of abdomen No Primary Care Physician Start: 11-12-2021 SARS-CoV-2 Antigen (Rapid) No Primary Care Physician Start: 11-11-2021 Computed tomography of abdomen and pelvis with contrast No Primary Care Physician Start: 11-09-2021 Bacteria identified in Urine by Culture No Primary Care Physician Start: 03-05-2021 Microscopic observat ion [Identifier] in Cervix by Cyto stain Wong Lewis MD Work Phone: Start: 02-11-2021 Adult depression scr eening assessment Wong Lewis MD Work Phone: Start: 12-19-2017 Microscopic observat ion [Identifier] in Cervix by Cyto stain Mable Wadsworth Plan of Treatment Date Care Activity Detail Author Start: 02-11-2031 Tetanus vaccination Tetanus: Every 1 0yrs [facility] Start: 10-08-2024 [facility] Start: 03-05-2024 Screening for malign ant neoplasm of cervix Pap Smear [facility] Start: 02-02-2024 Tetanus vaccination Tetanus: Every 1 0yrs [facility] Start: 02-01-2023 Application of ice collar, cap or bag [facility] Start: 02-01-2023 Catheterization of vein [facility] Start: 02-01-2023 Elevation of affecte d extremity [facility] Start: 02-01-2023 Following clinical pathway protocol [facility] Start: 02-01-2023 Patient discharge [facility] Start: 02-01-2023 Procedure discontinued [facility] Start: 02-01-2023 Taking patient vital signs [facility] Start: 02-01-2023 Vital signs measurements [facility] Start: 02-01-2023 [facility] Start: 02-01-2023 Medication education [facility] Start: 01-05-2023 Patient referral [facility] Work Phone: Start: 06-24-2022 Patient referral [facility] Work Phone: Start: 06-14-2022 Patient referral [facility] Work Phone: Start: 05-20-2022 Influenza vaccination Sequenti al Influenza Vaccine (Season Ended) [facility] Start: 03-05-2022 History and physical examination, annual for health maintenance Wellness Visit [facility] Start: 02-13-2022 Enteric Bacteriology Enteric Bacteri ology [facility] Work Phone: Start: 02-11-2022 Depression screening using PHQ-9 (Patient Health Questionnaire 9) score [facility] Start: 02-11-2022 History and physical examination, annual for health maintenance Wellness Visit [facility] Start: 12-10-2021 Patient referral [facility] Work Phone: Start: 09-21-2021 End: 09-21-2021 Patient encounter procedure 09/21/2021 Office Visit Dermatology Andrea Mckeon Jr., DO [address] [facility] [place] [address] [facility] Start: 05-20-2021 Influenza vaccination [facility] Start: 05-18-2021 End: 05-18-2021 Patient encounter procedure 05/18/2021 Office Visit Dermatology Andrea Mckeon Jr., DO [address] [facility] [place] [address] [phone] [facility] Start: 03-12-2021 End: 03-12-2021 Patient encounter procedure 03/12/2021 Office Visit Dermatology Andrea Mckeon Jr., DO [address] [place] [address] [phone] [facility] Start: 12-19-2020 Screening for malign ant neoplasm of cervix Pap Smear [facility] Start: 06-18-2020 End: 06-18-2020 Treatment 06/18/2020 Treatment Rehabilitation Raoul Cruz PA-C [address] [place] [address] [phone] [facility] Start: 06-11-2020 End: 06-11-2020 Treatment 06/11/2020 Treatment Raoul Hernandez PA-C [address] [place] [address] [phone] [facility] Start: 06-09-2020 End: 06-09-2020 Treatment 06/09/2020 Treatment Rehabilitation Raoul Cruz PA-C [address] [place] [address], [place] [address] Joy Sol, [facility] Start: 06-06-2020 End: 06-06-2020 Treatment 06/06/2020 Treatment Rehabilitation Raoul Cruz PA-C [address] [place] [address], [place] [address] Mable Wadsworth, [facility] Start: 06-03-2020 End: 06-03-2020 Treatment 06/03/2020 Treatment Rehabilitation Raoul Cruz PA-C [address] [place] [address], [place] [address] Manuela Balbuena, [facility] Start: 05-28-2020 End: 05-28-2020 Treatment 05/28/2020 Treatment Rehabilitation Raoul Cruz PA-C [address] [place] [address], [place] [address] Jessica Valdez, [facility] Start: 05-27-2020 End: 05-27-2020 Treatment 05/27/2020 Treatment Rehabilitation Raoul Cruz PA-C [address] [place] [address], [place] [address] Joy Sol, [facility] Start: 05-23-2020 End: 05-23-2020 Treatment 05/23/2020 Treatment Rehabilitation Raoul Cruz PA-C [address] [place] [address], [place] [address] Mable Wadsworth, [facility] Start: 05-20-2020 Influenza vaccinatio n given [facility] Start: 02-28-2010 Hepatitis C antibody , confirmatory test Hepatitis C Screening [facility] Start: 02-28-2010 Hepatitis C screening Hepatitis C Sc reening [facility] Start: 2008 COVID-19 Vaccine (1 of 2) COVI D-19 Vaccine (1 of 2) [facility] Start: 02-28-2007 HIV screening HIV Screening [facility] Start: 2004 Adolescent depressio n screening assessment Depression Screening (PHQ9) [facility] Start: 2004 COVID-19 Vaccine (1) COVID-19 Vaccin e (1) [facility] Start: 02-28-1997 COVID-19 Vaccine (1) COVID-19 Vaccin e (1) [facility] Start: 02-28-1995 History and physical examination, annual for health maintenance Wellness Visit [facility] Start: 1992 Screening for malign ant neoplasm of cervix Pap Smear [facility] Start: 1992 Tetanus vaccination Tetanus: Every 1 0yrs [facility] CBC W Auto Different ial panel - Blood [facility] End: 11-13-2021 Covid-19/Influenza Order Algorithm [...] type 1 Occurrences starting 11/13/2020 until 11/13/2021 [facility] Comment on above: 1 Occurrences starti ng 11/13/2020 until 11/13/2021 End: 02-11-2022 Hemoglobin A1c/Hemoglobin.total in Blood Hemoglobin A1c Lab Routine Routine medical exam 1 Occurrences starting 02/11/2021 until 02/11/2022 [facility] Comment on above: 1 Occurrences starti ng 02/11/2021 until 02/11/2022 Hemoglobin A1c/Hemoglobin.total in Blood Hemoglobin A1c Lab Routine Routine medical exam 02/11/2021 2:05 PM EDT [facility] Hemoglobin A1c/Hemoglobin.total in Blood [facility] Lipid 1996 panel - S bird or Plasma [facility] Patient Education [facility] Work Phone: Patient referral [facility] Work Phone: Thyroid stimulating hormone measurement [facility] Vitamin D, 25-hydrox y measurement [facility] Immunizations Immunization Date Immunization Notes Care Provider [employer] 08-03-2024 influenza, seasonal, injectable, preservative free Heaven Armstrong SPECTROGRAPHIC ANALYST-C Work Phone: [facility] 07-25-2023 influenza, injectabl e, quadrivalent, preservative free [facility] 06-22-2022 influenza, injectabl e, quadrivalent, preservative free [facility] 06-22-2022 influenza, seasonal, injectable Dr. Erica Silva Work Phone: [facility] 07-24-2021 influenza, injectabl e, quadrivalent, preservative free [facility] 07-24-2021 influenza, seasonal, injectable No Primary Care Physician [facility] 07-03-2021 Covid (Pfizer) No Primary Ca re Physician [facility] 06-12-2021 Covid (Pfizer) No Primary Ca re Physician [facility] 02-11-2021 diphtheria, tetanus toxoids and acellular pertussis vaccine, unspecified formulation Wong Lewis MD Work Phone: [facility] 02-11-2021 tetanus toxoid, redu winifred diphtheria toxoid, and acellular pertussis vaccine, adsorbed Wong Lewis MD Work Phone: [facility] 02-01-2014 meningococcal polysaccharide (groups A, C, Y and W-135) diphtheria toxoid conjugate vaccine (MCV4P) Wong Lewis MD Work Phone: [facility] 02-01-2014 tetanus toxoid, redu winifred diphtheria toxoid, and acellular pertussis vaccine, adsorbed Wong Lewis MD Work Phone: [facility] 07-20-2006 tetanus toxoid, redu winifred diphtheria toxoid, and acellular pertussis vaccine, adsorbed Wong Lewis MD Work Phone: [facility] 03-13-1999 measles, mumps and rubella virus vaccine Wong Lewis MD Work Phone: [facility] 01-16-1998 hepatitis B vaccine, pediatric or pediatric/adolescent dosage Wong Lewis MD Work Phone: [facility] 08-05-1997 hepatitis B vaccine, pediatric or pediatric/adolescent dosage Wong Lewis MD Work Phone: [facility] 07-09-1997 hepatitis B vaccine, pediatric or pediatric/adolescent dosage Wong Lewis MD Work Phone: [facility] 02-22-1997 diphtheria, tetanus toxoids and acellular pertussis vaccine Wong Lewis MD Work Phone: [facility] 02-22-1997 diphtheria, tetanus toxoids and acellular pertussis vaccine, unspecified formulation Wong Lewis MD Work Phone: [facility] 02-22-1997 trivalent poliovirus vaccine, live, oral Wong Lewis MD Work Phone: [facility] 08-20-1993 diphtheria, tetanus toxoids and acellular pertussis vaccine Wong Lewis MD Work Phone: [facility] 08-20-1993 diphtheria, tetanus toxoids and acellular pertussis vaccine, unspecified formulation Wong Lewis MD Work Phone: [facility] 08-20-1993 diphtheria, tetanus toxoids and pertussis vaccine Wong Lewis MD Work Phone: [facility] 08-20-1993 trivalent poliovirus vaccine, live, oral Wong Lewis MD Work Phone: [facility] 06-01-1993 haemophilus influenz ae type b vaccine, PRP-T conjugate Wong Lewis MD Work Phone: [facility] 06-01-1993 measles, mumps and rubella virus vaccine Wong Lewis MD Work Phone: [facility] 1992 haemophilus influenz ae type b vaccine, PRP-T conjugate Wong Lewis MD Work Phone: [facility] 1992 diphtheria, tetanus toxoids and pertussis vaccine Wong Lewis MD Work Phone: [facility] 1992 haemophilus influenz ae type b vaccine, PRP-T conjugate oWng Lewis MD Work Phone: [facility] 1992 trivalent poliovirus vaccine, live, oral Wong Lewis MD Work Phone: [facility] 1992 diphtheria, tetanus toxoids and pertussis vaccine Wong Lewis MD Work Phone: [facility] 1992 haemophilus influenz ae type b vaccine, PRP-T conjugate Wong Lewis MD Work Phone: [facility] 1992 trivalent poliovirus vaccine, live, oral Wong Lewis MD Work Phone: [facility] Payers Date Payer Category Payer Self-pay [id number] 2023 Unknown [id number] 2020 Worker's Compensation 200 [id number]. [id number] 2019 Unknown [employer] - PREFERRED xxxxxxxxx 2019-Present xxxxxxxxx [id number]. [id number] 2019 Unknown [id number] 1.2.840.983632.1.13.385.2. 7.3.835340.315 2019 Unknown [id number] 1992 Unknown [id number] 2.16.840.1.912011.3.579.2. 903 1992 Unknown [id number] 2.16.840.1.788355.3.579.2. 903 1992 Unknown [id number] 2.16.840.1.280511.3.579.2. 903 1992 Unknown [id number] 2.16.840.1.093910.3.579.2. 903 1992 Unknown [id number] 2.16.840.1.303418.3.579.2. 903 1992 Unknown [id number] 2.16.840.1.262593.3.579.2. 903 1992 Unknown [id number] 2.16.840.1.923599.3.579.2. 90 1992 Unknown [id number] 2.16.840.1.816029.3.579.2. 903 1992 Unknown [id number] 2.16.840.1.910401.3.579.2. 90 1992 Unknown [id number] 2.16.840.1.180934.3.579.2. 90 1992 Unknown [id number] 2.16.840.1.130096.3.579.2. 1992 Unknown [id number] 2.16.840.1.320556.3.579.2. 900 1992 Unknown [id number] 2.16.840.1.018013.3.579.2. 900 1992 Unknown [id number] 2.16.840.1.176099.3.579.2. 903 1992 Unknown [id number] 2.16.840.1.633389.3.579.2. 90 1992 Unknown [id number] 2.16.840.1.507432.3.579.2. 90 1992 Unknown [id number] 2.16.840.1.280256.3.579.2. 1992 Unknown [id number] 2.16.840.1.895596.3.579.2. 903 1992 Unknown [id number] 2.16.840.1.399492.3.579.2. Unknown [id number] Unknown [id number] 2.16.840.1.814698.3.579.2. 462 Unknown [id number] 2.16.840.1.817819.3.579.2. 462 Unknown [id number] 2.16.840.1.274806.3.579.2. 462 Unknown [id number] 2.16.840.1.454074.3.579.2. 462 Unknown [id number] 2.16.840.1.959356.3.579.2. 462 Unknown [id number] 2.16.840.1.181083.3.579.2. 462 Unknown [id number] 2.16.840.1.311977.3.579.2. 462 Unknown [id number] 2..840.1.221775.3.579.2. 462 Unknown [id number] 2..840.1.156453.3.579.2. 462 Unknown [id number] 2..840.1.425621.3.579.2. 462 Unknown [id number] 2..840.1.889727.3.579.2. 462 Unknown [id number] 2.16.840.1.188886.3.579.2. 462 Unknown [id number] 2.16840.1.968197.3.579.2. 462 Unknown [id number] 2.16.840.1.504684.3.579.2. 462 Unknown [id number] 2.16.840.1.111752.3.579.2. 462 Unknown [id number] 2.16.840.1.759579.3.579.2. 462 Unknown [id number] 2.16.840.1.183427.3.579.2. 462 Unknown [id number] 2.16.840.1.500646.3.579.2. 462 Unknown [id number] 2.16.840.1.941491.3.579.2. 462 Unknown [id number] 2.16.840.1.827121.3.579.2. 462 Unknown [id number] 2.16.840.1.839227.3.579.2. 462 Unknown [id number] 2.16.840.1.452181.3.579.2. 462 Unknown [id number] 2.16.840.1.594331.3.579.2. 462 Unknown [id number] 2.16.840.1.439442.3.579.2. 462 Worker's Compensation [id number] Social History Date Type Detail Facility Start: 02-14-2020 End: 11-29-2024 Tobacco smoking status NHIS Never smoker [facility] Start: 02-14-2020 Tobacco Comment 02/14/2020 [facility] Start: 02-14-2020 Alcohol Comment rarely [facility] Start: 1990 Sex Assigned At Not on file [facility] Exposure to SARS-CoV-2 (event) Not sure [facility] Start: 02-14-2020 End: 02-11-2021 Tobacco use and exposure Never used [facility] Start: 02-11-2021 End: 05-19-2021 Alcohol intake Ex-drinker (finding) [facility] Start: 12-10-2021 End: 03-14-2023 Tobacco smoking status NHIS Unknown if ever smoked [facility] Start: 1990 Sex Assigned At Female [facility] Start: 12-05-2024 Sex Female (finding) [facility] NEGATED: Highlighted row [facility] Goals Date Patient Goal Desired Activity /State Mental Status Date Assessment Result Facility 02-01-2023 Cognitive function Voice/Name [facility] Work Phone: Clinical Notes 02-11-2021 to 05-14-2025 Note Date & Type Note Facility 05-14-2025 Radiology Diagnostic study note [facility] Imaging Services [address] [place], [place] [id number] Foot min 3 Views MR#: [id number] Acct: [id number] Name: RENA LANGSTON Rep #: [id number] : 1990 F 35 From: Shea Rivas MD PCP: VICKI Rebolledo Status: REG CLI Study:Foot min 3 Views Date of Exam: Exam# [id number] Ordering Dr: Yohannes Andrade DPM PROCEDURE: FOOT MIN 3 VIEWS 05/13/2025 REASON FOR EXAM: PAIN IN LEFT FOOT TECHNIQUE: FOOT MIN 3 VIEWS Laterality: Left COMPARISON: 10/10/2023 FINDINGS: BONES: No acute fracture or focal osseous lesion. Minimal achilles tendon insertional enthesophyte, unchanged. JOINTS: No dislocation. The joint spaces are normal. SOFT TISSUES: The soft tissues are unremarkable. RAD/Foot min 3 Views IMPRESSION: No acute osseous abnormality. Reading Location: [id number] CC: CATHY Andrade; SPECTROGRAPHIC ANALYST-Jess Armstrong ~ [employer] Registrar: Signed [facility] 11-21-2024 Note [facility] Pap Smear Specimen Adequacy November 22, 2024 12:59am Comment . Satisfactory for evaluation. No endocervical component is identified. Comment on above: Satisfactory for anna luation. No endocervical component is identified. 10-10-2024 Evaluation note Diagnosis Onset Date Resolution Segmental and somatic dysfunction of lumbar region acute October 10 7:54am Segmental and somatic dysfunction of pelvic region acute October 10 7:54am Segmental and somatic dysfunction of thoracic region acute October 10 7:54am Back pain noneactive October 10, 2024 7:54am Segmental and somatic dysfunction of cervical region acute October 30 8:22am Segmental and somatic dysfunction of lumbar region acute October 30 8:22am Segmental and somatic dysfunction of pelvic region acute October 30 8:22am Segmental and somatic dysfunction of thoracic region acute October 30 8:22am acute November 08, 2024 8:49am Threatened acute Febru 2024 8:49am Segmental and somatic dysfunction of cervical region acute November 14 8:24am Segmental and somatic dysfunction of lumbar region acute November 14 8:24am Segmental and somatic dysfunction of pelvic region acute November 14 8:24am Segmental and somatic dysfunction of thoracic region acute November 14 8:24am Headache, migraine acute November 21, 2024 12:52pm Hearing loss acute November 21 12:52pm Obesity affecting acute November 21, 2024 12:52pm acute November 21 12:52pm Rosacea acute November 21 12:52pm Supervision of high-risk acute November 21, 2024 12:52pm Threatened acute November 21, 2024 12:52pm Contraceptive management acute November 30, 2024 10:35am Termination of (fetus) acute November 30, 2024 10:35am [facility] Work Phone: 1(525) 347-929712-02-2024 Evaluation note* Diagnosis Onset Date Resolution Status Admit Date Segmental and somatic dysfunction of cervical region acute August 20 10:16am Segmental and somatic dysfunction of lumbar region acute Dec emb2023 10:16am Segmental and somatic dysfunction of pelvic region acute Aug emb2023 10:16am Segmental and somatic dysfunction of thoracic region acute August 20 10:16am Thoracic neuritis acute [facility] 2023 10:16am Segmental and somatic dysfunction of cervical region acute September 10 8:15am Segmental and somatic dysfunction of lumbar region acute Aug ember 2023 8:15am Segmental and somatic dysfunction of pelvic region acute Dec ember 2023 8:15am Segmental and somatic dysfunction of thoracic region acute September 10 8:15am Segmental and somatic dysfunction of lumbar region acute Sep 8:20am Segmental and somatic dysfunction of pelvic region acute Sep 8:20am Segmental and somatic dysfunction of thoracic region acute September 26 8:20am Thoracic neuritis acute September 26, 2024 8:20am Segmental and somatic dysfunction of lumbar region acute Sep 7:54am Segmental and somatic dysfunction of pelvic region acute Sep 7:54am Segmental and somatic dysfunction of thoracic region acute October 10 7:54am Back pain noneactive October 10, 2024 7:54am Segmental and somatic dysfunction of cervical region acute October 30 8:22am Segmental and somatic dysfunction of lumbar region acute Feb ru2024 8:22am Segmental and somatic dysfunction of pelvic region acute Feb ruary 2024 8:22am Segmental and somatic dysfunction of thoracic region acute October 30 8:22am acute November 08, 2024 8:49am Threatened acute Febru alyssa2024 8:49am Segmental and somatic dysfunction of cervical region acute November 14 8:24am Segmental and somatic dysfunction of lumbar region acute Feb ruary 2024 8:24am Segmental and somatic dysfunction of pelvic region acute Feb ruary 2024 8:24am Segmental and somatic dysfunction of thoracic region acute November 14 8:24am Headache, migraine acute November 21, 2024 12:52pm Hearing loss acute November 21 12:52pm Obesity affecting acute November 21, 2024 12:52pm acute November 21 12:52pm Rosacea acute November 21 12:52pm Supervision of high-risk acute November 21, 2024 12:52pm Threatened acute November 21, 2024 12:52pm Contraceptive management acute November 30, 2024 10:35am Termination of (fetus) acute November 30, 2024 10:35am [facility] Work Phone: 1(174) 203-646705-16-2023 History and physical note Author Dr. Goff [facility] February 01, 2023 7:09am Note Date/Time February 01, 2023 7:09a m [facility] Medical Records Department [address] [place] [address] History & Physical Exam 02/01/23 0708 MR#: [id number] Acct: [id number] Name: RENA LANGSTON Rep #:[id number] : 1990 32 From: Kofi Goff DO PCP: Dr. Erica Silva MD Status:[facility] Location: [place] [address] History and Physical Date of Admission: 02/01/23 [facility] [address] [place] [address] OFFICE VISIT Date of Service:? 12/01/22 MR#: [id number] Acct: [id number] Name:RENA PATEL Rep #: [id number] : 1990 ? ? Provider: Dr. Kofi Goff, DO Age/Sex:? 32/F ? ? Location: [facility] Status: Signed Intake Intake Visit Reasons:?RIGHT KNEE Chief Complaint: right knee Is patient in pain?: Yes Allergies Sulfa (Sulfonamide Antibiotics) Allergy (Mild, Verified 12/01/22 08:57) Rashred (food color) Allergy (Verified 12/01/22 08:57) HivesSeasonal Allergies: Uncoded Allergy (Verified 12/01/22 08:57) Other Medications drospirenone 3 mg-ethinyl estradiol 0.02 mg tablet (LOUISA (28)) 1 tab PO DAILY 11/09/21 [History Confirmed 12/01/22] fexofenadine-pseudoephedrine ER 180 mg-240 mg tablet,ext.release 24 hr (Griselda- D 24 Hour) 1 tab PO QAM 06/24/22 [History Confirmed 12/01/22] PFSH Medical History? Asthma Bone fracture Gallstones Headache, migraine Rosacea Seasonal allergic conjunctivitis Trigger thumb Wears hearing aid Surgical History? Hx of cholecystectomy Family History? Sister AsthmaFather Bowel disease Liver disease Thyroid disorderGrandmother Cervical cancer DiabetesGrandfather CancerMother Hypertension Social History? Smoking Status:? Never smoker alcohol intake:? never substance use type:? does not use what type of physical activity do you participate in:? none HPI RIGHT KNEE Details: Parts of this documentation were recorded by a scribe, this documentation accurately reflects the service provided and the decisions made by me, Dr. Kofi Goff, DO 12/01/22 0750. RENA LANGSTON is a 32 year old F here today for follow-up right knee pain.? Last office visit 10/14/2022 at which point an intra-articular steroid injection was given.? To recall patient has had pain for years she had a previous knee arthroscopy when she was around 18 years old.? Recent MRI 09/16/2022 was relatively benign, with small joint effusion and mucoid cystic degeneration of the ACL. Patient states that she had an injection on 10/14/22 which took about 2 weeks before it was helpful, and then it was only helpful for about a week. Her pain has since returned. She complains of pain over her entire knee. Patient has popping and clicking and grinding which is uncomfortable. Patient has a knee brace when working which is helpful to her instability but not her pain. Patienttakes ibuprofen for pain. Ortho Exam General General: Yes no acute distress Neurologic: Yes alert and Yes oriented x3 Psychologic: Yes reasonable and appropriate Right Knee Skin/Wound: Yes CDI, No erythema, No ecchymosis and No swelling Homans Sign: No Knee ROM: Yes ROM-Extension -20 to 0 and Yes ROM-Flexion 0-140 Examination: No Med jt line tenderness, No Lat jt line tenderness, No De La Cruz's, No TTP Pes Anserine and No Illiotibial band tenderness Stability: NML: Anterior Drawer, NML: Sukhdev, NML: Posterior Drawer, NML: Valgus 0, NML: Valgus 30 and NML: Varus 0 Patella Translation: 1 Patella Grind: No KNEE: mild crepitus, no patellar instability.click with medial jerome which is not painful Left Knee Patella Translation: 1 Head: Normocephalic Atraumatic Chest: symmetrical rise, non-labored breathing, no audible wheeze Abdomen: no guarding, non-rigid Supplemental Info 09/16/2022 MRI right knee: Mucoid cystic degeneration of ACL.? Small joint effusion.? No meniscus tear. 06/24/2022 x-ray right knee: Normal Coding Level of Care Code Off vis,est,level 3 Diagnoses Mechanical pain of right knee? M25.561 Assessment and Plan Assessment and Plan (1) Mechanical pain of right knee: ?Status:?Acute Plan Marisa continues to have mechanical knee pain that is now ongoing and chronic.? We have performed an intra-articular steroid injection which did give her temporary relief but only for a week.? In addition she did have MRI which was relatively benign.? She has done physical therapy and anti-inflammatories. Explained she might have scar tissue or a meniscus tear or a cartilage defect that isnt seen on the MRI. Spoke with the patient about her options- knee arthroscopy.? Surgery would be exploratory with surgery as indicated including possibility of meniscal repair or microfracture surgery both of which would add 6 weeks of toe- touch weightbearing if performed, in addition to extended recovery after words. she would like to proceed with surgery as she has failed conservative treatment. Reviewed the pre-operative plans with the patient. Risks and benefits of the procedure were fully explained and risk that we do not find anything structurally wrong and she continues to have her symptoms but also, including but not limited to infection, neurovascular injury, continued pain, arthritis, stiffness, need for further surgery, re-injury, DVT, PE, general risks of anesthesia, and loss of limb or life. The patient understands all the risks and does wish to proceed with written consent.? She is not able to have surgery until after January 30 due to help at home. Follow up for 2 week post op or sooner if pain, swelling, numbness or associatedsymptoms, or concerns develop.? All questions answered. Patient in agreement of plan. 12/01/22 0957 <Electronically signed by Kofi Goff DO> Date Kofi Goff DO Cosigner Signature: Date (if applicable) I have examined the patient and the H&P has been reviewed. There are no clinicalchanges since date of exam. 02/01/23 07 <Electronically signed by Kofi Goff DO> Cosigner Signature (if applicable): CC: Dr. Kofi Goff DO; Dr. Erica Silva MD~ Signed [facility] Work Phone: 1(135) 708-450405-16-2023 Procedure [facility] 05-19-2021 History of Present illness Narrative* Andrea Mckeon JrJoss, DO - 05/19/2021 9:59 AM EDT Rena Langston is a 31 y.o. female [...] instructions and side effects including blistering. This wasdone after verbal consent was obtained. 2.Rosacea, chronic [...] x 3/ alert; development/nourishment; mood/affect; scalp/hair; face; eyes/eyelids;lips; neck; digits/nails. Pertinent positive PE findings can be found below Assessment and Plan Andrea Mckeon DO 05/19/2021 documented in this [id number] History of Present illness Narrative* Wong Lewis MD - 02/11/2021 1:37 PM EDT Subjective Patient ID: Rena Langston is a 30 y.o. female. 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 Not difficult at all documented in this encounterOhioHealthChief complaint+Reason for visit Narrative * Chief Complaint right knee R KNEE PAIN/RX HERE RIGHT KNEE CONCERN FOR SINUS INFECTION Anuual Evaluation RT KNEE ARTHROSCOPY EXPLORATION RT KNEE ARTHROSCOPY EXPLORATION Reason for Visit Chondromalacia, sparks lla Mechanical pain of right knee Obesity Right patellofemoral syndrome Mechanical pain of right knee Acute sinusitis, unspecified URI (upper respiratory infection) Chondromalacia, patella Encounter for wellness examination in adult Hearing loss Obesity Right patellofemoral syndrome URI (upper respiratory infection) [facility] Work Phone: Discharge summary Author Dr. Goff [facility] February 01, 2023 8:08am Note Date/Time February 01, 2023 8:08a m [facility] Medical Records Department [address] [place] [address] Instructions for Home/Discharge Instructions 02/01/23 0808 MR#: [id number] Acct: [id number] Name: RENA LANGSTON Rep #:[id number] : 1990 32 From: Kofi Goff DO PCP: Dr. Erica Silva MD Status:[facility] Discharge Instructions Diet Discharge Diet: No restrictions Dressing / Incision Call your doctor if you observe: Shortness of breath and Chest pain Additional Dressing/Incision Instructions:: Ice and elevate next 72 hours .keep dressing on clean and dry for 48 hours then may remove begin showering daily butdo not submerge in tub or pool. After shower may apply Band-Aids . Encourage knee range of motion weightbearing as tolerated, use crutches until confident inknee then may discontinue. No strenuous activity. When not ambulating keep icedand elevated next 72 hours. Do not mix pain medication with recreational drugs or alcohol only take as prescribed can be addictive and abusive, call with any questions or concerns. Follow Up Care Please Follow Up With: Kofi Goff DO When: 2 weeks Test Results: Test results from this visit will be discussed in further detail at your follow- up appointment, if applicable. Discharge Plan Admission Attending Provider: Kofi Goff Primary Care Provider: Erica Silva Discharge Orders/Prescriptions Prescriptions: No Action fexofenadine-pseudoephedrine [Griselda-D 24 Hour] 180-240 mg tablet extended release 24 hr 1 tab PO QAM drospirenone-ethinyl estradiol [LOUISA (28)] 3-0.02 mg Tablet 1 tab PO DAILY Referrals / Follow Up: Erica Silva MD [Primary Care Provider] - Disposition Disposition (needs filled in before D/C Order can be placed): Home, Self Care 02/01/23 0808<Electronically signed by Kofi Goff DO>Kofi Goff DO CC: Dr. Erica Silva MD ~ Signed [facility] Work Phone: Evaluation note* Diagnosis Routine medical exam- Primary Routine general medical examination at a health care facility Need for vaccination Need for prophylactic vaccination and inoculation against unspecified single disease [facility]* Diagnosis Actinic keratosis- Primary Rosacea [facility]* Diagnosis Onset Date Resolution Status Elevated LFTs acute Obesity acute Rosacea acute Wears hearing aid acute [facility] Work Phone: Evaluation note* Diagnosis Onset Date Resolution Status Asthma acute Obesity acute Right knee pain acute Wears hearing aid acute Right knee pain acute Right patellofemoral syndrome acute Acute sinusitis acute Contact with or suspected ex posure to other viral communicable disease acute [facility] Work Phone: Evaluation note* Diagnosis Onset Date Resolution Status Asthma acute Obesity acute Right knee pain acute Wears hearing aid acute Right knee pain acute Right patellofemoral syndrome acute Acute sinusitis acute Contact with or suspected ex posure to other viral communicable disease acute Chondromalacia, patella acut e Right knee pain acute Right patellofemoral syndrome acute [facility] Work Phone: Evaluation note* Diagnosis Onset Date Resolution Status Chondromalacia, patella acut e Mechanical pain of right knee acute Obesity acute Right patellofemoral syndrome acute Mechanical pain of right knee acute Acute sinusitis, unspecified acute URI (upper respiratory infection) acute Chondromalacia, patella acut e Encounter for wellness examination in adult acute Hearing loss acute Obesity acute Right patellofemoral syndrome acute URI (upper respiratory infection) acute [facility] Work Phone: Evaluation noteNo assessment information available [facility] Work Phone: Reason for referral (narrative)No reason for referral information availableWMiddletown [facility] Work Phone: Reason for Referral Status Reason Specialty Diagnoses / Procedures Referred By Contact Referred To Contact Closed Specialty Services Required/Patient' s Best Interest Audiology Diagnoses Tinnitus of right ear Sensorineural hearing loss (SNHL) of both ears Americo Loja DO [address] [place] [id number] Marzena Murrell AuD Instructions * Patient Instructions* [...] supplements. Currently, the best treatment for tinnitus is called masking techniques. This involves background noise [...] Rena Langston is a 29 y.o. female. 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 Placed on steroid x 4 days, no relief. Two courses of antibiotics. She still has pressure and thesensation of fluid. Pt has hx of ear infections as child. Wears hearing aids, they ear 5 years old.Last hearing test 2 years ago in [facility]. Denies drainage. The following portions of the [...] supplements. Currently, the best treatment for tinnitus is called masking techniques. This involves background noise [...] Wadsworth, PT - 05/21/2020 7:45 AM EDT [facility] Evaluation Visit Consent Statement: I [...] strength back and loosen muscles. Social History Jehovah'S Witness, social, or cultural considerations to be made [...] Treatments: Physical Therapy Exercise Log - 05/21/20 0750 OTHER Notes thoracic pain Vitals 7:45-8:30 Therapeutic Exercise (50283) Intervention Scap retraction, shoulder ext with RTB 10 times each Parameters posterior shoulder stretch at doorway 10 sec hold 5 times each side Intervention K tape thoracic spine Manual Therapy (13160) Intervention IASTM thoracic spine Parameters 10 mins [...] judgment that services are medically necessary. Mable Wadsworth PT State License, [id number] documented in this encounter* Mable Wadsworth, PT - 05/23/2020 10:00 AM EDT [facility] DAILY TREATMENT NOTE Today's Date [...] Notes thoracic pain Vitals 9:55-10:10:30 Therapeutic Exercise (37848) Intervention Scap retraction, shoulder ext with RTB 10 times each Parameters posterior shoulder stretch at doorway 10 sec hold 5 times each side Intervention K tape thoracic spine Parameters Counter stretch, wall cross body stretch 10 times each Intervention Chest press and OH flexion with 4# bar 10 times each Manual Therapy (14204) Intervention IASTM thoracic spine Parameters 10 mins [...] work activities. Mable Wadsworth PT State License, [id number] documented in this encounter* Joy Sol PTA - 05/27/2020 11:30 AM EDT [facility] DAILY TREATMENT NOTE Today's Date [...] Notes thoracic pain Vitals 11:20-11:52 Therapeutic Exercise (79996) Intervention Scap retraction, shoulder ext with RTB 10 times each Parameters posterior shoulder stretch at doorway 10 sec hold 5 times each side Intervention K tape thoracic spine Parameters Counter stretch, wall cross body stretch 10 times each Intervention Chest press and OH flexion with 4# bar 10 times each Parameters cat/camel, child's pose x 10 each Manual Therapy (07258) Intervention IASTM thoracic spine Parameters 10 mins [...] with focus on strengthening and symptom relief. Joy Sol PTA STATE LICENSE, [id number] documented in this encounter* Jessica Valdez, PT - 05/28/2020 9:15 AM EDT [facility] DAILY TREATMENT NOTE Today's Date [...] Notes thoracic pain Vitals 8:55- Therapeutic Exercise (86781) Intervention Scap retraction, shoulder ext with RTB [...] 30' fwd/bck x 2 min Manual Therapy (24843) Intervention IASTM thoracic spine Parameters 10 mins [...] Visit with focus on stretching/mobility, postural strengthening. Jessica Valdez, PT State License, [id number] documented in this encounter* Mable Wadsworth, PT - 06/06/2020 1:00 PM EDT [facility] DAILY TREATMENT NOTE Today's Date [...] Notes thoracic pain Vitals 1:00-1:45 Therapeutic Exercise (67119) Intervention Scap retraction, shoulder ext with GTB [...] Parameters anti-rotation press x10 GTB Manual Therapy (54424) Intervention IASTM thoracic spine Parameters 15 mins [...] for work. Mable Wadsworth PT State License, [id number] documented in this encounter* Joy Sol, MANAGER LIBRARY - 06/09/2020 1:00 PM EDT [facility] DAILY TREATMENT NOTE Today's Date [...] Notes thoracic pain Vitals 1:00-1:44 Therapeutic Exercise (41042) Intervention Scap retraction, shoulder ext with GTB [...] Parameters anti-rotation press x10 GTB Manual Therapy (02391) Intervention IASTM thoracic spine Parameters 14 mins [...] strength and symptom relief per patient tolerance. Joy Sol PTA STATE LICENSE, [id number] documented in this encounter* Joy Sol PTA - 06/11/2020 1:00 PM EDT [facility] DAILY TREATMENT NOTE Today's Date 06/11/2020 Patient Name: Rena Langston Date of : [...] Notes thoracic pain Vitals 1:00-1:45 Therapeutic Exercise (70608) Intervention Scap retraction, shoulder ext with BTB [...] resistance band push/pull x 10 Manual Therapy (91163) Intervention IASTM thoracic spine Parameters 10 mins [...] on strength and stability per patient tolerance. Joy Sol PTA STATE LICENSE, [id number] documented in this encounter* Mable Wadsworth, PT - 06/18/2020 1:00 PM EDT [facility] DAILY TREATMENT NOTE Today's Date [...] Notes thoracic pain Vitals 1:00-1:45 Therapeutic Exercise (25125) Intervention Scap retraction, shoulder ext with BTB [...] resistance band push/pull x 10 Manual Therapy (72295) Intervention IASTM thoracic spine Parameters 10 mins [...] Visit: Discharge Mable Wadsworth PT State License, [id number] documented in this encounter* Manuela Balbuena PTA - 06/03/2020 10:45 AM EDT [facility] DAILY TREATMENT NOTE Today's Date [...] Notes thoracic pain Vitals 8:55-9:40 Therapeutic Exercise (19298) Intervention Scap retraction, shoulder ext with GTB [...] Parameters anti-rotation press x10 RTB Manual Therapy (42022) Intervention IASTM thoracic spine Parameters 15 mins [...] on Core/back strengthening, manual techniques and flexibility Manuela Balbuena PTA STATE LICENSE, [id number] documented in this encounter* Marzena Murrell, AuD - 02/14/2020 1:15 PM EDT [facility] [address] [place] [address] Name: Rena Langston : 1990 Date: 02/14/20 History & Purpose of Evaluation: Rena Langston was seen today for audiologic evaluation at the kind request of Dr. Loja. Ms. Langston has a known history of hearing loss and constant high pitched tinnitus. Ms. Langston reports she has worn hearing aids since the age of 12. Her last hearing test was two years ago in [place], [place] (unable to obtain). She currently wears [...] Dr. Loja. 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 Follow-up with managing rescue boat operator for hearing aid concerns. The above was explained to the patient and or their guardian and they expressed understanding. Electronically signed by: Bruno Olsen, CCC-A 02/14/20 12:54 PM documented in this encounter* Melanie Dhillon CNP - 11/13/2020 7:36 AM EST Patient called [facility] with concern for COVID-19 and need for testing. 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 Advance Directives and Living Will Advance Directive Response Recorded Date/ Time Living Will No November 11 11:07pm Power of Nut Grinder No November 11, 2021 11:07pm Advance Directive Response Recorded Date/ Time Living Will No February 13, 2022 9 :24am Power of Nut Grinder No February 13, 2022 9:24am Advance Directive Response Recorded Date/ Time Living Will No February 13, 2022 8 :24am Power of Nut Grinder No February 13, 2022 8:24am Advance Directive Response Recorded Date/ Time Living Will No January 25, 2023 12 :42pm Power of Nut Grinder No January 25, 2023 12:42pm Advance Directive Response Recorded Date/ Time Living Will No January 25, 2023 11 :42am Power of Nut Grinder No January 25, 2023 11:42am Advance Directive Response Recorded Date/ Time Living Will No January 25, 2023 12 :42pm Power of Nut Grinder No January 25, 2023 12:42pm Living Will No October 08 8:38pm Power of Nut Grinder No October 08, 2024 8:38pm Advance Directive Response Recorded Date/ Time Living Will No October 08 8:38pm Do you have a Healthcare Power of Nut Grinder? 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 PT elevated lft's N/V/D Reason for Visit Elevated LFTs Obesity Rosacea Wears hearing aid Chief Complaint 6 M FU RIGHT KNEE Rm 3 xray BRONCHITIS/COVID R KNEE PAIN/RX HERE Reason for Visit Asthma Obesity Right knee pain Wears hearing aid Right knee pain Right patellofemoral syndrome Acute sinusitis Contact with or suspected exposure to other viral communicable disease Chief Complaint 6 M FU RIGHT KNEE Rm 3 xray BRONCHITIS/COVID R KNEE PAIN/RX HERE RIGHT KNEE PAIN IN RIGHT KNEE COVID-19 Reason for Visit Asthma Obesity Right knee pain Wears hearing aid Right knee pain Right patellofemoral syndrome Acute sinusitis Contact with or suspected exposure to other viral communicable disease Chondromalacia, patella Right knee pain Right patellofemoral syndrome Chief Complaint ORTHO AFTERCARE;STIF FNESS R KNEE. RX HERE FOOT PAIN Chief Complaint Admit Date Back pain August 20, 2024 1 0:16am Back pain September 10, 2024 8:15am BACK/NECK PAIN. RX HERE September 25 8:00am Back pain September 26, 2024 8: 20am shoulder injury October 08, 2024 7 :29pm Back pain October 10, 2024 7 :54am BACK PAIN October 30, 2024 8:22am bleeding in early October 8:49am BACK PAIN November 14, 2024 8:24am Amb Documentation November 16, 2024 10:28am NOB LMP November 21, 2024 12:5 2pm TERM. OF PREG F/U PER JV 1WK November 30, 2024 10:35am Reason for Visit Admit Date Segmental and somatic dysfunction of cer vical region August 20, 2024 10:16am Segmental and somatic dysfunction of lum bar region August 20, 2024 10:16am Segmental and somatic dysfunction of pel dodie region August 20, 2024 10:16am Segmental and somatic dysfunction of tho racic region August 20, 2024 10:16am Thoracic neuritis August 20, 2024 1 0:16am Segmental and somatic dysfunction of cer vical region September 10, 2024 8:15am Segmental and somatic dysfunction of lum bar region September 10, 2024 8:15am Segmental and somatic dysfunction of pel dodie region September 10, 2024 8:15am Segmental and somatic dysfunction of tho racic region September 10, 2024 8:15am Segmental and somatic dysfunction of lum bar region September 26, 2024 8:20am Segmental and somatic dysfunction of pel dodie region September 26, 2024 8:20am Segmental and somatic dysfunction of tho racic region September 26, 2024 8:20am Thoracic neuritis September 26, 2024 8: 20am Segmental and somatic dysfunction of lum bar region October 10, 2024 7:54am Segmental and somatic dysfunction of pel dodie region October 10, 2024 7:54am Segmental and somatic dysfunction of tho racic region October 10, 2024 7:54am Back pain October 10, 2024 7 :54am Segmental and somatic dysfunction of cer vical region October 30, 2024 8:22am Segmental and somatic dysfunction of lum bar region October 30, 2024 8:22am Segmental and somatic dysfunction of pel dodie region October 30, 2024 8:22am Segmental and somatic dysfunction of tho racic region October 30, 2024 8:22am November 08, 2024 8:49am Threatened November 08, 2024 8:49am Segmental and somatic dysfunction of cer vical region November 14, 2024 8:24am Segmental and somatic dysfunction of lum bar region November 14, 2024 8:24am Segmental and somatic dysfunction of pel dodie region November 14, 2024 8:24am Segmental and somatic dysfunction of tho racic region November 14, 2024 8:24am Headache, migraine November 21, 2024 12:5 2pm Hearing loss November 21, 2024 12:5 2pm Obesity affecting November 21, 025 12:52pm November 21, 2024 12:5 2pm Rosacea November 21, 2024 12:5 2pm Supervision of high-risk November 21, 2024 12:52pm Threatened November 21, 2024 12:5 2pm Contraceptive management November 30 10:35am Termination of (fetus) November 172024 10:35am Chief Complaint Admit Date shoulder injury October 08, 2024 7 :29pm Back pain October 10, 2024 7 :54am BACK PAIN October 30, 2024 8:22am bleeding in early October 8:49am BACK PAIN November 14, 2024 8:24am Amb Documentation November 16, 2024 10:28am NOB LMP November 21, 2024 12:5 2pm TERM. OF PREG F/U PER JV 1WK November 30, 2024 10:35am Reason for Visit Admit Date Segmental and somatic dysfunction of lum bar region October 10, 2024 7:54am Segmental and somatic dysfunction of pel dodie region October 10, 2024 7:54am Segmental and somatic dysfunction of tho racic region October 10, 2024 7:54am Back pain October 10, 2024 7 :54am Segmental and somatic dysfunction of cer vical region October 30, 2024 8:22am Segmental and somatic dysfunction of lum bar region October 30, 2024 8:22am Segmental and somatic dysfunction of pel dodie region October 30, 2024 8:22am Segmental and somatic dysfunction of tho racic region October 30, 2024 8:22am November 08, 2024 8:49am Threatened November 08, 2024 8:49am Segmental and somatic dysfunction of cer vical region November 14, 2024 8:24am Segmental and somatic dysfunction of lum bar region November 14, 2024 8:24am Segmental and somatic dysfunction of pel dodie region November 14, 2024 8:24am Segmental and somatic dysfunction of tho racic region November 14, 2024 8:24am Headache, migraine November 21, 2024 12:5 2pm Hearing loss November 21, 2024 12:5 2pm Obesity affecting November 21, 025 12:52pm November 21, 2024 12:5 2pm Rosacea November 21, 2024 12:5 2pm Supervision of high-risk November 21, 2024 12:52pm Threatened November 21, 2024 12:5 2pm Contraceptive management November 30 10:35am Termination of (fetus) November 172024 10:35am Chief Complaint Admit Date XRAY May 13, 2025 4: 37pm Additional Source Comments Reason for Visit (unrecogniz ed section and content) Reason Comments 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 Placed on steroid x 4 days, no relief. Two courses of antibiotics. She still has pressure and the sensation of fluid. Pt has hx of ear infections as child. Wears hearing aids, they ear 5 years old. Last hearing test 2 years ago in [facility]. Denies drainage. Reason Comments Physical Therapy Status Reason Specialty Diagnoses / Procedures Referred By Contact Referred To Contact Authorized Rehabilitation Diagnoses Sprain of ligaments of thoracic spine, initial encounter Raoul Cruz PA-C [address] [place] [address] Rehab [facility] [address] [place] [address] Status Reason Specialty Diagnoses / Procedures Referred By Contact Referred To Contact Closed Specialty Services Required/Patient' s Best Interest Audiology Diagnoses Tinnitus of right ear Sensorineural hearing loss (SNHL) of both ears Americo Loja DO [address] [place] [id number] Marzena Murrell AuD Reason Comments Establish Care New patient Reason Comments Rosacea Addendum Note - Americo Loja DO - 02/14/2020 1:21 PM EDT Miscellaneous Notes (unrecog nized section and content) Addended by: AMERICO LOJA on: 02/14/2020 01:21 PM Modules accepted: Orders documented in this encounter INFORMATION SOURCE (unrecogn ized section and content) DATE CREATED AUTHOR 02/16/2021 [facility] DATE CREATED AUTHOR AUTHOR'S ORGANIZ ATION 03/17/2021 [facility] DATE CREATED AUTHOR AUTHOR'S ORGANIZ ATION 05/24/2021 [facility] DATE CREATED AUTHOR AUTHOR'S ORGANIZ ATION 01/21/2022 [facility] DATE CREATED AUTHOR AUTHOR'S ORGANIZ ATION 05/19/2025 [facility] Care Teams (unrecognized sec tion and content) [employer] Operator Relationship Specialty Start Date End Date Wong Lewis MD [address] [address] PCP - [facility] Provider - [facility] 03/18/21 Wong Lewis MD [address] [address] PCP - General Family Medicine 05/01/21 [employer] Operator Relationship Specialty Start Date End Date Wong Lewis MD [address] [address] PCP - General Family Medicine 05/01/21 Team Status: Active Member Role Status Dates Dr. Erica Silva MD Primary Care Provider Active Team Status: Inactive Member Role Status Dates Dr. Erica Silva MD Primary Care Provider, Referri ng Provider Active Dr. Kofi Goff DO Attending Provider Active Team Status: Inactive Member Role Status Dates Dr. Erica Silva MD Primary Care Provider, Attendi ng Provider Active Team Status: Inactive Member Role Status Dates Dr. Erica Silva MD Primary Care Provider, Referri ng Provider Active Raoul Cruz PA, PA Attending Provider Active Team Status: Active Member Role Status Dates Dr. Erica Silva MD Primary Care Provider Active Dr. Kofi Goff DO Attending Provid er, Referring Provider, Other Provider Active Team Status: Inactive Member Role Status Dates Dr. Erica Silva MD Primary Care Provider Active Shmuel LOONEY, PA Attending Provider, Referring Prov ider Active Team Status: Inactive Member Role Status Dates Dr. Erica Silva MD Primary Care Provider Active Dr. Kofi Goff DO Attending Provider, Referring Provider Active Team Status: Inactive Member Role Status Dates Dr. Erica Silva MD Primary Care Provider Active Dr. Yohannes Andrade DPM Attending Provider, Referri ng Provider Active Team Status: Active Member Role Status Dates Heaven Armstrong NP-C Primary Care Provider Active Team Status: Inactive Member Role Status Dates Heaven Armstrong NP-C Primary Care Provider Active Start: August 20, 2024 End: August 20, 2024 Heaven Armstrong NP-C Referring Provider Active St art: August 20, 2024 End: August 20, 2024 Dr. Mala Moncada DC Attending Provider Active S tart: August 20, 2024 End: August 20, 2024 Team Status: Inactive Member Role Status Dates Heaven Armstrong SPECTROGRAPHIC ANALYST-C Primary Care Provider Active Start: September 10, 2024 End: September 10, 2024 Heaven Armstrong NP-C Referring Provider Active St art: September 10, 2024 End: September 10, 2024 Dr. Mala Moncada DC Attending Provider Active S tart: September 10, 2024 End: September 10, 2024 Team Status: Active Member Role Status Dates Dr. Mala Moncada DC Attending Provider Active S tart: September 25, 2024 Dr. Mala Moncada DC Referring Provider Active S tart: September 25, 2024 Heaven Armstrong SPECTROGRAPHIC ANALYST-C Primary Care Provider Active Start: September 25, 2024 Team Status: Inactive Member Role Status Dates Heavenpablo Armstrong , SPECTROGRAPHIC ANALYST-C Primary Care Provider Active Start: September 26, 2024 End: September 26, 2024 Heaven Armstrong , SPECTROGRAPHIC ANALYST-C Referring Provider Active St art: September 26, 2024 End: September 26, 2024 Dr. Mala Moncada DC Attending Provider Active S tart: September 26, 2024 End: September 26, 2024 Team Status: Inactive Member Role Status Dates Heaven Armstrong , SPECTROGRAPHIC ANALYST-C Primary Care Provider Active Start: October 08, 2024 End: October 08, 2024 Dr. Waqas Stone DO Attending Provider Active Start: October 08, 2024 End: October 08, 2024 Dr. Waqas Stone DO Emergency Provider Active Start: October 08, 2024 End: October 08, 2024 Team Status: Inactive Member Role Status Dates Heaven Armstrong , SPECTROGRAPHIC ANALYST-C Primary Care Provider Active Start: October 10, 2024 End: October 10, 2024 Heaven Armstrong , SPECTROGRAPHIC ANALYST-C Referring Provider Active St art: October 10, 2024 End: October 10, 2024 Dr. Maal Moncada DC Attending Provider Active S tart: October 10, 2024 End: October 10, 2024 Team Status: Inactive Member Role Status Dates Heaven Armstrong , SPECTROGRAPHIC ANALYST-C Primary Care Provider Active Start: October 30, 2024 End: October 30, 2024 Heaven Armstrong , SPECTROGRAPHIC ANALYST-C Referring Provider Active St art: October 30, 2024 End: October 30, 2024 Dr. Mala Moncada DC Attending Provider Active S tart: October 30, 2024 End: October 30, 2024 Team Status: Inactive Member Role Status Dates Heaven Armstrong , SPECTROGRAPHIC ANALYST-C Primary Care Provider Active Start: November 08, 2024 End: November 08, 2024 Heaven Armstrong , SPECTROGRAPHIC ANALYST-C Referring Provider Active St art: November 08, 2024 End: November 08, 2024 Dr. Balbina Gonzales MD Attending Provider Active Start: November 08, 2024 End: November 08, 2024 Team Status: Inactive Member Role Status Dates Heaven Armstrong , SPECTROGRAPHIC ANALYST-C Primary Care Provider Active Start: November 08, 2024 End: November 08, 2024 Dr. Balbina Gonzales MD Attending Provider Active Start: November 08, 2024 End: November 08, 2024 Dr. Balbina Gonzales MD Referring Provider Active Start: November 08, 2024 End: November 08, 2024 Team Status: Inactive Member Role Status Dates Heaven Armstrong , SPECTROGRAPHIC ANALYST-C Primary Care Provider Active Start: November 14, 2024 End: November 14, 2024 Heaven Armstrong , SPECTROGRAPHIC ANALYST-C Referring Provider Active St art: November 14, 2024 End: November 14, 2024 Dr. Mala Moncada DC Attending Provider Active S tart: November 14, 2024 End: November 14, 2024 Team Status: Active Member Role Status Dates Heavenpablo Armstrong , SPECTROGRAPHIC ANALYST-C Primary Care Provider Active Start: November 16, 2024 Teresa Dillon RN Attending Provider Active St art: November 16, 2024 Team Status: Inactive Member Role Status Dates Heaven Nathaniel , SPECTROGRAPHIC ANALYST-C Primary Care Provider Active Start: November 21, 2024 End: November 21, 2024 Heaven Armstrong , SPECTROGRAPHIC ANALYST-C Referring Provider Active St art: November 21, 2024 End: November 21, 2024 Dr. Marzena Casas DO Attending Provider Activ e Start: November 21, 2024 End: November 21, 2024 Team Status: Inactive Member Role Status Dates Heaven Armstrong , SPECTROGRAPHIC ANALYST-C Primary Care Provider Active Start: November 21, 2024 End: November 21, 2024 Dr. Marzena Casas DO Attending Provider Activ e Start: November 21, 2024 End: November 21, 2024 Dr. Marzena Casas DO Referring Provider Activ e Start: November 21, 2024 End: November 21, 2024 Team Status: Inactive Member Role Status Dates Heavenpablo Armstrong , SPECTROGRAPHIC ANALYST-C Primary Care Provider Active Start: November 30, 2024 End: November 30, 2024 Heaven Armstrong , SPECTROGRAPHIC ANALYST-C Referring Provider Active St art: November 30, 2024 End: November 30, 2024 Dr. Marzena Casas DO Attending Provider Activ e Start: November 30, 2024 End: November 30, 2024 Team Status: Active Member Role/Relationship Status Dates Heavenpablo Armstrong , SPECTROGRAPHIC ANALYST-C Primary Care Provider Active Team Status: Inactive Member Role/Relationship Status Dates Heavenpablo Armstrong , SPECTROGRAPHIC ANALYST-C Primary Care Provider Active Start: May 13, 2025 End: May 13, 2025 Dr. Yohannes Andrade DPM Attending Provider Active Start: May 13, 2025 End: May 13, 2025 Dr. Yohannes Andrade DPM Referring Provider Active Start: May 13, 2025 End: May 13, 2025 Goals (unrecognized section and content) Goals may be documented in a n alternate sectionGoals may be documented in an alternate sectionGoals may be documented in an alternate sectionGoals may be documented in an alternate sectionGoals may be documented in an alternate sectionGoals may be documented in an alternate section FOR RECORDS PERTAINING TO PATIENTS WHO ARE [...] BE BASED ON THE PRIMARY CLINICAL RECORDS. [employer] provides no warranty or guarantee of the accuracy or completeness of information in this document.
--- NOTE | 2025-05-28 12:30 | RAD_ITS ---
PROCEDURE: FOOT MIN 3 VIEWS 05/28/2025 REASON FOR EXAM: PAIN IN LEFT FOOT TECHNIQUE: Procedure Code: RADFO Modality: DX Procedure: FOOT MIN 3 VIEWS Laterality: Left COMPARISON: Left foot study 05/13/2025. RAD/Foot min 3 Views IMPRESSION: On lateral imaging, the Achilles tendon shows a normal contour. Stable mild posterior calcaneal enthesophyte. No ankle joint effusion is seen. Minimal degenerative changes of the toes appear stable. No fracture or dislocation is seen. If clinical concern persists, repeat imaging or three-phase bone scan may be co nsidered. Reading Location: [place] [address]
== END | disposition home or self-care (01) ==
LOC: RAD 12:22
PROVIDERS: PCP Nurse Practitioner Family; Referring Provider Student in an Organized Health Care Education/Training Program; Visit Provider Student in an Organized Health Care Education/Training Program
DX: M79.672 Pain in left foot (principal)
CPT/HCPCS: 73630

== ENCOUNTER → 2025-06-12 | Outpatient (CLI) | payer OTHER, SELFPAY ==
--- NOTE | 2025-06-12 17:24 | MRI_ITS ---
PROCEDURE: LOWER EXT/NO JT/W/O 06/12/2025 REASON FOR EXAM: LEFT FOOT STRESS FX Midfoot pain. TECHNIQUE: Procedure Code: MRILENJ Modality: MR Procedure: MRI of the left midfoot, to include the metatarsal bones, without contrast. Multiplanar and multisequence images were obtained without IV contrast administration. COMPARISON: COMPARISON : Left foot series of 05/28/2025. FINDINGS: A skin marker is seen dorsal to the proximal 1st and 2nd metatarsal bones. Bone and bone Marrow: No abnormal osseous signal is seen. Mild degenerative changes are seen of the 2nd tarsal-metatarsal joint, minimal of the 1st tarsal-metatarsal joint. Minimal degenerative changes are seen elsewhere in the midfoot. Effusion: No significant joint effusion is noted. Soft Tissues: No soft tissue mass is seen. No free or loculated fluid collection is noted. Ligaments and Tendons: Satisfactory alignment is noted. The visualized portion of the proximal plantar fissure shows significant thickening and inhomogeneous signal, consistent with chronic plantar fasciitis. Tendon or ligament tear is seen in visualized areas. MRI/Lower Ext/No Jt/w/o IMPRESSION: 1. Mild degenerative changes of the 2nd tarsal-metatarsal joint, minimal at the 1st tarsal-metatarsal joint. 2. Minimal degenerative changes elsewhere midfoot. 3. Limited visualization of the plantar fascia demonstrates changes of chronic plantar fasciitis. Reading Location: [address]
--- NOTE | 2025-06-12 17:24 | MRI_ITS ---
PROCEDURE: LOWER EXT/NO JT/W/O 06/12/2025 REASON FOR EXAM: LEFT FOOT STRESS FX Midfoot pain. TECHNIQUE: Procedure Code: MRILENJ Modality: MR Procedure: MRI of the left midfoot, to include the metatarsal bones, without contrast. Multiplanar and multisequence images were obtained without IV contrast administration. COMPARISON: COMPARISON : Left foot series of 05/28/2025. FINDINGS: A skin marker is seen dorsal to the proximal 1st and 2nd metatarsal bones. Bone and bone Marrow: No abnormal osseous signal is seen. Mild degenerative changes are seen of the 2nd tarsal-metatarsal joint, minimal of the 1st tarsal-metatarsal joint. Minimal degenerative changes are seen elsewhere in the midfoot. Effusion: No significant joint effusion is noted. Soft Tissues: No soft tissue mass is seen. No free or loculated fluid collection is noted. Ligaments and Tendons: Satisfactory alignment is noted. The visualized portion of the proximal plantar fissure shows significant thickening and inhomogeneous signal, consistent with chronic plantar fasciitis. Tendon or ligament tear is seen in visualized areas. MRI/Lower Ext/No Jt/w/o IMPRESSION: 1. Mild degenerative changes of the 2nd tarsal-metatarsal joint, minimal at the 1st tarsal-metatarsal joint. 2. Minimal degenerative changes elsewhere midfoot. 3. Limited visualization of the plantar fascia demonstrates changes of chronic plantar fasciitis. Reading Location: [address]
--- OUTSIDE RECORDS SUMMARY | 2025-06-12 19:11 | XMS RPT_ITS | CCD ---
Author Organization [facility] Care Team Providers Care Clutch Mechanic Name Role Phone Sorin Izaguirre Primary Care Provider WONG LEWIS Admitting Unavail able SUR, KESHAWN Primary Care Unavailable RAOUL CRUZ Admitting Unavailabl FELIPE Edward Attending Unavailable RAOUL CRUZ Referring Unavailabl e SURSO, [facility] Primary Care Unavailable RAOUL CRUZ Admitting Unavailabl FELIPE Edward Attending Unavailable RAOUL CRUZ Referring Unavailabl e SURSO, [facility] Primary Care Unavailable RAOUL CRUZ Admitting Unavailabl e JOY SOL Attending Unavailable RAOUL CRUZ Referring Unavailabl e SURSO, [facility] Primary Care Unavailable RAOUL CRUZ Admitting Unavailabl e JESSICA VALDEZ Attending Unavailable RAOUL CRUZ Referring Unavailabl e SURSO, [facility] Primary Care Unavailable [facility], [facility] Primary Care Unavailable RAOUL CRUZ Admitting Unavailabl e MANUELA BALBUENA Attending Unavailable RAOUL CRUZ Referring Unavailabl e SURSO, [facility] Primary Care Unavailable RAOUL CRUZ Admitting Unavailabl e FELIPE WADSWORTH Attending Unavailable RAOUL CRUZ Referring Unavailabl e SURSO, [facility] Primary Care Unavailable RAOUL CRUZ Admitting Unavailabl e JOY SOL Attending Unavailable RAOUL CRUZ Referring Unavailabl e SURSO, [facility] Primary Care Unavailable RAOUL CRUZ Admitting Unavailabl e JOY SOL Attending Unavailable RAOUL CRUZ Referring Unavailabl e SURSO, [facility] Primary Care Unavailable RAOUL CRUZ Admitting Unavailabl e FELIPE WADSWORTH Attending Unavailable RAOUL CRUZ Referring Unavailabl e SURSO, [facility] Primary Care Unavailable SURSORIN GLOVER Primary Care Unavailable KARY CAIN Attending Unavailabl e SORIN IZAGUIRRE Primary Care Unavailable MELANIE DHILLON Referring Unavailable MELANIE DHILLON Admitting Unavailable Sorin Izaguirre MD Primary Care Provider Wong Lewis MD Unavailable [phone] Dain SALGADO, Wong Hayes Primary Care Provide r ANDREA MCKEON Attending Unavailable ZINA KESHAWN Primary Care Unavailable ANDREA MCKEON Attending Unavailable WONG LEWIS Primary Care Unavail able Care Physician, No Primary Primary Care Provider Unavailable Care Physician, No Primary Referring Provider Un available Dr. Erica Silva Attending Provider WONG LEWIS Attending Unavail able MKADALBERTO SORIN Alejo Primary Care Unavailable VALENTINA SUMMERS Attending Unavailable ZINA KESHAWN Primary Care Unavailable NELSY RICHARD Attending Unavailable WONG LEWIS Primary Care Unavail able MOO COHEN Attending Unavailable WONG LEWIS Primary Care Unavail able Dr. Erica Silva Primary Care Provider Dr. Erica Silva Attending Provider [phone] Dr. Erica Silva Referring Provider [phone] AAYUSH Henriquez Attending Provider Dr. Tab Dior Attending Provider Kyle LOONEY PA Jefry Attending Provider Dr. Erica Silva Primary Care Provider Dr. Erica Silva Referring Provider [phone] Dr. Kofi Goff Attending Provider [phone] Nancy LOONEY, PA Raoul Alejo Attending Provider Dr. Erica Silva Attending Provider [phone] Dr. Kofi Goff Referring Provider Dr. Kofi Goff Other Provider Nathaniel LUMBER STICKER-C, Heaven Primary Care Provider [phone] Nathaniel LUMBER STICKER-C, Heaven Referring Provider [phone] Dosrachel EDWARDS, Dr. Medeiros Attending Provider [phone] Dosrachel DC, Dr. Medeiros Referring Provider [phone] Bertha JEWELL, Dr. Alan Attending Provider Bertha JEWELL, Dr. Alan Emergency Provider Janet SALGADO, Dr. Mortensen Attending Provider Janet SALGADO, Dr. Mortensen Referring Provider [phone] Santana THOMPSON, Teresa Attending [facility] Matilde Munoz DO, Dr. Ivan Attending Provider Matilde Munoz DO, Dr. Ivan Referring Provider Nathaniel LUMBER STICKER-C, [place] Primary Care Provider [phone] Nathaniel LUMBER STICKER-C, [place] Referring Provider [phone] Dosrachel DC, Dr. Medeiros Attending Provider [phone] Nathaniel LUMBER STICKER-C, [place] Primary Care Provider [phone] Raymond MORGAN, Dr. Sheffield Attending Provider Raymond RAZOM, Dr. Sheffield Referring Provider Nathaniel, Heaven Primary Care Unavailable Yohannes Andrade Referring Unavailable Yohannes Andrade Attending Unavailable Balbina Gonzales Referring Unavailable Balbina Gonzales Attending Unavailable Nathaniel, Heaven Primary Care Unavailable Nathaniel, Heaven Primary Care Unavailable Yohannes Andrade Referring Unavailable Yohannes Andrade Attending Unavailable Nathaniel, Heaven Primary Care Unavailable Yohannes Andrade Referring Unavailable Yohannes Andrade Attending Unavailable Waqas Stone Attending Unavailable Nathaniel, Heaven Primary Care Unavailable Nathaniel, Heaven Primary Care Unavailable Nathaniel, Heaven Referring Unavailable Nathaniel, Heaven Attending Unavailable Shira, Erica Referring Unavailable Shira, Erica Primary Care Unavailable Mala Moncada Attending Unavailable Shira, Erica Referring Unavailable Shira, Erica Primary Care Unavailable Mala Moncada Attending Unavailable Nathaniel, Heaven Primary Care Unavailable Nathaniel, Heaven Referring Unavailable Balbina Gonzales Attending Unavailable Nathaniel, Heaven Primary Care Unavailable Nathaniel, Heaven Referring Unavailable Marzena Casas Attending Unavailabl e Nathaniel, Heaven Referring Unavailable Dossi, Mala Attending Unavailable Nathaniel, Heaven Primary Care Unavailable Nathaniel, Heaven Referring Unavailable Nathaniel, Heaven Primary Care Unavailable Dossi, Mala Attending Unavailable Nathaniel, Heaven Primary Care Unavailable Teresa Dillon Attending Unavailable Shira, Erica Primary Care Unavailable Dossi, Mala Attending Unavailable Nathaniel, Heaven Primary Care Unavailable Nathaniel, Heaven Referring Unavailable Dossi, Mala Attending Unavailable Nathaniel, Heaven Primary Care Unavailable Nathaniel, Heaven Referring Unavailable Dossi, Mala Attending Unavailable Shira, Erica Primary Care Unavailable Shira, Erica Referring Unavailable Dossi, Mala Attending Unavailable Nathaniel, Heaven Primary Care Unavailable Dossi, Mala Referring Unavailable Dossi, Mala Attending Unavailable Shira, Erica Primary Care Unavailable Shira, Erica Referring Unavailable Dossi, Mala Attending Unavailable Nathaniel, Heaven Primary Care Unavailable Nathaniel, Heaven Referring Unavailable Dossi, Mala Attending Unavailable Nathaniel, Heaven Referring Unavailable Nathaniel, Heaven Primary Care Unavailable Dossi, Mala Attending Unavailable Nathaniel, Heaven Primary Care Unavailable Nathaniel, Heaven Referring Unavailable Marzena Casas Attending Unavailabl e Shira, Erica Primary Care Unavailable Shira, Erica Referring Unavailable Dossi, Mala Attending Unavailable Nathaniel, Heaven Primary Care Unavailable Vande Tammy, Marzena Attending Unavailabl e Vande Velde, Marzena Referring Unavailabl e Allergies Allergy Classification Reported Allergen(s) Allergy Type Date of Onset Reaction(s) Facility Contrast Media (4 sources) Contrast media; Translations: [RED DYE] Substance Allergy 6 [facility] Work Phone: Sulfonamides (antibiotic) (5 sources) Sulfonamides (Antibiotic); Translations: [SULFA (SULFONAMIDE ANTIBIOTICS)] Drug Allergy 6 [facility] (20 sources) Sulfonamides (Antibiotic); Translations: [SULFA (SULFONAMIDE ANTIBIOTICS)] Propensity to adverse reactions to drug 6 [facility] (4 sources) Contrast media; Translations: [RED DYE] Propensity to adverse reactions to drug 6 [facility] Work Phone: (11 sources) red (food color); Translations: [red (food color)] Allergy to substance 2 [facility] (8 sources) Seasonal Allergies: Uncoded; Translations: [Seasonal Allergies: Uncoded] Allergy to substance 2 Other [facility] Medications Current Medications Medication Drug Class(es) Dates [...] 16, 2024 11:29am On Hold: needs to slat pickler Start: 11-09-2021 Drospirenone-E thinyl Estradiol (Louisa (28)) [...] Discontinued (Therapy completed) Start: 12-06-2012 desog-e.estrad ioL/e.estradioL (Mauricio, ,) 0.15-0.02 mgx21 /0.01 mg x [...] mg PO THREE TIMES A DAY 21 March 11, 2023 12:00am June 12, 2024 [...] (8 sources) Dehydration; Translations: [Dehydration] 02-21-2022 Episodic Fracture of lower limb (1 source) Stress fracture, left foot, initial encounter for fracture; Translations: [Stress fracture, left foot, initial encounter for fracture] Onset: 06-12-2025 Episodic Headache; including migraine (12 sources) Migraine; [...] B not involved Other connective tissue disease (2 sources) Pain in left foot; Translations: [Pain in left foot] Onset: 06-11-2025 Episodic Other ear and sense organ disorders [...] of thoracic region] Onset: 01-30-2025 Episodic Other bone disease and musculoskeletal deformities (1 source) Segmental and somatic dysfunction of pelvic region; Translations: [Segmental and somatic dysfunction of pelvic region] Onset: 01-30-2025 Episodic Other bone disease and musculoskeletal deformities (1 source) Segmental and somatic dysfunction of lumbar region; Translations: [Segmental and somatic dysfunction of lumbar region] Onset: 01-30-2025 Episodic Other complications of [...] Reference Range Facility Foot min 3 Viewson 5 Foot min 3 Views [facility] Imaging Services [address] [place] [address] Foot min 3 Views MR#: [id number] Acct: [id number] Name: RENA LANGSTON Rep #: [id number] : 1990 F 35 From: Devendra Sy PCP: VICKI Rebolledo Status: REG CLI Study: Foot min 3 Views Date of Exam: 05/28/25 Exam# [id number] Ordering Dr: Yohannes Andrade DPM PROCEDURE: FOOT MIN 3 VIEWS 05/28/2025 REASON FOR EXAM: PAIN IN LEFT FOOT TECHNIQUE: Procedure Code: RADFO Modality: DX Procedure: FOOT MIN 3 VIEWS Laterality: Left COMPARISON: Left foot study 05/13/2025. RAD/Foot min 3 Views IMPRESSION: On lateral imaging, the Achilles tendon shows a normal contour. Stable mild posterior calcaneal enthesophyte. No ankle joint effusion is seen. Minimal degenerative changes of the toes appear stable. No fracture or dislocation is seen. If clinical concern persists, repeat imaging or three-phase bone scan may be considered. Reading Location: [place] [address] CC: CATHY Andrade; LUMBER STICKER-C Heaven [employer] Mechanic: Signed Normal [facility] Foot min 3 Viewson 5 Foot min 3 Views [facility] [address] [place] [address] Foot min 3 Views MR#: [id number] Acct: [id number] Name: RENA LANGSTON Rep #: [id number] : 1990 F 35 From: Idania Rivas MD PCP: VICKI Rebolledo Status: REG CLI Study: Foot min 3 Views Date of Exam: 05/13/25 Exam# [id number] Ordering Dr: Yohannes Andrade DPM PROCEDURE: FOOT [...] IMPRESSION: No acute osseous abnormality. Reading Location: [id number] CC: CATHY Andrade; RYAN-Jess [employer] Mechanic: Signed Normal [facility] Animal Trainer Supervisor Office Visit Reporton 11-30-2024 Animal Trainer Supervisor Office Visit Report [facility] [address], [address] [place] [address] OFFICE VISIT Date of Service: 11/30/24 MR#: [id number] Acct: [id number] Name: RENA LANGSTON Rep #: [id number] : 1990 Provider: Dr. Marzena Wynn DO Age/Sex: 34/F Location: [facility] Status: Signed Intake Vital Signs 11/21/24 13:10 11/29/24 08:41 11/30/24 10:53 11/30/24 10:53 Height 5 ft 5 in 5 ft 5 in 5 ft 5 in 5 ft 5 in Weight: 241 lb BMI 40.1 BP 146/100 H Intake Visit Reasons: TERM. 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 Normal [facility] PAP IG HPV APTIMA 16/18,45on 11-26-2024 ADEQ Comment Normal . [facility] Comment on above: Order Comment: Speci men Comment: [id number] Comment: Source.............CervixSpecimen Comment: Other..............Specimen Comment: No. of containers..01 ThinPrep Vial Result Comment: Sati sfactory for evaluation. No endocervical component is identified. Performed By: #### L 7000.1800, L7400.0280 ####[facility] [address] [place], [address] COMM . Normal . [facility] Comment on above: Order Comment: Speci men Comment: [id number] Comment: Source.............CervixSpecimen Comment: Other..............Specimen Comment: No. of containers..01 ThinPrep Vial Performed By: #### L 7000.1800, L7400.0280 ####[facility] [address] [place], [address] COMMENT Comment Normal . [facility] Comment on above: Order Comment: Speci men Comment: [id number] Comment: Source.............CervixSpecimen Comment: Other..............Specimen Comment: No. of containers..01 ThinPrep Vial Result Comment: This liquid based ThinPrep(R) pap test was screened with the use of an image guided system. Performed By: #### L 7000.1800, L7400.0280 ####[facility] [address] [place], [address] DIAG Comment Normal . [facility] Comment on above: Order Comment: Speci men Comment: [id number] Comment: Source.............CervixSpecimen Comment: Other..............Specimen Comment: No. of containers..01 ThinPrep Vial Result Comment: NEGA TIVE FOR INTRAEPITHELIAL LESION OR MALIGNANCY. Performed By: #### L 7000.1800, L7400.0280 ####[facility] [address] [place], [place], [id number] HPV APTIMA, HR Negative Normal Negative [facility] Comment on above: Order Comment: Speci men Comment: [id number] Comment: Source.............CervixSpecimen Comment: Other..............Specimen Comment: No. of containers..01 ThinPrep Vial Result Comment: This nucleic acid amplification test detects fourteen high- risk HPV types (16,18,31,33,35,39,45,51,52,56,58,59,66,68) without differentiation. Performed By: #### L 7000.1800, L7400.0280 ####[facility] [address] [place], [address] HPV Alyssa Rfx Comment Normal . [facility] Comment on above: Order Comment: Speci men Comment: [id number] Comment: Source.............CervixSpecimen Comment: Other..............Specimen Comment: No. of containers..01 ThinPrep Vial Result Comment: Crit erraghu not met, HPV Genotype not performed. Performed at: - [facility] [id number] Vocational Placement Specialist: Michelle Wilson MD, Phone: [phone] Performed at: = - [facility] [id number] Vocational Placement Specialist: Michelle Wilson MD, Phone: [phone] Performed By: #### L 7000.1800, L7400.0280 ####[facility] [address] [facility]. [place], [place], [id number] PAPSMR Comment Normal . [facility] Comment on above: Order Comment: Speci men Comment: [id number] Comment: Source.............CervixSpecimen Comment: Other..............Specimen Comment: No. of [...] occur. Performed By: #### L 7000.1800, L7400.0280 ####[facility] [address] [place], [address] PERFORM Comment Normal . [facility] Comment on above: Order Comment: Speci men Comment: [id number] Comment: Source.............CervixSpecimen Comment: Other..............Specimen Comment: No. of containers..01 ThinPrep Vial Result Comment: Audra Veras, Software Development Advisor Performed By: #### L 7000.1800, L7400.0280 ####[facility] [address] [place], [address] Chlamydia/GC ANA aptimaon CHLAMY,NUC ACID Negative Normal Negative [facility] Comment on above: Performed By: #### L 7000.1800, L7400.0280 ####[facility] [address] [place], [address] GC BY NUC ACID Negative Normal Negative [facility] Comment on above: Result Comment: Perf ormed at: =G - [facility] [address] [id number] Vocational Placement Specialist: Michelle Wilson MD, Phone: [phone] Performed By: #### L 7000.1800, L7400.0280 ####[facility] [address] [place], [address] C. trachomatis rRNA ANA+prob e Ql (Unsp spec)Ordered By: Marzena Munoz on 11-21-2024 Chlamydia DNA (ANA) Negative Negative [facility] Cervical or vaginal specimen microscopic examination by liquid based cytology (reportOrdered By: Marzena Munoz on 11-21-2024 Cytology report Cyto stain.thin prep Doc (Cvx/Vag) Comment . [facility] Comment on above: Criteria not met, HP V Genotype not performed.Performed at: - [facility] [id number] Director: Michelle Wilson MD, Phone: [phone] at: =[facility] [address] [id number] Director: Michelle Wilson MD, Phone: [phone] Cervical or vagninal specime n microscopic examination by cytology stain (reported asOrdered By: Marzena Munoz on 11-21-2024 Cytology report Cyto stain Doc (Cvx/Vag) Comment . [facility] Comment on above: The Pap smear [...] rRNA ANA+probe Ql (Unsp spec) Negative Negative [facility] Central Lab Technician Cyto stain Nom (C vx/Vag) [ID]Ordered By: Marzena Munoz on 11-21-2024 Pap Smear Performed By Comment . [facility] Comment on above: Jagdeep Whittaker totechnologist Cytology report Cyto stain D oc (Cvx/Vag)Ordered By: Marzena Munoz on 11-21-2024 Thin Prep Pap Smear Comment . [facility] Comment on above: The Pap smear [...] 11-21-2024 HPV Genotype Special Info Comment . [facility] Comment on above: Criteria not met, HP V Genotype not performed.Performed at: WB - [facility] [id number] Director: Michelle Wilson MD, Phone: [phone] at: =G - [facility] [id number] Director: Michelle Wilson MD, Phone: [phone] Detection in cervical specim en of any of human papilloma virus (HPV) 16, 18, 31, 33,Ordered By: Marzena Munoz on 11-21-2024 HPV 16+18+31+33+35+39+45+51 +52+56+58+59+66+68 DNA Probe+sig amp Ql (Cvx) Negative Negative [facility] Comment on above: This nucleic acid am plification test detects fourteen high-risk HPV types (16,18,31,33,35,39,45,51,52,56,58,59,66,68)without differentiation. HPV 16+18+31+33+35+39+45+51+ 52+56+58+59+66+68 DNA Probe+sig amp Ql (Cvx)Ordered By: Marzena Munoz on 11-21-2024 Human Papillomavirus High Risk Negative Negative [facility] Comment on above: This nucleic acid am plification test detects fourteen high-risk HPV types (16,18,31,33,35,39,45,51,52,56,58,59,66,68)without differentiation. Image-guided ThinPrep PapOrd ered By: Marzena Munoz on 11-21-2024 Pap Smear Note Comment . [facility] Comment on above: This liquid based Th inPrep(R) pap test was screened withthe use of an image guided system. Image-guided liquid-based Pa pOrdered By: Marzena Munoz on 11-21-2024 Pap Smear Diagnosis Comment . [facility] Comment on above: NEGATIVE FOR INTRAEP ITHELIAL LESION OR MALIGNANCY. Laboratory - CytologyOrdered By: Marzena Munoz on 11-21-2024 Central Lab Technician Cyto stain Nom (Cvx/Vag) [ID] Comment . [facility] Comment on above: Jagdeep Whittaker totechnologist Laboratory - Miscellaneous t estsOrdered By: Marzena Munoz on 11-21-2024 Service comment (Unsp spec) [Interp] . . [facility] Neisseria gonorrhoeae nuclei c acid detection by amplified probe techniqueOrdered By: Marzena Munoz on 11-21-2024 N. gonorrhoeae DNA ANA+probe Ql (Unsp spec) Negative Negative [facility] Comment on above: Performed at: =[address] [id number] Director: Michelle Wilson MD, Phone: [phone] No Panel InformationOrdered By: Marzena Munoz on 11-21-2024 Pap Smear Specimen Adequacy Comment . [facility] Comment on above: Satisfactory for anna luation. No endocervical component is identified. Animal Trainer Supervisor Office Visit Reporton 11-21-2024 Animal Trainer Supervisor Office Visit Report [facility] [address], [address] [place] [address] OFFICE VISIT Date of Service: 11/21/24 MR#: [id number] Acct: [id number] Name: RENA LANGSTON Rep #: [id number] : 1990 Provider: Dr. 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 Normal [facility] Service comment (Unsp spec) [Interp]Ordered By: Marzena Munoz on 11-21-2024 Pap Smear Comment (3) . . [facility] Chiropractic Reporton 2024 Chiropractic Report [facility] [place] [address] OFFICE VISIT Date of Service: 11/14/24 MR#: [id number] Acct: [id number] Name: RENA LANGSTON Rep #: [id number] : 1990 Provider: JERRY Yanez Age/Sex: 34/F Location: [facility] Status: Signed Intake Vital Signs 10/08/24 19:30 [...] (28)) Held on 10/08/24. 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 Normal [facility] Animal Trainer Supervisor Office Visit Reporton 11-08-2024 Animal Trainer Supervisor Office Visit Report [facility] [address], [address] [place] [address] OFFICE VISIT Date of Service: 11/08/24 MR#: [id number] Acct: [id number] Name: RENA LANGSTON Rep #: [id number] : 1990 Provider: Dr. Balbina persaud MD Age/Sex: 34/F Location: [facility] Status: Signed Intake Vital Signs 10/08/24 19:30 11/08/24 08:52 11/08/24 08:58 Height 5 ft 5 in 5 ft 5 in 5 ft 5 in Weight: 243 lb 6.4 oz 243 lb 2 oz BMI 40.5 40.4 BP 159/107 H 148/89 H Respiration 18 Pulse 93 Temp 96.5 F L Pulse Oximetry (%) 100 Intake Visit Reasons: bleeding in early Utility Service Worker Required: No Is patient in pain?: Yes [...] (28)) Held on 10/08/24. 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 Normal [facility] Type AND Screenon 11-08-2024 Ab SCREEN GEL Negative Normal [facility] Comment on above: Order Comment: PN Performed By: #### B TS ####[facility] [address] [place], [address] Chiropractic Reporton 2024 Chiropractic Report [facility] [place] [address] OFFICE VISIT Date of Service: 10/30/24 MR#: [id number] Acct: [id number] Name: RENA LANGSTON Rep #: [id number] : 1990 Provider: JERRY Yanez Age/Sex: 34/F Location: [facility] Status: Signed Intake Vital Signs 10/08/24 19:30 [...] (28)) Held on 10/08/24. Instructions: needs to slat pickler fexofenadine-pseudoe phedrine ER 1 tab PO QAM 06/24/22 10/30/24 His tory 180 mg-240 mg tablet,ext.release 24 hr (Griselda-D 24 Hour) [facility] Medical History Shingles History of steroid therapy [...] Orders Chi (more content not included)... Normal [facility] Chiropractic Reporton 2024 Chiropractic Report [facility] [address] [place] [address] OFFICE VISIT Date of Service: 10/10/24 MR#: [id number] Acct: [id number] Name: RENA LANGSTON Rep #: [id number] : 1990 Provider: JERRY Yanez Age/Sex: 34/F Location: [facility] Status: Signed Intake Vital Signs 03/11/23 11:28 [...] Performed by:: Christine Erickson Traction, Mechanical: Yes Hot and/or cold packs: Yes [...] was t (more content not included)... Normal [facility] Emergency Department Summary on 10-08-2024 Emergency Department Summary [facility] Medical Records Department [address] [place] [address] Emergency Department Summary 10/08/24 MR#: [id number] Acct: [id number] Name: RENA LANGSTON Rep #: [id number] : 1990 34 From: Waqas Stone DO PCP: VICKI Rebolledo Status:DEP ER Location: ED HPI History of Present Illness Chief Complaint: Upper Extremity Injury [facility] Medical History Shingles History of steroid therapy [...] Pressure Mean 124 Pulse Ox 100 MDM MDM MDM Narrative Medical decision making narrative: HISTORY [...] History obtained from others: none Consults: none MDM Narrative: Patient was initially hemodynamically stable, afebrile [...] The pat (more content not included)... Normal [facility] Chiropractic Reporton 2024 Chiropractic Report [facility]ic [address] [place] [address] OFFICE VISIT Date of Service: 09/26/24 MR#: [id number] Acct: [id number] Name: RENA LANGSTON Rep #: [id number] : 1990 Provider: JERRY Yanez Age/Sex: 34/F Location: [facility] Status: Signed Intake Vital Signs 03/11/23 [...] mg tablet,ext.release 24 hr (Griselda-D 24 Hour) [facility] Medical History Shingles History of steroid therapy [...] Tuesday. She states she was putting a Faye tote away and had a sharp spasm [...] Care Code (more content not included)... Normal [facility] Chiropractic Reporton 2023 Chiropractic Report [facility] [address] [place] [address] OFFICE VISIT Date of Service: 09/10/24 MR#: [id number] Acct: [id number] Name: RENA LANGSTON Rep #: [id number] : 1990 Provider: JERRY Yanez Age/Sex: 34/F Location: [facility] Status: Signed Intake Vital Signs 03/11/23 11:28 Height 5 ft 6 in Intake Visit Reasons: Back pain Chief Complaint: upper/mid back pain Allergies Sulfa (Sulfonamide Antibiotics) Allergy (Mild, Verified 08/20/24 10:38) Rash red (food color) Allergy (Verified 08/20/24 10:38) Hives Seasonal Allergies: Uncoded Allergy (Verified 08/20/24 10:38) Other [facility] Medical History Shingles History of steroid therapy [...] M99.02 Segment (more content not included)... Normal [facility] Re-Evaluation - PT (1)on Re-Evaluation - PT (1) [facility] Physical Therapy [facility] [address] [place] [address]. [address] [place] [address] / REEVALUATION / MEDICARE RECERTIFICATION PHYSICAL THERAPY MR#: [id number] Acct: [id number] Name: RENA LANGSTON Rep #: [id number] : 1990 34 From: Dominguez Mcnamara DPT Referring Dr.: JERRY Moncada Status:REG RCR Insurance: [employer]/[facility] SELF PAY INSURANCE Re-Evaluation Intro: [...] do not hesitate to contact me at [phone] by phone or if you have questions or concerns regarding this new plan of care! Sincerely, Dominguez Mcnamara DPT 09/04/24 0937 CC: JERRY Moncada; LUMBER STICKER-C Heaven Armstrong CLS Signed For Medicare only, by signing this I certify the plan of care. Physicians Signature Date Normal [facility] Chiropractic Reporton 2023 Chiropractic Report [facility] [address] [place] [address] [id number] OFFICE VISIT Date of Service: 08/20/24 MR#: [id number] Acct: [id number] Name: RENA LANGSTON Rep #: [id number] : 1990 Provider: JERRY Yanez Age/Sex: 34/F Location: [facility] [facility] Status: Signed Intake Vital Signs 03/11/23 11:28 [...] time. She rates her low back pain 6/10 and describes it as 'pinchy' at [...] dysfunction of (more content not included)... Normal [facility] Inital Evaluation (1) - PTon 07-30-2024 Inital Evaluation (1) - PT [facility] Physical Therapy [facility] [address] [facility] [place] [address] / REHABILITATION SERVICES INITIAL EVALUATION MR#: [id number] Acct: [id number] Name: RENA LANGSTON Rep #: [id number] : 1990 34 From: Dominguez RAZOT Referring Dr.: Dr. Mala Moncada DC Status: REG RCR Insurance: [employer]/[facility] SELF PAY INSURANCE Patient's Visit [...] Response: No effect Lumbar Standing: Right Side Margaret - Symptoms During Testing: No effect Lumbar Standing: Right Side Margaret - Symptoms After Testing: No effect Lumbar Standing: Left Side Margaret - Mechanical Response: No effect Lumbar Standing: Left Side Margaret - Symptoms During Testing: Produces Lumbar Standing: Left Side Margaret - Symptoms After Testing: No effect Balance/Special [...] Condition, Brayden (more content not included)... Normal [facility] CBC W/Diff, Automatedon 11-0 Absolute Lymph 2.35 X10 3/uL Normal 0.83-4.51 [facility] Comment on above: Performed By: #### L 506.1000, L500.4050, L503.0105, L501.9520, L506.0400, L100.0100, L500.4100 #### [facility] Laboratory [address] [place], [place], [id number] Absolute Neut 5.8 X10 3/uL Normal 2.0-7.7 [facility] Comment on above: Performed By: #### L 506.1000, L500.4050, L503.0105, L501.9520, L506.0400, L100.0100, L500.4100 #### [facility] [address] [place], [place], [id number] (853) Basophils/100 WBC (Bld) 0.3 % Normal 0-1 [facility] Comment on above: Performed By: #### L 506.1000, L500.4050, L503.0105, L501.9520, L506.0400, L100.0100, L500.4100 #### [facility] [address] [place], [address] Eosinophils/100 WBC (Bld) 0.7 % Normal 0-5 [facility] Comment on above: Performed By: #### L 506.1000, L500.4050, L503.0105, L501.9520, L506.0400, L100.0100, L500.4100 #### [facility] [address] [place], [address] Erythrocyte distribution width (RBC) [Ratio] 12.5 % Normal 11.6-14.6 [facility] Comment on above: Performed By: #### L 506.1000, L500.4050, L503.0105, L501.9520, L506.0400, L100.0100, L500.4100 #### [facility] [address] [place], [address] Hematocrit (Bld) [Volume fraction] 40.2 % Normal 37-47 [facility] Comment on above: Performed By: #### L 506.1000, L500.4050, L503.0105, L501.9520, L506.0400, L100.0100, L500.4100 #### [facility] [address] [place], [address] Hemoglobin (Bld) [Mass/Vol] 13.3 g/dL Normal 12.0-15.0 [facility] Comment on above: Performed By: #### L 506.1000, L500.4050, L503.0105, L501.9520, L506.0400, L100.0100, L500.4100 #### [facility] [address] [place], [address] IG% 0.200 Normal 0.0-0.9 [facility] Comment on above: Result Comment: IG% - Immature Granulocytes (promyelocytes, myelocytes and metamyelocytes) > 1% indicates that a LEFT SHIFT is Present. Performed By: #### L 506.1000, L500.4050, L503.0105, L501.9520, L506.0400, L100.0100, L500.4100 #### [facility] [address] [place], [address] Lymphocytes/100 WBC (Bld) 27.2 % Normal 19-41 [facility] Comment on above: Performed By: #### L 506.1000, L500.4050, L503.0105, L501.9520, L506.0400, L100.0100, L500.4100 #### [facility] [address] [place], [address] MCH (RBC) [Entitic mass] 27.5 pg Normal 27.0-32.0 [facility] Comment on above: Performed By: #### L 506.1000, L500.4050, L503.0105, L501.9520, L506.0400, L100.0100, L500.4100 #### [facility] [address] [place], [address] MCHC (RBC) [Mass/Vol] 33.1 g/dL Normal 32-36 [facility] Comment on above: Performed By: #### L 506.1000, L500.4050, L503.0105, L501.9520, L506.0400, L100.0100, L500.4100 #### [facility] [address] [place], [address] MCV (RBC) [Entitic vol] 83.2 fL Normal 81-99 [facility] Comment on above: Performed By: #### L 506.1000, L500.4050, L503.0105, L501.9520, L506.0400, L100.0100, L500.4100 #### [facility] [address] [place], [address] Monocytes/100 WBC (Bld) 3.9 % Normal 0-10 [facility] Comment on above: Performed By: #### L 506.1000, L500.4050, L503.0105, L501.9520, L506.0400, L100.0100, L500.4100 #### [facility] [address] [place], [address] Neutrophils/100 WBC (Bld) 67.7 % Normal 47-70 [facility] Comment on above: Performed By: #### L 506.1000, L500.4050, L503.0105, L501.9520, L506.0400, L100.0100, L500.4100 #### [facility] [address] [place], [address] Nucleated RBC (Bld) [#/Vol] 0 10*3/uL Normal 0-5 [facility] Comment on above: Performed By: #### L 506.1000, L500.4050, L503.0105, L501.9520, L506.0400, L100.0100, L500.4100 #### [facility] [address] [place], [address] Platelet mean volume (Bld) [Entitic vol] 11.8 fL Normal 6.2-12.0 [facility] Comment on above: Performed By: #### L 506.1000, L500.4050, L503.0105, L501.9520, L506.0400, L100.0100, L500.4100 #### [facility] [address] [place], [address] Platelets (Bld) [#/Vol] 275 10*3/uL Normal 150-450 [facility] Comment on above: Performed By: #### L 506.1000, L500.4050, L503.0105, L501.9520, L506.0400, L100.0100, L500.4100 #### [facility] [address] [place], [address] RBC (Bld) [#/Vol] 4.83 10*6/uL Normal 4.2-5.4 [facility] Comment on above: Performed By: #### L 506.1000, L500.4050, L503.0105, L501.9520, L506.0400, L100.0100, L500.4100 #### [facility] [address] [place], [address] RDW SD 37.7 fl Normal 35.1-43.9 [facility] Comment on above: Performed By: #### L 506.1000, L500.4050, L503.0105, L501.9520, L506.0400, L100.0100, L500.4100 #### [facility] [address] [place], [address] WBC (Bld) [#/Vol] 8.6 10*3/uL Normal 4.4-11.0 [facility] Comment on above: Performed By: #### L 506.1000, L500.4050, L503.0105, L501.9520, L506.0400, L100.0100, L500.4100 #### [facility] [address] [place], [address] Comprehensive Metabolic Prof [facility] 07-25-2024 Albumin [Mass/Vol] 3.8 g/dL Normal 3.2-5.0 [facility] Comment on above: Performed By: #### L 506.1000, L500.4050, L503.0105, L501.9520, L506.0400, L100.0100, L500.4100 ####[facility] [address] [place], [address] Albumin/Globulin [Mass ratio] 0.9 {ratio} Normal 0.9-2.4 [facility] Comment on above: Performed By: #### L 506.1000, L500.4050, L503.0105, L501.9520, L506.0400, L100.0100, L500.4100 ####[facility] [address] [place], [address] ALK P 78 U/L Normal 45-117 [facility] Comment on above: Performed By: #### L 506.1000, L500.4050, L503.0105, L501.9520, L506.0400, L100.0100, L500.4100 ####[facility] [address] [place], [address] ALT [Catalytic activity/Vol] 26 U/L Normal 13-56 [facility] Comment on above: Performed By: #### L 506.1000, L500.4050, L503.0105, L501.9520, L506.0400, L100.0100, L500.4100 ####[facility] [address] [place], [address] AST [Catalytic activity/Vol] 14 U/L Low 15-37 [facility] Comment on above: Performed By: #### L 506.1000, L500.4050, L503.0105, L501.9520, L506.0400, L100.0100, L500.4100 ####[facility] [address] [place], [address] Bilirubin [Mass/Vol] 0.50 mg/dL Normal 0.20-1.00 [facility] Comment on above: Result Comment: For patients on eltrombopag therapy, use of Dimension Radisson TBIL is not recommended. Performed By: #### L 506.1000, L500.4050, L503.0105, L501.9520, L506.0400, L100.0100, L500.4100 ####[facility] [address] [place], [address] BUN/CRE 14.2 RATIO Normal 10-20 [facility] Comment on above: Performed By: #### L 506.1000, L500.4050, L503.0105, L501.9520, L506.0400, L100.0100, L500.4100 ####[facility] [address] [place], [address] CA,Total 9.2 mg/dL Normal 8.5-10.1 [facility] Comment on above: Performed By: #### L 506.1000, L500.4050, L503.0105, L501.9520, L506.0400, L100.0100, L500.4100 ####[facility] [address] [place], [address] Chloride [Moles/Vol] 106 mmol/L Normal 98-107 [facility] Comment on above: Performed By: #### L 506.1000, L500.4050, L503.0105, L501.9520, L506.0400, L100.0100, L500.4100 ####[facility] [address] [place], [address] CO2 [Moles/Vol] 23.0 mmol/L Normal 21.0-32.0 [facility] Comment on above: Performed By: #### L 506.1000, L500.4050, L503.0105, L501.9520, L506.0400, L100.0100, L500.4100 ####[facility] [address] [place], [address] Creatinine [Mass/Vol] 0.63 mg/dL Normal 0.55-1.02 [facility] Comment on above: Result Comment: The validity of the calculated GFR GFRAA in patients over 70 years has not been determined. Clinical correlation is essential. Performed By: #### L 506.1000, L500.4050, L503.0105, L501.9520, L506.0400, L100.0100, L500.4100 ####[facility] [address] [place], [address] EST GFR - AA 140 mL/min Normal >60 [facility] Comment on above: Result Comment: Afri can Syrian GFR Calc Performed By: #### L 506.1000, L500.4050, L503.0105, L501.9520, L506.0400, L100.0100, L500.4100 ####[facility] [address] [place], [address] GAP 7 Normal 5-15 [facility] Comment on above: Performed By: #### L 506.1000, L500.4050, L503.0105, L501.9520, L506.0400, L100.0100, L500.4100 ####[facility] [address] [place], [address] GFR/1.73 sq M.predicted among non-blacks MDRD (S/P/Bld) [Vol rate/Area] 115 mL/min/{1.73_m2} Normal >60 [facility] Comment on above: Result Comment: Non- GFR Calc Performed By: #### L 506.1000, L500.4050, L503.0105, L501.9520, L506.0400, L100.0100, L500.4100 ####[facility] [address] [place], [address] Globulin (S) [Mass/Vol] 4.2 g/dL Normal 2.2-4.2 [facility] Comment on above: Performed By: #### L 506.1000, L500.4050, L503.0105, L501.9520, L506.0400, L100.0100, L500.4100 ####[facility] [address] [place], [address] Glucose [Mass/Vol] 92 mg/dL Normal 74-106 [facility] Comment on above: Performed By: #### L 506.1000, L500.4050, L503.0105, L501.9520, L506.0400, L100.0100, L500.4100 ####[facility] [address] [place], [address] Potassium [Moles/Vol] 4.0 mmol/L Normal 3.5-5.1 [facility] Comment on above: Performed By: #### L 506.1000, L500.4050, L503.0105, L501.9520, L506.0400, L100.0100, L500.4100 ####[facility] [address] [place], [address] Sodium [Moles/Vol] 135 mmol/L Low 136-145 [facility] Comment on above: Performed By: #### L 506.1000, L500.4050, L503.0105, L501.9520, L506.0400, L100.0100, L500.4100 ####[facility] [address] [place], [address] T PROT 8.0 g/dL Normal 6.4-8.2 [facility] Comment on above: Performed By: #### L 506.1000, L500.4050, L503.0105, L501.9520, L506.0400, L100.0100, L500.4100 ####[facility] [address] [place], [address] Urea nitrogen [Mass/Vol] 9 mg/dL Normal 7-18 [facility] Comment on above: Performed By: #### L 506.1000, L500.4050, L503.0105, L501.9520, L506.0400, L100.0100, L500.4100 ####[facility] [address] [place], [address] Lipid Profileon 07-25-2024 Cholesterol [Mass/Vol] 173 mg/dL Normal 200 [facility] Comment on above: Result Comment: <200 mg/dL Desirable 200-240 mg/dL Borderline >240 mg/dL High Risk Performed By: #### L 506.1000, L500.4050, L503.0105, L501.9520, L506.0400, L100.0100, L500.4100 ####[facility] [address] [place], [address] Cholesterol in HDL [Mass/Vol] 61 mg/dL Normal [facility] Comment on above: Result Comment: The drugs N-Acetylcysteine and Metamizole may falsely depress this assay. Reference Range HDL <40 mg/dL Low HDL Cholesterol HDL >or= 60 mg/dL High HDL Cholesterol Performed By: #### L 506.1000, L500.4050, L503.0105, L501.9520, L506.0400, L100.0100, L500.4100 ####[facility] [address] [place], [address] Cholesterol in LDL [Mass/Vol] 93 mg/dL Normal 0-130 [facility] Comment on above: Performed By: #### L 506.1000, L500.4050, L503.0105, L501.9520, L506.0400, L100.0100, L500.4100 ####[facility] [address] [place], [address] Cholesterol in VLDL [Mass/Vol] 19 mg/dL Normal 5-40 [facility] Comment on above: Performed By: #### L 506.1000, L500.4050, L503.0105, L501.9520, L506.0400, L100.0100, L500.4100 ####[facility] [address] [place], [address] Triglyceride [Mass/Vol] 95 mg/dL Normal [facility] Comment on above: Result Comment: The drugs N-Acetylcysteine and Metamizole may falsely depress this assay. Serum Triglycerides Reference Interval Normal <150 mg/dL Borderline high 150 - 199 mg/dL High 200 - 499 mg/dL Very High > or = 500 mg/dL Performed By: #### L 506.1000, L500.4050, L503.0105, L501.9520, L506.0400, L100.0100, L500.4100 ####[facility] [address] [place], [address] T4 Free Directon 07-25-2024 T4 FREE DIRECT 1.02 ng/dL Normal 0.76-1.46 [facility] Comment on above: Performed By: #### L 506.1000, L500.4050, L503.0105, L501.9520, L506.0400, L100.0100, L500.4100 ####[facility] [address] [place], [address] Thyroid Stim Hormone (TSH)on 07-25-2024 TSH 0.738 uIU/mL Normal 0.358-3.740 [facility] Comment on above: Performed By: #### L 506.1000, L500.4050, L503.0105, L501.9520, L506.0400, L100.0100, L500.4100 ####[facility] [address] [place], [address] Vitamin B12on 07-25-2024 Cobalamin (Vitamin B12) [Mass/Vol] 362 pg/mL Normal 211-911 [facility] Comment on above: Performed By: #### L 506.1000, L500.4050, L503.0105, L501.9520, L506.0400, L100.0100, L500.4100 ####[facility] [address] [place], [place], [address] Vitamin D,25 Hydroxyon 07-25 Vitamin D 25-OH 14.8 ng/mL Normal [facility] Comment on above: Result Comment: Micki min D 25(OH) Status Range Deficiency <20 ng/mL (50nmol/L) Insufficiency 20 - 30 ng/mL (50 - 75 nmol/L) Sufficiency 30 - 100 ng/mL (75 - 250 nmol/L) Toxicity >100 ng/mL (>250 nmol/L) Performed By: #### L 506.1000, L500.4050, L503.0105, L501.9520, L506.0400, L100.0100, L500.4100 ####[facility] [address] [place], [place], [address] Chiropractic Reporton 2023 Chiropractic Report [facility] [address] [place] [address] [id number] OFFICE VISIT Date of Service: 07/18/24 MR#: [id number] Acct: [id number] Name: RENA LANGSTON Rep #: [id number] : 1990 Provider: JERRY Yanez Age/Sex: 34/F Location: [facility] Status: Signed Intake Vital Signs 03/11/23 11:28 Height 5 ft 6 in Intake Visit Reasons: Back pain Chief Complaint: upper/mid back pain Is patient in pain?: Yes Pain scale (1-10): 5 Allergies Sulfa (Sulfonamide Antibiotics) Allergy (Mild, Verified 07/18/24 08:33) Rash red (food color) Allergy (Verified 07/18/24 08:33) Hives Seasonal Allergies: Uncoded Allergy (Verified 07/18/24 08:33) Other [facility] Medical History Shingles History of steroid therapy [...] pelvic r (more content not included)... Normal [facility] Chiropractic Reporton 2023 Chiropractic Report [facility] [place] [address] OFFICE VISIT Date of Service: 07/12/24 MR#: [id number] Acct: [id number] Name: RENA LANGSTON Rep #: [id number] : 1990 Provider: JERRY Yanez Age/Sex: 34/F Location: [facility] [place] [facility] Status: Signed Intake Vital Signs 03/11/23 [...] mg tablet,ext.release 24 hr (Griselda-D 24 Hour) [facility] Medical History Shingles History of steroid therapy [...] mins (17) mA Therapy Performed by:: Gala Betancourt, Mechanical: Yes Patient Response: positive Assessment and [...] region, M99. (more content not included)... Normal [facility] Chiropractic Reporton 2023 Chiropractic Report [facility] [address] [place] [id number] OFFICE VISIT Date of Service: 07/10/24 MR#: [id number] Acct: [id number] Name: RENA LANG[place]ON Rep #: [id number] : 1990 Provider: JERRY Yanez Age/Sex: 34/F Location: [facility] [place] Status: Signed Intake Vital Signs 03/11/23 11:28 [...] responding well (more content not included)... Normal [facility] Chiropractic Reporton 2023 Chiropractic Report [facility] [address] [place] [address] OFFICE VISIT Date of Service: 07/03/24 MR#: [id number] Acct: [id number] Name: RENA LANGSTON Rep #: [id number] : 1990 Provider: JERRY Yanez Age/Sex: 34/F Location: [facility] [place] Status: Signed Intake Vital Signs 03/11/23 11:28 Height 5 ft 6 in Intake Visit Reasons: Back pain Chief Complaint: upper/mid back pain Is patient in pain?: Yes Pain scale (1-10): 6 Allergies Sulfa (Sulfonamide Antibiotics) Allergy (Mild, Verified 07/03/24 08:28) Rash red (food color) Allergy (Verified 07/03/24 08:28) Hives Seasonal Allergies: Uncoded Allergy (Verified 07/03/24 08:28) Other [facility] Medical History Shingles History of steroid therapy [...] Segmental an (more content not included)... Normal [facility] Chiropractic Reporton 2023 Chiropractic Report [facility] [place] [address] OFFICE VISIT Date of Service: 06/26/24 MR#: [id number] Acct: [id number] Name: KIANRENAGREGORIA GASPAR Rep #: [id number] : 1990 Provider: JERRY Yanez Age/Sex: 34/F Location: [facility] [place] Status: Signed Intake Vital Signs 03/11/23 11:28 Height 5 ft 6 in Intake Visit Reasons: Back pain Chief Complaint: upper/mid back pain Is patient in pain?: Yes Pain scale (1-10): 7 Allergies Sulfa (Sulfonamide Antibiotics) Allergy (Mild, Verified 06/26/24 09:28) Rash red (food color) Allergy (Verified 06/26/24 09:28) Hives Seasonal Allergies: Uncoded Allergy (Verified 06/26/24 09:28) Other [facility] Medical History Shingles History of steroid therapy [...] CPT Codes Procedures - Manipulation: 1-2 regions (62986) Procedures - Electronic Stimulation: Yes (73908) Proc (more content not included)... Normal [facility] Laboratory - Chemistry and C hemistry - challengeOrdered By: Dr. Easton on 02-01-2023 HCG ( test) Ql (U) Negative [facility] Comment on above: Very dilute urine sp ecimens, as indicated by a low specificgravity, may not contain delivery representative levels of hCG. If is still suspected, a first morning urinespecimen should be collected 48 hours later and tested. Laboratory - Microbiology an d Antimicrobial susceptibilityon 09-21-2022 SARS-CoV-2 (COVID-19) RNA ANA+probe Ql (Unsp spec) Detected [facility] Work Phone: Laboratory - Microbiology an d Antimicrobial susceptibilityon 07-15-2022 SARS-CoV-2 (COVID-19) RNA ANA+probe Ql (Unsp spec) Not detected [facility] Work Phone: No Panel Informationon 07-15 Influenza Types A,B Rapid (Clinic) Not detected [facility] Work Phone: Absolute lymphocyte counton 02-13-2022 Lymphocytes Auto (Unsp spec) [#/Vol] 1.19 10*3/uL 0.83-4.51 [facility] Work Phone: Basophil percentageon 2021 Basophil percentage 5-10 SEEN /hpf [facility] Work Phone: Basophils/100 WBC (Bld) 0.2 % 0-1 [facility] Work Phone: Bilirubin [Mass/Vol] 0.80 mg/dL 0.20-1.00 [facility] Work Phone: Comment on above: For patients on eltr ombopag therapy, use of Dimension Radisson TBIL is not recommended. Chloride [Moles/Vol] 103 mmol/L 98-107 [facility] Work Phone: Eosinophils/100 WBC (Bld) 0.0 % 0-5 [facility] Work Phone: Glucose [Mass/Vol] 159 mg/dL 74-106 [facility] Work Phone: Comment on above: Fasting Glucose resu lt greater than or equal to 126 mg/dL suggests DIABETES MELLITUS per A.D.A. criteria. Neutrophils (Bld) [#/Vol] 4.2 10*3/uL 2.0-7.7 [facility] Work Phone: Neutrophils/100 WBC (Bld) 71.5 % 47-70 [facility] Work Phone: Potassium [Moles/Vol] 3.4 mmol/L 3.5-5.1 [facility] Work Phone: Protein [Mass/Vol] 8.8 g/dL 6.4-8.2 [facility] Work Phone: Sodium [Moles/Vol] 132 mmol/L 136-145 [facility] Work Phone: WBC (Bld) [#/Vol] 5.9 10*3/uL 4.4-11.0 [facility] Work Phone: Bilirubin Test strip Ql (U)o n 02-13-2022 Bilirubin Ql (U) 6 mg/dL Negative [facility] Work Phone: Comment on above: COLOR OF URINE MAY A FFECT DIPSTICK RESULTS. Blood erythrocytes count (nu mber/volume)on 02-13-2022 RBC (Bld) [#/Vol] 5.50 10*6/uL 4.2-5.4 [facility] Work Phone: Blood hemoglobin measurement (mass/volume)on 02-13-2022 Hemoglobin (Bld) [Mass/Vol] 15.6 g/dL 12.0-15.0 [facility] Work Phone: Blood lymphocytes/100 leukoc yteson 02-13-2022 Lymphocytes/100 WBC (Bld) 20.3 % 19-41 [facility] Work Phone: Blood monocytes/100 leukocyt eson 02-13-2022 Monocytes/100 WBC (Bld) 7.7 % 0-10 [facility] Work Phone: Blood platelet mean volumeon 02-13-2022 Platelet mean volume (Bld) [Entitic vol] 11.9 fL 6.2-12.0 [facility] Work Phone: Determination of erythrocyte mean corpuscular volume (MCV)on 02-13-2022 MCV (RBC) [Entitic vol] 82.2 fL 81-99 [facility] Work Phone: Hematocrit Auto (Bld) [Volum e fraction]on 02-13-2022 Hematocrit (Bld) [Volume fraction] 45.2 % 37-47 [facility] Work Phone: Hyaline casts LM.LPF (Urine sed) [#/Area]on 02-13-2022 Hyaline casts (Urine sed) [#/Area] 10 /[LPF] [facility] Work Phone: Ketones Test strip Ql (U)on 02-13-2022 Ketones Ql (U) 15 mg/dl Negative [facility] Work Phone: Laboratory - Chemistry and C hemistry - challengeon 02-13-2022 ALP [Catalytic activity/Vol] 60 U/L 45-117 [facility] Work Phone: ALT [Catalytic activity/Vol] 23 U/L 13-56 [facility] Work Phone: CO2 [Moles/Vol] 19.0 mmol/L 21.0-32.0 [facility] Work Phone: Globulin (S) [Mass/Vol] 4.9 g/dL 2.2-4.2 [facility] Work Phone: Lipase [Catalytic activity/Vol] 64 U/L 73-393 [facility] Work Phone: Urea nitrogen/Creatinine [Mass ratio] 11.4 mg/mg 10-20 [facility] Work Phone: Laboratory - Hematology and Cell countson 02-13-2022 Erythrocyte distribution width (RBC) [Entitic vol] 38.1 fL 35.1-43.9 [facility] Work Phone: Erythrocyte distribution width (RBC) [Ratio] 12.7 % 11.6-14.6 [facility] Work Phone: Immature granulocytes/100 WBC (Bld) 0.300 % 0.0-0.9 [facility] Work Phone: Comment on above: IG% - Immature Granu locytes (promyelocytes, myelocytes and metamyelocytes) > 1% indicates that a LEFT SHIFT is Present. MCH (RBC) [Entitic mass] 28.4 pg 27.0-32.0 [facility] Work Phone: Nucleated RBC/100 WBC (Bld) [Ratio] 0 % 0-5 [facility] Work Phone: MCHC Auto (RBC) [Mass/Vol]on 02-13-2022 MCHC (RBC) [Mass/Vol] 34.5 g/dL 32-36 [facility] Work Phone: Mucus LM Ql (Urine sed)on Mucus Ql (Urine sed) 0 SEEN /hpf [facility] Work Phone: Nitrite Test strip Ql (U)on 02-13-2022 Nitrite Ql (U) Positive Negative [facility] Work Phone: No Panel Informationon 02-13 Estimated Creatinine Clearance Calc 60.73 ml/min [facility] Work Phone: Estimated GFR (MDRD) Amer 66 mL/min >60 [facility] Work Phone: Comment on above: GFR Calc Estimated GFR (MDRD) Non-Af Amer 55 mL/min >60 [facility] Work Phone: Comment on above: Non- GFR Calc Platelets bldon 02-13-2022 Platelets (Bld) [#/Vol] 275 10*3/uL 150-450 [facility] Work Phone: Protein Test strip Ql (U)on 02-13-2022 Protein Ql (U) 100 mg/dl Negative [facility] Work Phone: Serum or plasma albumin dora urement (mass/volume)on 02-13-2022 Albumin [Mass/Vol] 3.9 g/dL 3.2-5.0 [facility] Work Phone: Serum or plasma albumin/glob ulin mass ratioon 02-13-2022 Albumin/Globulin [Mass ratio] 0.8 {ratio} 0.9-2.4 [facility] Work Phone: Serum or plasma calcium dora urement (mass/volume)on 02-13-2022 Calcium [Mass/Vol] 9.2 mg/dL 8.5-10.1 [facility] Work Phone: Serum or plasma creatinine m easurement (mass/volume)on 02-13-2022 Creatinine [Mass/Vol] 1.23 mg/dL 0.55-1.02 [facility] Work Phone: Comment on above: The validity of the calculated GFR & GFRAA in patients over 70 years has not been determined. Clinical correlation is essential. Serum or plasma urea nitroge n measurement (mass/volume)on 02-13-2022 Urea nitrogen [Mass/Vol] 14 mg/dL 7-18 [facility] Work Phone: Squamous epithelial cells de tection in urine sediment by light microscopyon 02-13-2022 Epithelial cells.squamous LM Ql (Urine sed) 0-5 SEEN /hpf [facility] Work Phone: Thin prep Papanicolaou smear with manual screeningon 02-13-2022 Thin prep Papanicolaou smear with manual screening 13 U/L 15-37 [facility] Work Phone: Thin prep Papanicolaou smear with manual screening 10 5-15 [facility] Work Phone: Urine blood detectionon 01-18 RBC Ql (U) 250 /ul Negative [facility] Work Phone: RBC Ql (U) 0 SEEN /hpf [facility] Work Phone: Urine clarityon 02-13-2022 Clarity (U) Cloudy Clear [facility] Work Phone: Urine color determinationon 02-13-2022 Color (U) DARK YELLOW Yellow [facility] Work Phone: Urine glucose detectionon Glucose Ql (U) Normal mg/dl Normal [facility] Work Phone: Urine leukocyte esterase det ection by dipstickon 02-13-2022 Leukocyte esterase Test strip Ql (U) 25 /ul Negative [facility] Work Phone: Urine pHon 02-13-2022 pH (U) 5.0 [pH] [facility] Work Phone: Urine sediment bacteria coun t by microscopy (number/high power field)on 02-13-2022 Bacteria LM.HPF (Urine sed) [#/Area] 2 /[HPF] None Seen [facility] Work Phone: Urine sediment fine granular cast count by microscopy (number/low power field)on 05-28-2022 Fine Granular Casts LM.LPF (Urine sed) [#/Area] 0-5 SEEN /lpf [facility] Work Phone: Urine specific gravity measu rementon 02-13-2022 Specific gravity (U) [Rel density] 1.030 [facility] Work Phone: Urobilinogen Auto test strip Ql (U)on 02-13-2022 Urobilinogen Ql (U) 4 mg/dl [facility] Work Phone: Absolute lymphocyte counton 12-10-2021 Lymphocytes Auto (Unsp spec) [#/Vol] 2.44 10*3/uL 0.83-4.51 [facility] Work Phone: Basophil percentageon 2021 Basophils/100 WBC (Bld) 0.5 % 0-1 [facility] Work Phone: Bilirubin [Mass/Vol] 0.50 mg/dL 0.20-1.00 [facility] Work Phone: Comment on above: For patients on eltr ombopag therapy, use of Dimension Radisson TBIL is not recommended. Chloride [Moles/Vol] 104 mmol/L 98-107 [facility] Work Phone: Eosinophils/100 WBC (Bld) 0.8 % 0-5 [facility] Work Phone: Glucose [Mass/Vol] 81 mg/dL 74-106 [facility] Work Phone: Neutrophils (Bld) [#/Vol] 3.2 10*3/uL 2.0-7.7 [facility] Work Phone: Neutrophils/100 WBC (Bld) 52.6 % 47-70 [facility] Work Phone: Potassium [Moles/Vol] 3.9 mmol/L 3.5-5.1 [facility] Work Phone: Protein [Mass/Vol] 8.2 g/dL 6.4-8.2 [facility] Work Phone: Sodium [Moles/Vol] 138 mmol/L 136-145 [facility] Work Phone: WBC (Bld) [#/Vol] 6.2 10*3/uL 4.4-11.0 [facility] Work Phone: Blood erythrocytes count (nu mber/volume)on 12-10-2021 RBC (Bld) [#/Vol] 4.93 10*6/uL 4.2-5.4 [facility] Work Phone: Blood hemoglobin measurement (mass/volume)on 12-10-2021 Hemoglobin (Bld) [Mass/Vol] 14.1 g/dL 12.0-15.0 [facility] Work Phone: Blood lymphocytes/100 leukoc yteson 12-10-2021 Lymphocytes/100 WBC (Bld) 39.7 % 19-41 [facility] Work Phone: Blood monocytes/100 leukocyt eson 12-10-2021 Monocytes/100 WBC (Bld) 6.2 % 0-10 [facility] Work Phone: Blood platelet mean volumeon 12-10-2021 Platelet mean volume (Bld) [Entitic vol] 12.0 fL 6.2-12.0 [facility] Work Phone: Determination of erythrocyte mean corpuscular volume (MCV)on 12-10-2021 MCV (RBC) [Entitic vol] 85.0 fL 81-99 [facility] Work Phone: Hematocrit Auto (Bld) [Volum e fraction]on 12-10-2021 Hematocrit (Bld) [Volume fraction] 41.9 % 37-47 [facility] Work Phone: Laboratory - Chemistry and C hemistry - challengeon 12-10-2021 ALP [Catalytic activity/Vol] 74 U/L 45-117 [facility] Work Phone: ALT [Catalytic activity/Vol] 30 U/L 13-56 [facility] Work Phone: CO2 [Moles/Vol] 29.0 mmol/L 21.0-32.0 [facility] Work Phone: Globulin (S) [Mass/Vol] 4.3 g/dL 2.2-4.2 [facility] Work Phone: Urea nitrogen/Creatinine [Mass ratio] 10.2 mg/mg 10-20 [facility] Work Phone: Laboratory - Hematology and Cell countson 12-10-2021 Erythrocyte distribution width (RBC) [Entitic vol] 39.8 fL 35.1-43.9 [facility] Work Phone: Erythrocyte distribution width (RBC) [Ratio] 13.0 % 11.6-14.6 [facility] Work Phone: Immature granulocytes/100 WBC (Bld) 0.200 % 0.0-0.9 [facility] Work Phone: Comment on above: IG% - Immature Granu locytes (promyelocytes, myelocytes and metamyelocytes) > 1% indicates that a LEFT SHIFT is Present. MCH (RBC) [Entitic mass] 28.6 pg 27.0-32.0 [facility] Work Phone: Nucleated RBC/100 WBC (Bld) [Ratio] 0 % 0-5 [facility] Work Phone: MCHC Auto (RBC) [Mass/Vol]on 12-10-2021 MCHC (RBC) [Mass/Vol] 33.7 g/dL 32-36 [facility] Work Phone: No Panel Informationon 12-10 Estimated GFR (MDRD) Amer 155 mL/min >60 [facility] Work Phone: Comment on above: GFR Calc Estimated GFR (MDRD) Non-Af Amer 128 mL/min >60 [facility] Work Phone: Comment on above: Non- GFR Calc Hepatitis A IgM Antibody Negative Negative [facility] Work Phone: Comment on above: Performed at: [facility] [address] [id number] Director: Edwin De Los Santos PhD, Phone: [phone] Thyroid Stimulating Hormone (TSH) 0.79 uIU/mL 0.358-3.74 [facility] Work Phone: Vitamin D 25-Hydroxy 15.7 ng/mL [facility] Work Phone: Comment on above: Vitamin D 25(OH) Sta tus Range Deficiency <20 ng/mL (50nmol/L) Insufficiency 20 - 30 ng/mL (50 - 75 nmol/L) Sufficiency 30 - 100 ng/mL (75 - 250 nmol/L) Toxicity >100 ng/mL (>250 nmol/L) Platelets bldon 12-10-2021 Platelets (Bld) [#/Vol] 278 10*3/uL 150-450 [facility] Work Phone: Serum or plasma albumin dora urement (mass/volume)on 12-10-2021 Albumin [Mass/Vol] 3.9 g/dL 3.2-5.0 [facility] Work Phone: Serum or plasma albumin/glob ulin mass ratioon 12-10-2021 Albumin/Globulin [Mass ratio] 0.9 {ratio} 0.9-2.4 [facility] Work Phone: Serum or plasma calcium dora urement (mass/volume)on 12-10-2021 Calcium [Mass/Vol] 9.2 mg/dL 8.5-10.1 [facility] Work Phone: Serum or plasma creatinine m easurement (mass/volume)on 12-10-2021 Creatinine [Mass/Vol] 0.59 mg/dL 0.55-1.02 [facility] Work Phone: Comment on above: The validity of the calculated GFR & GFRAA in patients over 70 years has not been determined. Clinical correlation is essential. Serum or plasma urea nitroge n measurement (mass/volume)on 12-10-2021 Urea nitrogen [Mass/Vol] 6 mg/dL 7-18 [facility] Work Phone: Thin prep Papanicolaou smear with manual screeningon 12-10-2021 Thin prep Papanicolaou smear with manual screening 18 U/L 15-37 [facility] Work Phone: Thin prep Papanicolaou smear with manual screening 5 5-15 [facility] Work Phone: No Panel Informationon 11-12 Hepatitis A IgM Antibody Negative Negative [facility] Work Phone: Hepatitis B Core IgM Antibody Negative Negative [facility] Work Phone: Hepatitis C Antibody (EIA) <0.1 s/co ratio [facility] Work Phone: Comment on above: Negative: < 0.8 Inde terminate: 0.8 - 0.9 Positive: > 0.9 The CDC recommends that a positive HCV antibody result be followed up with a HCV Nucleic Acid Amplification test (674422).Effective November 30, 2021 Hepatitis Panel (4) will be made non-orderable. [employer] offers order code [id number] Acute Hepatitis.Performed at: [place] [id number] Director: Edwin De Los Santos PhD, Phone: [phone] SARS-CoV-2 Antigen (Rapid) [facility] Work Phone: Serum or plasma hepatitis B virus surface antigen detection by immunoassayon 11-12-2021 HBV surface Ag IA Ql Negative Negative [facility] Work Phone: Absolute lymphocyte counton 11-11-2021 Lymphocytes Auto (Unsp spec) [#/Vol] 4.73 10*3/uL 0.83-4.51 [facility] Work Phone: Basophil percentageon 2021 Basophils/100 WBC (Bld) 1.7 % 0-1 [facility] Work Phone: Bilirubin [Mass/Vol] 2.60 mg/dL 0.20-1.00 [facility] Work Phone: Comment on above: For patients on eltr ombopag therapy, use of Dimension Radisson TBIL is not recommended. Chloride [Moles/Vol] 103 mmol/L 98-107 [facility] Work Phone: Eosinophils/100 WBC (Bld) 0.2 % 0-5 [facility] Work Phone: Glucose [Mass/Vol] 107 mg/dL 74-106 [facility] Work Phone: Comment on above: Fasting Glucose resu lt from 100 to 125 mg/dL suggests IMPAIRED HOMEOSTASIS per A.D.A. criteria. Neutrophils (Bld) [#/Vol] 1.3 10*3/uL 2.0-7.7 [facility] Work Phone: Neutrophils/100 WBC (Bld) 20.1 % 47-70 [facility] Work Phone: Potassium [Moles/Vol] 3.9 mmol/L 3.5-5.1 [facility] Work Phone: Comment on above: Moderate Hemolysis, Result may be falsely increased. Protein [Mass/Vol] 8.0 g/dL 6.4-8.2 [facility] Work Phone: Sodium [Moles/Vol] 136 mmol/L 136-145 [facility] Work Phone: WBC (Bld) [#/Vol] 6.4 10*3/uL 4.4-11.0 [facility] Work Phone: Basophil percentage 0 SEEN /hpf [facility] Work Phone: Beta hCG serum qualon 2021 Beta HCG ( test) Ql Negative [facility] Work Phone: Bilirubin Test strip Ql (U)o n 11-11-2021 Bilirubin Ql (U) 3 mg/dL Negative [facility] Work Phone: Comment on above: COLOR OF URINE MAY A FFECT DIPSTICK RESULTS. Blood erythrocytes count (nu mber/volume)on 11-11-2021 RBC (Bld) [#/Vol] 5.07 10*6/uL 4.2-5.4 [facility] Work Phone: Blood hemoglobin measurement (mass/volume)on 11-11-2021 Hemoglobin (Bld) [Mass/Vol] 14.3 g/dL 12.0-15.0 [facility] Work Phone: Blood lymphocytes/100 leukoc yteson 11-11-2021 Lymphocytes/100 WBC (Bld) 73.9 % 19-41 [facility] Work Phone: Blood manual differential co mment interpretation (narrative result)on 11-11-2021 Manual differential comment Andrew (Bld) [Interp] SCANNED [facility] Work Phone: Comment on above: AUTO DIFF OK Blood monocytes/100 leukocyt eson 11-11-2021 Monocytes/100 WBC (Bld) 3.8 % 0-10 [facility] Work Phone: Blood platelet mean volumeon 11-11-2021 Platelet mean volume (Bld) [Entitic vol] 13.0 fL 6.2-12.0 [facility] Work Phone: Determination of erythrocyte mean corpuscular volume (MCV)on 11-11-2021 MCV (RBC) [Entitic vol] 82.2 fL 81-99 [facility] Work Phone: Hematocrit Auto (Bld) [Volum e fraction]on 11-11-2021 Hematocrit (Bld) [Volume fraction] 41.7 % 37-47 [facility] Work Phone: Ketones Test strip Ql (U)on 11-11-2021 Ketones Ql (U) 5 mg/dl Negative [facility] Work Phone: Laboratory - Chemistry and C hemistry - challengeon 11-11-2021 ALP [Catalytic activity/Vol] 195 U/L 45-117 [facility] Work Phone: ALT [Catalytic activity/Vol] 322 U/L 13-56 [facility] Work Phone: CO2 [Moles/Vol] 28.0 mmol/L 21.0-32.0 [facility] Work Phone: Globulin (S) [Mass/Vol] 4.7 g/dL 2.2-4.2 [facility] Work Phone: Lipase [Catalytic activity/Vol] 88 U/L 73-393 [facility] Work Phone: Urea nitrogen/Creatinine [Mass ratio] 7.3 mg/mg 10-20 [facility] Work Phone: Laboratory - Hematology and Cell countson 11-11-2021 Erythrocyte distribution width (RBC) [Entitic vol] 38.7 fL 35.1-43.9 [facility] Work Phone: Erythrocyte distribution width (RBC) [Ratio] 12.9 % 11.6-14.6 [facility] Work Phone: Immature granulocytes/100 WBC (Bld) 0.300 % 0.0-0.9 [facility] Work Phone: Comment on above: IG% - Immature Granu locytes (promyelocytes, myelocytes and metamyelocytes) > 1% indicates that a LEFT SHIFT is Present. MCH (RBC) [Entitic mass] 28.2 pg 27.0-32.0 [facility] Work Phone: Nucleated RBC/100 WBC (Bld) [Ratio] 0 % 0-5 [facility] Work Phone: MCHC Auto (RBC) [Mass/Vol]on 11-11-2021 MCHC (RBC) [Mass/Vol] 34.3 g/dL 32-36 [facility] Work Phone: Mucus LM Ql (Urine sed)on Mucus Ql (Urine sed) 0 SEEN /hpf [facility] Work Phone: Nitrite Test strip Ql (U)on 11-11-2021 Nitrite Ql (U) Negative Negative [facility] Work Phone: No Panel Informationon 11-11 Estimated Creatinine Clearance Calc 108.25 ml/min [facility] Work Phone: Estimated GFR (MDRD) Amer 129 mL/min >60 [facility] Work Phone: Comment on above: GFR Calc Estimated GFR (MDRD) Non-Af Amer 107 mL/min >60 [facility] Work Phone: Comment on above: Non- GFR Calc Platelets bldon 11-11-2021 Platelets (Bld) [#/Vol] 151 10*3/uL 150-450 [facility] Work Phone: Protein Test strip Ql (U)on 11-11-2021 Protein Ql (U) 15 mg/dl Negative [facility] Work Phone: Serum or plasma albumin dora urement (mass/volume)on 11-11-2021 Albumin [Mass/Vol] 3.3 g/dL 3.2-5.0 [facility] Work Phone: Serum or plasma albumin/glob ulin mass ratioon 11-11-2021 Albumin/Globulin [Mass ratio] 0.7 {ratio} 0.9-2.4 [facility] Work Phone: Serum or plasma calcium dora urement (mass/volume)on 11-11-2021 Calcium [Mass/Vol] 9.2 mg/dL 8.5-10.1 [facility] Work Phone: Serum or plasma creatinine m easurement (mass/volume)on 11-11-2021 Creatinine [Mass/Vol] 0.69 mg/dL 0.55-1.02 [facility] Work Phone: Comment on above: The validity of the calculated GFR & GFRAA in patients over 70 years has not been determined. Clinical correlation is essential. Serum or plasma urea nitroge n measurement (mass/volume)on 11-11-2021 Urea nitrogen [Mass/Vol] 5 mg/dL 7-18 [facility] Work Phone: Squamous epithelial cells de tection in urine sediment by light microscopyon 11-11-2021 Epithelial cells.squamous LM Ql (Urine sed) 0-5 SEEN /hpf [facility] Work Phone: Thin prep Papanicolaou smear with manual screeningon 11-11-2021 Thin prep Papanicolaou smear with manual screening 420 U/L 15-37 [facility] Work Phone: Comment on above: Moderate Hemolysis, Result may be falsely increased. Thin prep Papanicolaou smear with manual screening 5 5-15 [facility] Work Phone: Urine blood detectionon -2 RBC Ql (U) 250 /ul Negative [facility] Work Phone: RBC Ql (U) 5-10 SEEN /hpf [facility] Work Phone: Urine clarityon 11-11-2021 Clarity (U) Clear Clear [facility] Work Phone: Urine color determinationon 11-11-2021 Color (U) Yellow Yellow [facility] Work Phone: Urine glucose detectionon Glucose Ql (U) Normal mg/dl Normal [facility] Work Phone: Urine leukocyte esterase det ection by dipstickon 11-11-2021 Leukocyte esterase Test strip Ql (U) 25 /ul Negative [facility] Work Phone: Urine pHon 11-11-2021 pH (U) 7.0 [pH] [facility] Work Phone: Urine sediment bacteria coun t by microscopy (number/high power field)on 11-11-2021 Bacteria LM.HPF (Urine sed) [#/Area] 0 /[HPF] None Seen [facility] Work Phone: Urine specific gravity measu rementon 11-11-2021 Specific gravity (U) [Rel density] 1.010 [facility] Work Phone: Urobilinogen Auto test strip Ql (U)on 11-11-2021 Urobilinogen Ql (U) 4 mg/dl Normal [facility] Work Phone: Absolute lymphocyte counton 11-09-2021 Lymphocytes Auto (Unsp spec) [#/Vol] 1.65 10*3/uL 0.83-4.51 [facility] Work Phone: Basophil percentageon 2021 Basophil percentage 10-25 SEEN /hpf [facility] Work Phone: Basophils/100 WBC (Bld) 1.2 % 0-1 [facility] Work Phone: Bilirubin [Mass/Vol] 0.60 mg/dL 0.20-1.00 [facility] Work Phone: Comment on above: For patients on eltr ombopag therapy, use of Dimension Radisson TBIL is not recommended. Chloride [Moles/Vol] 103 mmol/L 98-107 [facility] Work Phone: Eosinophils/100 WBC (Bld) 0.0 % 0-5 [facility] Work Phone: Glucose [Mass/Vol] 106 mg/dL 74-106 [facility] Work Phone: Comment on above: Fasting Glucose resu lt from 100 to 125 mg/dL suggests IMPAIRED HOMEOSTASIS per A.D.A. criteria. Neutrophils (Bld) [#/Vol] 1.5 10*3/uL 2.0-7.7 [facility] Work Phone: Neutrophils/100 WBC (Bld) 44.9 % 47-70 [facility] Work Phone: Potassium [Moles/Vol] 3.3 mmol/L 3.5-5.1 [facility] Work Phone: Protein [Mass/Vol] 8.1 g/dL 6.4-8.2 [facility] Work Phone: Sodium [Moles/Vol] 135 mmol/L 136-145 [facility] Work Phone: WBC (Bld) [#/Vol] 3.4 10*3/uL 4.4-11.0 [facility] Work Phone: Beta hCG serum qualon 2021 Beta HCG ( test) Ql Negative [facility] Work Phone: Bilirubin Test strip Ql (U)o n 11-09-2021 Bilirubin Ql (U) 3 mg/dL Negative [facility] Work Phone: Comment on above: COLOR OF URINE MAY A FFECT DIPSTICK RESULTS. Blood erythrocytes count (nu mber/volume)on 11-09-2021 RBC (Bld) [#/Vol] 5.05 10*6/uL 4.2-5.4 [facility] Work Phone: Blood hemoglobin measurement (mass/volume)on 11-09-2021 Hemoglobin (Bld) [Mass/Vol] 14.3 g/dL 12.0-15.0 [facility] Work Phone: Blood lymphocytes/100 leukoc yteson 11-09-2021 Lymphocytes/100 WBC (Bld) 49.1 % 19-41 [facility] Work Phone: Blood monocytes/100 leukocyt eson 11-09-2021 Monocytes/100 WBC (Bld) 4.5 % 0-10 [facility] Work Phone: Blood platelet mean volumeon 11-09-2021 Platelet mean volume (Bld) [Entitic vol] 11.5 fL 6.2-12.0 [facility] Work Phone: Determination of erythrocyte mean corpuscular volume (MCV)on 11-09-2021 MCV (RBC) [Entitic vol] 80.8 fL 81-99 [facility] Work Phone: Hematocrit Auto (Bld) [Volum e fraction]on 11-09-2021 Hematocrit (Bld) [Volume fraction] 40.8 % 37-47 [facility] Work Phone: Ketones Test strip Ql (U)on 11-09-2021 Ketones Ql (U) 15 mg/dl Negative [facility] Work Phone: Laboratory - Chemistry and C hemistry - challengeon 11-09-2021 ALP [Catalytic activity/Vol] 118 U/L 45-117 [facility] Work Phone: ALT [Catalytic activity/Vol] 124 U/L 13-56 [facility] Work Phone: CO2 [Moles/Vol] 23.0 mmol/L 21.0-32.0 [facility] Work Phone: Globulin (S) [Mass/Vol] 4.8 g/dL 2.2-4.2 [facility] Work Phone: Lipase [Catalytic activity/Vol] 61 U/L 73-393 [facility] Work Phone: Urea nitrogen/Creatinine [Mass ratio] 5.4 mg/mg 10-20 [facility] Work Phone: Laboratory - Hematology and Cell countson 11-09-2021 Erythrocyte distribution width (RBC) [Entitic vol] 36.2 fL 35.1-43.9 [facility] Work Phone: Erythrocyte distribution width (RBC) [Ratio] 12.4 % 11.6-14.6 [facility] Work Phone: Immature granulocytes/100 WBC (Bld) 0.300 % 0.0-0.9 [facility] Work Phone: Comment on above: IG% - Immature Granu locytes (promyelocytes, myelocytes and metamyelocytes) > 1% indicates that a LEFT SHIFT is Present. MCH (RBC) [Entitic mass] 28.3 pg 27.0-32.0 [facility] Work Phone: Nucleated RBC/100 WBC (Bld) [Ratio] 0 % 0-5 [facility] Work Phone: MCHC Auto (RBC) [Mass/Vol]on 11-09-2021 MCHC (RBC) [Mass/Vol] 35.0 g/dL 32-36 [facility] Work Phone: Mucus LM Ql (Urine sed)on Mucus Ql (Urine sed) 0 SEEN /hpf [facility] Work Phone: Nitrite Test strip Ql (U)on 11-09-2021 Nitrite Ql (U) Positive Negative [facility] Work Phone: No Panel Informationon 11-09 Atypical Lymphocytes 1+ % [facility] Work Phone: Estimated Creatinine Clearance Calc 100.94 ml/min [facility] Work Phone: Estimated GFR (MDRD) Amer 120 mL/min >60 [facility] Work Phone: Comment on above: GFR Calc Estimated GFR (MDRD) Non-Af Amer 99 mL/min >60 [facility] Work Phone: Comment on above: Non- GFR Calc Platelets bldon 11-09-2021 Platelets (Bld) [#/Vol] 172 10*3/uL 150-450 [facility] Work Phone: Protein Test strip Ql (U)on 11-09-2021 Protein Ql (U) 100 mg/dl Negative [facility] Work Phone: Serum or plasma albumin dora urement (mass/volume)on 11-09-2021 Albumin [Mass/Vol] 3.3 g/dL 3.2-5.0 [facility] Work Phone: Serum or plasma albumin/glob ulin mass ratioon 11-09-2021 Albumin/Globulin [Mass ratio] 0.7 {ratio} 0.9-2.4 [facility] Work Phone: Serum or plasma calcium dora urement (mass/volume)on 11-09-2021 Calcium [Mass/Vol] 8.4 mg/dL 8.5-10.1 [facility] Work Phone: Serum or plasma creatinine m easurement (mass/volume)on 11-09-2021 Creatinine [Mass/Vol] 0.74 mg/dL 0.55-1.02 [facility] Work Phone: Comment on above: The validity of the calculated GFR & GFRAA in patients over 70 years has not been determined. Clinical correlation is essential. Serum or plasma urea nitroge n measurement (mass/volume)on 11-09-2021 Urea nitrogen [Mass/Vol] 4 mg/dL 7-18 [facility] Work Phone: Squamous epithelial cells de tection in urine sediment by light microscopyon 11-09-2021 Epithelial cells.squamous LM Ql (Urine sed) 10-25 SEEN /hpf [facility] Work Phone: Thin prep Papanicolaou smear with manual screeningon 11-09-2021 Thin prep Papanicolaou smear with manual screening 188 U/L 15-37 [facility] Work Phone: Thin prep Papanicolaou smear with manual screening 9 5-15 [facility] Work Phone: Urine blood detectionon 02- RBC Ql (U) 250 /ul Negative [facility] Work Phone: RBC Ql (U) 10-25 SEEN /hpf [facility] Work Phone: Urine clarityon 11-09-2021 Clarity (U) Sl. Cloudy Clear [facility] Work Phone: Urine color determinationon 11-09-2021 Color (U) Halie Yellow [facility] Work Phone: Urine glucose detectionon Glucose Ql (U) Normal mg/dl Normal [facility] Work Phone: Urine leukocyte esterase det ection by dipstickon 11-09-2021 Leukocyte esterase Test strip Ql (U) 100 /ul Negative [facility] Work Phone: Urine pHon 11-09-2021 pH (U) 5.0 [pH] [facility] Work Phone: Urine sediment bacteria coun t by microscopy (number/high power field)on 11-09-2021 Bacteria LM.HPF (Urine sed) [#/Area] 3 /[HPF] None Seen [facility] Work Phone: Urine specific gravity measu rementon 11-09-2021 Specific gravity (U) [Rel density] 1.020 [facility] Work Phone: Urobilinogen Auto test strip Ql (U)on 11-09-2021 Urobilinogen Ql (U) 4 mg/dl Normal [facility] Work Phone: Basic metabolic 1999 panelOr dered By: Wong Lewis on 02-11-2021 Anion gap [Moles/Vol] 10 mmol/L 10 - 2 0 mmol/L [facility] Calcium [Mass/Vol] 9.0 mg/dL 8.4 - 10. 2 mg/dL [facility] Chloride [Moles/Vol] 106 mmol/L 98 - 10 8 mmol/L [facility] Creatinine [Mass/Vol] 0.77 mg/dL 0.40 - 1.10 [facility] GFR/1.73 sq M.predicted CKD-EPI (S/P/Bld) [Vol rate/Area] 105 >=60 mL/min/1.73 m2 [facility] Glucose [Mass/Vol] 93 mg/dL 65 - 99 mg/dL [facility] HCO3 [Moles/Vol] 26 mmol/L 21 - 32 mmol/L [facility] Potassium [Moles/Vol] 3.7 mmol/L 3.5 - 5.1 mmol/L [facility] Sodium [Moles/Vol] 138 mmol/L 135 - 145 mmol/L [facility] Urea nitrogen [Mass/Vol] 6 mg/dL Low 8 - 25 mg/dL [facility] Urea nitrogen/Creatinine [Mass ratio] 7.8 mg/mg Low [facility] The eGFR should be used for monitoring renal function only and not for medication dosing. [facility] Hepatic function 1999 panelO rdered By: Wong Lewis on 02-11-2021 Albumin [Mass/Vol] 3.4 g/dL 3.2 - 5.2 g/dL [facility] ALP [Catalytic activity/Vol] 62 U/L 40 - 140 U/L [facility] ALT [Catalytic activity/Vol] 23 U/L 14 - 65 U/L [facility] AST [Catalytic activity/Vol] 12 U/L 0 - 45 U/L [facility] Bilirubin [Mass/Vol] 0.2 mg/dL 0.0 - 1 .3 mg/dL [facility] Bilirubin.conjugated [Mass/Vol] mg/dL 0.0 - 0.4 mg/dL [facility] Protein [Mass/Vol] 7.6 g/dL 6.0 - 8.0 g/dL [facility] Lipid 1996 panelOrdered By: Wong Lewis on 02-11-2021 Cholesterol [Mass/Vol] 152 mg/dL 100 - 199 mg/dL [facility] Comment on above: National Cholesterol Education Program Guidelines: Cholesterol Desirable: <200 mg/dL Borderline High: 200-239 mg/dL High: greater than or equal to 240 mg/dL Cholesterol in HDL [Mass/Vol] 63 mg/dL 40 - 59 [facility] Comment on above: National Cholesterol Education Program Guidelines: HDL Cholesterol Low: <40 mg/dL Near Optimal: 40-59 mg/dL High: greater than or equal to 60 mg/dL Cholesterol in LDL [Mass/Vol] 57 mg/dL 10 - 130 mg/dL [facility] Comment on above: National Cholesterol Education Program Guidelines: LDL Cholesterol Optimal: <100 mg/dL Near Optimal/above Optimal: 100-129 mg/dL Borderline High: 130-159 mg/dL High: 160-189 mg/dL Very High: greater than or equal to 190 mg/dL Cholesterol non HDL [Mass/Vol] 89 mg/dL [facility] Comment on above: National Cholesterol Education Program Guidelines: NON HDL Cholesterol Desirable: <130 mg/dL Borderline High: 130-159 mg/dL High: 160-189 mg/dL Very High: > or = 190 mg/dL Cholesterol.total/Pearl sterol in HDL [Mass ratio] 2.4 {ratio} ratio [facility] Comment on above: Female Cholesterol/H DL Ratio: Average risk: 4.4 1/2 average risk: 3.3 2 x average risk: 7.1 Triglyceride [Mass/Vol] 158 mg/dL High 30 - 150 mg/dL [facility] Comment on above: National Cholesterol Education Program Guidelines: Triglyceride Normal: <150 mg/dL Borderline High: 150-199 mg/dL High: 200-499 mg/dL Very High: greater than or equal to 500 mg/dL No Panel InformationOrdered By: Wong Lewis on 02-11-2021 Interpretation and review of laboratory results Abnormal [facility] Interpretation and review of laboratory results Normal [facility] TSH DL <= 0.005 mIU/L QnOrde red By: Wong Lewis on 02-11-2021 TSH Qn 0.94 m[IU]/L [facility] COVID-19, MOLECULARon 02-25- 2021 SARS-CoV-2 (COVID-19) RNA ANA+probe Ql (Unsp spec) Not detected Normal Not Detected [facility] Comment on above: Order Comment: : Edilma ngo Swab COVID/Flu Lab Tests (OP in UTM/Dry) Result Comment: This test was performed under the FDA's Emergency Use Authorization (EUA). Testing was performed using the Simplexa SARS-CoV-2 RT-PCR assay ([employer]) on the [employer] platform. This test has not been approved for use in asymptomatic patients and its performance in this patient population has not been evaluated. Negative results do not rule out the presence of SARS-CoV-2/COVID-19. Fact sheets for this EUA can be found at the following links: For Healthcare Providers: https://www.fda.gov/media/130014/download For Patients: https://www.fda.gov/media/591867/download Performed By: #### [id number] #### [facility] [address] [place] [address] Donald Olsen M.D. [id number] Vital Signs Date Time Vital Sign Value Performing Clinician Facility 11-30-2024 10:53-0400 Body height 165.1 cm Heaven Nathaniel [employer] [employer] Work Phone: [facility] 11-30-2024 10:53-0400 Body mass index (BMI) [Ratio] 40.1 kg/m2 Heaven Nathaniel [employer] Work Phone: [facility] 11-30-2024 10:53-0400 Body weight 109.31 kg Heaven Nathaniel [employer] Work Phone: [facility] 11-30-2024 10:53-0400 Diastolic blood pressure 100 mm[Hg] Heaven Nathaniel [employer] Work Phone: [facility] 11-30-2024 10:53-0400 Systolic blood pressure 146 mm[Hg] Tomah Nathaniel [employer] Work Phone: [facility] 11-21-2024 13:09-0500 Body mass index (BMI) [Ratio] 40.3 kg/m2 Heaven Nathaniel [employer] Work Phone: [facility] 11-21-2024 13:09-0500 Body weight 109.93 kg Heaven Nathaniel [employer] Work Phone: [facility] 11-21-2024 13:09-0500 Diastolic blood pressure 94 mm[Hg] Heaven Nathaniel [employer] Work Phone: [facility] 11-21-2024 13:09-0500 Systolic blood pressure 139 mm[Hg] Heaven Nathaniel [employer] Work Phone: [facility] 11-08-2024 08:52-0500 Body mass index (BMI) [Ratio] 40.4 kg/m2 Heaven Nathaniel [employer] Work Phone: [facility] 11-08-2024 08:52-0500 Body weight 110.27 kg Heaven Nathaniel [employer] Work Phone: [facility] 11-08-2024 08:52-0500 Diastolic blood pressure 89 mm[Hg] Heaven Nathaniel [employer] Work Phone: [facility] 11-08-2024 08:52-0500 Systolic blood pressure 148 mm[Hg] Heaven Nathaniel [employer] Work Phone: [facility] 10-08-2024 21:35-0500 Body temperature 96.5 [degF] Heaven Nathaniel [employer] Work Phone: [facility] 10-08-2024 21:35-0500 Diastolic blood pressure 107 mm[Hg] Heaven Nathaniel [employer] Work Phone: [facility] 10-08-2024 21:35-0500 Heart rate 93 /min Heaven Nathaniel [employer] Work Phone: [facility] 10-08-2024 21:35-0500 Respiratory rate 18 /min Heaven Nathaniel [employer] Work Phone: [facility] 10-08-2024 21:35-0500 SaO2% (BldA) [Mass fraction] 100 % Heaven Armstrong [employer] Work Phone: [facility] 10-08-2024 21:35-0500 Systolic blood pressure 159 mm[Hg] Heaven Armstrong [employer] Work Phone: [facility] 10-08-2024 19:30-0500 Body mass index (BMI) [Ratio] 40.5 kg/m2 Heaven Armstrong [employer] Work Phone: [facility] 10-08-2024 19:30-0500 Body weight 110.4 kg Heaven Armstrong [employer] Work Phone: [facility] 02-01-2023 09:09-0400 Body temperature 98 [degF] Dr. Erica Silva Work Phone: [facility] 02-01-2023 09:09-0400 Diastolic blood pressure 81 mm[Hg] Dr. Erica Silva Work Phone: [facility] 02-01-2023 09:09-0400 Heart rate 73 /min Dr. Erica Silva Work Phone: [facility] 02-01-2023 09:09-0400 Respiratory rate 16 /min Dr. Erica Silva Work Phone: [facility] 02-01-2023 09:09-0400 SaO2% (BldA) [Mass fraction] 96 % Dr. Erica Silva Work Phone: [facility] 02-01-2023 09:09-0400 Systolic blood pressure 123 mm[Hg] Dr. Erica Silva Work Phone: [facility] 02-01-2023 06:27-0400 Body height 165.[address] Erica Silva Work Phone: [facility] 02-01-2023 06:27-0400 Body mass index (BMI) [Ratio] 38.8 kg/m2 Dr. Erica Silva Work Phone: [facility] 02-01-2023 06:27-0400 Body weight 105.[address] Erica Silva Work Phone: [facility] 01-05-2023 08:56-0400 Body temperature 99 [degF] Dr. Erica Silva Work Phone: [facility] 01-05-2023 08:56-0400 Body weight 101.[address] Erica Silva Work Phone: [facility] 01-05-2023 08:56-0400 Diastolic blood pressure 84 mm[Hg] Dr. Erica Silva Work Phone: [facility] 01-05-2023 08:56-0400 Heart rate 88 /min Dr. Erica Silva Work Phone: [facility] 01-05-2023 08:56-0400 Respiratory rate 18 /min Dr. Erica Silva Work Phone: [facility] 01-05-2023 08:56-0400 SaO2% (BldA) [Mass fraction] 95 % Dr. Erica Silva Work Phone: [facility] 01-05-2023 08:56-0400 Systolic blood pressure 117 mm[Hg] Dr. Erica Silva Work Phone: [facility] 12-20-2022 12:46-0400 Body mass index (BMI) [Ratio] 36.2 kg/m2 Dr. Erica Silva Work Phone: [facility] 12-20-2022 12:46-0400 Body temperature 98.2 [degF] Dr. Erica Silva Work Phone: [facility] 12-20-2022 12:46-0400 Body weight 98.[address] Erica Silva Work Phone: [facility] 12-20-2022 12:46-0400 Diastolic blood pressure 76 mm[Hg] Dr. Erica Silva Work Phone: [facility] 12-20-2022 12:46-0400 Heart rate 112 /min Dr. Erica Silva Work Phone: [facility] 12-20-2022 12:46-0400 Respiratory rate 12 /min Dr. Erica Silva Work Phone: [facility] 12-20-2022 12:46-0400 SaO2% (BldA) [Mass fraction] 96 % Dr. Erica Silva Work Phone: [facility] 12-20-2022 12:46-0400 Systolic blood pressure 120 mm[Hg] Dr. Erica Silva Work Phone: [facility] 07-15-2022 07:07-0400 Body height 165.[address] Erica Silva Work Phone: [facility] Work Phone: 07-15-2022 07:07-0400 Body mass index (BMI) [Ratio] 36.2 kg/m2 Dr. Erica Silva Work Phone: [facility] Work Phone: 07-15-2022 07:07-0400 Body temperature 98.4 [degF] Dr. Erica Silva Work Phone: [facility] Work Phone: 07-15-2022 07:07-0400 Body weight 98.[address] Erica Silva Work Phone: [facility] Work Phone: 07-15-2022 07:07-0400 Diastolic blood pressure 78 mm[Hg] Dr. Erica Silva Work Phone: [facility] Work Phone: 07-15-2022 07:07-0400 Heart rate 84 /min Dr. Erica Silva Work Phone: [facility] Work Phone: 07-15-2022 07:07-0400 Respiratory rate 14 /min Dr. Erica Silva Work Phone: [facility] Work Phone: 07-15-2022 07:07-0400 SaO2% (BldA) [Mass fraction] 97 % Dr. Erica Silva Work Phone: [facility] Work Phone: 07-15-2022 07:07-0400 Systolic blood pressure 124 mm[Hg] Dr. Erica Silva Work Phone: [facility] Work Phone: 06-24-2022 12:47-0400 Body mass index (BMI) [Ratio] 36.1 kg/m2 Dr. Erica Silva Work Phone: [facility] Work Phone: 06-24-2022 12:47-0400 Body weight 98.[address] Erica Silva Work Phone: [facility] Work Phone: 06-14-2022 09:22-0400 Body temperature 98.2 [degF] Dr. Erica Silva Work Phone: [facility] Work Phone: 06-14-2022 09:22-0400 Body weight 98.[address] Erica Silva Work Phone: [facility] Work Phone: 06-14-2022 09:22-0400 Diastolic blood pressure 72 mm[Hg] Dr. Erica Silva Work Phone: [facility] Work Phone: 06-14-2022 09:22-0400 Heart rate 86 /min Dr. Erica Silva Work Phone: [facility] Work Phone: 06-14-2022 09:22-0400 Respiratory rate 16 /min Dr. Erica Silva Work Phone: [facility] Work Phone: 06-14-2022 09:22-0400 SaO2% (BldA) [Mass fraction] 97 % Dr. Erica Silva Work Phone: [facility] Work Phone: 06-14-2022 09:22-0400 Systolic blood pressure 128 mm[Hg] Dr. Erica Silva Work Phone: [facility] Work Phone: 02-13-2022 12:15-0400 Diastolic blood pressure 78 mm[Hg] No Primary Care Physician [facility] Work Phone: 02-13-2022 12:15-0400 Heart rate 78 /min No Primary Care Physician [facility] Work Phone: 02-13-2022 12:15-0400 Respiratory rate 16 /min No Primary Care Physician [facility] Work Phone: 02-13-2022 12:15-0400 SaO2% (BldA) [Mass fraction] 99 % No Primary Care Physician [facility] Work Phone: 02-13-2022 12:15-0400 Systolic blood pressure 119 mm[Hg] No Primary Care Physician [facility] Work Phone: 02-13-2022 11:34-0400 Body temperature 97.2 [degF] No Primary Care Physician [facility] Work Phone: 02-13-2022 09:11-0400 Body height 165.1 cm No Primary Care Physician [facility] Work Phone: 02-13-2022 09:11-0400 Body mass index (BMI) [Ratio] 34.9 kg/m2 No Primary Care Physician [facility] Work Phone: 02-13-2022 09:11-0400 Body weight 95.25 kg No Primary Care Physician [facility] Work Phone: 12-10-2021 10:49-0400 Body height 165.1 cm No Primary Care Physician [facility] Work Phone: 12-10-2021 10:49-0400 Body mass index (BMI) [Ratio] 35.2 kg/m2 No Primary Care Physician [facility] Work Phone: 12-10-2021 10:49-0400 Body temperature 98.3 [degF] No Primary Care Physician [facility] Work Phone: 12-10-2021 10:49-0400 Body weight 96.16 kg No Primary Care Physician [facility] Work Phone: 12-10-2021 10:49-0400 Diastolic blood pressure 76 mm[Hg] No Primary Care Physician [facility] Work Phone: 12-10-2021 10:49-0400 Heart rate 70 /min No Primary Care Physician [facility] Work Phone: 12-10-2021 10:49-0400 Respiratory rate 14 /min No Primary Care Physician [facility] Work Phone: 12-10-2021 10:49-0400 SaO2% (BldA) [Mass fraction] 98 % No Primary Care Physician [facility] Work Phone: 12-10-2021 10:49-0400 Systolic blood pressure 118 mm[Hg] No Primary Care Physician [facility] Work Phone: 11-11-2021 20:44-0500 Body mass index (BMI) [Ratio] 34.1 kg/m2 No Primary Care Physician [facility] Work Phone: 11-11-2021 20:44-0500 Body temperature 98.6 [degF] No Primary Care Physician [facility] Work Phone: 11-11-2021 20:44-0500 Body weight 92.98 kg No Primary Care Physician [facility] Work Phone: 11-11-2021 20:44-0500 Diastolic blood pressure 94 mm[Hg] No Primary Care Physician [facility] Work Phone: 11-11-2021 20:44-0500 Heart rate 108 /min No Primary Care Physician [facility] Work Phone: 11-11-2021 20:44-0500 Respiratory rate 18 /min No Primary Care Physician [facility] Work Phone: 11-11-2021 20:44-0500 SaO2% (BldA) [Mass fraction] 98 % No Primary Care Physician [facility] Work Phone: 11-11-2021 20:44-0500 Systolic blood pressure 117 mm[Hg] No Primary Care Physician [facility] Work Phone: 11-09-2021 07:11-0500 Diastolic blood pressure 84 mm[Hg] No Primary Care Physician [facility] Work Phone: 11-09-2021 07:11-0500 Heart rate 100 /min No Primary Care Physician [facility] Work Phone: 11-09-2021 07:11-0500 Respiratory rate 16 /min No Primary Care Physician [facility] Work Phone: 11-09-2021 07:11-0500 SaO2% (BldA) [Mass fraction] 95 % No Primary Care Physician [facility] Work Phone: 11-09-2021 07:11-0500 Systolic blood pressure 111 mm[Hg] No Primary Care Physician [facility] Work Phone: 11-09-2021 04:43-0500 Body mass index (BMI) [Ratio] 34.1 kg/m2 No Primary Care Physician [facility] Work Phone: 11-09-2021 04:43-0500 Body temperature 98.9 [degF] No Primary Care Physician [facility] Work Phone: 11-09-2021 04:43-0500 Body weight 92.98 kg No Primary Care Physician [facility] Work Phone: 02-23-2021 09:36-0400 Body height 167.6 cm Sunshine Niño MA [facility] 02-23-2021 09:36-0400 Body mass index (BMI) [Ratio] 34.38 kg/m2 Sunshine Niño MA [facility] 02-23-2021 09:36-0400 Body weight 96.62 kg Sunshine Niño MA [facility] 02-23-2021 09:36-0400 Diastolic blood pressure 96 mm[Hg] Sunshine Niño MA [facility] 02-23-2021 09:36-0400 Systolic blood pressure 138 mm[Hg] Sunshine Niño MA [facility] 02-11-2021 13:25-0400 Body height 165.1 cm Wong Lewis MD Work Phone: [facility] 02-11-2021 13:25-0400 Body mass index (BMI) [Ratio] 36.24 kg/m2 Wong Lewis MD Work Phone: [facility] 02-11-2021 13:25-0400 Body temperature 98.1 [degF] Wong Lewis MD Work Phone: [facility] 02-11-2021 13:25-0400 Body weight 98.79 kg Wong Lewis MD Work Phone: [facility] 02-11-2021 13:25-0400 Diastolic blood pressure 88 mm[Hg] Wong Lewis MD Work Phone: [facility] 02-11-2021 13:25-0400 Heart rate 71 /min Wong Lewis MD Work Phone: [facility] 02-11-2021 13:25-0400 Respiratory rate 18 /min Wong Lewis MD Work Phone: [facility] 02-11-2021 13:25-0400 SaO2% (BldA) [Mass fraction] 98 % Wong Lewis MD Work Phone: [facility] 02-11-2021 13:25-0400 Systolic blood pressure 134 mm[Hg] Wong Lewis MD Work Phone: [facility] 02-14-2020 12:50-0400 BMI (Body Mass Index) 35.35 kg/m2 Americo Loja [facility] 02-14-2020 12:50-0400 Body Temperature 98.6 [degF] Americo Loja [facility] 02-14-2020 12:50-0400 Body weight 96.34 kg Americo Freedom [facility] 02-14-2020 12:50-0400 BP Diastolic 73 mm[Hg] Americo Loja [facility] 02-14-2020 12:50-0400 BP Systolic 119 mm[Hg] Americo Loja [facility] 02-14-2020 12:50-0400 Height 165.1 cm Americo Freedom [facility] 02-14-2020 12:50-0400 Pulse (Heart Rate) 79 /min Americo Freeodm [facility] 02-14-2020 12:50-0400 Pulse Oximetry 97 % Americo Freedom [facility] Encounters Encounter Date Encounter Type Care Provider Facility Start: 06-12-2025 ambulatory [facility] Facility:[facility] Start: 05-28-2025 End: 05-28-2025 ambulatory [facility] Facility:[facility] Start: 05-13-2025 End: 05-13-2025 ambulatory Heaven Nathaniel [employer] Work Phone: -Radiology [facility] Start: 05-13-2025 End: 05-13-2025 Patient encounter procedure Yohannes Andrade DPM -Radiology [facility] Work Phone: Start: 05-13-2025 End: 05-13-2025 ambulatory [facility] Facility:[facility] Start: 11-30-2024 End: 11-30-[address] Marzena Casas DO -[facility] Work Phone: Start: 11-30-2024 End: 11-30-2024 ambulatory [facility] Start: 11-21-2024 End: 11-21-2024 ambulatory Heavenpablo Armstrong [employer] Work Phone: [facility] Work Phone: Start: 11-21-2024 End: 11-21-[address] Marzena Casas DO -Laboratory, Specimen Work Phone: Start: 11-21-2024 End: 11-21-[address] Marzena Casas DO -[facility] Work Phone: Start: 11-21-2024 End: 11-21-2024 ambulatory [facility] Facility:[facility] Start: 11-21-2024 End: 11-21-2024 [facility] Facility:[facility] Start: 11-16-2024 Non-patient / Non-visit Teresa moreno RN -[facility] Work Phone: Start: 11-16-2024 [facility] Facility:[facility] Start: 11-14-2024 End: 11-14-[address] Mala Moncada DC -[facility] Work Phone: Start: 11-14-2024 End: 11-14-2024 [facility] Facility:[facility] Start: 11-08-2024 End: 11-08-[address] Balbina Gonzales MD -[facility] Work Phone: Start: 11-08-2024 End: 11-08-2024 [facility] Facility:[facility] Start: 11-08-2024 End: 11-08-2024 ambulatory Balbina Gonzales Facility:[facility] Start: 10-30-2024 End: 10-30-[address] Mala Moncada DC -[facility] Work Phone: Start: 10-30-2024 End: 10-30-2024 ambulatory [facility] Start: 10-10-2024 End: 10-10-[address] Mala Moncada DC -[facility] Work Phone: Start: 10-10-2024 End: 10-10-2024 ambulatory [facility] Start: 10-08-2024 End: 10-08-2024 Emergency department patient visit Dr. Waqas Stone DO -Emergency Department Work Phone: Start: 09-26-2024 End: 09-26-[address] Mala Moncada DC -[facility] Work Phone: Start: 09-26-2024 End: 09-26-2024 ambulatory [facility] Start: 09-25-2024 End: 09-25-2024 ambulatory [facility] Facility:[facility] Start: 09-25-[address] Mala Moncada DC -Physical Therapy Work Phone: Start: 09-10-2024 End: 09-10-[address] Mala Moncada DC -[facility] Work Phone: Start: 09-10-2024 End: 09-10-2024 ambulatory [facility] Start: 08-20-2024 End: 08-20-[address] Mala Moncada DC -[facility] Work Phone: Start: 08-20-2024 End: 08-20-2024 ambulatory [facility] Start: 08-20-2024 Encounter for genera l adult medical examination with abnormal findings [facility] Start: 07-25-2024 End: 07-25-2024 ambulatory [facility] Facility:[facility] Start: 07-18-2024 End: 07-18-2024 ambulatory [facility] Start: 07-12-2024 End: 07-12-2024 ambulatory [facility] Start: 07-10-2024 End: 07-10-2024 ambulatory [facility] Start: 07-05-2024 ambulatory [facility] :[facility] Start: 07-03-2024 End: 07-03-2024 ambulatory [facility] Start: 06-26-2024 End: 06-26-2024 ambulatory [facility] Start: 10-10-2023 End: 10-10-2023 ambulatory [facility] Work Phone: Start: 10-10-2023 End: 10-10-2023 Patient encounter procedure [facility]-Radiology, [facility] Work Phone: Start: 06-17-2023 End: 06-17-2023 Discharged Recurring [facility]-Physical Therapy Work Phone: Start: 02-01-2023 Non-patient / Non-visit Dr. Lauren Silva Work Phone: [facility] Start: 02-01-2023 End: 02-01-2023 Admission to same day surgery center [facility] Start: 02-01-2023 End: 02-01-[address] Erica Silva Work Phone: [facility] Work Phone: Start: 01-05-[address] Kiki Silva Work Phone: [facility] Start: 01-05-2023 End: 01-05-2023 Encounter for general adult medical examination without abnormal findings Dr. Erica Silva Work Phone: [facility] Start: 01-05-2023 End: 01-05-[address] Erica Silva Work Phone: [facility] Start: 12-20-2022 End: 12-20-[address] Erica Silva Work Phone: [facility] Start: 12-01-2022 End: 12-01-[address] Erica Silva Work Phone: [facility] Start: 10-29-2022 End: 10-29-[address] Erica Silva Work Phone: [facility]-Physical Therapy Start: 10-15-2022 End: 10-15-[address] Erica Silva Work Phone: [facility] Start: 09-21-2022 End: 09-21-[address] Erica Silva Work Phone: [facility] Start: 09-16-2022 End: 09-16-[address] Erica Silva Work Phone: [facility] Work Phone: Start: 09-16-2022 End: 09-16-[address] Erica Silva Work Phone: [facility] Start: 08-09-2022 End: 08-09-[address] Erica Silva Work Phone: [facility] Start: 08-04-2022 End: 08-04-[address] Erica Silav Work Phone: [facility] Work Phone: Start: 08-04-2022 End: 08-04-[address] Erica Silva Work Phone: [facility]-Physical Therapy Start: 07-15-2022 End: 07-15-[address] Erica Silva Work Phone: [facility] Start: 06-24-2022 End: 06-24-[address] Erica Silva Work Phone: [facility] Start: 06-14-2022 End: 06-14-[address] Erica Silva Work Phone: [facility] Int Med at [facility] Start: 02-13-2022 End: 02-13-2022 Emergency department patient visit No Primary Care Physician [facility]-Emergency Department Start: 01-19-2022 [facility] Start: 01-19-2022 Chart abstracting Sunshine Niño MA [facility] Obstetrics and Gynecology Start: 12-16-2021 End: 12-16-2021 Patient encounter procedure No Primary Care Physician [facility]-Ultrasound, [facility] Start: 12-10-2021 End: 12-10-2021 Patient encounter procedure No Primary Care Physician [facility]-Laboratory, [facility] Start: 12-10-2021 End: 12-10-2021 Patient encounter procedure No Primary Care Physician [facility] Internal Medicine Start: 11-11-2021 End: 11-12-2021 Emergency department patient visit No Primary Care Physician [facility]-Emergency Department Start: 11-09-2021 End: 11-09-2021 Emergency department patient visit No Primary Care Physician [facility]-Emergency Department Start: 05-19-2021 End: 05-23-2021 ambulatory ANDREA [facility] Phys[facility] Start: 05-19-2021 End: 05-19-2021 Office outpatient visit 25 minutes Andrea Arlington Work Phone: [facility] Dermatology Comment on above: Actinic keratosis (P rimary Dx); Rosacea Start: 05-07-2021 ambulatory NELSY RICHARD [facility] Ambulatory Start: 03-13-2021 End: 03-17-2021 [facility] Start: 03-06-2021 End: 03-08-2021 ambulatory [facility] Start: 02-11-2021 End: 02-15-2021 ambulatory WONGUrvashi LEWIS [facility] Start: 02-11-2021 End: 02-11-2021 Chart abstracting Wong Lewis MD Work Phone: [facility] Biometrics Start: 02-11-2021 End: 02-11-2021 Initial preventive medicine new pt age 18-39yrs Wong Lewis MD Work Phone: [facility] Primary Care Physicians Comment on above: Routine medical exam (Primary Dx); Need for vaccination Start: 02-11-2021 End: 02-11-2021 Patient encounter status Wong Lewis MD Work Phone: [facility] Primary Care Physicians Start: 11-13-2020 End: 11-13-2020 Orders Only Melanie Marychuy Ibis Work Phone: [facility] [employer] - [facility] Comment on above: Encntr for obs for s prison expsr to oth biolg agents ruled out (Primary Dx); Fever, unspecified fever cause; Sore throat; Congestion of respiratory tract; Acute nonintractable headache, unspecified headache type Start: 06-18-2020 End: 06-22-2020 ambulatory [facility] Start: 06-18-2020 End: 06-18-2020 Patient encounter procedure Raoul Cruz Work Phone: [facility] Ortho Rehab Comment on above: Acute midline thorac ic back pain Start: 06-11-2020 End: 06-15-2020 ambulatory [facility] Start: 06-11-2020 End: 06-11-2020 Patient encounter procedure Raoul Cruz Work Phone: [facility] Ortho Rehab Comment on above: Acute midline thorac ic back pain Start: 06-09-2020 End: 06-13-2020 [facility] Start: 06-09-2020 End: 06-09-2020 Patient encounter procedure Raoul Cruz Work Phone: [facility] Ortho Rehab Comment on above: Acute midline thorac ic back pain Start: 06-06-2020 End: 06-10-2020 ambulatory [facility] Start: 06-06-2020 End: 06-06-2020 Patient encounter procedure Raoul Cruz Work Phone: [facility] Orth[facility] Re[facility] Comment on above: Acute midline thorac ic back pain Start: 06-03-2020 End: 06-07-2020 ambulatory [facility] Start: 06-03-2020 End: 06-03-2020 Patient encounter procedure Raoul Cruz Work Phone: [facility] Re[facility] Comment on above: Acute midline thorac ic back pain Start: 05-31-2020 End: 05-31-2020 Emergency department patient visit [facility] Start: 05-28-2020 End: 06-01-2020 ambulatory [facility] Start: 05-28-2020 End: 05-28-2020 Patient encounter procedure Raoul Cruz Work Phone: [facility] Re[facility] Comment on above: Thoracic back pain, unspecified back pain laterality, unspecified chronicity (Primary Dx) Start: 05-27-2020 End: 05-31-2020 ambulatory [facility] Start: 05-27-2020 End: 05-27-2020 Patient encounter procedure Raoul Sheffield Tuanruben Work Phone: [facility] Re[facility] Comment on above: Acute midline thorac ic back pain Start: 05-23-2020 End: 05-27-2020 [facility] Start: 05-23-2020 End: 05-23-2020 Patient encounter procedure Raoul Cruz Work Phone: [facility] Re[facility] Comment on above: Acute midline thorac ic back pain Start: 05-21-2020 End: 05-25-2020 ambulatory [facility] Start: 05-21-2020 End: 05-21-2020 Patient encounter procedure Raoul Cruz Work Phone: [facility] Re[facility] Comment on above: Sprain of ligaments of thoracic spine, initial encounter; Acute midline thoracic back pain Start: 02-14-2020 End: 02-14-2020 Clinical Support Marzena Murrell [facility] Audiology Comment on above: Tinnitus of right ea r (Primary Dx); Sensorineural hearing loss, bilateral; Does use hearing aid Start: 02-14-2020 End: 02-14-2020 Office outpatient new 45 minutes Americo Loja Work Phone: [facility] ENT Physicians Comment on above: Tinnitus of right ea r (Primary Dx); Sensorineural hearing loss (SNHL) of both ears; Does use hearing aid Procedures Date Procedure Procedure Detail Performing Clinician Start: 05-13-2025 X-ray of foot, three or more views Heaven Armstrong [employer] Work Phone: Start: 11-21-2024 Liquid based cervica l cytology screening Heaven Armstrong [employer] Work Phone: Comment on above: NEGATIVE FOR [...] 02-11-2031 Tetanus vaccination Tetanus: Every 1 0yrs [facility] Start: 10-08-2024 [facility] Start: 03-05-2024 Screening for malign ant neoplasm of cervix Pap Smear [facility] Start: 02-02-2024 Tetanus vaccination Tetanus: Every 1 0yrs [facility] Start: 02-01-2023 Application of ice collar, cap or bag [facility] Start: 02-01-2023 Catheterization of vein [facility] Start: 02-01-2023 Elevation of affecte d extremity [facility] Start: 02-01-2023 Following clinical pathway protocol [facility] Start: 02-01-2023 Patient discharge [facility] Start: 02-01-2023 Procedure discontinued [facility] Start: 02-01-2023 Taking patient vital signs [facility] Start: 02-01-2023 Vital signs measurements [facility] Start: 02-01-2023 [facility] Start: 02-01-2023 Medication education [facility] Start: 01-05-2023 Patient referral [facility] Work Phone: Start: 06-24-2022 Patient referral [facility] Work Phone: Start: 06-14-2022 Patient referral [facility] Work Phone: Start: 05-20-2022 Influenza vaccination Sequenti al Influenza Vaccine (Season Ended) [facility] Start: 03-05-2022 History and physical examination, annual for health maintenance Wellness Visit [facility] Start: 02-13-2022 Enteric Bacteriology Enteric Bacteri ology [facility] Work Phone: Start: 02-11-2022 Depression screening using PHQ-9 (Patient Health Questionnaire 9) score [facility] Start: 02-11-2022 History and physical examination, annual for health maintenance Wellness Visit [facility] Start: 12-10-2021 Patient referral [facility] Work Phone: Start: 09-21-2021 End: 09-21-2021 Patient encounter procedure 09/21/2021 Office Visit Dermatology Andrea Mckeon Jr., DO [address] [place] [address] [facility] Dermatology Start: 05-20-2021 Influenza [facility] Start: 05-18-2021 End: 05-18-2021 Patient encounter procedure 05/18/2021 Office Visit Dermatology Andrea Mckeon Jr., DO [address] [place] [address] [phone] [facility] Dermatology Start: 03-12-2021 End: 03-12-2021 Patient encounter procedure 03/12/2021 Office Visit Dermatology Andrea Mckeon Jr., DO [address] [place] [address] [phone] [facility] Dermatology Start: 12-19-2020 Screening for malign ant neoplasm of cervix Pap Smear [facility] Start: 06-18-2020 End: 06-18-2020 Treatment 06/18/2020 Treatment Rehabilitation Raoul Cruz PA-C [address] [place] [phone] [facility] Start: 06-11-2020 End: 06-11-2020 Treatment 06/11/2020 Treatment Raoul Hernandez PA-C [address] [place] [phone] [facility] Start: 06-09-2020 End: 06-09-2020 Treatment 06/09/2020 Treatment Rehabilitation Raoul Cruz PA-C [address] [place] [phone] [facility] Start: 06-06-2020 End: 06-06-2020 Treatment 06/06/2020 Treatment Rehabilitation Raoul Cruz PA-C [address] [place] [phone] Mable Wadsworth, [facility] Start: 06-03-2020 End: 06-03-2020 Treatment 06/03/2020 Treatment Rehabilitation Raoul Cruz PA-C [address] [place] [phone] Manuela Balbuena, [facility] Start: 05-28-2020 End: 05-28-2020 Treatment 05/28/2020 Treatment Rehabilitation Raoul Cruz PA-C [address] [place] [address], [place] [address] [phone] Jessica Valdez, [facility] Start: 05-27-2020 End: 05-27-2020 Treatment 05/27/2020 Treatment Rehabilitation Raoul Cruz PA-C [address] [place] [address], [place] [address] [phone] Joy Sol, [facility] Start: 05-23-2020 End: 05-23-2020 Treatment 05/23/2020 Treatment Rehabilitation Raoul Cruz PA-C [address] [place] [address], [place] [address] [phone] Mable Wadsworth, [facility] Start: 05-20-2020 Influenza vaccinatio n given [facility] Start: 02-28-2010 Hepatitis C antibody , confirmatory test Hepatitis C Screening [facility] Start: 02-28-2010 Hepatitis C screening Hepatitis C Sc reening [facility] Start: 2008 COVID-19 Vaccine (1 of 2) COVI D-19 Vaccine (1 of 2) [facility] Start: 02-28-2007 HIV screening HIV Screening [facility] Start: 2004 Adolescent depressio n screening assessment Depression Screening (PHQ9) [facility] Start: 2004 COVID-19 Vaccine (1) COVID-19 Vaccin e (1) [facility] Start: 02-28-1997 COVID-19 Vaccine (1) COVID-19 Vaccin e (1) [facility] Start: 02-28-1995 History and physical examination, annual for health maintenance Wellness Visit [facility] Start: 1992 Screening for malign ant neoplasm of cervix Pap Smear [facility] Start: 1992 Tetanus vaccination Tetanus: Every 1 0yrs [facility] CBC W Auto Different ial panel - Blood [facility] End: 11-13-2021 Covid-19/Influenza Order Algorithm : Dual Swab COVID/Flu Lab Tests (OP in UTM/Dry) Covid-19/Influenza Order Algorithm : Dual Swab COVID/Flu Lab Tests (OP in UTM/Dry) Microbiology Routine Encntr for obs for susp expsr to oth biolg agents ruled out Fever, unspecified fever cause Sore throat Congestion of respiratory tract Acute nonintractable headache, unspecified headache type 1 Occurrences starting 11/13/2020 until 11/13/2021 [facility] Comment on above: 1 Occurrences starti ng 11/13/2020 until 11/13/2021 End: 02-11-2022 Hemoglobin A1c/Hemoglobin.total in Blood Hemoglobin A1c Lab Routine Routine medical exam 1 Occurrences starting 02/11/2021 until 02/11/2022 [facility] Comment on above: 1 Occurrences starti ng 02/11/2021 until 02/11/2022 Hemoglobin A1c/Hemoglobin.total in Blood Hemoglobin A1c Lab Routine Routine medical exam 02/11/2021 2:05 PM EDT [facility] Hemoglobin A1c/Hemoglobin.total in Blood [facility] Lipid 1996 panel - S bird or Plasma [facility] Patient Education [facility] Work Phone: Patient referral [facility] Work Phone: Thyroid stimulating hormone measurement [facility] Vitamin D, 25-hydrox y measurement [facility] Immunizations Immunization Date Immunization Notes Care Provider [place] merchant 08-03-2024 influenza, seasonal, injectable, preservative free Heaven Armstrong LUMBER STICKERDulce MariaC Work Phone: [facility] 07-25-2023 influenza, injectabl e, quadrivalent, preservative free [facility] 06-22-2022 influenza, injectabl e, quadrivalent, preservative free [facility] 06-22-2022 influenza, seasonal, injectable Dr. Erica Silva Work Phone: [facility] 07-24-2021 influenza, injectabl e, quadrivalent, preservative free [facility] 07-24-2021 influenza, seasonal, injectable No Primary Care Physician [facility] 07-03-2021 Covid (Pfizer) No Primary Ca re Physician [facility] 06-12-2021 Covid (Pfizer) No Primary Ca re Physician [facility] 02-11-2021 diphtheria, tetanus toxoids and acellular pertussis vaccine, unspecified formulation Wong Lewis MD Work Phone: [facility] 02-11-2021 tetanus toxoid, redu winifred diphtheria toxoid, and acellular pertussis vaccine, adsorbed Wong Lewis MD Work Phone: [facility] 02-01-2014 meningococcal polysaccharide (groups A, C, Y and W-135) diphtheria toxoid conjugate vaccine (MCV4P) Wong Lewis MD Work Phone: [facility] 02-01-2014 tetanus toxoid, redu winifred diphtheria toxoid, and acellular pertussis vaccine, adsorbed Wong Lewis MD Work Phone: [facility] 07-20-2006 tetanus toxoid, redu winifred diphtheria toxoid, and acellular pertussis vaccine, adsorbed Wong Lewis MD Work Phone: [facility] 03-13-1999 measles, mumps and rubella virus vaccine Wong Lewis MD Work Phone: [facility] 01-16-1998 hepatitis B vaccine, pediatric or pediatric/adolescent dosage Wong Lewis MD Work Phone: [facility] 08-05-1997 hepatitis B vaccine, pediatric or pediatric/adolescent dosage Wong Lewis MD Work Phone: [facility] 07-09-1997 hepatitis B vaccine, pediatric or pediatric/adolescent dosage Wong Lewis MD Work Phone: [facility] 02-22-1997 diphtheria, tetanus toxoids and acellular pertussis vaccine Wong Lewis MD Work Phone: [facility] 02-22-1997 diphtheria, tetanus toxoids and acellular pertussis vaccine, unspecified formulation Wong Lewis MD Work Phone: [facility] 02-22-1997 trivalent poliovirus vaccine, live, oral Wong Lewis MD Work Phone: [facility] 08-20-1993 diphtheria, tetanus toxoids and acellular pertussis vaccine Wong Lewis MD Work Phone: [facility] 08-20-1993 diphtheria, tetanus toxoids and acellular pertussis vaccine, unspecified formulation Wong Lewis MD Work Phone: [facility] 08-20-1993 diphtheria, tetanus toxoids and pertussis vaccine Wong Lewis MD Work Phone: [facility] 08-20-1993 trivalent poliovirus vaccine, live, oral Wong Lewis MD Work Phone: [facility] 06-01-1993 haemophilus influenz ae type b vaccine, PRP-T conjugate Wong Lewis MD Work Phone: [facility] 06-01-1993 measles, mumps and rubella virus vaccine Wong Lewis MD Work Phone: [facility] 1992 haemophilus influenz ae type b vaccine, PRP-T conjugate Wong Lewis MD Work Phone: [facility] 1992 diphtheria, tetanus toxoids and pertussis vaccine Wong Lewis MD Work Phone: [facility] 1992 haemophilus influenz ae type b vaccine, PRP-T conjugate Wong Lewis MD Work Phone: [facility] 1992 trivalent poliovirus vaccine, live, oral Wong Lewis MD Work Phone: [facility] 1992 diphtheria, tetanus toxoids and pertussis vaccine Wong Lewis MD Work Phone: [facility] 1992 haemophilus influenz ae type b vaccine, PRP-T conjugate Wong Lewis MD Work Phone: [facility] 1992 trivalent poliovirus vaccine, live, oral Wong Lewis MD Work Phone: [facility] Payers Date Payer Category Payer Self-pay [id number] 2023 Unknown [id number] 2020 Worker's Compensation 200 [id number]. [id number] 2019 Unknown FORMERLY [facility] - PREFERRED xxxxxxxxx 2019-Present xxxxxxxxx [id number]. [id number] 2019 Unknown [id number] 1.2.840.011355.1.13.385.2. 7.3.850355.315 2019 Unknown [id number] 1992 Unknown [id number] 2.16.840.1.875588.3.579.2. 903 1992 Unknown [id number] 2.16.840.1.976449.3.579.2. 903 1992 Unknown [id number] 2.16.840.1.492181.3.579.2. 903 1992 Unknown [id number] 2.16.840.1.625310.3.579.2. 903 1992 Unknown [id number] 2.16.840.1.025444.3.579.2. 903 1992 Unknown [id number] 2.16.840.1.061219.3.579.2. 903 1992 Unknown [id number] 2.16.840.1.368258.3.579.2. 903 1992 Unknown [id number] 2.16.840.1.618900.3.579.2. 903 1992 Unknown [id number] 2.16.840.1.922708.3.579.2. 903 1992 Unknown [id number] 2.16.840.1.351848.3.579.2. 903 1992 Unknown [id number] 2.16.840.1.804533.3.579.2. 903 1992 Unknown [id number] 2.16.840.1.406363.3.579.2. 900 1992 Unknown [id number] 2.16.840.1.349907.3.579.2. 900 1992 Unknown [id number] 2.16.840.1.208860.3.579.2. 903 1992 Unknown [id number] 2.16.840.1.764003.3.579.2. 903 1992 Unknown [id number] 2.16.840.1.486953.3.579.2. 903 1992 Unknown [id number] 2.16.840.1.223941.3.579.2. 903 1992 Unknown [id number] 2.16.840.1.618140.3.579.2. 903 1992 Unknown [id number] 2.16.840.1.923990.3.579.2. 903 Unknown [id number] Unknown [id number] 2.16.840.1.108451.3.579.2. 462 Unknown [id number] 2.16.840.1.500442.3.579.2. 462 Unknown [id number] 2.16.840.1.934415.3.579.2. 462 Unknown [id number] 2.16.840.1.171963.3.579.2. 462 Unknown [id number] 2.16.840.1.689094.3.579.2. 462 Unknown [id number] 2.16.840.1.705542.3.579.2. 462 Unknown [id number] 2.16.840.1.834916.3.579.2. 462 Unknown [id number] 2.16.840.1.085648.3.579.2. 462 Unknown [id number] 2.16.840.1.579027.3.579.2. 462 Unknown [id number] 2.16.840.1.281028.3.579.2. 462 Unknown [id number] 2.16.840.1.616601.3.579.2. 462 Unknown [id number] 2.16.840.1.061686.3.579.2. 462 Unknown [id number] 2.16.840.1.068197.3.579.2. 462 Unknown [id number] 2.16.840.1.894650.3.579.2. 462 Unknown [id number] 2.16.840.1.000867.3.579.2. 462 Unknown [id number] 2.16.840.1.191462.3.579.2. 462 Unknown [id number] 2.16.840.1.418842.3.579.2. 462 Unknown [id number] 2.16.840.1.742088.3.579.2. 462 Unknown [id number] 2.16.840.1.444831.3.579.2. 462 Unknown [id number] 2.16.840.1.047031.3.579.2. 462 Unknown [id number] 2.16.840.1.853912.3.579.2. 462 Unknown [id number] 2.16.840.1.940274.3.579.2. 462 Unknown [id number] 2.16.840.1.434329.3.579.2. 462 Unknown [id number] 2.16.840.1.310894.3.579.2. 462 Worker's Compensation [id number] Social History Date Type Detail Facility Start: 02-14-2020 End: 11-29-2024 Tobacco smoking status LAIS Never smoker [facility] Start: 02-14-2020 Tobacco Comment 02/14/2020 [facility] Start: 02-14-2020 Alcohol Comment rarely [facility] Start: 1990 Sex Assigned At Not on file [facility] Exposure to SARS-CoV-2 (event) Not sure [facility] Start: 02-14-2020 End: 02-11-2021 Tobacco use and exposure Never used [facility] Start: 02-11-2021 End: 05-19-2021 Alcohol intake Ex-drinker (finding) [facility] Start: 12-10-2021 End: 03-14-2023 Tobacco smoking status NHIS Unknown if ever smoked [facility] Start: 1990 Sex Assigned At Female [facility] Start: 12-05-2024 Sex Female (finding) [facility] NEGATED: Highlighted row [facility] Goals Date Patient Goal Desired Activity /State Mental Status Date Assessment Result Facility 02-01-2023 Cognitive function Voice/Name [facility] Work Phone: Clinical Notes 02-11-2021 to 05-14-2025 Note Date & Type Note Facility 05-14-2025 Radiology Diagnostic study note [facility] Imaging Services [address] [place], [place] [address] Foot min 3 Views MR#: [id number] Acct: [id number] Name: RENA LANGSTON Rep #: [id number] : 1990 F 35 From: Shea Rivas MD PCP: VICKI Rebolledo Status: REG CLI Study:Foot min 3 Views Date of Exam: Exam# [id number] Ordering Dr: Yohannes Andrade DPM PROCEDURE: FOOT [...] IMPRESSION: No acute osseous abnormality. Reading Location: [facility] CC: CATHY Andrade; LUMBER STICKER-C Heaven Armstrong ~ Electronic Integrated Systems Mechanic: Signed [facility] 11-21-2024 Note [facility] Pap Smear Specimen Adequacy November 22, 2024 [...] acute November 08, 2024 8:49am Threatened acute 2024 8:49am Segmental and somatic dysfunction of cervical region acute November 14, 025 8:24am Segmental and somatic dysfunction of lumbar region acute November 14 025 8:24am Segmental and somatic dysfunction of pelvic region acute November 14 025 8:24am Segmental and somatic dysfunction of thoracic [...] of (fetus) acute November 30, 2024 10:35am [facility] Work Phone: 1(935) 791-898812-02-2024 Evaluation note* Diagnosis Onset Date Resolution Status Admit Date Segmental and somatic dysfunction of cervical region acute August 20 10:16am Segmental and somatic dysfunction of lumbar region acute Dec emb2023 10:16am Segmental and somatic dysfunction of pelvic region acute Dec ember 2023 10:16am Segmental and somatic dysfunction of thoracic region acute August 20 10:16am Thoracic neuritis acute Decee 2023 10:16am Segmental and somatic dysfunction of cervical region acute September 10 8:15am Segmental and somatic dysfunction of lumbar region acute Dec ember 2023 8:15am Segmental and somatic dysfunction of pelvic region acute Dec ember 2023 8:15am Segmental and somatic dysfunction of thoracic region acute September 10 8:15am Segmental and somatic dysfunction of lumbar region acute [facility] 2024 8:20am Segmental and somatic dysfunction of pelvic region acute [facility] 2024 8:20am Segmental and somatic dysfunction of thoracic region acute September 26 8:20am Thoracic neuritis acute September 26, 2024 8:20am Segmental and somatic dysfunction of lumbar region acute [facility] 2024 7:54am Segmental and somatic dysfunction of pelvic region acute [facility] 2024 7:54am Segmental and somatic dysfunction of thoracic region acute October 10 7:54am Back pain noneactive October 10, 2024 7:54am Segmental and somatic dysfunction of cervical region acute October 30 8:22am Segmental and somatic dysfunction of lumbar region acute Feb ru2024 8:22am Segmental and somatic dysfunction of pelvic region acute Feb ru2024 8:22am Segmental and somatic dysfunction of thoracic region acute October 30 8:22am acute November 08, 2024 8:49am Threatened acute Febru alyssa2024 8:49am Segmental and somatic dysfunction of cervical region acute November 14 8:24am Segmental and somatic dysfunction of lumbar region acute Feb ruary 2024 8:24am Segmental and somatic dysfunction of pelvic region acute Feb ruvail 2024 8:24am Segmental and somatic dysfunction of thoracic region acute November 14 8:24am Headache, migraine acute November 21, 2024 12:52pm Hearing loss acute March 5th, 2 025 12:52pm Obesity affecting acute November 21, 2024 12:52pm acute November 21 12:52pm Rosacea acute November 21 12:52pm Supervision of high-risk acute November 21, 2024 12:52pm Threatened acute November 21, 2024 12:52pm Contraceptive management acute November 30, 2024 10:35am Termination of (fetus) acute November 30, 2024 10:35am [facility] Work Phone: 1(671) 724-400805-16-2023 History and physical note Author Dr. Goff [facility] February 01, 2023 7:09am Note Date/Time February 01, 2023 7:09a m [facility] Medical Records Department [address] [place] [address] History & Physical Exam 02/01/23 0708 MR#: [id number] Acct: [id number] Name: RENA LANGSTON Rep #:[id number] : 1990 32 From: Kofi Goff DO PCP: Dr. Erica Silva MD Status:[facility] Location: [place] [address] History and Physical Date of Admission: 02/01/23 [facility] [address] [place] [address] OFFICE VISIT Date of Service:? 12/01/22 MR#: [id number] Acct: [id number] Name:? RENA LANGSTON Rep #: [id number] : 1990 ? ? Provider: Dr. Kofi Goff, Age/Sex:? 32/F ? ? Location: [facility] Status: Signed Intake Intake Visit Reasons:?RIGHT KNEE [...] by me, Dr. Kofi Goff, DO 12/01/22 1150. RENA LANGSTON is a 32 year old [...] are no clinicalchanges since date of exam. 02/01/23708 <Electronically signed by Kofi Goff DO> Cosigner Signature (if applicable): CC: Dr. Kofi Goff DO; Dr. Erica Silva MD~ Signed [facility] Work Phone: 1(278) 357-710305-16-2023 Procedure [facility] 05-19-2021 History of Present illness Narrative* Andrea Mckeon Jr., - 05/19/2021 9:59 AM EDT Rena Langston [...] Andrea Mckeon DO 05/19/2021 documented in this [id number] History of Present illness Narrative* Wong Lewis MD - 02/11/2021 1:37 PM EDT Subjective Patient ID: Rena Langston is a 30 y.o. female. 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 Goff [facility] February 01, 2023 8:08am Note Date/Time February 01, 2023 8:08a m [facility] Medical Records Department [address] [place] [address] Instructions for Home/Discharge Instructions 02/01/23 0808 MR#: [id number] Acct: [id number] Name: RENA LANGSTON Rep #:[id number] : 1990 32 From: Kofi Goff DO PCP: Dr. Erica Silva MD Status:REG SDC Discharge Instructions Diet Discharge Diet: No restrictions [...] CC: Dr. Erica Silva MD ~ Signed [facility] Work Phone: Evaluation note* Diagnosis Routine medical exam- Primary Routine general medical examination at a health care facility Need for vaccination Need for prophylactic vaccination and inoculation against unspecified single disease [facility] Actinic keratosis- Primary Rosacea [facility] Diagnosis Onset Date Resolution Status Elevated LFTs acute Obesity acute Rosacea acute Wears hearing aid acute [facility] Work Phone: Evaluation note* Diagnosis Onset Date Resolution Status Asthma acute Obesity acute Right knee pain acute Wears hearing aid acute Right knee pain acute Right patellofemoral syndrome acute Acute sinusitis acute Contact with or suspected ex posure to other viral communicable disease acute [facility] Work Phone: Evaluation note* Diagnosis Onset Date Resolution Status Asthma acute Obesity acute Right knee pain acute Wears hearing aid acute Right knee pain acute Right patellofemoral syndrome acute Acute sinusitis acute Contact with or suspected ex posure to other viral communicable disease acute Chondromalacia, patella acut e Right knee pain acute Right patellofemoral syndrome acute [facility] Work Phone: Evaluation note* Diagnosis Onset Date [...] syndrome acute URI (upper respiratory infection) acute [facility] Work Phone: Evaluation noteNo assessment information available [facility] Work Phone: Reason for referral (narrative)No [facility] for [facility] Work Phone: Reason for Referral Status Reason Specialty Diagnoses / Procedures Referred By Contact Referred To Contact Closed Specialty Services Required/Patient' s [facility] Diagnoses Tinnitus of right ear Sensorineural hearing loss (SNHL) of both ears Americo Loja DO [address] [place] [address] Marzena Murrell AuD Instructions * Patient Instructions* Ameirco Loja DO - 02/14/2020 1:15 PM EDT [...] Rena Langston is a 29 y.o. female. 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 Placed on steroid x 4 days, no relief. Two courses of antibiotics. She still has pressure and thesensation of fluid. Pt has hx of ear infections as child. Wears hearing aids, they ear 3 years old.Last hearing test 2 years ago in [facility]. Denies drainage. The following portions of [...] strength back and loosen muscles. Social History Tenriism, social, or cultural considerations to be made [...] Notes thoracic pain Vitals 7:45-8:30 Therapeutic Exercise (42187) Intervention Scap retraction, shoulder ext with RTB 10 times each Parameters posterior shoulder stretch at doorway 10 sec hold 5 times each side Intervention K tape thoracic spine Manual Therapy (13531) Intervention IASTM thoracic spine Parameters 10 mins [...] medically necessary. Mable Wadsworth, PT State License, [id number] documented in this encounter* Mable Wadsworth, PT [...] Treatments: Physical Therapy Exercise Log - 05/23/20 0945 OTHER Notes thoracic pain Vitals 9:55-10:10:30 Therapeutic Exercise (71553) Intervention Scap retraction, shoulder ext with RTB 10 times each Parameters posterior shoulder stretch at doorway 10 sec hold 5 times each side Intervention K tape thoracic spine Parameters Counter stretch, wall cross body stretch 10 times each Intervention Chest press and OH flexion with 4# bar 10 times each Manual Therapy (23038) Intervention IASTM thoracic spine Parameters 10 mins [...] work activities. Mable Wadsworth PT State License, [id number] documented in this encounter* Joy Sol DIRECTOR OF GUIDANCE IN [employer] - 05/27/2020 11:30 AM EDT [facility] [...] Notes thoracic pain Vitals 11:20-11:52 Therapeutic Exercise (36674) Intervention Scap retraction, shoulder ext with RTB 10 times each Parameters posterior shoulder stretch at doorway 10 sec hold 5 times each side Intervention K tape thoracic spine Parameters Counter stretch, wall cross body stretch 10 times each Intervention Chest press and OH flexion with 4# bar 10 times each Parameters cat/camel, child's pose x 10 each Manual Therapy (35370) Intervention IASTM thoracic spine Parameters 10 mins [...] symptom relief. Joy Sol PTA STATE LICENSE, [id number] documented in this encounter* Jessica Valdez, PT [...] Notes thoracic pain Vitals 8:55- Therapeutic Exercise (51434) Intervention Scap retraction, shoulder ext with RTB [...] 30' fwd/bck x 2 min Manual Therapy (32565) Intervention IASTM thoracic spine Parameters 10 mins [...] with focus on stretching/mobility, postural strengthening. Jessica Valdez PT State License, [id number] documented in this encounter* Mable Wadsworth, PT [...] Notes thoracic pain Vitals 1:00-1:45 Therapeutic Exercise (41373) Intervention Scap retraction, shoulder ext with GTB [...] Parameters anti-rotation press x10 GTB Manual Therapy (30842) Intervention IASTM thoracic spine Parameters 15 mins [...] for work. Mable Wadsworth PT State License, [id number] documented in this encounter* Joy Sol, [employer] - 06/09/2020 1:00 PM EDT [facility] [...] Notes thoracic pain Vitals 1:00-1:44 Therapeutic Exercise (47158) Intervention Scap retraction, shoulder ext with GTB [...] Parameters anti-rotation press x10 GTB Manual Therapy (01926) Intervention IASTM thoracic spine Parameters 14 mins [...] patient tolerance. Joy Sol PTA STATE LICENSE, [id number] documented in this encounter* Joy Sol PTA [...] Notes thoracic pain Vitals 1:00-1:45 Therapeutic Exercise (29002) Intervention Scap retraction, shoulder ext with BTB [...] resistance band push/pull x 10 Manual Therapy (75596) Intervention IASTM thoracic spine Parameters 10 mins [...] patient tolerance. Joy Sol PTA STATE LICENSE, [id number] documented in this encounter* Mable Wadsworth, PT [...] Notes thoracic pain Vitals 1:00-1:45 Therapeutic Exercise (33544) Intervention Scap retraction, shoulder ext with BTB [...] resistance band push/pull x 10 Manual Therapy (09185) Intervention IASTM thoracic spine Parameters 10 mins [...] Visit: Discharge Mable Wadsworth PT State License, [id number] documented in this encounter* Manuela Balbuena, DIRECTOR [employer] - 06/03/2020 10:45 AM EDT [facility] [...] Notes thoracic pain Vitals 8:55-9:40 Therapeutic Exercise (18567) Intervention Scap retraction, shoulder ext with GTB [...] Parameters anti-rotation press x10 RTB Manual Therapy (27526) Intervention IASTM thoracic spine Parameters 15 mins [...] and flexibility Manuela Balbuena PTA STATE LICENSE, [id number] documented in this encounter* Marzena Murrell, Carin - 02/14/2020 1:15 PM EDT [facility] [address] [place] [address] Name: Rena Langston : 1990 Date: 02/14/20 History & Purpose of Evaluation: Rena Langston was seen today for audiologic evaluation at the kind request of Dr. Loja. Ms. Langston has a known history of hearing loss and constant high pitched tinnitus. Ms. Langston reports she has worn hearing aids since the age of 12. Her last hearing test was two years ago in [place], [place] (unable to obtain). She currently wears [...] Dr. Loja. Continue to wear hearing aids drum sprayer for optimal hearing. Follow-up with managing key person for hearing aid concerns. The above was explained to the patient and or their guardian and they expressed understanding. Electronically signed by: Bruno Olsen, CCC-A 02/14/20 12:54 PM documented in this encounter* Melanie Dhillon CNP - 11/13/2020 7:36 AM EST Patient called [facility] with concern for COVID-19 and need for testing. 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 Advance Directives and Living Will Advance Directive Response Recorded Date/ Time Living Will No November 11 11:07pm Power of Gas Compressor Operator No November 11, 2021 11:07pm Advance Directive Response Recorded Date/ Time Living Will No February 13, 2022 9 :24am Power of Gas Compressor Operator No February 13, 2022 9:24am Advance Directive Response Recorded Date/ Time Living Will No February 13, 2022 8 :24am Power of Gas Compressor Operator No February 13, 2022 8:24am Advance Directive Response Recorded Date/ Time Living Will No January 25, 2023 12 :42pm Power of Gas Compressor Operator No January 25, 2023 12:42pm Advance Directive Response Recorded Date/ Time Living Will No January 25, 2023 11 :42am Power of Gas Compressor Operator No January 25, 2023 11:42am Advance Directive Response Recorded Date/ Time Living Will No January 25, 2023 12 :42pm Power of Gas Compressor Operator No January 25, 2023 12:42pm Living Will No October 08 8:38pm Power of Gas Compressor Operator No October 08, 2024 8:38pm Advance Directive Response Recorded Date/ Time Living Will No October 08 8:38pm Do you have a Healthcare Power of Gas Compressor Operator? 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 Placed on steroid x 4 days, no relief. Two courses of antibiotics. She still has pressure and the sensation of fluid. Pt has hx of ear infections as child. Wears hearing aids, they ear 5 years old. Last hearing test 2 years ago in [facility]. Denies drainage. Reason Comments Physical Therapy Status Reason Specialty Diagnoses / Procedures Referred By Contact Referred To Contact Authorized Rehabilitation Diagnoses Sprain of ligaments of thoracic spine, initial encounter Raoul Cruz PA-C [address] [place] [address] Rehab Pt Ortho Mob [address] [place] [address] Status Reason Specialty Diagnoses / Procedures Referred By Contact Referred To Contact Closed Specialty Services Required/Patient' s Best Interest Audiology Diagnoses Tinnitus of right ear Sensorineural hearing loss (SNHL) of both ears Americo Loja DO [address] [place] [address] Marzena Murrell AuD Reason Comments Establish Care New patient Reason Comments Rosacea Addendum Note - Americo Loja DO - 02/14/2020 1:21 PM EDT Miscellaneous Notes (unrecog nized section and content) Addended by: AMERICO LOJA on: 02/14/2020 01:21 PM Modules accepted: Orders documented in this encounter INFORMATION SOURCE (unrecogn ized section and content) DATE [facility] DATE CREATED AUTHOR AUTHOR'S ORGANIZ ATION 03/17/2021 [facility] DATE CREATED AUTHOR AUTHOR'S ORGANIZ ATION 05/24/2021 [facility] DATE CREATED AUTHOR AUTHOR[facility]S [facility]IZ ATION [facility] DATE CREATED AUTHOR AUTHOR'S ORGANIZ ATION 06/12/2025 [facility] Care Teams (unrecognized sec tion and content) 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 Mechanic Relationship Specialty Start Date End Date Wong Lewis MD [address] [address] PCP - [facility] Provider - [facility] 03/18/21 Wong Lewis MD [address] [address] PCP - General Family Medicine 05/01/21 Clutch Mechanic Relationship Specialty Start Date End Date Wong Lewis MD [address] [address] PCP - General Family Medicine 05/01/21 Team [...] Care Provider, Referri ng Provider Active Raoul LOONEY, PA Attending Provider Active Team Status: Active [...] Status: Active Member Role Status Dates Heaven Nathaniel , LUMBER STICKER-C Primary Care Provider Active Team Status: Inactive Member Role Status Dates Heaven Nathaniel , LUMBER STICKER-C Primary Care Provider Active Start: August 20, 2024 End: August 20, 2024 Heaven Armstrong , LUMBER STICKER-C Referring Provider Active St art: August 20, 2024 End: August 20, 2024 Dr. Mala Moncada DC Attending Provider Active S tart: August 20, 2024 End: August 20, 2024 Team Status: Inactive Member Role Status Dates Heaven Nathaniel , LUMBER STICKER-C Primary Care Provider Active Start: September 10, 2024 End: September 10, 2024 Heaven Armstrong , LUMBER STICKER-C Referring Provider Active St art: September 10, 2024 End: September 10, 2024 Dr. Mala Moncada DC Attending Provider Active S tart: September 10, 2024 End: September 10, 2024 Team Status: Active Member Role Status Dates Dr. Mala Moncada DC Attending Provider Active S tart: September 25, 2024 Dr. Mala Moncada DC Referring Provider Active S tart: September 25, 2024 Heaven Nathaniel , LUMBER STICKER-C Primary Care Provider Active Start: September 25, 2024 Team Status: Inactive Member Role Status Dates Heaven Nathaniel , LUMBER STICKER-C Primary Care Provider Active Start: September 26, 2024 End: September 26, 2024 Heaven Armstrong , LUMBER STICKER-C Referring Provider Active St art: September 26, 2024 End: September 26, 2024 Dr. Mala Moncada DC Attending Provider Active S tart: September 26, 2024 End: September 26, 2024 Team Status: Inactive Member Role Status Dates Heaven Nathaniel , LUMBER STICKER-C Primary Care Provider Active Start: October 08, 2024 End: October 08, 2024 Dr. Waqas Stone DO Attending Provider Active Start: October 08, 2024 End: October 08, 2024 Dr. Waqas Stone DO Emergency Provider Active Start: October 08, 2024 End: October 08, 2024 Team Status: Inactive Member Role Status Dates Heaven Nathaniel , LUMBER STICKER-C Primary Care Provider Active Start: October 10, 2024 End: October 10, 2024 Heaven Nathaniel , LUMBER STICKER-C Referring Provider Active St art: October 10, 2024 End: October 10, 2024 Dr. Mala Moncada DC Attending Provider Active S tart: October 10, 2024 End: October 10, 2024 Team Status: Inactive Member Role Status Dates Heaven Armstrong LUMBER STICKER-C Primary Care Provider Active Start: October 30, 2024 End: October 30, 2024 Heaven Armstrong LUMBER STICKER-C Referring Provider Active St art: October 30, 2024 End: October 30, 2024 Dr. Mala Moncada DC Attending Provider Active S tart: October 30, 2024 End: October 30, 2024 Team Status: Inactive Member Role Status Dates Heaven Armstrong LUMBER STICKER-C Primary Care Provider Active Start: November 08, 2024 End: November 08, 2024 Heaven Armstrong LUMBER STICKER-C Referring Provider Active St art: November 08, 2024 End: November 08, 2024 Dr. Balbina Gonzales MD Attending Provider Active Start: November 08, 2024 End: November 08, 2024 Team Status: Inactive Member Role Status Dates Heaven Armstrong LUMBER STICKER-C Primary Care Provider Active Start: November 08, 2024 End: November 08, 2024 Dr. Balbina Gonzales MD Attending Provider Active Start: November 08, 2024 End: November 08, 2024 Dr. Balbina Gonzales MD Referring Provider Active Start: November 08, 2024 End: November 08, 2024 Team Status: Inactive Member Role Status Dates Heaven Armstrong LUMBER STICKER-C Primary Care Provider Active Start: November 14, 2024 End: November 14, 2024 Heaven Armstrong LUMBER STICKER-C Referring Provider Active St art: November 14, 2024 End: November 14, 2024 Dr. Mala Moncada DC Attending Provider Active S tart: November 14, 2024 End: November 14, 2024 Team Status: Active Member Role Status Dates Heaven Armstrong LUMBER STICKER-C Primary Care Provider Active Start: November 16, 2024 Teresa Dillon RN Attending Provider Active St art: November 16, 2024 Team Status: Inactive Member Role Status Dates Heaven Armstrong , LUMBER STICKER-C Primary Care Provider Active Start: November 21, 2024 End: November 21, 2024 Heaven Nathaniel , LUMBER STICKER-C Referring Provider Active St art: November 21, 2024 End: November 21, 2024 Dr. Marzena Casas DO Attending Provider Activ e Start: November 21, 2024 End: November 21, 2024 Team Status: Inactive Member Role Status Dates Heaven Armstrong , LUMBER STICKER-C Primary Care Provider Active Start: November 21, 2024 End: November 21, 2024 Dr. Marzena Casas DO Attending Provider Activ e Start: November 21, 2024 End: November 21, 2024 Dr. Marzena Casas DO Referring Provider Activ e Start: November 21, 2024 End: November 21, 2024 Team Status: Inactive Member Role Status Dates Heaven Armstrong LUMBER STICKER-C Primary Care Provider Active Start: November 30, 2024 End: November 30, 2024 Heaven Armstrong , LUMBER STICKER-C Referring Provider Active St art: November 30, 2024 End: November 30, 2024 Dr. Marzena Casas DO Attending Provider Activ e Start: November 30, 2024 End: November 30, 2024 Team Status: Active Member Role/Relationship Status Dates Heavenpablo Armstrong , LUMBER STICKER-C Primary Care Provider Active Team Status: Inactive Member Role/Relationship Status Dates Heaven Armstrong , LUMBER STICKER-C Primary Care Provider Active Start: May 13, 2025 End: May 13, 2025 Dr. Yohannes Andrade , CATHY Attending Provider Active Start: May 13, 2025 [...] BE BASED ON THE PRIMARY CLINICAL RECORDS. [facility] provides no warranty or guarantee of the accuracy or completeness of information in this document.
--- OUTSIDE RECORDS SUMMARY | 2025-06-12 19:11 | XMS RPT_ITS | CCD ---
Author Organization [facility] Care Team Providers Care Durable Medical Equipment Technician Name Role Phone Sorin Izaguirre Primary Care Provider [phone] WONG LEWIS Admitting Unavail able SUR, KESHAWN Primary Care Unavailable RAOUL CRUZ Admitting Unavailabl FEILPE Edward Attending Unavailable RAOUL CRUZ Referring Unavailabl e [facility], [facility] Primary Care Unavailable RAOUL CRUZ Admitting Unavailabl FELIPE Edward Attending Unavailable RAOUL CRUZ Referring Unavailabl e [facility], [facility] Primary Care Unavailable RAOUL CRUZ Admitting Unavailabl e JOY SOL Attending Unavailable RAOUL CRUZ Referring Unavailabl e [facility], [facility] Primary Care Unavailable RAOUL CRUZ Admitting Unavailabl e JESSICA VALDEZ Attending Unavailable RAOUL CRUZ Referring Unavailabl e [facility], [facility] Primary Care Unavailable [facility], [facility] Primary Care Unavailable RAOUL CRUZ Admitting Unavailabl e MANUELA BALBUEAN Attending Unavailable RAOUL CRUZ Referring Unavailabl e [facility], [facility] Primary Care Unavailable RAOUL CRUZ Admitting Unavailabl e FELIPE WAD[place]ORTH Attending Unavailable RAOUL CRUZ Referring Unavailabl e [facility], [facility] Primary Care Unavailable RAOUL CRUZ Admitting Unavailabl e JOY SOL Attending Unavailable RAOUL CRUZ Referring Unavailabl e [facility], [facility] Primary Care Unavailable RAOUL CRUZ Admitting Unavailabl e JOY SOL Attending Unavailable RAOUL CRUZ Referring Unavailabl e [facility], [facility] Primary Care Unavailable RAOUL CRUZ Admitting Unavailabl e FELIPE WAD[place]TH Attending Unavailable RAOUL CRUZ Referring Unavailabl e [facility], [facility] Primary Care Unavailable SURSORIN GLOVER Primary Care Unavailable KARY CAIN Attending Unavailabl e SORIN IZAGUIRRE Primary Care Unavailable MELANIE DHILLON Referring Unavailable MELANIE DHILLON Admitting Unavailable Sorin Izaguirre MD Primary Care Provider Wong Lewis MD Unavailable [phone] Dain SALGADO, Wong Hayes Primary Care Provide [...] Care Provider Dr. Erica Silva Referring Provider Dr. Kofi Goff Attending Provider [phone] Nancy LOONEY, [place] Raoul Alejo Attending Provider Dr. Erica Silva Attending Provider [phone] Dr. Kofi Goff Referring Provider Dr. Kofi Goff Other Provider Nathaniel PERMASTONE MECHANIC-C, Heaven Primary Care Provider [phone] Nathaniel PERMASTONE MECHANIC-C, Heaven Referring Provider [phone] Dosrachel EDWARDS, Dr. Medeiros Attending Provider [phone] Dosrachel DC, Dr. Medeiros Referring Provider [phone] Bertha JEWELL, Dr. Alan Attending Provider Bertha JEWELL, Dr. Alan Emergency Provider Janet SALGADO, Dr. Mortensen Attending Provider [phone] Janet SALGADO, Dr. Mortensen Referring Provider Santana THOMPSON, Teresa Attending Provider [facility] Matilde Munoz DO, Dr. Ivan Attending Provider Matilde Munoz DO, Dr. Ivan Referring Provider Nathaniel PERMASTONE MECHANIC-C, Heaven Primary Care Provider [phone] Nathaniel PERMASTONE MECHANIC-C, Heaven Referring Provider [phone] Dosrachel DC, Dr. Medeiros Attending Provider [phone] Nathaniel PERMASTONE MECHANIC-C, Heaven Primary Care Provider [phone] Raymond MORGAN, [...] media; Translations: [RED DYE] Substance Allergy 6 [facility] Work Phone: Sulfonamides (antibiotic) (5 sources) Sulfonamides (Antibiotic); Translations: [SULFA (SULFONAMIDE ANTIBIOTICS)] Drug Allergy 6 [facility] (20 sources) Sulfonamides (Antibiotic); Translations: [SULFA (SULFONAMIDE ANTIBIOTICS)] Propensity to adverse reactions to drug 6 [facility] (4 sources) Contrast media; Translations: [RED DYE] Propensity to adverse reactions to drug 6 Hives [facility] Work Phone: (11 sources) red (food color); Translations: [red (food color)] Allergy to substance 2 [facility] (8 sources) Seasonal Allergies: Uncoded; Translations: [Seasonal Allergies: Uncoded] Allergy to substance 2 Other [facility] Medications Current Medications Medication Drug Class(es) [...] 16, 2024 11:29am On Hold: needs to pepper picker Start: 11-09-2021 Drospirenone-E thinyl Estradiol (Louisa (28)) [...] 3 Viewson 5 Foot min 3 Views [facility] Imaging Services [address] [place] [address] Foot min 3 Views MR#: [id number] Acct: [id number] Name: RENA LANGSTON Rep #: [id number] : 1990 F 35 From: Devendra Sy PCP: VICKI Rebolledo Status: REG CLI Study: Foot min 3 Views Date of Exam: 05/28/25 Exam# [id number] Ordering Dr: Yohannes Andrade DPM PROCEDURE: FOOT [...] bone scan may be considered. Reading Location: [place] [address] CC: CATHY Andrade; PERMASTONE MECHANIC-C Heaven Armstrong Manager Portable: Signed Normal [facility] Foot min 3 Viewson 5 Foot min 3 Views [facility] Imaging Services [address] [place] [address] Foot min 3 Views MR#: [id number] Acct: [id number] Name: RENA LANGSTON Rep #: [id number] : 1990 F 35 From: Idania Rivas MD PCP: VICKI Rebolledo Status: REG CLI Study: Foot min 3 Views Date of Exam: 05/13/25 Exam# [id number] Ordering Dr: Yohannes Andrade DPM PROCEDURE: FOOT [...] IMPRESSION: No acute osseous abnormality. Reading Location: [id number] CC: CATHY Andrade; RYAN-Jess Armstrong Manager Portable: Signed Normal [facility] Set And Exhibit Designer Office Visit Reporton 11-30-2024 Set And Exhibit Designer Office Visit Report [facility] [address], [address] [place] [address] OFFICE VISIT Date of Service: 11/30/24 MR#: [id number] Acct: [id number] Name: RENA LANGSTON Rep #: [id number] : 1990 Provider: Dr. Marzena Wynn DO Age/Sex: 34/F Location[place] [facility] Status: Signed Intake Vital Signs 11/21/24 13:10 11/29/24 08:41 11/30/24 10:53 11/30/24 10:53 Height 5 ft 5 in 5 ft 5 in 5 ft 5 in 5 ft 5 in Weight: 241 lb BMI 40.1 BP 146/100 H Intake Visit Reasons: TERM. 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 Normal [facility] PAP IG HPV APTIMA 16/18,45on 11-26-2024 ADEQ Comment Normal . [facility] Comment on above: Order Comment: Speci men Comment: [id number] Comment: Source.............CervixSpecimen Comment: Other..............Specimen Comment: No. of containers..01 ThinPrep Vial Result Comment: Sati sfactory for evaluation. No endocervical component is identified. Performed By: #### L 7000.1800, L7400.0280 ####[facility] [address] [place], [address] COMM . Normal . [facility] Comment on above: Order Comment: Speci men Comment: [id number] Comment: Source.............CervixSpecimen Comment: Other..............Specimen Comment: No. of containers..01 ThinPrep Vial Performed By: #### L 7000.1800, L7400.0280 ####[facility] [address] [place], [address] COMMENT Comment Normal . [facility] Comment on above: Order Comment: Speci men Comment: [id number] Comment: Source.............CervixSpecimen Comment: Other..............Specimen Comment: No. of containers..01 ThinPrep Vial Result Comment: This liquid based ThinPrep(R) pap test was screened with the use of an image guided system. Performed By: #### L 7000.1800, L7400.0280 ####[facility] [address] [place], [address] DIAG Comment Normal . [facility] Comment on above: Order Comment: Speci men Comment: [id number] Comment: Source.............CervixSpecimen Comment: Other..............Specimen Comment: No. of containers..01 ThinPrep Vial Result Comment: NEGA TIVE FOR INTRAEPITHELIAL LESION OR MALIGNANCY. Performed By: #### L 7000.1800, L7400.0280 ####[facility] [address] [place], [place], [id number] HPV APTIMA, HR Negative Normal Negative [facility] Comment on above: Order Comment: Speci men Comment: [id number] Comment: Source.............CervixSpecimen Comment: Other..............Specimen Comment: No. of containers..01 ThinPrep Vial Result Comment: This nucleic acid amplification test detects fourteen high- risk HPV types (16,18,31,33,35,39,45,51,52,56,58,59,66,68) without differentiation. Performed By: #### L 7000.1800, L7400.0280 ####[facility] [address] [place], [address] HPV Alyssa Rfx Comment Normal . [facility] Comment on above: Order Comment: Speci men Comment: [id number] Comment: Source.............CervixSpecimen Comment: Other..............Specimen Comment: No. of containers..01 ThinPrep Vial Result Comment: Crit erraghu not met, HPV Genotype not performed. Performed at: - [address] [id number] Executive Assistant To President: Michelle Wilson MD, Phone: [phone] Performed at: = - [facility] [id number] Executive Assistant To President: Michelle Wilson MD, Phone: [phone] Performed By: #### L 7000.1800, L7400.0280 ####[facility] [address] [facility] [place], [place], [id number] PAPSMR Comment Normal . [facility] Comment on above: Order Comment: Speci men Comment: [id number] Comment: Source.............CervixSpecimen Comment: Other..............Specimen Comment: No. of [...] occur. Performed By: #### L 7000.1800, L7400.0280 ####[facility] [address] [place], [address] PERFORM Comment Normal . [facility] Comment on above: Order Comment: Speci men Comment: [id number] Comment: Source.............CervixSpecimen Comment: Other..............Specimen Comment: No. of containers..01 ThinPrep Vial Result Comment: Audra Veras, Tube Bender Performed By: #### L 7000.1800, L7400.0280 ####[facility] [address] [place], [address] Chlamydia/GC ANA aptimaon CHLAMY,NUC ACID Negative Normal Negative [facility] Comment on above: Performed By: #### L 7000.1800, L7400.0280 ####[facility] [address] [place], [address] GC BY NUC ACID Negative Normal Negative [facility] Comment on above: Result Comment: Perf ormed at: =G - [facility] [address] [id number] Executive Assistant To President: Michelle Wilson MD, Phone: [phone] Performed By: #### L 7000.1800, L7400.0280 ####[facility] [address] [place], [address] C. trachomatis rRNA ANA+prob e Ql (Unsp spec)Ordered By: Marzena Munoz on 11-21-2024 Chlamydia DNA (ANA) Negative Negative [facility] Cervical or vaginal specimen microscopic examination by liquid based cytology (reportOrdered By: Marzena Munoz on 11-21-2024 Cytology report Cyto stain.thin prep Doc (Cvx/Vag) Comment . [facility] Comment on above: Criteria not met, HP V Genotype not performed.Performed at: - [facility] [id number] Director: Michelle Wilson MD, Phone: [phone] at: =[facility] [address] [id number] Director: Michelle Wilson MD, Phone: [phone] Cervical or vagninal specime n microscopic examination by cytology stain (reported asOrdered By: Marzena Munoz on 11-21-2024 Cytology report Cyto stain Doc (Cvx/Vag) Comment . [facility] Comment on above: The Pap smear [...] rRNA ANA+probe Ql (Unsp spec) Negative Negative [facility] Slime Plant Operator Cyto stain Nom (C vx/Vag) [ID]Ordered By: Marzena Munoz on 11-21-2024 Pap Smear Performed By Comment . [facility] Comment on above: Jagdeep Whittaker totechnologist Cytology report Cyto stain D oc (Cvx/Vag)Ordered By: Marzena Munoz on 11-21-2024 Thin Prep Pap Smear Comment . [facility] Comment on above: The Pap smear [...] 11-21-2024 HPV Genotype Special Info Comment . [facility] Comment on above: Criteria not met, HP V Genotype not performed.Performed at: WB - [facility] [id number] Director: Michelle Wilson MD, Phone: [phone] at: =G - [facility] [id number] Director: Michelle Wilson MD, Phone: [phone] Detection in cervical specim en of any of human papilloma virus (HPV) 16, 18, 31, 33,Ordered By: Marzena Munoz on 11-21-2024 HPV 16+18+31+33+35+39+45+51 +52+56+58+59+66+68 DNA Probe+sig amp Ql (Cvx) Negative Negative [facility] Comment on above: This nucleic acid am plification test detects fourteen high-risk HPV types (16,18,31,33,35,39,45,51,52,56,58,59,66,68)without differentiation. HPV 16+18+31+33+35+39+45+51+ 52+56+58+59+66+68 DNA Probe+sig amp Ql (Cvx)Ordered By: Marzena Munoz on 11-21-2024 Human Papillomavirus High Risk Negative Negative [facility] Comment on above: This nucleic acid am plification test detects fourteen high-risk HPV types (16,18,31,33,35,39,45,51,52,56,58,59,66,68)without differentiation. Image-guided ThinPrep PapOrd ered By: Marzena Munoz on 11-21-2024 Pap Smear Note Comment . [facility] Comment on above: This liquid based Th inPrep(R) pap test was screened withthe use of an image guided system. Image-guided liquid-based Pa pOrdered By: Marzena Munoz on 11-21-2024 Pap Smear Diagnosis Comment . [facility] Comment on above: NEGATIVE FOR INTRAEP ITHELIAL LESION OR MALIGNANCY. Laboratory - CytologyOrdered By: Marzena Munoz on 11-21-2024 Slime Plant Operator Cyto stain Nom (Cvx/Vag) [ID] Comment . [facility] Comment on above: Jagdeep Whittaker totechnologist Laboratory - Miscellaneous t estsOrdered By: Marzena Munoz on 11-21-2024 Service comment (Unsp spec) [Interp] . . [facility] Neisseria gonorrhoeae nuclei c acid detection by amplified probe techniqueOrdered By: Marzena Munoz on 11-21-2024 N. gonorrhoeae DNA ANA+probe Ql (Unsp spec) Negative Negative [facility] Comment on above: Performed at: =[address] [id number] Director: Michelle Wilson MD, Phone: [phone] No Panel InformationOrdered By: Marzena Munoz on 11-21-2024 Pap Smear Specimen Adequacy Comment . [facility] Comment on above: Satisfactory for anna luation. No endocervical component is identified. Set And Exhibit Designer Office Visit Reporton 11-21-2024 Set And Exhibit Designer Office Visit Report [facility] [address], [address] [place] [address] OFFICE VISIT Date of Service: 11/21/24 MR#: [id number] Acct: [id number] Name: RENA LANGSTON Rep #: [id number] : 1990 Provider: Dr. Marzena Wynn, Age/Sex: 34/F Location: 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 Normal [facility] Service comment (Unsp spec) [Interp]Ordered By: Marzena Munoz on 11-21-2024 Pap Smear Comment (3) . . [facility] Chiropractic Reporton 2024 Chiropractic Report [facility] [place] [address] OFFICE VISIT Date of Service: 11/14/24 MR#: [id number] Acct: [id number] Name: RENA LANGSTON Rep #: [id number] : 1990 Provider: JERRY Yanez Age/Sex: 34/F [place] [facility] [place]: Signed Intake Vital Signs 10/08/24 [...] (28)) Held on 10/08/24. 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 Normal [facility] Set And Exhibit Designer Office Visit Reporton 11-08-2024 Set And Exhibit Designer Office Visit Report [facility] [address], [address] [place] [address] OFFICE VISIT Date of Service: 11/08/24 MR#: [id number] Acct: [id number] Name: RENA LANGSTON Rep #: [id number] : 1990 Provider: Dr. Balbina persaud MD Age/Sex: 34/F Location: [facility] [place] Status: Signed Intake Vital Signs 10/08/24 19:30 11/08/24 08:52 11/08/24 08:58 Height 5 ft 5 in 5 ft 5 in 5 ft 5 in Weight: 243 lb 6.4 oz 243 lb 2 oz BMI 40.5 40.4 BP 159/107 H 148/89 H Respiration 18 Pulse 93 Temp 96.5 F L Pulse Oximetry (%) 100 Intake Visit Reasons: bleeding in early Change Management Required: No Is patient in pain?: Yes [...] (28)) Held on 10/08/24. 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 Normal [facility] Type AND Screenon 11-08-2024 Ab SCREEN GEL Negative Normal [facility] Comment on above: Order Comment: PN Performed By: #### B TS ####[facility] [address] [place], [address] Chiropractic Reporton 2024 Chiropractic Report [facility] [place] [address] OFFICE VISIT Date of Service: 10/30/24 MR#: [id number] Acct: [id number] Name: RENA LANGSTON Rep #: [id number] : 1990 Provider: JERRY Yanez Age/Sex: 34/F [place] [facility] [place]: Signed Intake Vital Signs 10/08/24 [...] (28)) Held on 10/08/24. Instructions: needs to pepper picker fexofenadine-pseudoe phedrine ER 1 tab PO QAM 06/24/22 10/30/24 His tory 180 mg-240 mg tablet,ext.release 24 hr (Griselda-D 24 Hour) [facility] Medical History Shingles History of steroid [...] Orders Chi (more content not included)... Normal [facility] Chiropractic Reporton 2024 Chiropractic Report [facility] [address] [place] [address] OFFICE VISIT Date of Service: 10/10/24 MR#: [id number] Acct: [id number] Name: RENA LANGSTON Rep #: [id number] : 1990 Provider: JERRY Yanez Age/Sex: 34/F [place] [facility] [place]: Signed Intake Vital Signs 03/11/23 11:28 [...] was t (more content not included)... Normal [facility] Emergency Department Summary on 10-08-2024 Emergency Department Summary [facility] Medical Records Department [address] [place] [address] Emergency Department Summary 10/08/24 MR#: [id number] Acct: [id number] Name: RENA LANGSTON Rep #: [id number] : 1990 34 From: Waqas Stone DO PCP: VICKI Rebolledo Status:DEP ER Location: ED HPI History of Present Illness Chief Complaint: Upper Extremity Injury [facility] Medical History Shingles History of steroid [...] The pat (more content not included)... Normal [facility] Chiropractic Reporton 2024 Chiropractic Report [facility] [address] [place] [address] OFFICE VISIT Date of Service: 09/26/24 MR#: [id number] Acct: [id number] Name: RENA LANGSTON Rep #: [id number] : 1990 Provider: JERRY Yanez Age/Sex: 34/F [place] [facility] [place] Status: Signed Intake Vital Signs 03/11/23 11:28 [...] mg tablet,ext.release 24 hr (Griselda-D 24 Hour) [facility] Medical History Shingles History of steroid [...] Care Code (more content not included)... Normal [facility] Chiropractic Reporton 2023 Chiropractic Report [facility] [address] [place] [address] OFFICE VISIT Date of Service: 09/10/24 MR#: [id number] Acct: [id number] Name: RENA LANGSTON Rep #: [id number] : 1990 Provider: JERRY Yanez Age/Sex: 34/F [place] [facility] [place]: Signed Intake Vital Signs 03/11/23 11:28 Height 5 ft 6 in Intake Visit Reasons: Back pain Chief Complaint: upper/mid back pain Allergies Sulfa (Sulfonamide Antibiotics) Allergy (Mild, Verified 08/20/24 10:38) Rash red (food color) Allergy (Verified 08/20/24 10:38) Hives Seasonal Allergies: Uncoded Allergy (Verified 08/20/24 10:38) Other [facility] Medical History Shingles History of steroid [...] M99.02 Segment (more content not included)... Normal [facility] Re-Evaluation - PT (1)on Re-Evaluation - PT (1) [facility] [address] [place] [address]. [address] [place] [address] / REEVALUATION / MEDICARE RECERTIFICATION PHYSICAL THERAPY MR#: [id number] Acct: [id number] Name: RENA LANGSTON Rep #: [id number] : 1990 34 From: Dominguez Mcnamara DPT Referring Dr.: JERRY Moncada Status:REG RCR Insurance: Tele[employer] SELF PAY INSURANCE Re-Evaluation Intro: [...] do not hesitate to contact me at [phone] by phone or if you have questions or concerns regarding this new plan of care! Sincerely, Dominguez Mcnamara DPT 09/04/24 0937 CC: JERRY Moncada; PERMASTONE MECHANIC-C Heaven Armstrong CLS Signed For Medicare only, by signing this I certify the plan of care. Physicians Signature Date Normal [facility] Chiropractic Reporton 2023 Chiropractic Report [facility] [address] [place] [address] OFFICE VISIT Date of Service: 08/20/24 MR#: [id number] Acct: [id number] Name: RENA LANGSTON Rep #: [id number] : 1990 Provider: JERRY Yanez Age/Sex: 34/F [place] [facility] [place] Status: Signed Intake Vital Signs 03/11/23 11:28 [...] dysfunction of (more content not included)... Normal [facility] Inital Evaluation (1) - PTon 07-30-2024 Inital Evaluation (1) - PT [facility] [address] [facility] [place] [address] / REHABILITATION SERVICES INITIAL EVALUATION MR#: [id number] Acct: [id number] Name: RENA LANGSTON Rep #: [id number] : 1990 34 From: Dominguez RAZOT Referring Dr.: Dr. Mala Moncada DC Status: REG RCR Insurance: Tele[employer]/[facility] SELF PAY INSURANCE Patient's Visit [...] Response: No effect Lumbar Standing: Right Side Cuthbert - Symptoms During Testing: No effect Lumbar Standing: Right Side Cuthbert - Symptoms After Testing: No effect Lumbar Standing: Left Side Cuthbert - Mechanical Response: No effect Lumbar Standing: Left Side Cuthbert - Symptoms During Testing: Produces Lumbar Standing: Left Side Cuthbert - Symptoms After Testing: No effect Balance/Special [...] Condition, Brayden (more content not included)... Normal [facility] CBC W/Diff, Automatedon 11-0 Absolute Lymph 2.35 X10 3/uL Normal 0.83-4.51 [facility] Comment on above: Performed By: #### L 506.1000, L500.4050, L503.0105, L501.9520, L506.0400, L100.0100, L500.4100 #### [facility] [address] [place], [place], [id number] Absolute Neut 5.8 X10 3/uL Normal 2.0-7.7 [facility] Comment on above: Performed By: #### L 506.1000, L500.4050, L503.0105, L501.9520, L506.0400, L100.0100, L500.4100 #### [facility] [address] [place], [place], [id number] (555) Basophils/100 WBC (Bld) 0.3 % Normal 0-1 [facility] Comment on above: Performed By: #### L 506.1000, L500.4050, L503.0105, L501.9520, L506.0400, L100.0100, L500.4100 #### [facility] [address] [place], [address] Eosinophils/100 WBC (Bld) 0.7 % Normal 0-5 [facility] Comment on above: Performed By: #### L 506.1000, L500.4050, L503.0105, L501.9520, L506.0400, L100.0100, L500.4100 #### [facility] [address] [place], [address] Erythrocyte distribution width (RBC) [Ratio] 12.5 % Normal 11.6-14.6 [facility] Comment on above: Performed By: #### L 506.1000, L500.4050, L503.0105, L501.9520, L506.0400, L100.0100, L500.4100 #### [facility] [address] [place], [address] Hematocrit (Bld) [Volume fraction] 40.2 % Normal 37-47 [facility] Comment on above: Performed By: #### L 506.1000, L500.4050, L503.0105, L501.9520, L506.0400, L100.0100, L500.4100 #### [facility] [address] [place], [address] Hemoglobin (Bld) [Mass/Vol] 13.3 g/dL Normal 12.0-15.0 [facility] Comment on above: Performed By: #### L 506.1000, L500.4050, L503.0105, L501.9520, L506.0400, L100.0100, L500.4100 #### [facility] [address] [place], [address] IG% 0.200 Normal 0.0-0.9 [facility] Comment on above: Result Comment: IG% - Immature Granulocytes (promyelocytes, myelocytes and metamyelocytes) > 1% indicates that a LEFT SHIFT is Present. Performed By: #### L 506.1000, L500.4050, L503.0105, L501.9520, L506.0400, L100.0100, L500.4100 #### [facility] [address] [place], [address] Lymphocytes/100 WBC (Bld) 27.2 % Normal 19-41 [facility] Comment on above: Performed By: #### L 506.1000, L500.4050, L503.0105, L501.9520, L506.0400, L100.0100, L500.4100 #### [facility] [address] [place], [address] MCH (RBC) [Entitic mass] 27.5 pg Normal 27.0-32.0 [facility] Comment on above: Performed By: #### L 506.1000, L500.4050, L503.0105, L501.9520, L506.0400, L100.0100, L500.4100 #### [facility] [address] [place], [address] MCHC (RBC) [Mass/Vol] 33.1 g/dL Normal 32-[address] [facility] Comment on above: Performed By: #### L 506.1000, L500.4050, L503.0105, L501.9520, L506.0400, L100.0100, L500.4100 #### [facility] [address] [place], [address] MCV (RBC) [Entitic vol] 83.2 fL Normal 81-99 [facility] Comment on above: Performed By: #### L 506.1000, L500.4050, L503.0105, L501.9520, L506.0400, L100.0100, L500.4100 #### [facility] [address] [place], [address] Monocytes/100 WBC (Bld) 3.9 % Normal 0-10 [facility] Comment on above: Performed By: #### L 506.1000, L500.4050, L503.0105, L501.9520, L506.0400, L100.0100, L500.4100 #### [facility] [address] [place], [address] Neutrophils/100 WBC (Bld) 67.7 % Normal 47-70 [facility] Comment on above: Performed By: #### L 506.1000, L500.4050, L503.0105, L501.9520, L506.0400, L100.0100, L500.4100 #### [facility] [address] [place], [address] Nucleated RBC (Bld) [#/Vol] 0 10*3/uL Normal 0-5 [facility] Comment on above: Performed By: #### L 506.1000, L500.4050, L503.0105, L501.9520, L506.0400, L100.0100, L500.4100 #### [facility] [address] [place], [address] Platelet mean volume (Bld) [Entitic vol] 11.8 fL Normal 6.2-12.0 [facility] Comment on above: Performed By: #### L 506.1000, L500.4050, L503.0105, L501.9520, L506.0400, L100.0100, L500.4100 #### [facility] [address] [place], [address] Platelets (Bld) [#/Vol] 275 10*3/uL Normal 150-450 [facility] Comment on above: Performed By: #### L 506.1000, L500.4050, L503.0105, L501.9520, L506.0400, L100.0100, L500.4100 #### [facility] [address] [place], [address] RBC (Bld) [#/Vol] 4.83 10*6/uL Normal 4.2-5.4 [facility] Comment on above: Performed By: #### L 506.1000, L500.4050, L503.0105, L501.9520, L506.0400, L100.0100, L500.4100 #### [facility] [address] [place], [address] RDW SD 37.7 fl Normal 35.1-43.9 [facility] Comment on above: Performed By: #### L 506.1000, L500.4050, L503.0105, L501.9520, L506.0400, L100.0100, L500.4100 #### [facility] [address] [place], [address] WBC (Bld) [#/Vol] 8.6 10*3/uL Normal 4.4-11.0 [facility] Comment on above: Performed By: #### L 506.1000, L500.4050, L503.0105, L501.9520, L506.0400, L100.0100, L500.4100 #### [facility] [address] [place], [address] Comprehensive Met[facility]24 Albumin [Mass/Vol] 3.8 g/dL Normal 3.2-5.0 [facility] Comment on above: Performed By: #### L 506.1000, L500.4050, L503.0105, L501.9520, L506.0400, L100.0100, L500.4100 ####[facility] [address] [place], [address] Albumin/Globulin [Mass ratio] 0.9 {ratio} Normal 0.9-2.4 [facility] Comment on above: Performed By: #### L 506.1000, L500.4050, L503.0105, L501.9520, L506.0400, L100.0100, L500.4100 ####[facility] [address] [place], [address] ALK P 78 U/L Normal 45-117 [facility] Comment on above: Performed By: #### L 506.1000, L500.4050, L503.0105, L501.9520, L506.0400, L100.0100, L500.4100 ####[facility] [address] [place], [address] ALT [Catalytic activity/Vol] 26 U/L Normal 13-56 [facility] Comment on above: Performed By: #### L 506.1000, L500.4050, L503.0105, L501.9520, L506.0400, L100.0100, L500.4100 ####[facility] [address] [place], [address] AST [Catalytic activity/Vol] 14 U/L Low 15-37 [facility] Comment on above: Performed By: #### L 506.1000, L500.4050, L503.0105, L501.9520, L506.0400, L100.0100, L500.4100 ####[facility] [address] [place], [address] Bilirubin [Mass/Vol] 0.50 mg/dL Normal 0.20-1.00 [facility] Comment on above: Result Comment: For patients on eltrombopag therapy, use of Dimension [place] TBIL is not recommended. Performed By: #### L 506.1000, L500.4050, L503.0105, L501.9520, L506.0400, L100.0100, L500.4100 ####[facility] [address] [place], [address] BUN/CRE 14.2 RATIO Normal 10-20 [facility] Comment on above: Performed By: #### L 506.1000, L500.4050, L503.0105, L501.9520, L506.0400, L100.0100, L500.4100 ####[facility] [address] [place], [address] CA,Total 9.2 mg/dL Normal 8.5-10.1 [facility] Comment on above: Performed By: #### L 506.1000, L500.4050, L503.0105, L501.9520, L506.0400, L100.0100, L500.4100 ####[facility] [address] [place], [address] Chloride [Moles/Vol] 106 mmol/L Normal 98-107 [facility] Comment on above: Performed By: #### L 506.1000, L500.4050, L503.0105, L501.9520, L506.0400, L100.0100, L500.4100 ####[facility] [address] [place], [address] CO2 [Moles/Vol] 23.0 mmol/L Normal 21.0-32.0 [facility] Comment on above: Performed By: #### L 506.1000, L500.4050, L503.0105, L501.9520, L506.0400, L100.0100, L500.4100 ####[facility] [address] [place], [address] Creatinine [Mass/Vol] 0.63 mg/dL Normal 0.55-1.[address] [facility] Comment on above: Result Comment: The validity of the calculated GFR GFRAA in patients over 70 years has not been determined. Clinical correlation is essential. Performed By: #### L 506.1000, L500.4050, L503.0105, L501.9520, L506.0400, L100.0100, L500.4100 ####[facility] [address] [place], [address] EST GFR - AA 140 mL/min Normal >60 [facility] Comment on above: Result Comment: Afri can [place] GFR Calc Performed By: #### L 506.1000, L500.4050, L503.0105, L501.9520, L506.0400, L100.0100, L500.4100 ####[facility] [address] [place], [address] GAP 7 Normal 5-15 [facility] Comment on above: Performed By: #### L 506.1000, L500.4050, L503.0105, L501.9520, L506.0400, L100.0100, L500.4100 ####[facility] [address] [place], [address] GFR/1.73 sq M.predicted among non-blacks MDRD (S/P/Bld) [Vol rate/Area] 115 mL/min/{1.73_m2} Normal >60 [facility] Comment on above: Result Comment: Non- GFR Calc Performed By: #### L 506.1000, L500.4050, L503.0105, L501.9520, L506.0400, L100.0100, L500.4100 ####[facility] [address] [place], [address] Globulin (S) [Mass/Vol] 4.2 g/dL Normal 2.2-4.2 [facility] Comment on above: Performed By: #### L 506.1000, L500.4050, L503.0105, L501.9520, L506.0400, L100.0100, L500.4100 ####[facility] [address] [place], [address] Glucose [Mass/Vol] 92 mg/dL Normal 74-106 [facility] Comment on above: Performed By: #### L 506.1000, L500.4050, L503.0105, L501.9520, L506.0400, L100.0100, L500.4100 ####[facility] [address] [place], [address] Potassium [Moles/Vol] 4.0 mmol/L Normal 3.5-5.[address] [facility] Comment on above: Performed By: #### L 506.1000, L500.4050, L503.0105, L501.9520, L506.0400, L100.0100, L500.4100 ####[facility] [address] [place], [address] Sodium [Moles/Vol] 135 mmol/L Low 136-145 [facility] Comment on above: Performed By: #### L 506.1000, L500.4050, L503.0105, L501.9520, L506.0400, L100.0100, L500.4100 ####[facility] [address] [place], [address] T PROT 8.0 g/dL Normal 6.4-8.2 [facility] Comment on above: Performed By: #### L 506.1000, L500.4050, L503.0105, L501.9520, L506.0400, L100.0100, L500.4100 ####[facility] [address] [place], [address] Urea nitrogen [Mass/Vol] 9 mg/dL Normal 7-18 [facility] Comment on above: Performed By: #### L 506.1000, L500.4050, L503.0105, L501.9520, L506.0400, L100.0100, L500.4100 ####[facility] [address] [place], [address] Lipid Profileon 07-25-2024 Cholesterol [Mass/Vol] 173 mg/dL Normal 200 [facility] Comment on above: Result Comment: <200 mg/dL Desirable 200-240 mg/dL Borderline >240 mg/dL High Risk Performed By: #### L 506.1000, L500.4050, L503.0105, L501.9520, L506.0400, L100.0100, L500.4100 ####[facility] [address] [place], [address] Cholesterol in HDL [Mass/Vol] 61 mg/dL Normal [facility] Comment on above: Result Comment: The drugs N-Acetylcysteine and Metamizole may falsely depress this assay. Reference Range HDL <40 mg/dL Low HDL Cholesterol HDL >or= 60 mg/dL High HDL Cholesterol Performed By: #### L 506.1000, L500.4050, L503.0105, L501.9520, L506.0400, L100.0100, L500.4100 ####[facility] [address] [place], [address] Cholesterol in LDL [Mass/Vol] 93 mg/dL Normal 0-130 [facility] Comment on above: Performed By: #### L 506.1000, L500.4050, L503.0105, L501.9520, L506.0400, L100.0100, L500.4100 ####[facility] [address] [place], [address] Cholesterol in VLDL [Mass/Vol] 19 mg/dL Normal 5-40 [facility] Comment on above: Performed By: #### L 506.1000, L500.4050, L503.0105, L501.9520, L506.0400, L100.0100, L500.4100 ####[facility] [address] [place], [address] Triglyceride [Mass/Vol] 95 mg/dL Normal [facility] Comment on above: Result Comment: The drugs N-Acetylcysteine and Metamizole may falsely depress this assay. Serum Triglycerides Reference Interval Normal <150 mg/dL Borderline high 150 - 199 mg/dL High 200 - 499 mg/dL Very High > or = 500 mg/dL Performed By: #### L 506.1000, L500.4050, L503.0105, L501.9520, L506.0400, L100.0100, L500.4100 ####[facility] [address] [place], [address] T4 Free Directon 07-25-2024 T4 FREE DIRECT 1.02 ng/dL Normal 0.76-1.46 [facility] Comment on above: Performed By: #### L 506.1000, L500.4050, L503.0105, L501.9520, L506.0400, L100.0100, L500.4100 ####[facility] [address] [place], [address] Thyroid Stim Hormone (TSH)on 07-25-2024 TSH 0.738 uIU/mL Normal 0.358-3.740 [facility] Comment on above: Performed By: #### L 506.1000, L500.4050, L503.0105, L501.9520, L506.0400, L100.0100, L500.4100 ####[facility] [address] [place], [address] Vitamin B12on 07-25-2024 Cobalamin (Vitamin B12) [Mass/Vol] 362 pg/mL Normal 211-911 [facility] Comment on above: Performed By: #### L 506.1000, L500.4050, L503.0105, L501.9520, L506.0400, L100.0100, L500.4100 ####[facility] [address] [place], [place], [address] Vitamin D,25 Hydroxyon 07-25 Vitamin D 25-OH 14.8 ng/mL Normal [facility] Comment on above: Result Comment: Micki min D 25(OH) Status Range Deficiency <20 ng/mL (50nmol/L) Insufficiency 20 - 30 ng/mL (50 - 75 nmol/L) Sufficiency 30 - 100 ng/mL (75 - 250 nmol/L) Toxicity >100 ng/mL (>250 nmol/L) Performed By: #### L 506.1000, L500.4050, L503.0105, L501.9520, L506.0400, L100.0100, L500.4100 ####[facility] [address] [place], [place], [address] Chiropractic Reporton 2023 Chiropractic Report [facility] [address] [place] [address] [id number] OFFICE VISIT Date of Service: 07/18/24 MR#: [id number] Acct: [id number] Name: RENA LANGSTON Rep #: [id number] : 1990 Provider: JERRY Yanez Age/Sex: 34/F [place] [facility] [facility] [place]: Signed Intake Vital Signs 03/11/23 11:28 Height 5 ft 6 in Intake Visit Reasons: Back pain Chief Complaint: upper/mid back pain Is patient in pain?: Yes Pain scale (1-10): 5 Allergies Sulfa (Sulfonamide Antibiotics) Allergy (Mild, Verified 07/18/24 08:33) Rash red (food color) Allergy (Verified 07/18/24 08:33) Hives Seasonal Allergies: Uncoded Allergy (Verified 07/18/24 08:33) Other [facility] Medical History Shingles History of steroid [...] pelvic r (more content not included)... Normal [facility] Chiropractic Reporton 2023 Chiropractic Report [facility] [place] [address] OFFICE VISIT Date of Service: 07/12/24 MR#: [id number] Acct: [id number] Name: RENA LANGSTON Rep #: [id number] : 1990 Provider: JERRY Yanez Age/Sex: 34/F [place] [facility] [place] Status: Signed Intake Vital Signs 03/11/23 11:28 [...] mg tablet,ext.release 24 hr (Griselda-D 24 Hour) [facility] Medical History Shingles History of steroid [...] region, M99. (more content not included)... Normal [facility] Chiropractic Reporton 2023 Chiropractic Report [facility] [address] [place] [id number] OFFICE VISIT Date of Service: 07/10/24 MR#: [id number] Acct: [id number] Name: RENA LANGSTON Rep #: [id number] : 1990 Provider: JERRY Yanez Age/Sex: 34/F [place] [facility] [place] Status: Signed Intake Vital Signs 03/11/23 11:28 [...] responding well (more content not included)... Normal [facility] Chiropractic Reporton 2023 Chiropractic Report [facility] [address] [place] [address] OFFICE VISIT Date of Service: 07/03/24 MR#: [id number] Acct: [id number] Name: RENA LANGSTON Rep #: [id number] : 1990 Provider: JERRY Yanez Age/Sex: 34/F [place] [facility] [place] Status: Signed Intake Vital Signs 03/11/23 11:28 Height 5 ft 6 in Intake Visit Reasons: Back pain Chief Complaint: upper/mid back pain Is patient in pain?: Yes Pain scale (1-10): 6 Allergies Sulfa (Sulfonamide Antibiotics) Allergy (Mild, Verified 07/03/24 08:28) Rash red (food color) Allergy (Verified 07/03/24 08:28) Hives Seasonal Allergies: Uncoded Allergy (Verified 07/03/24 08:28) Other [facility] Medical History Shingles History of steroid [...] Segmental an (more content not included)... Normal [facility] Chiropractic Reporton 2023 Chiropractic Report [facility] [place] [address] OFFICE VISIT Date of Service: 06/26/24 MR#: [id number] Acct: [id number] Name: KIANRENAGREGORIA GSAPAR Rep #: [id number] : 1990 Provider: JERRY Yanez Age/Sex: 34/F [place] [facility] [place]: Signed Intake Vital Signs 03/11/23 11:28 Height 5 ft 6 in Intake Visit Reasons: Back pain Chief Complaint: upper/mid back pain Is patient in pain?: Yes Pain scale (1-10): 7 Allergies Sulfa (Sulfonamide Antibiotics) Allergy (Mild, Verified 06/26/24 09:28) Rash red (food color) Allergy (Verified 06/26/24 09:28) Hives Seasonal Allergies: Uncoded Allergy (Verified 06/26/24 09:28) Other [facility] Medical History Shingles History of steroid [...] CPT Codes Procedures - Manipulation: 1-2 regions (50155) Procedures - Electronic Stimulation: Yes (50768) Proc (more content not included)... Normal [facility] - Chemistry and C hemistry - challengeOrdered By: Dr. 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 If is still suspected, a first morning urinespecimen should be collected 48 hours later and tested. Laboratory - Microbiology an d Antimicrobial susceptibilityon 09-21-2022 SARS-CoV-2 (COVID-19) RNA ANA+probe Ql (Unsp spec) Detected [facility] Work Phone: Laboratory - Microbiology an d Antimicrobial susceptibilityon 07-15-2022 SARS-CoV-2 (COVID-19) RNA ANA+probe Ql (Unsp spec) Not detected [facility] Work Phone: No Panel Informationon 07-15 Influenza Types A,B Rapid (Clinic) Not detected [facility] Work Phone: Absolute lymphocyte counton 02-13-2022 Lymphocytes Auto (Unsp spec) [#/Vol] 1.19 10*3/uL 0.83-4.51 [facility] Work Phone: Basophil percentageon 2021 Basophil percentage 5-10 SEEN /hpf [facility] Work Phone: Basophils/100 WBC (Bld) 0.2 % 0-1 [facility] Work Phone: Bilirubin [Mass/Vol] 0.80 mg/dL 0.20-1.00 [facility] Work Phone: Comment on above: For patients on eltr ombopag therapy, use of Dimension [place] TBIL is not recommended. Chloride [Moles/Vol] 103 mmol/L 98-107 [facility] Work Phone: Eosinophils/100 WBC (Bld) 0.0 % 0-5 [facility] Work Phone: Glucose [Mass/Vol] 159 mg/dL 74-106 [facility] Work Phone: Comment on above: Fasting Glucose resu lt greater than or equal to 126 mg/dL suggests DIABETES MELLITUS per A.D.A. criteria. Neutrophils (Bld) [#/Vol] 4.2 10*3/uL 2.0-7.7 [facility] Work Phone: Neutrophils/100 WBC (Bld) 71.5 % 47-70 [facility] Work Phone: Potassium [Moles/Vol] 3.4 mmol/L 3.5-5.[address] [facility] Work Phone: Protein [Mass/Vol] 8.8 g/dL 6.4-8.2 [facility] Work Phone: Sodium [Moles/Vol] 132 mmol/L 136-145 [facility] Work Phone: WBC (Bld) [#/Vol] 5.9 10*3/uL 4.4-11.0 [facility] Work Phone: Bilirubin Test strip Ql (U)o n 02-13-2022 Bilirubin Ql (U) 6 mg/dL Negative [facility] Work Phone: Comment on above: COLOR OF URINE MAY A FFECT DIPSTICK RESULTS. Blood erythrocytes count (nu mber/volume)on 02-13-2022 RBC (Bld) [#/Vol] 5.50 10*6/uL 4.2-5.4 [facility] Work Phone: Blood hemoglobin measurement (mass/volume)on 02-13-2022 Hemoglobin (Bld) [Mass/Vol] 15.6 g/dL 12.0-15.0 [facility] Work Phone: Blood lymphocytes/100 leukoc yteson 02-13-2022 Lymphocytes/100 WBC (Bld) 20.3 % 19-41 [facility] Work Phone: Blood monocytes/100 leukocyt eson 02-13-2022 Monocytes/100 WBC (Bld) 7.7 % 0-10 [facility] Work Phone: Blood platelet mean volumeon 02-13-2022 Platelet mean volume (Bld) [Entitic vol] 11.9 fL 6.2-12.0 [facility] Work Phone: Determination of erythrocyte mean corpuscular volume (MCV)on 02-13-2022 MCV (RBC) [Entitic vol] 82.2 fL 81-99 [facility] Work Phone: Hematocrit Auto (Bld) [Volum e fraction]on 02-13-2022 Hematocrit (Bld) [Volume fraction] 45.2 % 37-47 [facility] Work Phone: Hyaline casts LM.LPF (Urine sed) [#/Area]on 02-13-2022 Hyaline casts (Urine sed) [#/Area] 10 /[LPF] [facility] Work Phone: Ketones Test strip Ql (U)on 02-13-2022 Ketones Ql (U) 15 mg/dl Negative [facility] Work Phone: Laboratory - Chemistry and C hemistry - challengeon 02-13-2022 ALP [Catalytic activity/Vol] 60 U/L 45-117 [facility] Work Phone: ALT [Catalytic activity/Vol] 23 U/L 13-56 [facility] Work Phone: CO2 [Moles/Vol] 19.0 mmol/L 21.0-32.0 [facility] Work Phone: Globulin (S) [Mass/Vol] 4.9 g/dL 2.2-4.2 [facility] Work Phone: Lipase [Catalytic activity/Vol] 64 U/L 73-393 [facility] Work Phone: Urea nitrogen/Creatinine [Mass ratio] 11.4 mg/mg 10-20 [facility] Work Phone: Laboratory - Hematology and Cell countson 02-13-2022 Erythrocyte distribution width (RBC) [Entitic vol] 38.1 fL 35.1-43.9 [facility] Work Phone: Erythrocyte distribution width (RBC) [Ratio] 12.7 % 11.6-14.6 [facility] Work Phone: Immature granulocytes/100 WBC (Bld) 0.300 % 0.0-0.9 [facility] Work Phone: Comment on above: IG% - Immature Granu locytes (promyelocytes, myelocytes and metamyelocytes) > 1% indicates that a LEFT SHIFT is Present. MCH (RBC) [Entitic mass] 28.4 pg 27.0-32.0 [facility] Work Phone: Nucleated RBC/100 WBC (Bld) [Ratio] 0 % 0-5 [facility] Work Phone: MCHC Auto (RBC) [Mass/Vol]on 02-13-2022 MCHC (RBC) [Mass/Vol] 34.5 g/dL 32-36 [facility] Work Phone: Mucus LM Ql (Urine sed)on Mucus Ql (Urine sed) 0 SEEN /hpf [facility] Work Phone: Nitrite Test strip Ql (U)on 02-13-2022 Nitrite Ql (U) Positive Negative [facility] Work Phone: No Panel Informationon 02-13 Estimated Creatinine Clearance Calc 60.73 ml/min [facility] Work Phone: Estimated GFR (MDRD) Amer 66 mL/min >60 [facility] Work Phone: Comment on above: GFR Calc Estimated GFR (MDRD) Non-Af Amer 55 mL/min >60 [facility] Work Phone: Comment on above: Non- GFR Calc Platelets bldon 02-13-2022 Platelets (Bld) [#/Vol] 275 10*3/uL 150-450 [facility] Work Phone: Protein Test strip Ql (U)on 02-13-2022 Protein Ql (U) 100 mg/dl Negative [facility] Work Phone: Serum or plasma albumin dora urement (mass/volume)on 02-13-2022 Albumin [Mass/Vol] 3.9 g/dL 3.2-5.0 [facility] Work Phone: Serum or plasma albumin/glob ulin mass ratioon 02-13-2022 Albumin/Globulin [Mass ratio] 0.8 {ratio} 0.9-2.4 [facility] Work Phone: Serum or plasma calcium dora urement (mass/volume)on 02-13-2022 Calcium [Mass/Vol] 9.2 mg/dL 8.5-10.1 [facility] Work Phone: Serum or plasma creatinine m easurement (mass/volume)on 02-13-2022 Creatinine [Mass/Vol] 1.23 mg/dL 0.55-1.[address] [facility] Work Phone: Comment on above: The validity of the calculated GFR & GFRAA in patients over 70 years has not been determined. Clinical correlation is essential. Serum or plasma urea nitroge n measurement (mass/volume)on 02-13-2022 Urea nitrogen [Mass/Vol] 14 mg/dL 7-18 [facility] Work Phone: Squamous epithelial cells de tection in urine sediment by light microscopyon 02-13-2022 Epithelial cells.squamous LM Ql (Urine sed) 0-5 SEEN /hpf [facility] Work Phone: Thin prep Papanicolaou smear with manual screeningon 02-13-2022 Thin prep Papanicolaou smear with manual screening 13 U/L 15-37 [facility] Work Phone: Thin prep Papanicolaou smear with manual screening 10 5-15 [facility] Work Phone: Urine blood detectionon 01-18 RBC Ql (U) 250 /ul Negative [facility] Work Phone: RBC Ql (U) 0 SEEN /hpf [facility] Work Phone: Urine clarityon 02-13-2022 Clarity (U) Cloudy Clear [facility] Work Phone: Urine color determinationon 02-13-2022 Color (U) DARK YELLOW Yellow [facility] Work Phone: Urine glucose detectionon Glucose Ql (U) Normal mg/dl Normal [facility] Work Phone: Urine leukocyte esterase det ection by dipstickon 02-13-2022 Leukocyte esterase Test strip Ql (U) 25 /ul Negative [facility] Work Phone: Urine pHon 02-13-2022 pH (U) 5.0 [pH] [facility] Work Phone: Urine sediment bacteria coun t by microscopy (number/high power field)on 02-13-2022 Bacteria LM.HPF (Urine sed) [#/Area] 2 /[HPF] None Seen [facility] Work Phone: Urine sediment fine granular cast count by microscopy (number/low power field)on 05-28-2022 Fine Granular Casts LM.LPF (Urine sed) [#/Area] 0-5 SEEN /lpf [facility] Work Phone: Urine specific gravity measu rementon 02-13-2022 Specific gravity (U) [Rel density] 1.030 [facility] Work Phone: Urobilinogen Auto test strip Ql (U)on 02-13-2022 Urobilinogen Ql (U) 4 mg/dl [facility]: Absolute lymphocyte counton 12-10-2021 Lymphocytes Auto (Unsp spec) [#/Vol] 2.44 10*3/uL 0.83-4.51 [facility] Work Phone: Basophil percentageon 2021 Basophils/100 WBC (Bld) 0.5 % 0-1 [facility] Work Phone: Bilirubin [Mass/Vol] 0.50 mg/dL 0.20-1.00 [facility] Work Phone: Comment on above: For patients on eltr ombopag therapy, use of Dimension [place] TBIL is not recommended. Chloride [Moles/Vol] 104 mmol/L 98-107 [facility] Work Phone: Eosinophils/100 WBC (Bld) 0.8 % 0-5 [facility] Work Phone: Glucose [Mass/Vol] 81 mg/dL 74-106 [facility] Work Phone: Neutrophils (Bld) [#/Vol] 3.2 10*3/uL 2.0-7.7 [facility] Work Phone: Neutrophils/100 WBC (Bld) 52.6 % 47-70 [facility] Work Phone: Potassium [Moles/Vol] 3.9 mmol/L 3.5-5.[address] [facility] Work Phone: Protein [Mass/Vol] 8.2 g/dL 6.4-8.2 [facility] Work Phone: Sodium [Moles/Vol] 138 mmol/L 136-145 [facility] Work Phone: WBC (Bld) [#/Vol] 6.2 10*3/uL 4.4-11.0 [facility] Work Phone: Blood erythrocytes count (nu mber/volume)on 12-10-2021 RBC (Bld) [#/Vol] 4.93 10*6/uL 4.2-5.4 [facility] Work Phone: Blood hemoglobin measurement (mass/volume)on 12-10-2021 Hemoglobin (Bld) [Mass/Vol] 14.1 g/dL 12.0-15.0 [facility] Work Phone: Blood lymphocytes/100 leukoc yteson 12-10-2021 Lymphocytes/100 WBC (Bld) 39.7 % 19-41 [facility] Work Phone: Blood monocytes/100 leukocyt eson 12-10-2021 Monocytes/100 WBC (Bld) 6.2 % 0-10 [facility] Work Phone: Blood platelet mean volumeon 12-10-2021 Platelet mean volume (Bld) [Entitic vol] 12.0 fL 6.2-12.0 [facility] Work Phone: Determination of erythrocyte mean corpuscular volume (MCV)on 12-10-2021 MCV (RBC) [Entitic vol] 85.0 fL 81-99 [facility] Work Phone: Hematocrit Auto (Bld) [Volum e fraction]on 12-10-2021 Hematocrit (Bld) [Volume fraction] 41.9 % 37-47 [facility] Work Phone: Laboratory - Chemistry and C hemistry - challengeon 12-10-2021 ALP [Catalytic activity/Vol] 74 U/L 45-117 [facility] Work Phone: ALT [Catalytic activity/Vol] 30 U/L 13-56 [facility] Work Phone: CO2 [Moles/Vol] 29.0 mmol/L 21.0-32.0 [facility] Work Phone: Globulin (S) [Mass/Vol] 4.3 g/dL 2.2-4.2 [facility] Work Phone: Urea nitrogen/Creatinine [Mass ratio] 10.2 mg/mg 10-20 [facility] Work Phone: Laboratory - Hematology and Cell countson 12-10-2021 Erythrocyte distribution width (RBC) [Entitic vol] 39.8 fL 35.1-43.9 [facility] Work Phone: Erythrocyte distribution width (RBC) [Ratio] 13.0 % 11.6-14.6 [facility] Work Phone: Immature granulocytes/100 WBC (Bld) 0.200 % 0.0-0.9 [facility] Work Phone: Comment on above: IG% - Immature Granu locytes (promyelocytes, myelocytes and metamyelocytes) > 1% indicates that a LEFT SHIFT is Present. MCH (RBC) [Entitic mass] 28.6 pg 27.0-32.0 [facility] Work Phone: Nucleated RBC/100 WBC (Bld) [Ratio] 0 % 0-5 [facility] Work Phone: MCHC Auto (RBC) [Mass/Vol]on 12-10-2021 MCHC (RBC) [Mass/Vol] 33.7 g/dL 32-[address] [facility] Work Phone: No Panel Informationon 12-10 Estimated GFR (MDRD) Amer 155 mL/min >60 [facility] Work Phone: Comment on above: GFR Calc Estimated GFR (MDRD) Non-Af Amer 128 mL/min >60 [facility] Work Phone: Comment on above: Non- GFR Calc Hepatitis A IgM Antibody Negative Negative [facility] Work Phone: Comment on above: Performed at: [facility] [address] [id number] Director: Edwin De Los Santos PhD, Phone: [phone] Thyroid Stimulating Hormone (TSH) 0.79 uIU/mL 0.358-3.74 [facility] Work Phone: Vitamin D 25-Hydroxy 15.7 ng/mL [facility] Work Phone: Comment on above: Vitamin D 25(OH) Sta tus Range Deficiency <20 ng/mL (50nmol/L) Insufficiency 20 - 30 ng/mL (50 - 75 nmol/L) Sufficiency 30 - 100 ng/mL (75 - 250 nmol/L) Toxicity >100 ng/mL (>250 nmol/L) Platelets bldon 12-10-2021 Platelets (Bld) [#/Vol] 278 10*3/uL 150-450 [facility] Work Phone: Serum or plasma albumin dora urement (mass/volume)on 12-10-2021 Albumin [Mass/Vol] 3.9 g/dL 3.2-5.0 [facility] Work Phone: Serum or plasma albumin/glob ulin mass ratioon 12-10-2021 Albumin/Globulin [Mass ratio] 0.9 {ratio} 0.9-2.4 [facility] Work Phone: Serum or plasma calcium dora urement (mass/volume)on 12-10-2021 Calcium [Mass/Vol] 9.2 mg/dL 8.5-10.1 [facility] Work Phone: Serum or plasma creatinine m easurement (mass/volume)on 12-10-2021 Creatinine [Mass/Vol] 0.59 mg/dL 0.55-1.[address] [facility] Work Phone: Comment on above: The validity of the calculated GFR & GFRAA in patients over 70 years has not been determined. Clinical correlation is essential. Serum or plasma urea nitroge n measurement (mass/volume)on 12-10-2021 Urea nitrogen [Mass/Vol] 6 mg/dL 7-18 [facility] Work Phone: Thin prep Papanicolaou smear with manual screeningon 12-10-2021 Thin prep Papanicolaou smear with manual screening 18 U/L 15-37 [facility] Work Phone: Thin prep Papanicolaou smear with manual screening 5 5-15 [facility] Work Phone: No Panel Informationon 11-12 Hepatitis A IgM Antibody Negative Negative [facility] Work Phone: Hepatitis B Core IgM Antibody Negative Negative [facility] Work Phone: Hepatitis C Antibody (EIA) <0.1 s/co ratio [facility] Work Phone: Comment on above: Negative: < 0.8 Inde terminate: 0.8 - 0.9 Positive: > 0.9 The CDC recommends that a positive HCV antibody result be followed up with a HCV Nucleic Acid Amplification test (876677).Effective November 30, 2021 Hepatitis Panel (4) will be made non-orderable. [employer] offers order code [id number] Acute Hepatitis.Performed at: [place] [id number] Director: Edwin De Los Santos PhD, Phone: [phone] SARS-CoV-2 Antigen (Rapid) [facility] Work Phone: Serum or plasma hepatitis B virus surface antigen detection by immunoassayon 11-12-2021 HBV surface Ag IA Ql Negative Negative [facility] Work Phone: Absolute lymphocyte counton 11-11-2021 Lymphocytes Auto (Unsp spec) [#/Vol] 4.73 10*3/uL 0.83-4.51 [facility] Work Phone: Basophil percentageon 2021 Basophils/100 WBC (Bld) 1.7 % 0-1 [facility] Work Phone: Bilirubin [Mass/Vol] 2.60 mg/dL 0.20-1.00 [facility] Work Phone: Comment on above: For patients on eltr ombopag therapy, use of [employer] [place] TBIL is not recommended. Chloride [Moles/Vol] 103 mmol/L 98-107 [facility] Work Phone: Eosinophils/100 WBC (Bld) 0.2 % 0-5 [facility] Work Phone: Glucose [Mass/Vol] 107 mg/dL 74-106 [facility] Work Phone: Comment on above: Fasting Glucose resu lt from 100 to 125 mg/dL suggests IMPAIRED HOMEOSTASIS per A.D.A. criteria. Neutrophils (Bld) [#/Vol] 1.3 10*3/uL 2.0-7.7 [facility] Work Phone: Neutrophils/100 WBC (Bld) 20.1 % 47-70 [facility] Work Phone: Potassium [Moles/Vol] 3.9 mmol/L 3.5-5.[address] [facility] Work Phone: Comment on above: Moderate Hemolysis, Result may be falsely increased. Protein [Mass/Vol] 8.0 g/dL 6.4-8.2 [facility] Work Phone: Sodium [Moles/Vol] 136 mmol/L 136-145 [facility] Work Phone: WBC (Bld) [#/Vol] 6.4 10*3/uL 4.4-11.0 [facility] Work Phone: Basophil percentage 0 SEEN /hpf [facility] Work Phone: Beta hCG serum qualon 2021 Beta HCG ( test) Ql Negative [facility] Work Phone: Bilirubin Test strip Ql (U)o n 11-11-2021 Bilirubin Ql (U) 3 mg/dL Negative [facility] Work Phone: Comment on above: COLOR OF URINE MAY A FFECT DIPSTICK RESULTS. Blood erythrocytes count (nu mber/volume)on 11-11-2021 RBC (Bld) [#/Vol] 5.07 10*6/uL 4.2-5.4 [facility] Work Phone: Blood hemoglobin measurement (mass/volume)on 11-11-2021 Hemoglobin (Bld) [Mass/Vol] 14.3 g/dL 12.0-15.0 [facility] Work Phone: Blood lymphocytes/100 leukoc yteson 11-11-2021 Lymphocytes/100 WBC (Bld) 73.9 % 19-41 [facility] Work Phone: Blood manual differential co mment interpretation (narrative result)on 11-11-2021 Manual differential comment Andrew (Bld) [Interp] SCANNED [facility] Work Phone: Comment on above: AUTO DIFF OK Blood monocytes/100 leukocyt eson 11-11-2021 Monocytes/100 WBC (Bld) 3.8 % 0-10 [facility] Work Phone: Blood platelet mean volumeon 11-11-2021 Platelet mean volume (Bld) [Entitic vol] 13.0 fL 6.2-12.0 [facility] Work Phone: Determination of erythrocyte mean corpuscular volume (MCV)on 11-11-2021 MCV (RBC) [Entitic vol] 82.2 fL 81-99 [facility] Work Phone: Hematocrit Auto (Bld) [Volum e fraction]on 11-11-2021 Hematocrit (Bld) [Volume fraction] 41.7 % 37-47 [facility] Work Phone: Ketones Test strip Ql (U)on 11-11-2021 Ketones Ql (U) 5 mg/dl Negative [facility] Work Phone: Laboratory - Chemistry and C hemistry - challengeon 11-11-2021 ALP [Catalytic activity/Vol] 195 U/L 45-117 [facility] Work Phone: ALT [Catalytic activity/Vol] 322 U/L 13-56 [facility] Work Phone: CO2 [Moles/Vol] 28.0 mmol/L 21.0-32.0 [facility] Work Phone: Globulin (S) [Mass/Vol] 4.7 g/dL 2.2-4.2 [facility] Work Phone: Lipase [Catalytic activity/Vol] 88 U/L 73-393 [facility] Work Phone: Urea nitrogen/Creatinine [Mass ratio] 7.3 mg/mg 10-20 [facility] Work Phone: Laboratory - Hematology and Cell countson 11-11-2021 Erythrocyte distribution width (RBC) [Entitic vol] 38.7 fL 35.1-43.9 [facility] Work Phone: Erythrocyte distribution width (RBC) [Ratio] 12.9 % 11.6-14.6 [facility] Work Phone: Immature granulocytes/100 WBC (Bld) 0.300 % 0.0-0.9 [facility] Work Phone: Comment on above: IG% - Immature Granu locytes (promyelocytes, myelocytes and metamyelocytes) > 1% indicates that a LEFT SHIFT is Present. MCH (RBC) [Entitic mass] 28.2 pg 27.0-32.0 [facility] Work Phone: Nucleated RBC/100 WBC (Bld) [Ratio] 0 % 0-5 [facility] Work Phone: MCHC Auto (RBC) [Mass/Vol]on 11-11-2021 MCHC (RBC) [Mass/Vol] 34.3 g/dL 32-[address] [facility] Work Phone: Mucus LM Ql (Urine sed)on Mucus Ql (Urine sed) 0 SEEN /hpf [facility] Work Phone: Nitrite Test strip Ql (U)on 11-11-2021 Nitrite Ql (U) Negative Negative [facility] Work Phone: No Panel Informationon 11-11 Estimated Creatinine Clearance Calc 108.25 ml/min [facility] Work Phone: Estimated GFR (MDRD) Amer 129 mL/min >60 [facility] Work Phone: Comment on above: GFR Calc Estimated GFR (MDRD) Non-Af Amer 107 mL/min >60 [facility] Work Phone: Comment on above: Non- GFR Calc Platelets bldon 11-11-2021 Platelets (Bld) [#/Vol] 151 10*3/uL 150-450 [facility] Work Phone: Protein Test strip Ql (U)on 11-11-2021 Protein Ql (U) 15 mg/dl Negative [facility] Work Phone: Serum or plasma albumin dora urement (mass/volume)on 11-11-2021 Albumin [Mass/Vol] 3.3 g/dL 3.2-5.0 [facility] Work Phone: Serum or plasma albumin/glob ulin mass ratioon 11-11-2021 Albumin/Globulin [Mass ratio] 0.7 {ratio} 0.9-2.4 [facility] Work Phone: Serum or plasma calcium dora urement (mass/volume)on 11-11-2021 Calcium [Mass/Vol] 9.2 mg/dL 8.5-10.1 [facility] Work Phone: Serum or plasma creatinine m easurement (mass/volume)on 11-11-2021 Creatinine [Mass/Vol] 0.69 mg/dL 0.55-1.[address] [facility] Work Phone: Comment on above: The validity of the calculated GFR & GFRAA in patients over 70 years has not been determined. Clinical correlation is essential. Serum or plasma urea nitroge n measurement (mass/volume)on 11-11-2021 Urea nitrogen [Mass/Vol] 5 mg/dL 7-18 [facility] Work Phone: Squamous epithelial cells de tection in urine sediment by light microscopyon 11-11-2021 Epithelial cells.squamous LM Ql (Urine sed) 0-5 SEEN /hpf [facility] Work Phone: Thin prep Papanicolaou smear with manual screeningon 11-11-2021 Thin prep Papanicolaou smear with manual screening 420 U/L 15-37 [facility] Work Phone: Comment on above: Moderate Hemolysis, Result may be falsely increased. Thin prep Papanicolaou smear with manual screening 5 5-15 [facility] Work Phone: Urine blood detectionon -2 RBC Ql (U) 250 /ul Negative [facility] Work Phone: RBC Ql (U) 5-10 SEEN /hpf [facility] Work Phone: Urine clarityon 11-11-2021 Clarity (U) Clear Clear [facility] Work Phone: Urine color determinationon 11-11-2021 Color (U) Yellow Yellow [facility] Work Phone: Urine glucose detectionon Glucose Ql (U) Normal mg/dl Normal [facility] Work Phone: Urine leukocyte esterase det ection by dipstickon 11-11-2021 Leukocyte esterase Test strip Ql (U) 25 /ul Negative [facility] Work Phone: Urine pHon 11-11-2021 pH (U) 7.0 [pH] [facility] Work Phone: Urine sediment bacteria coun t by microscopy (number/high power field)on 11-11-2021 Bacteria LM.HPF (Urine sed) [#/Area] 0 /[HPF] None Seen [facility] Work Phone: Urine specific gravity measu rementon 11-11-2021 Specific gravity (U) [Rel density] 1.010 [facility] Work Phone: Urobilinogen Auto test strip Ql (U)on 11-11-2021 Urobilinogen Ql (U) 4 mg/dl Normal [facility] Work Phone: Absolute lymphocyte counton 11-09-2021 Lymphocytes Auto (Unsp spec) [#/Vol] 1.65 10*3/uL 0.83-4.51 [facility] Work Phone: Basophil percentageon 2021 Basophil percentage 10-25 SEEN /hpf [facility] Work Phone: Basophils/100 WBC (Bld) 1.2 % 0-1 [facility] Work Phone: Bilirubin [Mass/Vol] 0.60 mg/dL 0.20-1.00 [facility] Work Phone: Comment on above: For patients on eltr ombopag therapy, use of [employer]ension [place] TBIL is not recommended. Chloride [Moles/Vol] 103 mmol/L 98-107 [facility] Work Phone: Eosinophils/100 WBC (Bld) 0.0 % 0-5 [facility] Work Phone: Glucose [Mass/Vol] 106 mg/dL 74-106 [facility] Work Phone: Comment on above: Fasting Glucose resu lt from 100 to 125 mg/dL suggests IMPAIRED HOMEOSTASIS per A.D.A. criteria. Neutrophils (Bld) [#/Vol] 1.5 10*3/uL 2.0-7.7 [facility] Work Phone: Neutrophils/100 WBC (Bld) 44.9 % 47-70 [facility] Work Phone: Potassium [Moles/Vol] 3.3 mmol/L 3.5-5.[address] [facility] Work Phone: Protein [Mass/Vol] 8.1 g/dL 6.4-8.2 [facility] Work Phone: Sodium [Moles/Vol] 135 mmol/L 136-145 [facility] Work Phone: WBC (Bld) [#/Vol] 3.4 10*3/uL 4.4-11.0 [facility] Work Phone: Beta hCG serum qualon 2021 Beta HCG ( test) Ql Negative [facility] Work Phone: Bilirubin Test strip Ql (U)o n 11-09-2021 Bilirubin Ql (U) 3 mg/dL Negative [facility] Work Phone: Comment on above: COLOR OF URINE MAY A FFECT DIPSTICK RESULTS. Blood erythrocytes count (nu mber/volume)on 11-09-2021 RBC (Bld) [#/Vol] 5.05 10*6/uL 4.2-5.4 [facility] Work Phone: Blood hemoglobin measurement (mass/volume)on 11-09-2021 Hemoglobin (Bld) [Mass/Vol] 14.3 g/dL 12.0-15.0 [facility] Work Phone: Blood lymphocytes/100 leukoc yteson 11-09-2021 Lymphocytes/100 WBC (Bld) 49.1 % 19-41 [facility] Work Phone: Blood monocytes/100 leukocyt eson 11-09-2021 Monocytes/100 WBC (Bld) 4.5 % 0-10 [facility] Work Phone: Blood platelet mean volumeon 11-09-2021 Platelet mean volume (Bld) [Entitic vol] 11.5 fL 6.2-12.0 [facility] Work Phone: Determination of erythrocyte mean corpuscular volume (MCV)on 11-09-2021 MCV (RBC) [Entitic vol] 80.8 fL 81-99 [facility] Work Phone: Hematocrit Auto (Bld) [Volum e fraction]on 11-09-2021 Hematocrit (Bld) [Volume fraction] 40.8 % 37-47 [facility] Work Phone: Ketones Test strip Ql (U)on 11-09-2021 Ketones Ql (U) 15 mg/dl Negative [facility] Work Phone: Laboratory - Chemistry and C hemistry - challengeon 11-09-2021 ALP [Catalytic activity/Vol] 118 U/L 45-117 [facility] Work Phone: ALT [Catalytic activity/Vol] 124 U/L 13-56 [facility] Work Phone: CO2 [Moles/Vol] 23.0 mmol/L 21.0-32.0 [facility] Work Phone: Globulin (S) [Mass/Vol] 4.8 g/dL 2.2-4.2 [facility] Work Phone: Lipase [Catalytic activity/Vol] 61 U/L 73-393 [facility] Work Phone: Urea nitrogen/Creatinine [Mass ratio] 5.4 mg/mg 10-20 [facility] Work Phone: Laboratory - Hematology and Cell countson 11-09-2021 Erythrocyte distribution width (RBC) [Entitic vol] 36.2 fL 35.1-43.9 [facility] Work Phone: Erythrocyte distribution width (RBC) [Ratio] 12.4 % 11.6-14.6 [facility] Work Phone: Immature granulocytes/100 WBC (Bld) 0.300 % 0.0-0.9 [facility] Work Phone: Comment on above: IG% - Immature Granu locytes (promyelocytes, myelocytes and metamyelocytes) > 1% indicates that a LEFT SHIFT is Present. MCH (RBC) [Entitic mass] 28.3 pg 27.0-32.0 [facility] Work Phone: Nucleated RBC/100 WBC (Bld) [Ratio] 0 % 0-5 [facility] Work Phone: MCHC Auto (RBC) [Mass/Vol]on 11-09-2021 MCHC (RBC) [Mass/Vol] 35.0 g/dL 32-[address] [facility] Work Phone: Mucus LM Ql (Urine sed)on Mucus Ql (Urine sed) 0 SEEN /hpf [facility] Work Phone: Nitrite Test strip Ql (U)on 11-09-2021 Nitrite Ql (U) Positive Negative [facility] Work Phone: No Panel Informationon 11-09 Atypical Lymphocytes 1+ % [facility] Work Phone: Estimated Creatinine Clearance Calc 100.94 ml/min [facility] Work Phone: Estimated GFR (MDRD) Amer 120 mL/min >60 [facility] Work Phone: Comment on above: GFR Calc Estimated GFR (MDRD) Non-Af Amer 99 mL/min >60 [facility] Work Phone: Comment on above: Non- GFR Calc Platelets bldon 11-09-2021 Platelets (Bld) [#/Vol] 172 10*3/uL 150-450 [facility] Work Phone: Protein Test strip Ql (U)on 11-09-2021 Protein Ql (U) 100 mg/dl Negative [facility] Work Phone: Serum or plasma albumin dora urement (mass/volume)on 11-09-2021 Albumin [Mass/Vol] 3.3 g/dL 3.2-5.0 [facility] Work Phone: Serum or plasma albumin/glob ulin mass ratioon 11-09-2021 Albumin/Globulin [Mass ratio] 0.7 {ratio} 0.9-2.4 [facility] Work Phone: Serum or plasma calcium dora urement (mass/volume)on 11-09-2021 Calcium [Mass/Vol] 8.4 mg/dL 8.5-10.1 [facility] Work Phone: Serum or plasma creatinine m easurement (mass/volume)on 11-09-2021 Creatinine [Mass/Vol] 0.74 mg/dL 0.55-1.[address] [facility] Work Phone: Comment on above: The validity of the calculated GFR & GFRAA in patients over 70 years has not been determined. Clinical correlation is essential. Serum or plasma urea nitroge n measurement (mass/volume)on 11-09-2021 Urea nitrogen [Mass/Vol] 4 mg/dL 7-18 [facility] Work Phone: Squamous epithelial cells de tection in urine sediment by light microscopyon 11-09-2021 Epithelial cells.squamous LM Ql (Urine sed) 10-25 SEEN /hpf [facility] Work Phone: Thin prep Papanicolaou smear with manual screeningon 11-09-2021 Thin prep Papanicolaou smear with manual screening 188 U/L 15-37 [facility] Work Phone: Thin prep Papanicolaou smear with manual screening 9 5-15 [facility] Work Phone: Urine blood detectionon 02- RBC Ql (U) 250 /ul Negative [facility] Work Phone: RBC Ql (U) 10-25 SEEN /hpf [facility] Work Phone: Urine clarityon 11-09-2021 Clarity (U) Sl. Cloudy Clear [facility] Work Phone: Urine color determinationon 11-09-2021 Color (U) Halie Yellow [facility] Work Phone: Urine glucose detectionon Glucose Ql (U) Normal mg/dl Normal [facility] Work Phone: Urine leukocyte esterase det ection by dipstickon 11-09-2021 Leukocyte esterase Test strip Ql (U) 100 /ul Negative [facility] Work Phone: Urine pHon 11-09-2021 pH (U) 5.0 [pH] [facility] Work Phone: Urine sediment bacteria coun t by microscopy (number/high power field)on 11-09-2021 Bacteria LM.HPF (Urine sed) [#/Area] 3 /[HPF] None Seen [facility] Work Phone: Urine specific gravity measu rementon 11-09-2021 Specific gravity (U) [Rel density] 1.020 [facility] Work Phone: Urobilinogen Auto test strip Ql (U)on 11-09-2021 Urobilinogen Ql (U) 4 mg/dl [facility] Work [facility]: Basic metabolic 1999 panelOr dered By: Wong Lewis on 02-11-2021 Anion gap [Moles/Vol] 10 mmol/L 10 - 2 0 mmol/L [facility] Calcium [Mass/Vol] 9.0 mg/dL 8.4 - 10. 2 mg/dL [facility] Chloride [Moles/Vol] 106 mmol/L 98 - 10 8 mmol/L [facility] Creatinine [Mass/Vol] 0.77 mg/dL 0.40 - 1.[address] [facility] GFR/1.73 sq M.predicted CKD-EPI (S/P/Bld) [Vol rate/Area] 105 >=60 mL/min/1.73 m2 [facility] Glucose [Mass/Vol] 93 mg/dL 65 - 99 mg/dL [facility] HCO3 [Moles/Vol] 26 mmol/L 21 - 32 mmol/L [facility] Potassium [Moles/Vol] 3.7 mmol/L 3.5 - 5.1 mmol/L [facility] Sodium [Moles/Vol] 138 mmol/L 135 - 145 mmol/L [facility] Urea nitrogen [Mass/Vol] 6 mg/dL Low 8 - 25 mg/dL [facility] Urea nitrogen/Creatinine [Mass ratio] 7.8 mg/mg Low [facility] The eGFR should be used for monitoring renal function only and not for medication dosing. [facility] Hepatic function 1999 panelO rdered By: Wong Lewis on 02-11-2021 Albumin [Mass/Vol] 3.4 g/dL 3.2 - 5.2 g/dL [facility] ALP [Catalytic activity/Vol] 62 U/L 40 - 140 U/L [facility] ALT [Catalytic activity/Vol] 23 U/L 14 - 65 U/L [facility] AST [Catalytic activity/Vol] 12 U/L 0 - 45 U/L [facility] Bilirubin [Mass/Vol] 0.2 mg/dL 0.0 - 1 .3 mg/dL [facility] Bilirubin.conjugated [Mass/Vol] mg/dL 0.0 - 0.4 mg/dL [facility] Protein [Mass/Vol] 7.6 g/dL 6.0 - 8.0 g/dL [facility] Lipid 1996 panelOrdered By: Wong Lewis on 02-11-2021 Cholesterol [Mass/Vol] 152 mg/dL 100 - 199 mg/dL [facility] Comment on above: National Cholesterol Education Program Guidelines: Cholesterol Desirable: <200 mg/dL Borderline High: 200-239 mg/dL High: greater than or equal to 240 mg/dL Cholesterol in HDL [Mass/Vol] 63 mg/dL 40 - 59 [facility] Comment on above: National Cholesterol Education Program Guidelines: HDL Cholesterol Low: <40 mg/dL Near Optimal: 40-59 mg/dL High: greater than or equal to 60 mg/dL Cholesterol in LDL [Mass/Vol] 57 mg/dL 10 - 130 mg/dL [facility] Comment on above: National Cholesterol Education Program Guidelines: LDL Cholesterol Optimal: <100 mg/dL Near Optimal/above Optimal: 100-129 mg/dL Borderline High: 130-159 mg/dL High: 160-189 mg/dL Very High: greater than or equal to 190 mg/dL Cholesterol non HDL [Mass/Vol] 89 mg/dL [facility] Comment on above: National Cholesterol Education Program Guidelines: NON HDL Cholesterol Desirable: <130 mg/dL Borderline High: 130-159 mg/dL High: 160-189 mg/dL Very High: > or = 190 mg/dL Cholesterol.total/Pearl sterol in HDL [Mass ratio] 2.4 {ratio} ratio [facility] Comment on above: Female Cholesterol/H DL Ratio: Average risk: 4.4 1/2 average risk: 3.3 2 x average risk: 7.1 Triglyceride [Mass/Vol] 158 mg/dL High 30 - 150 mg/dL [facility] Comment on above: National Cholesterol Education Program Guidelines: Triglyceride Normal: <150 mg/dL Borderline High: 150-199 mg/dL High: 200-499 mg/dL Very High: greater than or equal to 500 mg/dL No Panel InformationOrdered By: Wong Lewis on 02-11-2021 Interpretation and review of laboratory results Abnormal [facility] Interpretation and review of laboratory results Normal [facility] TSH DL <= 0.005 mIU/L QnOrde red By: Wong Lewis on 02-11-2021 TSH Qn 0.94 m[IU]/L [facility] COVID-19, MOLECULARon 02-25- 2021 SARS-CoV-2 (COVID-19) RNA ANA+probe Ql (Unsp spec) Not detected Normal Not Detected [facility] Comment on above: Order Comment: : Edilma ngo Swab COVID/Flu Lab Tests (OP in UTM/Dry) Result Comment: This test was performed under the FDA's Emergency Use Authorization (EUA). Testing was performed using the Simplexa SARS-CoV-2 RT-PCR assay ([employer] on the V[employer]-a-Bar platform. This test has not been approved for use in asymptomatic patients and its performance in this patient population has not been evaluated. Negative results do not rule out the presence of SARS-CoV-2/COVID-19. Fact sheets for this EUA can be found at the following links: For Healthcare Providers: https://www.fda.gov/media/334113/download For Patients: https://www.fda.gov/media/692660/download Performed By: #### L [id number] #### [facility] [address] [place] [address] Donald Olsen M.D. [id number] Vital Signs Date Time Vital Sign Value Performing Clinician Facility 11-30-2024 10:53-0400 Body height 165.1 cm Heaven Nathaniel [employer] Work Phone: [facility] 11-30-2024 10:53-0400 Body mass index (BMI) [Ratio] 40.1 kg/m2 Heaven Nathaniel [employer] Work Phone: [facility] 11-30-2024 10:53-0400 Body weight 109.31 kg Heaven Nathaniel [employer] Work Phone: [facility] 11-30-2024 10:53-0400 Diastolic blood pressure 100 mm[Hg] Heaven Nathaniel [employer] Work Phone: [facility] 11-30-2024 10:53-0400 Systolic blood pressure 146 mm[Hg] [place] Nathaniel [employer] Work Phone: [facility] 11-21-2024 13:09-0500 Body mass index (BMI) [Ratio] 40.3 kg/m2 Heaven Nathaniel [employer] Work Phone: [facility] 11-21-2024 13:09-0500 Body weight 109.93 kg Heaven Nathaniel [employer] Work Phone: [facility] 11-21-2024 13:09-0500 Diastolic blood pressure 94 mm[Hg] Heaven Nathaniel [employer] Work Phone: [facility] 11-21-2024 13:09-0500 Systolic blood pressure 139 mm[Hg] Heaven Nathaniel [employer] Work Phone: [facility] 11-08-2024 08:52-0500 Body mass index (BMI) [Ratio] 40.4 kg/m2 Heaven Nathaniel [employer] Work Phone: [facility] 11-08-2024 08:52-0500 Body weight 110.27 kg Heaven Nathaniel [employer] Work Phone: [facility] 11-08-2024 08:52-0500 Diastolic blood pressure 89 mm[Hg] Heaven Nathaniel [employer] Work Phone: [facility] 11-08-2024 08:52-0500 Systolic blood pressure 148 mm[Hg] Heaven Nathaniel [employer] Work Phone: [facility] 10-08-2024 21:35-0500 Body temperature 96.5 [degF] Heaven Nathaniel [employer] Work Phone: [facility] 10-08-2024 21:35-0500 Diastolic blood pressure 107 mm[Hg] Heaven Nathaniel [employer] Work Phone: [facility] 10-08-2024 21:35-0500 Heart rate 93 /min Heaven Nathaniel [employer] Work Phone: [facility] 10-08-2024 21:35-0500 Respiratory rate 18 /min Heaven Nathaniel [employer] Work Phone: [facility] 10-08-2024 21:35-0500 SaO2% (BldA) [Mass fraction] 100 % Heaven Armstrong [employer] Work Phone: [facility] 10-08-2024 21:35-0500 Systolic blood pressure 159 mm[Hg] Heaven Armstrong [employer] Work Phone: [facility] 10-08-2024 19:30-0500 Body mass index (BMI) [Ratio] 40.5 kg/m2 Heaven Armstrong [employer] Work Phone: [facility] 10-08-2024 19:30-0500 Body weight 110.4 kg Heaven Armstrong [employer] Work Phone: [facility] 02-01-2023 09:09-0400 Body temperature 98 [degF] Dr. Erica Silva Work Phone: [facility] 02-01-2023 09:09-0400 Diastolic blood pressure 81 mm[Hg] Dr. Erica Silva Work Phone: [facility] 02-01-2023 09:09-0400 Heart rate 73 /min Dr. Erica Silva Work Phone: [facility] 02-01-2023 09:09-0400 Respiratory rate 16 /min Dr. Erica Silva Work Phone: [facility] 02-01-2023 09:09-0400 SaO2% (BldA) [Mass fraction] 96 % Dr. Erica Silva Work Phone: [facility] 02-01-2023 09:09-0400 Systolic blood pressure 123 mm[Hg] Dr. Erica Silva Work Phone: [facility] 02-01-2023 06:27-0400 Body height 165.[address] Erica Silva Work Phone: [facility] 02-01-2023 06:27-0400 Body mass index (BMI) [Ratio] 38.8 kg/m2 Dr. Erica Silva Work Phone: [facility] 02-01-2023 06:27-0400 Body weight 105.[address] Erica Silva Work Phone: [facility] 01-05-2023 08:56-0400 Body temperature 99 [degF] Dr. Erica Silva Work Phone: [facility] 01-05-2023 08:56-0400 Body weight 101.[address] Erica Silva Work Phone: [facility] 01-05-2023 08:56-0400 Diastolic blood pressure 84 mm[Hg] Dr. Erica Silva Work Phone: [facility] 01-05-2023 08:56-0400 Heart rate 88 /min Dr. Erica Silva Work Phone: [facility] 01-05-2023 08:56-0400 Respiratory rate 18 /min Dr. Erica Silva Work Phone: [facility] 01-05-2023 08:56-0400 SaO2% (BldA) [Mass fraction] 95 % Dr. Erica Silva Work Phone: [facility] 01-05-2023 08:56-0400 Systolic blood pressure 117 mm[Hg] Dr. Erica Silva Work Phone: [facility] 12-20-2022 12:46-0400 Body mass index (BMI) [Ratio] 36.2 kg/m2 Dr. Erica Silva Work Phone: [facility] 12-20-2022 12:46-0400 Body temperature 98.2 [degF] Dr. Erica Silva Work Phone: [facility] 12-20-2022 12:46-0400 Body weight 98.[address] Erica Silva Work Phone: [facility] 12-20-2022 12:46-0400 Diastolic blood pressure 76 mm[Hg] Dr. Erica Silva Work Phone: [facility] 12-20-2022 12:46-0400 Heart rate 112 /min Dr. Erica Silva Work Phone: [facility] 12-20-2022 12:46-0400 Respiratory rate 12 /min Dr. Erica Silva Work Phone: [facility] 12-20-2022 12:46-0400 SaO2% (BldA) [Mass fraction] 96 % Dr. Erica Silva Work Phone: [facility] 12-20-2022 12:46-0400 Systolic blood pressure 120 mm[Hg] Dr. Erica Silva Work Phone: [facility] 07-15-2022 07:07-0400 Body height 165.[address] Erica Silva Work Phone: [facility] Work Phone: 07-15-2022 07:07-0400 Body mass index (BMI) [Ratio] 36.2 kg/m2 Dr. Erica Silva Work Phone: [facility] Work Phone: 07-15-2022 07:07-0400 Body temperature 98.4 [degF] Dr. Erica Silva Work Phone: [facility] Work Phone: 07-15-2022 07:07-0400 Body weight 98.[address] Erica Silva Work Phone: [facility] Work Phone: 07-15-2022 07:07-0400 Diastolic blood pressure 78 mm[Hg] Dr. Erica Silva Work Phone: [facility] Work Phone: 07-15-2022 07:07-0400 Heart rate 84 /min Dr. Erica Silva Work Phone: [facility] Work Phone: 07-15-2022 07:07-0400 Respiratory rate 14 /min Dr. Erica Silva Work Phone: [facility] Work Phone: 07-15-2022 07:07-0400 SaO2% (BldA) [Mass fraction] 97 % Dr. Erica Silva Work Phone: [facility] Work Phone: 07-15-2022 07:07-0400 Systolic blood pressure 124 mm[Hg] Dr. Erica Silva Work Phone: [facility] Work Phone: 06-24-2022 12:47-0400 Body mass index (BMI) [Ratio] 36.1 kg/m2 Dr. Erica Silva Work Phone: [facility] Work Phone: 06-24-2022 12:47-0400 Body weight 98.[address] Erica Silva Work Phone: [facility] Work Phone: 06-14-2022 09:22-0400 Body temperature 98.2 [degF] Dr. Erica Silva Work Phone: [facility] Work Phone: 06-14-2022 09:22-0400 Body weight 98.[address] Erica Silva Work Phone: [facility] Work Phone: 06-14-2022 09:22-0400 Diastolic blood pressure 72 mm[Hg] Dr. Erica Silva Work Phone: [facility] Work Phone: 06-14-2022 09:22-0400 Heart rate 86 /min Dr. Erica Silva Work Phone: [facility] Work Phone: 06-14-2022 09:22-0400 Respiratory rate 16 /min Dr. Erica Silva Work Phone: [facility] Work Phone: 06-14-2022 09:22-0400 SaO2% (BldA) [Mass fraction] 97 % Dr. Erica Silva Work Phone: [facility] Work Phone: 06-14-2022 09:22-0400 Systolic blood pressure 128 mm[Hg] Dr. Erica Silva Work Phone: [facility] Work Phone: 02-13-2022 12:15-0400 Diastolic blood pressure 78 mm[Hg] No Primary Care Physician [facility] Work Phone: 02-13-2022 12:15-0400 Heart rate 78 /min No Primary Care Physician [facility] Work Phone: 02-13-2022 12:15-0400 Respiratory rate 16 /min No Primary Care Physician [facility] Work Phone: 02-13-2022 12:15-0400 SaO2% (BldA) [Mass fraction] 99 % No Primary Care Physician [facility] Work Phone: 02-13-2022 12:15-0400 Systolic blood pressure 119 mm[Hg] No Primary Care Physician [facility] Work Phone: 02-13-2022 11:34-0400 Body temperature 97.2 [degF] No Primary Care Physician [facility] Work Phone: 02-13-2022 09:11-0400 Body height 165.1 cm No Primary Care Physician [facility] Work Phone: 02-13-2022 09:11-0400 Body mass index (BMI) [Ratio] 34.9 kg/m2 No Primary Care Physician [facility] Work Phone: 02-13-2022 09:11-0400 Body weight 95.25 kg No Primary Care Physician [facility] Work Phone: 12-10-2021 10:49-0400 Body height 165.1 cm No Primary Care Physician [facility] Work Phone: 12-10-2021 10:49-0400 Body mass index (BMI) [Ratio] 35.2 kg/m2 No Primary Care Physician [facility] Work Phone: 12-10-2021 10:49-0400 Body temperature 98.3 [degF] No Primary Care Physician [facility] Work Phone: 12-10-2021 10:49-0400 Body weight 96.16 kg No Primary Care Physician [facility] Work Phone: 12-10-2021 10:49-0400 Diastolic blood pressure 76 mm[Hg] No Primary Care Physician [facility] Work Phone: 12-10-2021 10:49-0400 Heart rate 70 /min No Primary Care Physician [facility] Work Phone: 12-10-2021 10:49-0400 Respiratory rate 14 /min No Primary Care Physician [facility] Work Phone: 12-10-2021 10:49-0400 SaO2% (BldA) [Mass fraction] 98 % No Primary Care Physician [facility] Work Phone: 12-10-2021 10:49-0400 Systolic blood pressure 118 mm[Hg] No Primary Care Physician [facility] Work Phone: 11-11-2021 20:44-0500 Body mass index (BMI) [Ratio] 34.1 kg/m2 No Primary Care Physician [facility] Work Phone: 11-11-2021 20:44-0500 Body temperature 98.6 [degF] No Primary Care Physician [facility] Work Phone: 11-11-2021 20:44-0500 Body weight 92.98 kg No Primary Care Physician [facility] Work Phone: 11-11-2021 20:44-0500 Diastolic blood pressure 94 mm[Hg] No Primary Care Physician [facility] Work Phone: 11-11-2021 20:44-0500 Heart rate 108 /min No Primary Care Physician [facility] Work Phone: 11-11-2021 20:44-0500 Respiratory rate 18 /min No Primary Care Physician [facility] Work Phone: 11-11-2021 20:44-0500 SaO2% (BldA) [Mass fraction] 98 % No Primary Care Physician [facility] Work Phone: 11-11-2021 20:44-0500 Systolic blood pressure 117 mm[Hg] No Primary Care Physician [facility] Work Phone: 11-09-2021 07:11-0500 Diastolic blood pressure 84 mm[Hg] No Primary Care Physician [facility] Work Phone: 11-09-2021 07:11-0500 Heart rate 100 /min No Primary Care Physician [facility] Work Phone: 11-09-2021 07:11-0500 Respiratory rate 16 /min No Primary Care Physician [facility] Work Phone: 11-09-2021 07:11-0500 SaO2% (BldA) [Mass fraction] 95 % No Primary Care Physician [facility] Work Phone: 11-09-2021 07:11-0500 Systolic blood pressure 111 mm[Hg] No Primary Care Physician [facility] Work Phone: 11-09-2021 04:43-0500 Body mass index (BMI) [Ratio] 34.1 kg/m2 No Primary Care Physician [facility] Work Phone: 11-09-2021 04:43-0500 Body temperature 98.9 [degF] No Primary Care Physician [facility] Work Phone: 11-09-2021 04:43-0500 Body weight 92.98 kg No Primary Care Physician [facility] Work Phone: 02-23-2021 09:36-0400 Body height 167.6 cm Sunshine Niño MA [facility] 02-23-2021 09:36-0400 Body mass index (BMI) [Ratio] 34.38 kg/m2 Sunshine Niño MA [facility] 02-23-2021 09:36-0400 Body weight 96.62 kg Sunshine Niño MA [facility] 02-23-2021 09:36-0400 Diastolic blood pressure 96 mm[Hg] Sunshine Niño MA [facility] 02-23-2021 09:36-0400 Systolic blood pressure 138 mm[Hg] Sunshine Niño MA [facility] 02-11-2021 13:25-0400 Body height 165.1 cm Wong Lewis MD Work Phone: [facility] 02-11-2021 13:25-0400 Body mass index (BMI) [Ratio] 36.24 kg/m2 Wong Lewis MD Work Phone: [facility] 02-11-2021 13:25-0400 Body temperature 98.1 [degF] Wong Lewis MD Work Phone: [facility] 02-11-2021 13:25-0400 Body weight 98.79 kg Wong Lewis MD Work Phone: [facility] 02-11-2021 13:25-0400 Diastolic blood pressure 88 mm[Hg] Wong Lewis MD Work Phone: [facility] 02-11-2021 13:25-0400 Heart rate 71 /min Wong Lewis MD Work Phone: [facility] 02-11-2021 13:25-0400 Respiratory rate 18 /min Wong Lewis MD Work Phone: [facility] 02-11-2021 13:25-0400 SaO2% (BldA) [Mass fraction] 98 % Wong Lewis MD Work Phone: [facility] 02-11-2021 13:25-0400 Systolic blood pressure 134 mm[Hg] Wong Lewis MD Work Phone: [facility] 02-14-2020 12:50-0400 BMI (Body Mass Index) 35.35 kg/m2 Americo Loja [facility] 02-14-2020 12:50-0400 Body Temperature 98.6 [degF] Americo Loja [facility] 02-14-2020 12:50-0400 Body weight 96.34 kg Americo Freedom [facility] 02-14-2020 12:50-0400 BP Diastolic 73 mm[Hg] Americo Loja [facility] 02-14-2020 12:50-0400 BP Systolic 119 mm[Hg] Americo Loja [facility] 02-14-2020 12:50-0400 Height 165.1 cm Americo Freedom [facility] 02-14-2020 12:50-0400 Pulse (Heart Rate) 79 /min Americo Freedom [facility] 02-14-2020 12:50-0400 Pulse Oximetry 97 % Americo Freedom [facility] Encounters Encounter Date Encounter Type Care Provider Facility Start: 06-12-2025 ambulatory [facility] Facility:[facility] Start: 05-28-2025 End: 05-28-2025 ambulatory [facility] Facility:[facility] Start: 05-13-2025 End: 05-13-2025 ambulatory Heaven Nathaniel [employer]C Work Phone: -Radiology [facility] Start: 05-13-2025 End: 05-13-2025 Patient encounter procedure Yohannes Andrade DPM -Radiology [facility] Work Phone: Start: 05-13-2025 End: 05-13-2025 ambulatory [facility] Facility:[facility] Start: 11-30-2024 End: 11-30-[address] Marzena Casas DO -[facility] Work Phone: Start: 11-30-2024 End: 11-30-2024 ambulatory [facility] Facility:[facility] Start: 11-21-2024 End: 11-21-2024 ambulatory Heavenpablo Armstrong [employer] Work Phone: [facility] Work Phone: Start: 11-21-2024 End: 11-21-[address] Marzena Casas DO -Laboratory, Specimen Work Phone: Start: 11-21-2024 End: 11-21-[address] Marzena Casas DO -[facility] Work Phone: Start: 11-21-2024 End: 11-21-2024 ambulatory [facility] Facility:[facility] Start: 11-21-2024 End: 11-21-2024 [facility] Facility:[facility] Start: 11-16-2024 Non-patient / Non-visit Teresa moreno RN -[facility] Work Phone: Start: 11-16-2024 [facility] Start: 11-14-2024 End: 11-14-[address] Mala Moncada DC -[facility] Work Phone: Start: 11-14-2024 End: 11-14-2024 [facility] Start: 11-08-2024 End: 11-08-[address] Balbina Gonzales MD -[facility] Work Phone: Start: 11-08-2024 End: 11-08-2024 [facility] Start: 11-08-2024 End: 11-08-2024 ambulatory Balbina Gonzales Facility:[facility] Start: 10-30-2024 End: 10-30-[address] Mala Moncada DC -[facility] Work Phone: Start: 10-30-2024 End: 10-30-2024 ambulatory [facility] Facility:[facility] Start: 10-10-2024 End: 10-10-[address] Mala Moncada DC -[facility] Work Phone: Start: 10-10-2024 End: 10-10-2024 ambulatory [facility] Facility:[facility] Start: 10-08-2024 End: 10-08-2024 Emergency department patient visit Dr. Waqas Stone DO -Emergency Department Work Phone: Start: 09-26-2024 End: 09-26-[address] Mala Moncada DC -[facility] Work Phone: Start: 09-26-2024 End: 09-26-2024 ambulatory [facility] Facility:[facility] Start: 09-25-2024 End: 09-25-2024 ambulatory [facility] Facility:[facility] Start: 09-25-[address] Mala Moncada DC -Physical Therapy Work Phone: Start: 09-10-2024 End: 09-10-[address] Mala Moncada DC -[facility] Work Phone: Start: 09-10-2024 End: 09-10-2024 ambulatory [facility] Facility:[facility] Start: 08-20-2024 End: 08-20-[address] Mala Moncada DC -[facility] Work Phone: Start: 08-20-2024 End: 08-20-2024 ambulatory [facility] Facility:[facility] Start: 08-20-2024 Encounter for genera l adult medical examination with abnormal findings [facility] Start: 07-25-2024 End: 07-25-2024 ambulatory [facility] Facility:[facility] Start: 07-18-2024 End: 07-18-2024 ambulatory [facility] Start: 07-12-2024 End: 07-12-2024 ambulatory [facility] Start: 07-10-2024 End: 07-10-2024 ambulatory [facility] Start: 07-05-2024 ambulatory [facility] Start: 07-03-2024 End: 07-03-2024 ambulatory [facility] Start: 06-26-2024 End: 06-26-2024 ambulatory [facility] Start: 10-10-2023 End: 10-10-2023 ambulatory [facility] Work Phone: Start: 10-10-2023 End: 10-10-2023 Patient encounter procedure [facility]-Radiology, [facility] Work Phone: Start: 06-17-2023 End: 06-17-2023 Discharged Recurring [facility]-Physical Therapy Work Phone: Start: 02-01-2023 Non-patient / Non-visit Dr. Lauren Silva Work Phone: [facility] Start: 02-01-2023 End: 02-01-2023 Admission to same day surgery center [facility] Start: 02-01-2023 End: 02-01-[address] Erica Silva Work Phone: [facility] Work Phone: Start: 01-05-[address] Kiki Silva Work Phone: [facility] Start: 01-05-2023 End: 01-05-2023 Encounter for general adult medical examination without abnormal findings Dr. Erica Silva Work Phone: [facility] Start: 01-05-2023 End: 01-05-[address] Erica Silva Work Phone: [facility] Start: 12-20-2022 End: 12-20-[address] rEica Silva Work Phone: [facility] Start: 12-01-2022 End: 12-01-[address] Ercia Silva Work Phone: [facility] Start: 10-29-2022 End: 10-29-[address] Erica Silva Work Phone: [facility] Start: 10-15-2022 End: 10-15-[address] Erica Silva Work Phone: [facility] Start: 09-21-2022 End: 09-21-[address] Erica Silva Work Phone: [facility] Start: 09-16-2022 End: 09-16-[address] Erica Silva Work Phone: [facility] Work Phone: Start: 09-16-2022 End: 09-16-[address] Erica Silva Work Phone: [facility] Start: 08-09-2022 End: 08-09-2022 Patient encounter procedure Dr. Erica Silva Work Phone: [facility] Start: 08-04-2022 End: 08-04-[address] Erica Silva Work Phone: [facility] Work Phone: Start: 08-04-2022 End: 08-04-[address] Erica Silva Work Phone: [facility]-Physical Therapy Start: 07-15-2022 End: 07-15-[address] Erica Silva Work Phone: [facility] Start: 06-24-2022 End: 06-24-[address] Erica Silva Work Phone: [facility] Start: 06-14-2022 End: 06-14-[address] Erica Silva Work Phone: [facility] Int Med at [facility] Start: 02-13-2022 End: 02-13-2022 Emergency department patient visit No Primary Care Physician [facility]-Emergency Department Start: 01-19-2022 [facility] Start: 01-19-2022 Chart abstracting Sunshine Niño MA [facility] Obstetrics and Gynecology Start: 12-16-2021 End: 12-16-2021 Patient encounter procedure No Primary Care Physician [facility]-Ultrasound, [facility] Start: 12-10-2021 End: 12-10-2021 Patient encounter procedure No Primary Care Physician [facility]-Laboratory, [facility] Start: 12-10-2021 End: 12-10-2021 Patient encounter procedure No Primary Care Physician [facility] Internal Medicine Start: 11-11-2021 End: 11-12-2021 Emergency department patient visit No Primary Care Physician [facility]-Emergency Department Start: 11-09-2021 End: 11-09-2021 Emergency department patient visit No Primary Care Physician [facility]-Emergency Department Start: 05-19-2021 End: 05-23-2021 ambulatory ANDREA [facility] Physicians Start: 05-19-2021 End: 05-19-2021 Office outpatient visit 25 minutes Andrea Greeneville Work Phone: [facility] Dermatology Comment on above: Actinic keratosis (P rimary Dx); Rosacea Start: 05-07-2021 ambulatory NELSY RICHARD [facility] Ambulatory Start: 03-13-2021 End: 03-17-2021 [facility] Start: 03-06-2021 End: 03-08-2021 ambulatory [facility] Start: 02-11-2021 End: 02-15-2021 ambulatory WONGUrvashi LEWIS [facility] Start: 02-11-2021 End: 02-11-2021 Chart abstracting Wong Lewis MD Work Phone: [facility] Start: 02-11-2021 End: 02-11-2021 Initial preventive medicine new pt age 18-39yrs Wong Lewis MD Work Phone: [facility] Physicians Comment on above: Routine medical exam (Primary Dx); Need for vaccination Start: 02-11-2021 End: 02-11-2021 Patient encounter status Wong Lewis MD Work Phone: [facility]icians Start: 11-13-2020 End: 11-13-2020 Orders Only Melanie Marychuy Ibis Work Phone: [facility] [employer] - [facility] Comment on above: Encntr for obs for s assisted expsr to oth biolg agents ruled out (Primary Dx); Fever, unspecified fever cause; Sore throat; Congestion of respiratory tract; Acute nonintractable headache, unspecified headache type Start: 06-18-2020 End: 06-22-2020 ambulatory [facility] Start: 06-18-2020 End: 06-18-2020 Patient encounter procedure Raoul Cruz Work Phone: [facility] Comment on above: Acute midline thorac ic back pain Start: 06-11-2020 End: 06-15-2020 ambulatory [facility] Start: 06-11-2020 End: 06-11-2020 Patient encounter procedure Raoul Cruz Work Phone: [facility] Ortho Rehab Comment on above: Acute midline thorac ic back pain Start: 06-09-2020 End: 06-13-2020 [facility] Start: 06-09-2020 End: 06-09-2020 Patient encounter procedure Raoul Cruz Work Phone: [facility] Comment on above: Acute midline thorac ic back pain Start: 06-06-2020 End: 06-10-2020 ambulatory [facility] Start: 06-06-2020 End: 06-06-2020 Patient encounter procedure Raoul Cruz Work Phone: [facility] Comment on above: Acute midline thorac ic back pain Start: 06-03-2020 End: 06-07-2020 ambulatory [facility] Start: 06-03-2020 End: 06-03-2020 Patient encounter procedure Raoul Cruz Work Phone: [facility] Comment on above: Acute midline thorac ic back pain Start: 05-31-2020 End: 05-31-2020 Emergency department patient visit [facility] Start: 05-28-2020 End: 06-01-2020 ambulatory [facility] Start: 05-28-2020 End: 05-28-2020 Patient encounter procedure Raoul Cruz Work Phone: [facility] Comment on above: Thoracic back pain, unspecified back pain laterality, unspecified chronicity (Primary Dx) Start: 05-27-2020 End: 05-31-2020 ambulatory [facility] Start: 05-27-2020 End: 05-27-2020 Patient encounter procedure Raoul Sheffield Tuanruben Work Phone: [facility] Comment on above: Acute midline thorac ic back pain Start: 05-23-2020 End: 05-27-2020 [facility] Start: 05-23-2020 End: 05-23-2020 Patient encounter procedure Raoul Cruz Work Phone: [facility] Comment on above: Acute midline thorac ic back pain Start: 05-21-2020 End: 05-25-2020 ambulatory [facility] Start: 05-21-2020 End: 05-21-2020 Patient encounter procedure Raoul Cruz Work Phone: [facility] Comment on above: Sprain of ligaments of thoracic spine, initial encounter; Acute midline thoracic back pain Start: 02-14-2020 End: 02-14-2020 Clinical Support Marzena Murrell [facility] Audiology Comment on above: Tinnitus of right ea r (Primary Dx); Sensorineural hearing loss, bilateral; Does use hearing aid Start: 02-14-2020 End: 02-14-2020 Office outpatient new 45 minutes Americo Loja Work Phone: [facility] ENT Physicians Comment on above: Tinnitus of right ea r (Primary Dx); Sensorineural hearing loss (SNHL) of both ears; Does use hearing aid Procedures Date Procedure Procedure Detail Performing Clinician Start: 05-13-2025 X-ray of foot, three or more views Heaven Armstrong [employer] MECHANIC-C Work Phone: Start: 11-21-2024 Liquid based cervica l cytology screening Heaven Armstrong [employer]MASTONE MECHANIC-C Work Phone: Comment on above: NEGATIVE FOR [...] 02-11-2031 Tetanus vaccination Tetanus: Every 1 0yrs [facility] Start: 10-08-2024 [facility] Start: 03-05-2024 Screening for malign ant neoplasm of cervix Pap Smear [facility] Start: 02-02-2024 Tetanus vaccination Tetanus: Every 1 0yrs [facility] Start: 02-01-2023 Application of ice collar, cap or bag [facility] Start: 02-01-2023 Catheterization of vein [facility] Start: 02-01-2023 Elevation of affecte d extremity [facility] Start: 02-01-2023 Following clinical pathway protocol [facility] Start: 02-01-2023 Patient discharge [facility] Start: 02-01-2023 Procedure discontinued [facility] Start: 02-01-2023 Taking patient vital signs [facility] Start: 02-01-2023 Vital signs measurements [facility] Start: 02-01-2023 [facility] Start: 02-01-2023 Medication education [facility] Start: 01-05-2023 Patient referral [facility] Work Phone: Start: 06-24-2022 Patient referral [facility] Work Phone: Start: 06-14-2022 Patient referral [facility] Work Phone: Start: 05-20-2022 Influenza vaccination Sequenti al Influenza Vaccine (Season Ended) [facility] Start: 03-05-2022 History and physical examination, annual for health maintenance Wellness Visit [facility] Start: 02-13-2022 Enteric Bacteriology Enteric Bacteri ology [facility] Work Phone: Start: 02-11-2022 Depression screening using PHQ-9 (Patient Health Questionnaire 9) score [facility] Start: 02-11-2022 History and physical examination, annual for health maintenance Wellness Visit [facility] Start: 12-10-2021 Patient referral [facility] Work Phone: Start: 09-21-2021 End: 09-21-2021 Patient encounter procedure 09/21/2021 Office Visit Dermatology Andrea Mckeon Jr., DO [address] [place] [address] [facility] Start: 05-20-2021 Influenza vaccination [facility] Start: 05-18-2021 End: 05-18-2021 Patient encounter procedure 05/18/2021 Office Visit Dermatology Andrea Mckeon Jr., DO [address] [place] [address] [phone] [facility] Start: 03-12-2021 End: 03-12-2021 Patient encounter procedure 03/12/2021 Office Visit Dermatology Andrea Mckeon Jr., DO [address] [place] [address] [phone] [facility] Start: 12-19-2020 Screening for malign ant neoplasm of cervix Pap Smear [facility] Start: 06-18-2020 End: 06-18-2020 Treatment 06/18/2020 Treatment Rehabilitation Raoul Cruz PA-C [address] [place] [address] [phone] [facility] Start: 06-11-2020 End: 06-11-2020 Treatment 06/11/2020 Treatment Raoul Hernandez PA-C [address] [place] [phone] [facility] Start: 06-09-2020 End: 06-09-2020 Treatment 06/09/2020 Treatment Rehabilitation Raoul Cruz PA-C [address] [place] [phone] [facility] Start: 06-06-2020 End: 06-06-2020 Treatment 06/06/2020 Treatment Rehabilitation Raoul Cruz PA-C [address] [place] [phone] Mable Wadsworth, [facility] Start: 06-03-2020 End: 06-03-2020 Treatment 06/03/2020 Treatment Rehabilitation Raoul Cruz PA-C [address] [place] [phone] Manuela Balbuena, [facility] Start: 05-28-2020 End: 05-28-2020 Treatment 05/28/2020 Treatment Rehabilitation Raoul Cruz PA-C [address] [place] [address], [place] [address] [phone] Jessica Valdez, [facility] Start: 05-27-2020 End: 05-27-2020 Treatment 05/27/2020 Treatment Rehabilitation Raoul Cruz PA-C [address] [place] [address], [place] [address] [phone] Joy Sol, [facility] Start: 05-23-2020 End: 05-23-2020 Treatment 05/23/2020 Treatment Rehabilitation Raoul Cruz PA-C [address] [place] [address], [place] [address] [phone] Mable Wadsworth, [facility] Start: 05-20-2020 Influenza vaccinatio n given [facility] Start: 02-28-2010 Hepatitis C antibody , confirmatory test Hepatitis C Screening [facility] Start: 02-28-2010 Hepatitis C screening Hepatitis C Sc reening [facility] Start: 2008 COVID-19 Vaccine (1 of 2) COVI D-19 Vaccine (1 of 2) [facility] Start: 02-28-2007 HIV screening HIV Screening [facility] Start: 2004 Adolescent depressio n screening assessment Depression Screening (PHQ9) [facility] Start: 2004 COVID-19 Vaccine (1) COVID-19 Vaccin e (1) [facility] Start: 02-28-1997 COVID-19 Vaccine (1) COVID-19 Vaccin e (1) [facility] Start: 02-28-1995 History and physical examination, annual for health maintenance Wellness Visit [facility] Start: 1992 Screening for malign ant neoplasm of cervix Pap Smear [facility] Start: 1992 Tetanus vaccination Tetanus: Every 1 0yrs [facility] CBC W Auto Different ial panel - Blood [facility] End: 11-13-2021 Covid-19/Influenza Order Algorithm : Dual Swab COVID/Flu Lab Tests (OP in UTM/Dry) Covid-19/Influenza Order Algorithm : Dual Swab COVID/Flu Lab Tests (OP in UTM/Dry) Microbiology Routine Encntr for obs for susp expsr to oth biolg agents ruled out Fever, unspecified fever cause Sore throat Congestion of respiratory tract Acute nonintractable headache, unspecified headache type 1 Occurrences starting 11/13/2020 until 11/13/2021 [facility] Comment on above: 1 Occurrences starti ng 11/13/2020 until 11/13/2021 End: 02-11-2022 Hemoglobin A1c/Hemoglobin.total in Blood Hemoglobin A1c Lab Routine Routine medical exam 1 Occurrences starting 02/11/2021 until 02/11/2022 [facility] Comment on above: 1 Occurrences starti ng 02/11/2021 until 02/11/2022 Hemoglobin A1c/Hemoglobin.total in Blood Hemoglobin A1c Lab Routine Routine medical exam 02/11/2021 2:05 PM EDT [facility] Hemoglobin A1c/Hemoglobin.total in Blood [facility] Lipid 1996 panel - S bird or Plasma [facility] Patient Education [facility] Work Phone: Patient referral [facility] Work Phone: Thyroid stimulating hormone measurement [facility] Vitamin D, 25-hydrox y measurement [facility] Immunizations Immunization Date Immunization Notes Care Provider Payton merchant 08-03-2024 influenza, seasonal, injectable, preservative free Heaven Armstrong PERMASTONE MECHANICDulce MariaC Work Phone: [facility] 07-25-2023 influenza, injectabl e, quadrivalent, preservative free [facility] 06-22-2022 influenza, injectabl e, quadrivalent, preservative free [facility] 06-22-2022 influenza, seasonal, injectable Dr. Erica Silva Work Phone: [facility] 07-24-2021 influenza, injectabl e, quadrivalent, preservative free [facility] 07-24-2021 influenza, seasonal, injectable No Primary Care Physician [facility] 07-03-2021 Covid (Pfizer) No Primary Ca re Physician [facility] 06-12-2021 Covid (Pfizer) No Primary Ca re Physician [facility] 02-11-2021 diphtheria, tetanus toxoids and acellular pertussis vaccine, unspecified formulation Wong Lewis MD Work Phone: [facility] 02-11-2021 tetanus toxoid, redu winifred diphtheria toxoid, and acellular pertussis vaccine, adsorbed Wong Lewis MD Work Phone: [facility] 02-01-2014 meningococcal polysaccharide (groups A, C, Y and W-135) diphtheria toxoid conjugate vaccine (MCV4P) Wong Lewis MD Work Phone: [facility] 02-01-2014 tetanus toxoid, redu winifred diphtheria toxoid, and acellular pertussis vaccine, adsorbed Wong Lewis MD Work Phone: [facility] 07-20-2006 tetanus toxoid, redu winifred diphtheria toxoid, and acellular pertussis vaccine, adsorbed Wong Lewis MD Work Phone: [facility] 03-13-1999 measles, mumps and rubella virus vaccine Wong Lewis MD Work Phone: [facility] 01-16-1998 hepatitis B vaccine, pediatric or pediatric/adolescent dosage Wong Lewis MD Work Phone: [facility] 08-05-1997 hepatitis B vaccine, pediatric or pediatric/adolescent dosage Wong Lewis MD Work Phone: [facility] 07-09-1997 hepatitis B vaccine, pediatric or pediatric/adolescent dosage Wong Lewis MD Work Phone: [facility] 02-22-1997 diphtheria, tetanus toxoids and acellular pertussis vaccine Wong Lewis MD Work Phone: [facility] 02-22-1997 diphtheria, tetanus toxoids and acellular pertussis vaccine, unspecified formulation Wong Lewis MD Work Phone: [facility] 02-22-1997 trivalent poliovirus vaccine, live, oral Wong Lewis MD Work Phone: [facility] 08-20-1993 diphtheria, tetanus toxoids and acellular pertussis vaccine Wong Lewis MD Work Phone: [facility] 08-20-1993 diphtheria, tetanus toxoids and acellular pertussis vaccine, unspecified formulation Wong Lewis MD Work Phone: [facility] 08-20-1993 diphtheria, tetanus toxoids and pertussis vaccine Wong Lewis MD Work Phone: [facility] 08-20-1993 trivalent poliovirus vaccine, live, oral Wong Lewis MD Work Phone: [facility] 06-01-1993 haemophilus influenz ae type b vaccine, PRP-T conjugate Wong Lewis MD Work Phone: [facility] 06-01-1993 measles, mumps and rubella virus vaccine Wong Lweis MD Work Phone: [facility] 1992 haemophilus influenz ae type b vaccine, PRP-T conjugate Wong Lewis MD Work Phone: [facility] 1992 diphtheria, tetanus toxoids and pertussis vaccine Wong Lewis MD Work Phone: [facility] 1992 haemophilus influenz ae type b vaccine, PRP-T conjugate Wong Lewis MD Work Phone: [facility] 1992 trivalent poliovirus vaccine, live, oral Wong Lewis MD Work Phone: [facility] 1992 diphtheria, tetanus toxoids and pertussis vaccine Wong Lewis MD Work Phone: [facility] 1992 haemophilus influenz ae type b vaccine, PRP-T conjugate Wong Lewis MD Work Phone: [facility] 1992 trivalent poliovirus vaccine, live, oral Wong Lewis MD Work Phone: [facility] Payers Date Payer Category Payer Self-pay [id number] 2023 Unknown [id number] 2020 Worker's Compensation 200 [id number]. [id number] 2019 Unknown [employer] [employer] - PREFERRED xxxxxxxxx 2019-Present xxxxxxxxx [id number]. [id number] 2019 Unknown [id number] 1.2.840.197009.1.13.385.2. 7.3.178437.315 2019 Unknown [id number] 1992 Unknown [id number] 2.16.840.1.669447.3.579.2. 903 1992 Unknown [id number] 2.16.840.1.222542.3.579.2. 903 1992 Unknown [id number] 2.16.840.1.107885.3.579.2. 903 1992 Unknown [id number] 2.16.840.1.334897.3.579.2. 903 1992 Unknown [id number] 2.16.840.1.847679.3.579.2. 903 1992 Unknown [id number] 2.16.840.1.897433.3.579.2. 903 1992 Unknown [id number] 2.16.840.1.136600.3.579.2. 903 1992 Unknown [id number] 2.16.840.1.572663.3.579.2. 903 1992 Unknown [id number] 2.16.840.1.977692.3.579.2. 903 1992 Unknown [id number] 2.16.840.1.940531.3.579.2. 903 1992 Unknown [id number] 2.16.840.1.378169.3.579.2. 903 1992 Unknown [id number] 2.16.840.1.770179.3.579.2. 900 1992 Unknown [id number] 2.16.840.1.369350.3.579.2. 900 1992 Unknown [id number] 2.16.840.1.433438.3.579.2. 903 1992 Unknown [id number] 2.16.840.1.548568.3.579.2. 903 1992 Unknown [id number] 2.16.840.1.295364.3.579.2. 903 1992 Unknown [id number] 2.16.840.1.758035.3.579.2. 903 1992 Unknown [id number] 2.16.840.1.277526.3.579.2. 903 1992 Unknown [id number] 2.16.840.1.095794.3.579.2. 903 Unknown [id number] Unknown [id number] 2.16.840.1.247107.3.579.2. 462 Unknown [id number] 2.16.840.1.206763.3.579.2. 462 Unknown [id number] 2.16.840.1.100943.3.579.2. 462 Unknown [id number] 2.16.840.1.491511.3.579.2. 462 Unknown [id number] 2.16.840.1.985046.3.579.2. 462 Unknown [id number] 2.16.840.1.774133.3.579.2. 462 Unknown [id number] 2.16.840.1.170127.3.579.2. 462 Unknown [id number] 2.16.840.1.252953.3.579.2. 462 Unknown [id number] 2.16.840.1.902100.3.579.2. 462 Unknown [id number] 2.16.840.1.396039.3.579.2. 462 Unknown [id number] 2.16.840.1.991355.3.579.2. 462 Unknown [id number] 2.16.840.1.195139.3.579.2. 462 Unknown [id number] 2.16.840.1.946405.3.579.2. 462 Unknown [id number] 2.16.840.1.121818.3.579.2. 462 Unknown [id number] 2.16.840.1.701815.3.579.2. 462 Unknown [id number] 2.16.840.1.795238.3.579.2. 462 Unknown [id number] 2.16.840.1.650028.3.579.2. 462 Unknown [id number] 2.16.840.1.364160.3.579.2. 462 Unknown [id number] 2.16.840.1.665422.3.579.2. 462 Unknown [id number] 2.16.840.1.633518.3.579.2. 462 Unknown [id number] 2.16.840.1.821515.3.579.2. 462 Unknown [id number] 2.16.840.1.657485.3.579.2. 462 Unknown [id number] 2.16.840.1.559015.3.579.2. 462 Unknown [id number] 2.16.840.1.438319.3.579.2. 462 Worker's Compensation [id number] Social History Date Type Detail Facility Start: 02-14-2020 End: 11-29-2024 Tobacco smoking status VAIS Never smoker [facility] Start: 02-14-2020 Tobacco Comment 02/14/2020 [facility] Start: 02-14-2020 Alcohol Comment rarely [facility] Start: 1990 Sex Assigned At Not on file [facility] Exposure to SARS-CoV-2 (event) Not sure [facility] Start: 02-14-2020 End: 02-11-2021 Tobacco use and exposure Never used [facility] Start: 02-11-2021 End: 05-19-2021 Alcohol intake Ex-drinker (finding) [facility] Start: 12-10-2021 End: 03-14-2023 Tobacco smoking status NHIS Unknown if ever smoked [facility] Start: 1990 Sex Assigned At Female [facility] Start: 12-05-2024 Sex Female (finding) [facility] NEGATED: Highlighted row [facility] Goals Date Patient Goal Desired Activity /State Mental Status Date Assessment Result Facility 02-01-2023 Cognitive function Voice/Name [facility] Work Phone: Clinical Notes 02-11-2021 to 05-14-2025 Note Date & Type Note Facility 05-14-2025 Radiology Diagnostic study note [facility] Imaging Services [address] [place], [place] [address] Foot min 3 Views MR#: [id number] Acct: [id number] Name: RENA LANGSTON Rep #: [id number] : 1990 F 35 From: Shea Rivas MD PCP: VICKI Rebolledo Status: REG CLI Study:Foot min 3 Views Date of Exam: Exam# [id number] Ordering Dr: Yohannes Andrade DPM PROCEDURE: FOOT [...] IMPRESSION: No acute osseous abnormality. Reading Location: [facility] CC: CATHY Andrade; PERMASTONE MECHANIC-C Heaven Armstrong ~ Manager Portable: Signed [facility] 11-21-2024 Note [facility] Pap Smear Specimen Adequacy November 22, [...] of (fetus) acute November 30, 2024 10:35am [facility] Work Phone: 1(849) 744-523612-02-2024 Evaluation note* Diagnosis Onset Date Resolution Status [...] and somatic dysfunction of lumbar region acute [facility] 2024 8:20am Segmental and somatic dysfunction of pelvic region acute [facility] 2024 8:20am Segmental and somatic dysfunction of thoracic region acute September 26 8:20am Thoracic neuritis acute September 26, 2024 8:20am Segmental and somatic dysfunction of lumbar region acute [facility] 2024 7:54am Segmental and somatic dysfunction of pelvic region acute [facility] 2024 7:54am Segmental and somatic dysfunction [...] somatic dysfunction of pelvic region acute Feb rurawlings 2024 8:24am Segmental and somatic dysfunction of [...] of (fetus) acute November 30, 2024 10:35am [facility] Work Phone: 1(725) 445-435005-16-2023 History and physical note Author Dr. Goff [facility] February 01, 2023 7:09am Note Date/Time February 01, 2023 7:09a m [facility] Medical Records Department [address] [place] [address] History & Physical Exam 02/01/23 0708 MR#: [id number] Acct: [id number] Name: RENA LANGSTON Rep #:[id number] : 1990 32 From: Kofi Goff DO PCP: Dr. Erica Silva MD Status:[facility] Location: [place] [address] History and Physical Date of Admission: 02/01/23 [facility] [address] [place] [id number] OFFICE VISIT Date of Service:? 12/01/22 MR#: [id number] Acct: [id number] Name:? RENA LANGSTON Rep #: [id number] : 1990 ? ? Provider: Dr. Kofi Goff, Age/Sex:? 32/F ? ? [place] [facility] [place]: Signed Intake Intake Visit Reasons:?RIGHT KNEE [...] by me, Dr. Kofi Goff, DO 12/01/22 1940. RENA LANGSTON is a 32 year old [...] Goff DO; Dr. Erica Silva MD~ Signed [facility] Work Phone: [phone]) 447-233405-16-2023 Procedure [facility] 05-19-2021 History of Present illness Narrative* Andrea [...] Andrea Mckeon DO 05/19/2021 documented in this [id number] History of Present illness Narrative* Wong Lewis MD - 02/11/2021 1:37 PM EDT Subjective Patient ID: Rena Langston is a 30 y.o. female. 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 Goff [facility] February 01, 2023 8:08am Note Date/Time February 01, 2023 8:08a m [facility] Medical Records Department [address] [place] [address] Instructions for Home/Discharge Instructions 02/01/23 0808 MR#: [id number] Acct: [id number] Name: RENA LANGSTON Rep #:[id number] : [...] CC: Dr. Erica Silva MD ~ Signed [facility] Work Phone: Evaluation note* Diagnosis Routine medical exam- Primary Routine general medical examination at a health care facility Need for vaccination Need for prophylactic vaccination and inoculation against unspecified single disease [facility] Actinic keratosis- Primary Rosacea [facility] Diagnosis Onset Date Resolution Status Elevated LFTs acute Obesity acute Rosacea acute Wears hearing aid acute [facility] Work Phone: Evaluation note* Diagnosis Onset Date Resolution Status Asthma acute Obesity acute Right knee pain acute Wears hearing aid acute Right knee pain acute Right patellofemoral syndrome acute Acute sinusitis acute Contact with or suspected ex posure to other viral communicable disease acute [facility] Work Phone: Evaluation note* Diagnosis Onset Date Resolution Status Asthma acute Obesity acute Right knee pain acute Wears hearing aid acute Right knee pain acute Right patellofemoral syndrome acute Acute sinusitis acute Contact with or suspected ex posure to other viral communicable disease acute Chondromalacia, patella acut e Right knee pain acute Right patellofemoral syndrome acute [facility] Work Phone: Evaluation note* Diagnosis Onset [...] syndrome acute URI (upper respiratory infection) acute [facility] Work Phone: Evaluation noteNo assessment information available [facility] Work Phone: Reason for referral (narrative)No reason for referral information availableWTri[facility] Work [facility]: Reason for Referral Status Reason Specialty Diagnoses / Procedures Referred By Contact Referred To Contact Closed Specialty Services Required/Patient' s Best Interest Audiology Diagnoses Tinnitus of right ear Sensorineural hearing loss (SNHL) of both ears Americo Loja DO [address] [place] [id number] Marzena Murrell AuD Instructions * Patient Instructions* [...] Rena Langston is a 29 y.o. female. 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 Placed on steroid x 4 days, no relief. Two courses of antibiotics. She still has pressure and thesensation of fluid. Pt has hx of ear infections as child. Wears hearing aids, they ear 5 years old.Last hearing test 2 years ago in [facility]. Denies drainage. The following portions of [...] PT - 05/21/2020 7:45 AM EDT [facility] Evaluation Visit Consent Statement: I [...] strength back and loosen muscles. Social History Denominational, social, or cultural considerations to be made [...] Notes thoracic pain Vitals 7:45-8:30 Therapeutic Exercise (78918) Intervention Scap retraction, shoulder ext with RTB 10 times each Parameters posterior shoulder stretch at doorway 10 sec hold 5 times each side Intervention K tape thoracic spine Manual Therapy (76858) Intervention IASTM thoracic spine Parameters 10 mins [...] medically necessary. Mable Wadsworth, PT State License, [id number] documented in this encounter* Mable Wadsworth, PT - 05/23/2020 10:00 AM EDT [facility] DAILY TREATMENT NOTE Today's Date [...] Treatments: Physical Therapy Exercise Log - 05/23/20 0978 OTHER Notes thoracic pain Vitals 9:55-10:10:30 Therapeutic Exercise (49723) Intervention Scap retraction, shoulder ext with RTB 10 times each Parameters posterior shoulder stretch at doorway 10 sec hold 5 times each side Intervention K tape thoracic spine Parameters Counter stretch, wall cross body stretch 10 times each Intervention Chest press and OH flexion with 4# bar 10 times each Manual Therapy (90998) Intervention IASTM thoracic spine Parameters 10 mins [...] work activities. Mable Wadsworth PT State License, [id number] documented in this encounter* Joy Sol BALL POINTS INSPECTOR - 05/27/2020 11:30 AM EDT [facility] DAILY TREATMENT NOTE Today's Date [...] Notes thoracic pain Vitals 11:20-11:52 Therapeutic Exercise (47492) Intervention Scap retraction, shoulder ext with RTB 10 times each Parameters posterior shoulder stretch at doorway 10 sec hold 5 times each side Intervention K tape thoracic spine Parameters Counter stretch, wall cross body stretch 10 times each Intervention Chest press and OH flexion with 4# bar 10 times each Parameters cat/camel, child's pose x 10 each Manual Therapy (41799) Intervention IASTM thoracic spine Parameters 10 mins [...] symptom relief. Joy Sol PTA STATE LICENSE, [id number] documented in this encounter* Jessica Valdez, PT - 05/28/2020 9:15 AM EDT [facility] DAILY TREATMENT NOTE Today's Date [...] Notes thoracic pain Vitals 8:55- Therapeutic Exercise (56595) Intervention Scap retraction, shoulder ext with RTB [...] 30' fwd/bck x 2 min Manual Therapy (85489) Intervention IASTM thoracic spine Parameters 10 mins [...] postural strengthening. Jessica Valdez PT State License, [id number] documented in this encounter* Mable Wadsworth, PT - 06/06/2020 1:00 PM EDT [facility] DAILY TREATMENT NOTE Today's Date [...] Notes thoracic pain Vitals 1:00-1:45 Therapeutic Exercise (66179) Intervention Scap retraction, shoulder ext with GTB [...] Parameters anti-rotation press x10 GTB Manual Therapy (76474) Intervention IASTM thoracic spine Parameters 15 mins [...] for work. Mable Wadsworth PT State License, [id number] documented in this encounter* Joy Sol, BALL POINTS INSPECTOR - 06/09/2020 1:00 PM EDT [facility] DAILY TREATMENT NOTE Today's Date [...] Notes thoracic pain Vitals 1:00-1:44 Therapeutic Exercise (24712) Intervention Scap retraction, shoulder ext with GTB [...] Parameters anti-rotation press x10 GTB Manual Therapy (26251) Intervention IASTM thoracic spine Parameters 14 mins [...] patient tolerance. Joy Sol PTA STATE LICENSE, [id number] documented in this encounter* Joy Sol PTA - 06/11/2020 1:00 PM EDT [facility] DAILY TREATMENT NOTE Today's Date [...] Notes thoracic pain Vitals 1:00-1:45 Therapeutic Exercise (20679) Intervention Scap retraction, shoulder ext with BTB [...] resistance band push/pull x 10 Manual Therapy (21891) Intervention IASTM thoracic spine Parameters 10 mins [...] patient tolerance. Joy Sol PTA STATE LICENSE, [id number] documented in this encounter* Mable Wadsworth, PT - 06/18/2020 1:00 PM EDT [facility] DAILY TREATMENT NOTE Today's Date [...] Notes thoracic pain Vitals 1:00-1:45 Therapeutic Exercise (19409) Intervention Scap retraction, shoulder ext with BTB [...] resistance band push/pull x 10 Manual Therapy (36678) Intervention IASTM thoracic spine Parameters 10 mins [...] Visit: Discharge Mable Wadsworth PT State License, [id number] documented in this encounter* Manuela Balbuena, BALL POINTS INSPECTOR - 06/03/2020 10:45 AM EDT [facility] DAILY TREATMENT NOTE Today's Date [...] Notes thoracic pain Vitals 8:55-9:40 Therapeutic Exercise (17331) Intervention Scap retraction, shoulder ext with GTB [...] Parameters anti-rotation press x10 RTB Manual Therapy (86392) Intervention IASTM thoracic spine Parameters 15 mins [...] and flexibility Manuela Balbuena PTA STATE LICENSE, [id number] documented in this encounter* Marzena Murrell, Carin - 02/14/2020 1:15 PM EDT [facility] [address] [place] [address] Name: Rena Langston : 1990 Date: 02/14/20 History & Purpose of Evaluation: Rena Langston was seen today for audiologic evaluation at the kind request of Dr. Loja. Ms. Langston has a known history of hearing loss and constant high pitched tinnitus. Ms. Langston reports she has worn hearing aids since the age of 12. Her last hearing test was two years ago in [place], [place] (unable to obtain). She currently wears [...] Dr. Loja. 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 Follow-up with managing clipper counters for hearing aid concerns. The above was explained to the patient and or their guardian and they expressed understanding. Electronically signed by: Bruno Olsen, CCC-A 02/14/20 12:54 PM documented in this encounter* Melanie Dhillon CNP - 11/13/2020 7:36 AM EST Patient called [facility] with concern for COVID-19 and need for testing. 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 Advance Directives and Living Will Advance Directive Response Recorded Date/ Time Living Will No November 11 11:07pm Power of Cost Accounting Clerk No November 11, 2021 11:07pm Advance Directive Response Recorded Date/ Time Living Will No February 13, 2022 9 :24am Power of Cost Accounting Clerk No February 13, 2022 9:24am Advance Directive Response Recorded Date/ Time Living Will No February 13, 2022 8 :24am Power of Cost Accounting Clerk No February 13, 2022 8:24am Advance Directive Response Recorded Date/ Time Living Will No January 25, 2023 12 :42pm Power of Cost Accounting Clerk No January 25, 2023 12:42pm Advance Directive Response Recorded Date/ Time Living Will No January 25, 2023 11 :42am Power of Cost Accounting Clerk No January 25, 2023 11:42am Advance Directive Response Recorded Date/ Time Living Will No January 25, 2023 12 :42pm Power of Cost Accounting Clerk No January 25, 2023 12:42pm Living Will No October 08 8:38pm Power of Cost Accounting Clerk No October 08, 2024 8:38pm Advance Directive Response Recorded Date/ Time Living Will No October 08 8:38pm Do you have a Healthcare Power of Cost Accounting Clerk? 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 Placed on steroid x 4 days, no relief. Two courses of antibiotics. She still has pressure and the sensation of fluid. Pt has hx of ear infections as child. Wears hearing aids, they ear 5 years old. Last hearing test 2 years ago in [facility]. Denies drainage. Reason Comments Physical Therapy Status Reason Specialty Diagnoses / Procedures Referred By Contact Referred To Contact Authorized Rehabilitation Diagnoses Sprain of ligaments of thoracic spine, initial encounter Raoul Cruz PA-C [address] [place] [address] [facility] [address] [place] [address] Status Reason Specialty Diagnoses / Procedures Referred By Contact Referred To Contact Closed Specialty Services Required/Patient' s Best Interest Audiology Diagnoses Tinnitus of right ear Sensorineural hearing loss (SNHL) of both ears Americo Loja DO [address] [place] [address] Marzena Mrurell AuD Reason Comments Establish Care New patient Reason Comments Rosacea Addendum Note - Americo Loja DO - 02/14/2020 1:21 PM EDT Miscellaneous Notes (unrecog nized section and content) Addended by: AMERICO LOJA on: 02/14/2020 01:21 PM Modules accepted: Orders documented in this encounter INFORMATION SOURCE (unrecogn ized section and content) DATE [facility] DATE CREATED AUTHOR AUTHOR'S ORGANIZ ATION 03/17/2021 [facility] DATE CREATED AUTHOR AUTHOR'S ORGANIZ ATION 05/24/2021 [facility] DATE CREATED AUTHOR AUTHOR'S ORGANIZ ATION [facility] DATE CREATED AUTHOR AUTHOR'S ORGANIZ ATION 06/12/2025 [facility] Care Teams (unrecognized sec tion and content) Durable Medical Equipment Technician Relationship Specialty Start Date End Date Wong Lewis MD [address] [address] [address]CP - [facility] Provider - [facility] 03/18/21 Wong Lewis MD [address] [address] PCP - General Family Medicine 05/01/21 Durable Medical Equipment Technician Relationship Specialty Start Date End Date Wong Lewis MD [address] [address] PCP - General Family Medicine 05/01/21 Team [...] Member Role Status Dates Heaven Nathaniel , PERMASTONE MECHANIC-C Primary Care Provider Active Team Status: Inactive Member Role Status Dates Heaven Nathaniel , PERMASTONE MECHANIC-C Primary Care Provider Active Start: August 20, 2024 End: August 20, 2024 Heaven Armstrong , PERMASTONE MECHANIC-C Referring Provider Active St art: August 20, 2024 End: August 20, 2024 Dr. Mala Moncada DC Attending Provider Active S tart: August 20, 2024 End: August 20, 2024 Team Status: Inactive Member Role Status Dates Heaven Nathaniel , PERMASTONE MECHANIC-C Primary Care Provider Active Start: September 10, 2024 End: September 10, 2024 Heaven Armstrong , PERMASTONE MECHANIC-C Referring Provider Active St art: September 10, 2024 End: September 10, 2024 Dr. Mala Moncada DC Attending Provider Active S tart: September 10, 2024 End: September 10, 2024 Team Status: Active Member Role Status Dates Dr. Mala Moncada DC Attending Provider Active S tart: September 25, 2024 Dr. Mala Moncada DC Referring Provider Active S tart: September 25, 2024 Heaven Nathaniel , PERMASTONE MECHANIC-C Primary Care Provider Active Start: September 25, 2024 Team Status: Inactive Member Role Status Dates Heaven Nathaniel , PERMASTONE MECHANIC-C Primary Care Provider Active Start: September 26, 2024 End: September 26, 2024 Heaven Armstrong , PERMASTONE MECHANIC-C Referring Provider Active St art: September 26, 2024 End: September 26, 2024 Dr. Mala Moncada DC Attending Provider Active S tart: September 26, 2024 End: September 26, 2024 Team Status: Inactive Member Role Status Dates Heaven Nathaniel , PERMASTONE MECHANIC-C Primary Care Provider Active Start: October 08, 2024 End: October 08, 2024 Dr. Waqas Stone DO Attending Provider Active Start: October 08, 2024 End: October 08, 2024 Dr. Waqas Stone DO Emergency Provider Active Start: October 08, 2024 End: October 08, 2024 Team Status: Inactive Member Role Status Dates Heaven Nathaniel , PERMASTONE MECHANIC-C Primary Care Provider Active Start: October 10, 2024 End: October 10, 2024 Heaven Nathaniel , PERMASTONE MECHANIC-C Referring Provider Active St art: October 10, 2024 End: October 10, 2024 Dr. Mala Moncada DC Attending Provider Active S tart: October 10, 2024 End: October 10, 2024 Team Status: Inactive Member Role Status Dates Heaven Armstrong PERMASTONE MECHANIC-C Primary Care Provider Active Start: October 30, 2024 End: October 30, 2024 Heaven Armstrong PERMASTONE MECHANIC-C Referring Provider Active St art: October 30, 2024 End: October 30, 2024 Dr. Mala Moncada DC Attending Provider Active S tart: October 30, 2024 End: October 30, 2024 Team Status: Inactive Member Role Status Dates Heaven Armstrong PERMASTONE MECHANIC-C Primary Care Provider Active Start: November 08, 2024 End: November 08, 2024 Heaven Armstrong PERMASTONE MECHANIC-C Referring Provider Active St art: November 08, 2024 End: November 08, 2024 Dr. Balbina Gonzales MD Attending Provider Active Start: November 08, 2024 End: November 08, 2024 Team Status: Inactive Member Role Status Dates Heaven Armstrong PERMASTONE MECHANIC-C Primary Care Provider Active Start: November 08, 2024 End: November 08, 2024 Dr. Balbina Gonzales MD Attending Provider Active Start: November 08, 2024 End: November 08, 2024 Dr. Balbina Gonzales MD Referring Provider Active Start: November 08, 2024 End: November 08, 2024 Team Status: Inactive Member Role Status Dates Heaven Armstrong PERMASTONE MECHANIC-C Primary Care Provider Active Start: November 14, 2024 End: November 14, 2024 Heaven Armstrong PERMASTONE MECHANIC-C Referring Provider Active St art: November 14, 2024 End: November 14, 2024 Dr. Mala Moncada DC Attending Provider Active S tart: November 14, 2024 End: November 14, 2024 Team Status: Active Member Role Status Dates Heaven Armstrong PERMASTONE MECHANIC-C Primary Care Provider Active Start: November 16, 2024 Teresa Dillon RN Attending Provider Active St art: November 16, 2024 Team Status: Inactive Member Role Status Dates Heaven Armstrong , PERMASTONE MECHANIC-C Primary Care Provider Active Start: November 21, 2024 End: November 21, 2024 Heaven Nathaniel , PERMASTONE MECHANIC-C Referring Provider Active St art: November 21, 2024 End: November 21, 2024 Dr. Marzena Casas DO Attending Provider Activ e Start: November 21, 2024 End: November 21, 2024 Team Status: Inactive Member Role Status Dates Heaven Armstrong , PERMASTONE MECHANIC-C Primary Care Provider Active Start: November 21, 2024 End: November 21, 2024 Dr. Marzena Casas DO Attending Provider Activ e Start: November 21, 2024 End: November 21, 2024 Dr. Marzena Casas DO Referring Provider Activ e Start: November 21, 2024 End: November 21, 2024 Team Status: Inactive Member Role Status Dates Heaven Armstrong PERMASTONE MECHANIC-C Primary Care Provider Active Start: November 30, 2024 End: November 30, 2024 Heaven Armstrong , PERMASTONE MECHANIC-C Referring Provider Active St art: November 30, 2024 End: November 30, 2024 Dr. Marzena Casas DO Attending Provider Activ e Start: November 30, 2024 End: November 30, 2024 Team Status: Active Member Role/Relationship Status Dates Heavenpablo Armstrong , PERMASTONE MECHANIC-C Primary Care Provider Active Team Status: Inactive Member Role/Relationship Status Dates Heaven Armstrong , PERMASTONE MECHANIC-C Primary Care Provider Active Start: May 13, [...] BE BASED ON THE PRIMARY CLINICAL RECORDS. [facility]. provides no warranty or guarantee of the accuracy or completeness of information in this document.
== END | disposition home or self-care (01) ==
PROVIDERS: PCP Nurse Practitioner Family; Referring Provider Student in an Organized Health Care Education/Training Program; Visit Provider Student in an Organized Health Care Education/Training Program
DX: M84.375A Stress fracture, left foot, initial encounter for fracture (principal); M79.672 Pain in left foot
CPT/HCPCS: 73718